=== PATIENT | male | born 1970 | race Caucasian/White ===

== ENCOUNTER 2019-02-03 04:45 | Emergency (ER) | payer OTHER, SELFPAY ==
--- NOTE | 2019-02-03 04:50 | ED_ITS ---
HPI - Abdominal Pain General Chief Complaint: Abdominal Pain Stated Complaint: bad stomach cramps Time Seen by Provider: 02/03/19 04:50 Source: patient Mode of arrival: ambulatory Limitations: no limitations History of Present Illness HPI narrative: Patient is a 48-year-old male here for evaluation of abdominal pain. Patient states that it started a couple hours prior to arrival here in the emergency department. Is having nausea but no vomiting. Has had multiple bowel movements with they were not diarrhea or constipation. No urinary symptoms. No prior abdominal surgeries. Patient states he had similar symptoms several years ago and he came to the emergency department. He states that he was given some sort of medication and then the symptoms resolved. Has not had anything since then. Related Data Previous Rx's Medication Instructions Recorded omeprazole magnesium [Prilosec OTC] 20 mg PO QDAY #30 07/05/16 ondansetron [Zofran ODT] 4 mg SUBLINGUAL Q4HP PRN #15 odt 07/05/16 sucralfate [Carafate] 5 ml PO QID PRN #420 ml 02/03/19 Allergies Allergy/AdvReac Type Severity Reaction Status Date / Time Penicillins [PENICILLINS] Allergy Mild HIVES Verified 02/03/19 05:00 Review of Systems Constitutional Denies fever(s) Cardiovascular Denies chest pain and Denies dyspnea Respiratory Denies dyspnea Gastrointestinal Gastrointestinal: Reports abdominal pain, Denies change in stool character, Reports nausea and Denies vomiting Genitourinary Denies dysuria Musculoskeletal Denies myalgias and Denies arthralgias Integumentary/Breasts Denies rash Allergic/Immunologic Denies urticaria [facility] Medical History Patient denies medical problems (Acute) Social History Smoking Status: Never smoker Social History Smoking Status: Never smoker Exam Initial Vital Signs Initial Vital Signs: Vital Signs Temperature 99.0 F 02/03/19 04:54 Pulse Rate 80 02/03/19 04:54 Respiratory Rate 16 02/03/19 04:54 Blood Pressure 183/119 H 02/03/19 04:54 Pulse Oximetry 99 02/03/19 04:54 Const General: cooperative, well developed, well groomed and No acute distress Orientation: alert and awake [facility] Head: normal to inspection and normocephalic Teeth and gingiva: caries and poor dentition Resp Effort & Inspection: normal respiratory effort Cardio Rate: regular rate GI Inspection: non-distended Palpation: soft, No firm and tender (Generalized tenderness without rebound or guarding) Skin Lesions: no lesions Rashes: no rashes Neuro General: alert and awake Cognition: normal cognition Speech: speech normal Psych Appearance: grossly normal and well kempt Course Orders Ordered: ED Orders 02/03/19 04:59 Complete Blood Count AUTO DIFF Stat Comprehensive Metabolic Panel Stat Lipase Stat Discontinued Medications Al Hydrox/Mg Hydrox/Simethicone 20 ml/ Lidocaine HCl 15 ml 0 ml PO NOW ONE Stop: 02/03/19 04:56 Last Admin: 02/03/19 05:01 Dose: 35 ml Pantoprazole Sodium (Protonix) 40 mg IV NOW ONE Stop: 02/03/19 04:56 Last Admin: 02/03/19 05:01 Dose: 40 mg Vital Signs - 8 hr 02/03/19 04:54 02/03/19 05:00 02/03/19 05:30 Temperature 99.0 F Pulse Rate 80 79 68 Respiratory Rate 16 16 16 Blood Pressure 183/119 H Blood Pressure [Left Arm] 180/111 H 162/108 H Pulse Oximetry 99 97 98 MDM - Abdominal Pain Lab Data Attestation: I reviewed the patient's lab results. Result diagrams: 02/03/19 04:59 02/03/19 04:59 Lab Results 02/03/19 02/03/19 Range/Units 04:59 04:59 WBC 9.1 (4.5-11.0) X10^3/uL RBC 5.13 (4.5-5.9) X10^6/uL Hgb 16.2 (13.5-17.5) g/dL Hct 46.5 (41-53) % MCV 90.8 (80-100) fL MCH 31.7 (26-34) PG MCHC 34.9 (30-36) % RDW 12.7 (11.6-14.8) % Plt Count 195 (150-400) X10^3/uL Neut % (Auto) 54.7 (50-75) % Lymph % (Auto) 34.3 (25-40) % Miller % (Auto) 9.2 (3-14) % Eos % (Auto) 1.1 L (2-4) % Baso % (Auto) 0.7 (0-2) % Neut # (Auto) 5000 (2155-0611) /uL Lymph # (Auto) 3100 (8786-8362) /uL Miller # (Auto) 800 (0-900) /uL Eos # (Auto) 100 (0-450) /uL Baso # (Auto) 100 (0-100) /uL Sodium 140 (137-145) mmol/L Potassium 4.0 (3.4-5.1) mmol/L Chloride 105 (98-107) mmol/L Carbon Dioxide 23 (22-32) mmol/L BUN 10 (9-20) mg/dL Creatinine 0.80 (0.66-1.25) mg/dL Estimated GFR > 60.0 (>60) mL/min BUN/Creatinine Ratio 12.5 (6-22) Glucose 104 H (70-100) mg/dL Calcium 9.8 (8.4-10.2) mg/dL Total Bilirubin 1.2 (0.2-1.3) mg/dL AST 49 (17-59) IU/L ALT 80 H (21-72) IU/L Alkaline Phosphatase 82 (38-126) U/L Total Protein 8.5 H (6.3-8.2) g/dL Albumin 5.0 (3.5-5.0) g/dL Globulin 3.5 (1.7-4.1) g/dL Albumin/Globulin Ratio 1.4 (1.0-2.8) Lipase 49 (23-300) U/L [facility] Narrative Medical decision making narrative: Patient reports some improvement of his symptoms after the GI cocktail on the Protonix. He has a relatively benign abdominal exam. Lipase and LFTs not concerning for pancreatitis or gallbladder disease. Will hold on CT scan for now given his physical exam. Will start on a course of Carafate. Patient was instructed that if his symptoms worsen that he needs to return to the emergency department for evaluation. Patient expressed understanding and agreement with plan. Discharge Plan Departure Patient Disposition: Home Clinical Impression: Abdominal pain Qualifiers: Abdominal location: epigastric Qualified Code(s): R10.13 - Epigastric pain Instructions: DI for Abdominal Pain-Adult Activity Restrictions/Additional Instructions: I do recommend that you start taking the Carafate as directed. Contact your primary care doctor for a follow-up. Return to the emergency department for any new or worsening symptoms Prescriptions: New sucralfate [Carafate] 100 mg/mL suspension 5 ml PO QID PRN (Reason: abdominal pain) Qty: 420 RF: 0 No Action ondansetron [Zofran ODT] 4 MG tablet,disintegrating 4 mg Sublingual Q4HP PRNQty: 15 RF: 0 omeprazole magnesium [Prilosec OTC] 20 MG tablet,delayed release (DR/EC) 20 mg PO QDAY Qty: 30 RF: 0 Referrals: Antoine Alvarez MD [Primary Care Provider] -
[2019-02-03 04:54] VITALS: BP 183/119; PULSE 80; RESP 16; TEMP 37.2; O2SAT 99; BMI 32.5
[2019-02-03 05:00] VITALS: BP 180/111; PULSE 79; RESP 16; O2SAT 97
[2019-02-03] MEDS: PANTOPRAZOLE 40 MG VIAL IV (05:01)
[2019-02-03] MEDS: MAG HYDROX/ALUMINUM/SIMETH SUS 20 ML, LIDOCAINE VISCOUS 2% 15 ML PO (05:01)
[2019-02-03 05:12] LABS: Add Manual Diff / Slide Review NO; Basophils Absolute Auto 100 /uL (0-100); Basophils Percent Auto 0.7 % (0-2); Eosinophils Absolute Auto 100 /uL (0-450); Eosinophils Percent Auto 1.1 % (2-4); Hematocrit 46.5 % (41-53); Hemoglobin 16.2 g/dL (13.5-17.5); Lymphocytes Absolute Auto 3100 /uL (1100-4500); Lymphocytes Percent Auto 34.3 % (25-40); Mean Corpuscular HGB Conc 34.9 % (30-36); Mean Corpuscular Hemoglobin 31.7 PG (26-34); Mean Corpuscular Volume 90.8 fL (80-100); Monocytes Absolute Auto 800 /uL (0-900); Monocytes Percent Auto 9.2 % (3-14); Neutrophils Absolute Auto 5000 /uL (1500-7000); Neutrophils Percent Auto 54.7 % (50-75); Platelet Count 195 X10^3/uL (150-400); Red Blood Cell Count 5.13 X10^6/uL (4.5-5.9); Red Cell Distribution Width 12.7 % (11.6-14.8); White Blood Cell Count 9.1 X10^3/uL (4.5-11.0)
[2019-02-03 05:19] LABS: Alanine Aminotransferase 80 IU/L (21-72); Albumin Globulin Ratio 1.4 (1.0-2.8); Alkaline Phosphatase 82 U/L (38-126); Aspartate Aminotransferase 49 IU/L (17-59); BUN Creatinine Ratio 12.5 (6-22); Bilirubin Total 1.2 mg/dL (0.2-1.3); Blood Urea Nitrogen 10 mg/dL (9-20); Calcium 9.8 mg/dL (8.4-10.2); Carbon Dioxide 23 mmol/L (22-32); Chloride 105 mmol/L (98-107); Estimated Glomerular Filt Rate > 60.0 mL/min (>60); Globulin 3.5 g/dL (1.7-4.1); Glucose 104 mg/dL (70-100); HEMOLYSIS 19 (0-50); Lipase 49 U/L (23-300); Sodium 140 mmol/L (137-145); Total Protein 8.5 g/dL (6.3-8.2)
[2019-02-03 05:30] VITALS: BP 162/108; PULSE 68; RESP 16; O2SAT 98
[2019-02-03 06:01] VITALS: BP 162/108; PULSE 70; RESP 16; TEMP 37; O2SAT 97
== END 2019-02-03 06:02 | disposition home or self-care (01) ==
PROVIDERS: Emergency Provider Emergency Medicine; Family Provider Family Medicine; PCP Family Medicine
DX: R10.13 Epigastric pain (principal)
CPT/HCPCS: 36591; 80053; 83690; 85025; 96374; 99282; 99284; C9113

== ENCOUNTER 2019-02-10 08:23 | Emergency (ER) | payer OTHER, SELFPAY ==
[2019-02-10 08:36] VITALS: BP 189/115; PULSE 108; RESP 17; TEMP 37.9; O2SAT 96; BMI 32.5
--- NOTE | 2019-02-10 08:40 | ED_ITS ---
HPI - Dental/Oral General Chief complaint: Dental/Oral Stated complaint: FACIAL SWELLING Time Seen by Provider: 02/10/19 08:39 Source: patient Mode of arrival: ambulatory Limitations: no limitations History of Present Illness HPI Narrative: 48-year-old male. Poor dentition. Here for evaluation of a left-sided facial swelling. States it is started over the past 1-2 days. Has also had a headache. He is concerned about infection. He called his insurance this morning and found that he did not have dental insurance. He came to the emergency department because he thought that he needed antibiotics. Related Data Previous Rx's Medication Instructions Recorded omeprazole magnesium [Prilosec OTC] 20 mg PO QDAY #30 07/05/16 ondansetron [Zofran ODT] 4 mg SUBLINGUAL Q4HP PRN #15 odt 07/05/16 sucralfate [Carafate] 5 ml PO QID PRN #420 ml 02/03/19 clindamycin HCl 300 mg PO Q6H 7 Days #28 cap 02/10/19 Allergies Allergy/AdvReac Type Severity Reaction Status Date / Time Penicillins [PENICILLINS] Allergy Mild HIVES Verified 02/10/19 08:37 Review of Systems Constitutional Denies fever(s) and Reports headache(s) ENT Ears, Nose, Mouth, and Throat: Reports headache(s) Comments: Left-sided facial swelling with pain in his left upper dental region Respiratory Denies cough Integumentary/Breasts Denies rash Neurologic Denies behavioral changes and Reports headache(s) Psychiatric Denies behavioral changes Hematologic/Lymphatic Denies easy bleeding and Denies easy bruising [facility] Medical History Patient denies medical problems (Acute) Social History Smoking Status: Never smoker Social History Smoking Status: Never smoker Exam Initial Vital Signs Initial Vital Signs: Vital Signs Temperature 100.2 F H 02/10/19 08:36 Pulse Rate 108 H 02/10/19 08:36 Respiratory Rate 17 02/10/19 08:36 Blood Pressure 189/115 H 02/10/19 08:36 Pulse Oximetry 96 02/10/19 08:36 Const General: well developed, well groomed and No acute distress Orientation: alert, awake and oriented x3 HENMT Head: normal to inspection Ears: TM's normal bilaterally Nose: external nose normal Face and sinus: no erythema and other (Swelling left side of face) Mouth: oral mucosae normal Teeth and gingiva: poor dentition and other (Well identified abscess left upper maxilla) Throat: posterior oropharynx normal Eyes General: appearance normal, both eyes and all related structures Resp Effort & Inspection: normal respiratory effort Cardio Rate: tachycardic Skin Lesions: lesions noted Rashes: rash noted Neuro General: alert and awake Cognition: normal cognition Extrem General: normal to inspection and capillary refill normal Psych Appearance: grossly normal and well kempt Procedures Abscess I/D Site: oral Side (if applicable): left Local Anesthetic: lidocaine 1% and bupivacaine 0.5% Amount of anesthesia used (mL): 4 Technique: incised with #11 blade Irrigation: No Packing used?: none Course Vital Signs - 8 hr 02/10/19 08:36 02/10/19 08:59 Temperature 100.2 F H Pulse Rate 108 H 98 H Respiratory Rate 17 16 Blood Pressure 189/115 H Blood Pressure [Left Arm] 174/114 H Pulse Oximetry 96 96 MDM - Dental/Oral MDM Narrative Medical decision making narrative: No respiratory distress. Patient is a well identified left upper maxilla dental abscess. This was incised here in the ER with return of purulent material. Patient was hypertensive and tachycardic. No signs of airway issues. He does have very poor dentition. Will send home with prescription for antibiotics. He was instructed that he should follow up with a dentist. He was given options for low-cost dentist here in the area. He was given return precautions. He expressed understanding and agreement plan. Discharge Plan Departure Patient Disposition: Home Clinical Impression: Dental abscess Instructions: Tooth Abscess Activity Restrictions/Additional Instructions: Start taking the antibiotics as directed. You do need to follow up with a dental provider. The [facility] dental here in the area is a good option. You could also contact the [facility]. Return to the emergency department for any new or worsening symptoms. Take Tylenol and/or ibuprofen for any discomfort. Prescriptions: New clindamycin HCl 300 mg capsule 300 mg PO Q6H 7 Days Qty: 28 RF: 0 No Action ondansetron [Zofran ODT] 4 MG tablet,disintegrating 4 mg Sublingual Q4HP PRNQty: 15 RF: 0 omeprazole magnesium [Prilosec OTC] 20 MG tablet,delayed release (DR/EC) 20 mg PO QDAY Qty: 30 RF: 0 sucralfate [Carafate] 100 mg/mL suspension 5 ml PO QID PRN (Reason: abdominal pain) Qty: 420 RF: 0 Referrals: Antoine Alvarez MD [Primary Care Provider] -
--- NOTE | 2019-02-10 08:41 | PC.NURSE ---
Significant swelling noted to left upper jaw and face. Dental Abscess present. Provider at bedside numbed his mouth performed Incision and drainage. patient tolerated well. Small amount of puss drained and suctioned from patients mouth.
[2019-02-10 08:59] VITALS: BP 174/114; PULSE 98; RESP 16; O2SAT 96
== END 2019-02-10 09:13 | disposition home or self-care (01) ==
PROVIDERS: Emergency Provider Emergency Medicine; Family Provider Family Medicine; PCP Family Medicine
DX: K04.7 Periapical abscess without sinus (principal)
CPT/HCPCS: 40800; 99282; 99283

== ENCOUNTER 2019-06-18 11:03 | Observation (INO) | payer OTHER, SELFPAY ==
[2019-06-18 11:19] VITALS: BP 127/88; PULSE 76; RESP 18; TEMP 36.8; O2SAT 97; BMI 33.2
[2019-06-18 12:00] VITALS: BP 121/89; PULSE 80; RESP 14; O2SAT 97
[2019-06-18] MEDS: PANTOPRAZOLE 40 MG VIAL IV (12:01)
[2019-06-18] MEDS: SODIUM CHLORIDE 0.9% 1,000 ML 500 ML IV (12:01)
[2019-06-18] MEDS: ONDANSETRON 4 MG/2 ML INJ IV (12:02)
[2019-06-18] MEDS: MORPHINE 4 MG/ML INJ IV ×2 (12:02→14:00)
[2019-06-18 12:04] LABS: Add Manual Diff / Slide Review NO; Basophils Absolute Auto 100 /uL (0-100); Basophils Percent Auto 0.6 % (0-2); Eosinophils Absolute Auto 300 /uL (0-450); Hematocrit 46.1 % (41-53); Hemoglobin 15.9 g/dL (13.5-17.5); Lymphocytes Absolute Auto 2000 /uL (1100-4500); Mean Corpuscular HGB Conc 34.4 % (30-36); Mean Corpuscular Hemoglobin 31.5 PG (26-34); Mean Corpuscular Volume 91.7 fL (80-100); Monocytes Absolute Auto 1100 /uL (0-900); Monocytes Percent Auto 9.8 % (3-14); Neutrophils Absolute Auto 7700 /uL (1500-7000); Neutrophils Percent Auto 68.6 % (50-75); Platelet Count 163 X10^3/uL (150-400); Red Blood Cell Count 5.03 X10^6/uL (4.5-5.9); White Blood Cell Count 11.2 X10^3/uL (4.5-11.0)
[2019-06-18 12:13] LABS: Alanine Aminotransferase 94 IU/L (21-72); Albumin Globulin Ratio 1.6 (1.0-2.8); Alkaline Phosphatase 74 U/L (38-126); Aspartate Aminotransferase 61 IU/L (17-59); BUN Creatinine Ratio 21.3 (6-22); Bilirubin Total 1.5 mg/dL (0.2-1.3); Blood Urea Nitrogen 17 mg/dL (9-20); Calcium 9.7 mg/dL (8.4-10.2); Carbon Dioxide 20 mmol/L (22-32); Chloride 107 mmol/L (98-107); Estimated Glomerular Filt Rate > 60.0 mL/min (>60); Globulin 3.2 g/dL (1.7-4.1); Glucose 138 mg/dL (70-100); HEMOLYSIS < 15 (0-50); Lipase 72 U/L (23-300); Potassium 4.4 mmol/L (3.4-5.1); Sodium 140 mmol/L (137-145); Total Protein 8.2 g/dL (6.3-8.2)
--- NOTE | 2019-06-18 12:26 | DI.CT.S_ITS ---
PROCEDURE: CT ABDOMEN PELVIS W CON INDICATIONS: diffused upper abdomen pain with GI bleed TECHNIQUE: After the administration of intravenous contrast, 5 mm thick sections acquired from the diaphragm to the symphysis. 5 mm coronal and sagittal reformats were acquired. For radiation dose reduction, the following was used: automated exposure control, adjustment of mA and/or kV according to patient size. COMPARISON: [facility], , ABDOMEN COMPLETE, 10/19/2015, 11:52. FINDINGS: Image quality: Excellent. ABDOMEN: Lung bases: Partially visualized 5 mm left lower lobe nodule is present. Solid organs: Liver is enlarged with steatosis. Gallbladder distended and unremarkable. Biliary system is non dilated. Pancreas enhances normally. Spleen is normal in size and enhancement. No adrenal nodules. Kidneys demonstrate normal size and enhancement, without hydronephrosis. Peritoneum and bowel: Bowel loops demonstrate mild fluid-filled prominence of both small and large bowel.. No free fluid or air. Nodes and vessels: No retroperitoneal or mesenteric adenopathy by size criteria. Aorta and inferior vena cava are normal in size. Miscellaneous: No ventral hernias. PELVIS: Genitourinary: Bladder wall thickness is normal. Miscellaneous: No inguinal hernias or adenopathy. Bones: No suspicious bony lesions. No vertebral body compression fractures. IMPRESSION: 1. Mildly prominent fluid-filled loops of bowel as above suggestive of ileus. 2. No areas of active contrast extravasation denoting site of active hemorrhage. 3. Nonspecific incompletely visualized left lower lobe nodule. No priors are available for comparison. Recommend interval followup as below. Fleischner Society criteria for SOLID lung nodule followup. Nodule size (mm)Low-risk patientHigh-risk patient<6 (single or multiple)No routine followup.Optional CT at 12 months. 6-8 (single or multiple)CT at 6-12 months, then optional CT at 18-24 mo.CT at 6-12 [address], then CT at 18-24 months. >8 (single)CT, PET-CT, or biopsy at 3 months. Same as for low-risk pts. >8 (multiple)CT at 3-6 months, then optional CT at 18-24 mo.CT at 3-6 months, then CT at 18-24 months. Recommendations do not apply to lung cancer screening, patients with immunosuppression, or patients with known primary cancer. Dictated by: Delphine Patel M.D. on 06/18/2019 at 13:31 Approved by: Delphine Patel M.D. on 06/18/2019 at 13:34
--- NOTE | 2019-06-18 12:50 | ED_ITS ---
HPI - Abdominal Pain <MALATHI AcuñaP - Last Filed: 06/18/19 22:36> General Chief Complaint: Abdominal Pain Stated Complaint: Severe stomach pain/ blood in stool Time Seen by Provider: 06/18/19 11:25 Source: patient Mode of arrival: Ambulatory Limitations: no limitations History of Present Illness HPI narrative: This is a 48-year-old male, nonsmoker, who presents to ED with mid generalized abdominal cramping pain with diarrhea x6 with dark red blood. Patient denies fever, nausea or vomiting, exposure to illness/who has similar symptoms, eating bad foods, or recent international travel. Patient reports several episodes of chills. Patient reports he has had stomach issues for last several months. He had colonoscope be done in this year with normal findings. He was once evaluate aided in ED in January in 2018 and was discharged to home with Carafate. Patient had taken 1 dose of Carafate this morning but pain was not relieved. Related Data Home Medications Medication Instructions Recorded Confirmed lisinopril 20 mg PO DAILY 06/18/19 06/18/19 Previous Rx's Medication Instructions Recorded vancomycin 125 mg PO QID #32 cap 06/20/19 Allergies Allergy/AdvReac Type Severity Reaction Status Date / Time Penicillins [PENICILLINS] Allergy Mild HIVES Verified 06/18/19 11:19 Review of Systems <MANDO Acuña - Last Filed: 06/18/19 22:36> Review of Systems Narrative: General: Reports chills. Denies fever, fatigue, malaise, sweats. HEENT: Denies sinus pain, ear pain, sore throat, difficulty swallowing, dizziness. Respiratory: Denies dyspnea, cough, wheezing, hemoptysis, sputum. Cardiovascular: Denies chest pain, palpitations, orthopnea, edema. Gastrointestinal: See HPI : Denies dysuria, frequency, incontinence, hematuria, urinary retention. Musculoskeletal: Denies weakness, joint pain or bony pain. Skin: Denies rash, skin lesions, or other. Neurologic: Reports mild lightheadedness. Denies weakness, headache, numbness, change in speech, confusion, seizures, incoordination. Psychiatric: No concerning psychosocial issues. 12-point review of systems is negative except for those stated above. Patient History <MANDO Acuña - Last Filed: 06/18/19 22:36> Medical History HTN (hypertension) (Acute) Patient denies medical problems (Acute) Surgical History History of neck surgery (Acute) Social History household members: family Smoking Status: Former smoker alcohol intake: never alcohol intake frequency: 0-2 drinks per day Substance Use Type: does not use Exam <MALATHI AcuñaP - Last Filed: 06/18/19 22:36> Narrative Exam Narrative: GEN: Alert, oriented x 3, well appearing and nourished, and in no acute distress. Head: Normal cephalic, atraumatic. No scalp or temporal tenderness, palpable mass or rash. EYES: Pupils are equal, round, and reactive to light and accommodation. Extraocular muscles are intact bilaterally. There is no subconjunctival hemorrhage, exudate and sclera non-icteric. ENT: Bilateral auditory canals and tympanic membranes clear. Hearing grossly intact. Nose without bleeding, purulent discharge or deviation. Facial sinuses nontender to palpate. Mucous membrane moist, no mucosal lesion. Throat without erythema, tonsillar hypertrophy or exudate. Uvula in midline, airway patent. Neck: Trachea in midline. No JVD, non-tender without lymphadenopathy. No masses or thyroid megaly. Supple, non-tender and no meningeal signs. CARDIAC: Normal regular rate and rhythm without murmurs, gallops, or rubs. No chest wall tenderness. No peripheral edema, cyanosis or pallor. Capillary refill is less than 2 seconds. RESPIRATORY: Lungs are clear to auscultate bilaterally. No cough, wheezes, rales, or rhonchi. No stridor, respiratory distress, increase work of breathing, or accessary muscle used. ABD: Mild discomfort in bilateral upper abdomen and left lower quadrant with palpation. Abdomen soft, and mildly distended. No guarding or rebound tenderness to palpate. Bowel sounds are normal in all 4 quadrants. There is no palpable masses or organomegaly. EXT: Full painless ROM of all extremities with no loss of sensation, strength, effusion or edema. SKIN: Warm, dry, normal color for patient. No erythema, lesions or rash over visible areas. BACK: Nontender without deformity or crepitance. No flank tenderness. NEUROLOGICAL: Alert and oriented to place, time and person. Sensation and motor function intact bilaterally. No facial droops, dysphasia. PSYCHIATRIC: Good judgement and reason, without hallucinations, abnormal affect or abnormal behaviors during the examination. Initial Vital Signs Initial Vital Signs: Vital Signs Temperature 98.2 F 06/18/19 11:19 Pulse Rate 76 06/18/19 11:19 Respiratory Rate 18 06/18/19 11:19 Blood Pressure 127/88 06/18/19 11:19 Pulse Oximetry 97 06/18/19 11:19 <Yeison Weston DO - Last Filed: 06/21/19 18:20> Initial Vital Signs Initial Vital Signs: Vital Signs Temperature 98.2 F 06/18/19 11:19 Pulse Rate 76 06/18/19 11:19 Respiratory Rate 18 06/18/19 11:19 Blood Pressure 127/88 06/18/19 11:19 Pulse Oximetry 97 06/18/19 11:19 Course <MANDO Acuña - Last Filed: 06/18/19 22:36> Course Decision to Admit Date: 06/18/19 Decision to Admit time: 14:10 Orders Ordered: Discontinued Medications Bisacodyl (Dulcolax) 5 mg PO NOW ONE Stop: 06/18/19 17:22 Last Admin: 06/18/19 18:03 Dose: 5 mg Documented by: RICK Fentanyl (Sublimaze) 100 mcg IV NOW ONE Stop: 06/19/19 20:14 Last Admin: 06/19/19 19:56 Dose: 100 mcg Documented by: ERMELINDA Sodium Chloride (Normal Saline 0.9%) 1,000 mls @ 500 mls/hr IV BOLUS ONE Stop: 06/18/19 13:38 Last Infusion: 06/18/19 14:00 Dose: 0 mls/hr Documented by: Admin: 06/18/19 12:01 Dose: 500 mls/hr Documented by: YODIT Sodium Chloride (Normal Saline 0.9%) 1,000 mls @ 200 mls/hr IV CONT IDA Last Admin: 06/19/19 15:02 Dose: 200 mls/hr Documented by: Infusion: 06/19/19 14:24 Dose: 200 mls/hr Documented by: Admin: 06/19/19 09:24 Dose: 200 mls/hr Documented by: Infusion: 06/19/19 09:24 Dose: 200 mls/hr Documented by: Admin: 06/19/19 04:47 Dose: 200 mls/hr Documented by: Infusion: 06/19/19 04:47 Dose: 200 mls/hr Documented by: Infusion: 06/18/19 23:34 Dose: 200 mls/hr Documented by: Infusion: 06/18/19 18:35 Dose: 0 mls/hr Documented by: Admin: 06/18/19 18:03 Dose: 200 mls/hr Documented by: RICK Dextrose/Sodium Chloride (Dextrose 5%-0.45% Ns) 1,000 mls @ 100 mls/hr IV CONT IDA Last Infusion: 06/18/19 23:25 Dose: 0 mls/hr Documented by: Admin: 06/18/19 18:24 Dose: 100 mls/hr Documented by: RICK Lisinopril (Zestril) 20 mg PO DAILY [facility] Last Admin: 06/20/19 08:22 Dose: 20 mg Documented by: EDUARDO Midazolam HCl (Versed) 4 mg IV NOW ONE Stop: 06/19/19 20:16 Last Admin: 06/19/19 19:56 Dose: 4 mg Documented by: ERMELINDA Morphine Sulfate (Morphine) 4 mg IV NOW ONE Stop: 06/18/19 11:57 Last Admin: 06/18/19 12:02 Dose: 4 mg Documented by: YODIT Morphine Sulfate (Morphine) 4 mg IV NOW ONE Stop: 06/18/19 13:53 Last Admin: 06/18/19 14:00 Dose: 4 mg Documented by: YODIT Morphine Sulfate (Morphine) 2 mg IV Q4HR PRN PRN Reason: Pain, Moderate (4-6) Ondansetron HCl (Zofran) 4 mg IV NOW ONE Stop: 06/18/19 11:57 Last Admin: 06/18/19 12:02 Dose: 4 mg Documented by: YODIT Ondansetron HCl (Zofran) 4 mg IV Q8HR PRN PRN Reason: Nausea And Vomiting Pantoprazole Sodium (Protonix) 40 mg IV NOW ONE Stop: 06/18/19 11:40 Last Admin: 06/18/19 12:01 Dose: 40 mg Documented by: YODIT Pantoprazole Sodium (Protonix) 80 mg IV NOW ONE Stop: 06/18/19 18:57 Last Admin: 06/18/19 19:13 Dose: 80 mg Documented by: RICK Pantoprazole Sodium (Protonix) 40 mg IV BID [facility] Last Admin: 06/19/19 09:18 Dose: 40 mg Documented by: ERLINDA Polyethylene Glycol/Electrolytes (Golytely Solution) 4,000 ml PO NOW ONE Stop: 06/18/19 17:22 Last Admin: 06/18/19 19:12 Dose: 4,000 ml Documented by: RICK Sodium Chloride (Normal Saline 0.9% Flush) 10 ml IV PRN PRN PRN Reason: Flush Sodium Chloride (Normal Saline 0.9% Flush) 10 ml IV BID [facility] Last Admin: 06/20/19 08:23 Dose: 10 ml Documented by: EDUARDO Vancomycin HCl (Vancomycin) 125 mg PO QID [facility] Last Admin: 06/20/19 12:17 Dose: 125 mg Documented by: Admin: 06/20/19 08:23 Dose: 125 mg Documented by: Admin: 06/19/19 21:12 Dose: 125 mg Documented by: Admin: 06/19/19 18:26 Dose: 125 mg Documented by: Admin: 06/19/19 13:36 Dose: 125 mg Documented by: Admin: 06/19/19 09:18 Dose: 125 mg Documented by: Admin: 06/19/19 00:48 Dose: 125 mg Documented by: LOC Reevaluation(s) Reevaluation #1: increasing abd pain, Morphine 4mg IV Time: 12:00 Reevaluation #2: pain improved, plan of CT of abdomen Time: 12:40 Reevaluation #3: recurring abd pain, repeat morphine 4mg IV, Guaiac + Time: 13:55 Consultations Consultation #1: Dr. Marquis at surgical service Time: 14:10 Consultation #2: Dr. Lyon[facility] Time: 14:15 Vital Signs Vital signs: Vital Signs - 8 hr 06/18/19 15:00 Pulse Rate 71 Respiratory Rate 14 Blood Pressure [Left Arm] 131/80 <Yeison Weston, - Last Filed: 06/21/19 18:20> Orders Ordered: Discontinued Medications Bisacodyl (Dulcolax) 5 mg PO NOW ONE Stop: 06/18/19 17:22 Last Admin: 06/18/19 18:03 Dose: 5 mg Documented by: RICK Fentanyl (Sublimaze) 100 mcg IV NOW ONE Stop: 06/19/19 20:14 Last Admin: 06/19/19 19:56 Dose: 100 mcg Documented by: ERMELINDA Sodium Chloride (Normal Saline 0.9%) 1,000 mls @ 500 mls/hr IV BOLUS ONE Stop: 06/18/19 13:38 Last Infusion: 06/18/19 14:00 Dose: 0 mls/hr Documented by: Admin: 06/18/19 12:01 Dose: 500 mls/hr Documented by: YODIT Sodium Chloride (Normal Saline 0.9%) 1,000 mls @ 200 mls/hr IV CONT IDA Last Admin: 06/19/19 15:02 Dose: 200 mls/hr Documented by: Infusion: 06/19/19 14:24 Dose: 200 mls/hr Documented by: Admin: 06/19/19 09:24 Dose: 200 mls/hr Documented by: Infusion: 06/19/19 09:24 Dose: 200 mls/hr Documented by: [email or web address] Admin: 06/19/19 04:47 Dose: 200 mls/hr Documented by: Infusion: 06/19/19 04:47 Dose: 200 mls/hr Documented by: Infusion: 06/18/19 23:34 Dose: 200 mls/hr Documented by: Infusion: 06/18/19 18:35 Dose: 0 mls/hr Documented by: Admin: 06/18/19 18:03 Dose: 200 mls/hr Documented by: RICK Dextrose/Sodium Chloride (Dextrose 5%-0.45% Ns) 1,000 mls @ 100 mls/hr IV CONT IDA Last Infusion: 06/18/19 23:25 Dose: 0 mls/hr Documented by: Admin: 06/18/19 18:24 Dose: 100 mls/hr Documented by: RICK Lisinopril (Zestril) 20 mg PO DAILY [facility] Last Admin: 06/20/19 08:22 Dose: 20 mg Documented by: EDUARDO Midazolam HCl (Versed) 4 mg IV NOW ONE Stop: 06/19/19 20:16 Last Admin: 06/19/19 19:56 Dose: 4 mg Documented by: ERMELINDA Morphine Sulfate (Morphine) 4 mg IV NOW ONE Stop: 06/18/19 11:57 Last Admin: 06/18/19 12:02 Dose: 4 mg Documented by: YODIT Morphine Sulfate (Morphine) 4 mg IV NOW ONE Stop: 06/18/19 13:53 Last Admin: 06/18/19 14:00 Dose: 4 mg Documented by: YODIT Morphine Sulfate (Morphine) 2 mg IV Q4HR PRN PRN Reason: Pain, Moderate (4-6) Ondansetron HCl (Zofran) 4 mg IV NOW ONE Stop: 06/18/19 11:57 Last Admin: 06/18/19 12:02 Dose: 4 mg Documented by: YODIT Ondansetron HCl (Zofran) 4 mg IV Q8HR PRN PRN Reason: Nausea And Vomiting Pantoprazole Sodium (Protonix) 40 mg IV NOW ONE Stop: 06/18/19 11:40 Last Admin: 06/18/19 12:01 Dose: 40 mg Documented by: YODIT Pantoprazole Sodium (Protonix) 80 mg IV NOW ONE Stop: 06/18/19 18:57 Last Admin: 06/18/19 19:13 Dose: 80 mg Documented by: RICK Pantoprazole Sodium (Protonix) 40 mg IV BID [facility] Last Admin: 06/19/19 09:18 Dose: 40 mg Documented by: UECarmen Polyethylene Glycol/Electrolytes (Golytely Solution) 4,000 ml PO NOW ONE Stop: 06/18/19 17:22 Last Admin: 06/18/19 19:12 Dose: 4,000 ml Documented by: RICK Sodium Chloride (Normal Saline 0.9% Flush) 10 ml IV PRN PRN PRN Reason: Flush Sodium Chloride (Normal Saline 0.9% Flush) 10 ml IV BID [facility] Last Admin: 06/20/19 08:23 Dose: 10 ml Documented by: EDUARDO Vancomycin HCl (Vancomycin) 125 mg PO QID [facility] Last Admin: 06/20/19 12:17 Dose: 125 mg Documented by: Admin: 06/20/19 08:23 Dose: 125 mg Documented by: Admin: 06/19/19 21:12 Dose: 125 mg Documented by: Admin: 06/19/19 18:26 Dose: 125 mg Documented by: Admin: 06/19/19 13:36 Dose: 125 mg Documented by: UECarmen Admin: 06/19/19 09:18 Dose: 125 mg Documented by: UECarmen Admin: 06/19/19 00:48 Dose: 125 mg Documented by: LOC Vital Signs Vital signs: Vital Signs - 8 hr 06/18/19 15:00 Pulse Rate 71 Respiratory Rate 14 Blood Pressure [Left Arm] 131/80 MDM - Abdominal Pain <MANDO Acuña - Last Filed: 06/18/19 22:36> Differential Diagnosis Differential diagnosis: Likely abdominal pain, diverticulitis, gastroenteritis, pancreatitis, small bowel obstruction and other (gallstones) Medical Records Attestation: I reviewed the patient's medical records. Lab Data Attestation: I reviewed the patient's lab results. Result diagrams: 06/20/19 06:50 06/20/19 06:50 Labs: Lab Results 06/18/19 06/18/19 06/18/19 Range/Units 11:53 11:53 11:53 WBC 11.2 H (4.5-11.0) X10^3/uL RBC 5.03 (4.5-5.9) X10^6/uL Hgb 15.9 (13.5-17.5) g/dL Hct 46.1 (41-53) % MCV 91.7 (80-100) fL MCH 31.5 (26-34) PG MCHC 34.4 (30-36) % RDW 13.0 (11.6-14.8) % Plt Count 163 (150-400) X10^3/uL Neut % (Auto) 68.6 (50-75) % Lymph % (Auto) 18.0 L (25-40) % Dyer % (Auto) 9.8 (3-14) % Eos % (Auto) 3.0 (2-4) % Baso % (Auto) 0.6 (0-2) % Neut # (Auto) 7700 H (3293-7591) /uL Lymph # (Auto) 2000 (3905-1771) /uL Dyer # (Auto) 1100 H (0-900) /uL Eos # (Auto) 300 (0-450) /uL Baso # (Auto) 100 (0-100) /uL Sodium 140 (137-145) mmol/L Potassium 4.4 (3.4-5.1) mmol/L Chloride 107 (98-107) mmol/L Carbon Dioxide 20 L (22-32) mmol/L BUN 17 (9-20) mg/dL Creatinine 0.80 (0.66-1.25) mg/dL Estimated GFR > 60.0 (>60) mL/min BUN/Creatinine Ratio 21.3 (6-22) Glucose 138 H (70-100) mg/dL Calcium 9.7 (8.4-10.2) mg/dL Total Bilirubin 1.5 H (0.2-1.3) mg/dL AST 61 H (17-59) IU/L ALT 94 H (21-72) IU/L Alkaline Phosphatase 74 (38-126) U/L Total Protein 8.2 (6.3-8.2) g/dL Albumin 5.0 (3.5-5.0) g/dL Globulin 3.2 (1.7-4.1) g/dL Albumin/Globulin Ratio 1.6 (1.0-2.8) Lipase 72 (23-300) U/L Blood Type O Positive Antibody Screen Negative Point of care testing: Urine Dip Bedside Urine Glucose Negative Bedside Urine Bilirubin - Negative Bedside Urine Ketone - Negative Urine Specific [place] 1.010 Bedside Urine Occult Blood - Negative Bedside Urine pH 5.0 Bedside Urine Protein +/- 15 Bedside Urine Urobilinogen +/- 1mg Bedside Urine Nitrite - Negative Bedside Urine Leukocytes - Negative Esterase Imaging Data CT scan - abdomen: Radiologist's impression: [address] [address] [address] Scan Report Signed Patient: Marbin Echeverria LMR#: [id number] : 1970Acct:[id number] Age/Sex: 48 / MDate of Service: 06/18/19 Loc: ED Accession Number: [id number] Procedure: CT abdomen pelvis w con Ordering Provider: To Lees PROCEDURE: CT ABDOMEN PELVIS W CON INDICATIONS: diffused upper abdomen pain with GI bleed TECHNIQUE: After the administration of intravenous contrast, 5 mm thick sections acquired from the diaphragm to the symphysis. 5 mm coronal and sagittal reformats were acquired. For radiation dose reduction, the following was used: automated exposure control, adjustment of mA and/or kV according to patient size. COMPARISON: [facility], , ABDOMEN COMPLETE, 10/19/2015, 11:52. FINDINGS: Image quality: Excellent. ABDOMEN: Lung bases: Partially visualized 5 mm left lower lobe nodule is present. Solid organs: Liver is enlarged with steatosis. Gallbladder distended and unremarkable. Biliary system is non dilated. Pancreas enhances normally. Spleen is normal in size and enhancement. No adrenal nodules. Kidneys demonstrate normal size and enhancement, without hydronephrosis. Peritoneum and bowel: Bowel loops demonstrate mild fluid-filled prominence of both small and large bowel.. No free fluid or air. Nodes and vessels: No retroperitoneal or mesenteric adenopathy by size criteria. Aorta and inferior vena cava are normal in size. Miscellaneous: No ventral hernias. PELVIS: Genitourinary: Bladder wall thickness is normal. Miscellaneous: No inguinal hernias or adenopathy. Bones: No suspicious bony lesions. No vertebral body compression fractures. IMPRESSION: 1. Mildly prominent fluid-filled loops of bowel as above suggestive of ileus. 2. No areas of active contrast extravasation denoting site of active hemorrhage. 3. Nonspecific incompletely visualized left lower lobe nodule. No priors are miranda ilable for comparison. Recommend interval followup as below. Fleischner Society criteria for SOLID lung nodule followup. Nodule size (mm)Low-risk patientHigh-risk patient<6 (single or multiple)No routine followup.Optional CT at 12 months. 6-8 (single or multiple)CT at 6-12 months, then optional CT at 18-24 mo.CT at 6-12 months, then CT at 18-24 months. >8 (single)CT, PET-CT, or biopsy at 3 months. Same as for low-risk pts. >8 (multiple)CT at 3-6 months, then optional CT at 18-24 mo.CT at 3-6 months, then CT at 18-24 months. Recommendations do not apply to lung cancer screening, patients with immunosuppression, or patients with known primary cancer. Dictated by: Delphine Patel M.D. on 06/18/2019 at 13:31 Approved by: Delphine Patel M.D. on 06/18/2019 at 13:34 [facility] Narrative Medical decision making narrative: This is 48-year-old male who presents to ED with mid abdominal pain and left lower quadrant cramping pain with 6 episodes of bloody diarrhea which started this morning. Patient does not have fever, nausea or vomiting or exposure to illness, bad food or international travel. Patient reports some chills, lightheadedness. Patient states had colonoscopy done this September or October with normal findings. Patient does not have history of previous abdominal surgeries medication use but has been dealing with some abdominal pain issues in the past. H&H is stable with very mildly elevated leukocytosis. Patient had mildly elevated AST and ALT with total bilirubin. Lipase was normal. Type and screen was obtained. Patient has history of non fatty liver. CT of abdomen pelvis was obtained and showed mildly prominent fluid-filled loops of large and small bowels as suggestive of ileus but no areas of active contrast extravasation denoting side of active hemorrhage. Guaiac test was positive. Patient did not have any loose or diarrhea stools while in ED to obtain stool samples. Incidental finding of nonspecific incompletely visualized left lower lobe nodule. Patient was medicated with 1 L of normal saline and 2 doses of morphine 4 mg IV for pain management with prophylactic Zofran 4 mg. Patient's vital signs has been stable. Patient remained in and p.o. Patient's case was discussed with Dr. Marquez and he is planning to conduct exploratory colonoscopy tomorrow. Dr. Lyon was consulted and he kindly accepted the patient's care for GI bleed. <Yeison Weston, DO - Last Filed: 06/21/19 18:20> Lab Data Labs: Lab Results 06/18/19 06/18/19 06/18/19 Range/Units 11:53 11:53 11:53 WBC 11.2 H (4.5-11.0) X10^3/uL RBC 5.03 (4.5-5.9) X10^6/uL Hgb 15.9 (13.5-17.5) g/dL Hct 46.1 (41-53) % MCV 91.7 (80-100) fL MCH 31.5 (26-34) PG MCHC 34.4 (30-36) % RDW 13.0 (11.6-14.8) % Plt Count 163 (150-400) X10^3/uL Neut % (Auto) 68.6 (50-75) % Lymph % (Auto) 18.0 L (25-40) % Dyer % (Auto) 9.8 (3-14) % Eos % (Auto) 3.0 (2-4) % Baso % (Auto) 0.6 (0-2) % Neut # (Auto) 7700 H (0079-3337) /uL Lymph # (Auto) 2000 (0165-7751) /uL Dyer # (Auto) 1100 H (0-900) /uL Eos # (Auto) 300 (0-450) /uL Baso # (Auto) 100 (0-100) /uL Sodium 140 (137-145) mmol/L Potassium 4.4 (3.4-5.1) mmol/L Chloride 107 (98-107) mmol/L Carbon Dioxide 20 L (22-32) mmol/L BUN 17 (9-20) mg/dL Creatinine 0.80 (0.66-1.25) mg/dL Estimated GFR > 60.0 (>60) mL/min BUN/Creatinine Ratio 21.3 (6-22) Glucose 138 H (70-100) mg/dL Calcium 9.7 (8.4-10.2) mg/dL Total Bilirubin 1.5 H (0.2-1.3) mg/dL AST 61 H (17-59) IU/L ALT 94 H (21-72) IU/L Alkaline Phosphatase 74 (38-126) U/L Total Protein 8.2 (6.3-8.2) g/dL Albumin 5.0 (3.5-5.0) g/dL Globulin 3.2 (1.7-4.1) g/dL Albumin/Globulin Ratio 1.6 (1.0-2.8) Lipase 72 (23-300) U/L Blood Type O Positive Antibody Screen Negative Point of care testing: Urine Dip Bedside Urine Glucose Negative Bedside Urine Bilirubin - Negative Bedside Urine Ketone - Negative Urine Specific [place] 1.010 Bedside Urine Occult Blood - Negative Bedside Urine pH 5.0 Bedside Urine Protein +/- 15 Bedside Urine Urobilinogen +/- 1mg Bedside Urine Nitrite - Negative Bedside Urine Leukocytes - Negative Esterase Discharge Plan Departure Patient Disposition: Admitted As Inpatient Clinical Impression: Ileus GI bleed Qualifiers: GI bleed type/associated pathology: unspecified gastrointestinal hemorrhage type Qualified Code(s): K92.2 - Gastrointestinal hemorrhage, unspecified Abdominal pain Qualifiers: Abdominal location: unspecified location Qualified Code(s): R10.9 - Unspecified abdominal pain Discharge Date/Time: 06/18/19 16:57 Instructions: Vancomycin, DI for Clostridium difficile Infection Referrals: Antoine Alvarez MD [Primary Care Provider] - 1 Week Admit Date/Time: 06/18/19 15:20 Admit Provider: Sumeet Lyon
[2019-06-18 13:00] VITALS: BP 150/67; PULSE 78; RESP 18; O2SAT 98
[2019-06-18 15:00] VITALS: BP 131/80; PULSE 71; RESP 14
[2019-06-18 16:17] VITALS: BP 128/84; PULSE 81; RESP 18; TEMP 36.9; O2SAT 97
[2019-06-18 16:32] VITALS: BMI 33.2
[2019-06-18] MEDS: BISACODYL 5 MG TABLET PO (18:03)
[2019-06-18] MEDS: SODIUM CHLORIDE 0.9% 1,000 ML 200 ML IV (18:03)
--- NOTE | 2019-06-18 18:04 | P.HP_ITS ---
History of Present Illness History of Present Illness Date Patient Seen: 06/18/19 Time Patient Seen: 18:05 Chief complaint: Severe stomach pain/ blood in stool started today Narrative: Mr. Echeverria is 48-year-old male with past medical history of hypertension who presented with 1 day of crampy type epigastric and diffuse abdominal pain that started this morning with associated bloody diarrhea. A few months ago he presented with similar crampy epigastric pain and was given Carafate and discharged home. He was feeling well until this morning when the pain and diarrhea started. The pain is moderate to severe in intensity, located in the epigastric region but he also states he has a more generalized abdominal pain as well that feels like cramping. It does not radiate, he did not attempt to take anything at home. He has associated nausea but no vomiting or hematemesis. He denies recent fevers, chills, chest pain, dyspnea on exertion, diaphoresis, lower extremity swelling, rashes. He reports that a prior colonoscopy that was unremarkable. He does not have any family history of colon cancer that he is aware. In the ED, the patient's vital signs were unremarkable, hemoglobin was 15.9 without any other abnormalities, BUN was 17, and creatinine was normal. He has mild AST and ALT elevations and a mildly elevated bilirubin at 1.5. He had a CT of his abdomen and pelvis which showed fluid-filled loops of bowel including large and small intestine consistent with possible ileus. Patient History Medical History (Updated 06/18/19 @ 18:18 by Sumeet Lyon DO) HTN (hypertension) (Acute) Patient denies medical problems (Acute) Surgical History (Updated 06/18/19 @ 18:19 by Sumeet Lyon DO) History of neck surgery (Acute) Family & Social History Social History: household members family Prior Living Arrangements House Safety & Behavioral: Feels Safe in Current Yes Environment Been Physically Hurt or No Threatened By a Person Suicidal Ideation Description None Suicide Plan Description No Plan Tobacco & Substance use: Smoking Status Former smoker alcohol intake never alcohol intake frequency 0-2 drinks per day Substance Use Type does not use Meds Home Medications and Allergies Home Medications Medication Instructions Recorded Confirmed Type sucralfate [Carafate] 5 ml PO QID PRN #420 ml 02/03/19 06/18/19 Rx lisinopril 20 mg PO DAILY 06/18/19 06/18/19 History Allergies Allergy/AdvReac Type Severity Reaction Status Date / Time Penicillins [PENICILLINS] Allergy Mild HIVES Verified 06/18/19 11:19 Review of Systems Review of Systems Narrative: All other systems reviewed with the patient and are negative unless otherwise stated. Exam Vital Signs (past 8 hours): - 06/18/19 11:19 06/18/19 12:00 06/18/19 13:00 Temperature 98.2 F Pulse Rate 76 80 78 Respiratory Rate 18 14 18 Blood Pressure 127/88 Blood Pressure [Left Arm] 121/89 150/67 H Pulse Oximetry 97 97 98 06/18/19 15:00 06/18/19 16:17 Temperature 98.5 F Pulse Rate 71 81 Respiratory Rate 14 18 Blood Pressure 128/84 Blood Pressure [Left Arm] 131/80 Pulse Oximetry 97 Oxygen Delivery Method Room Air Narrative Exam Narrative: GENERAL APPEARANCE: Well developed, well nourished, in no acute distress. SKIN: Inspection of the skin reveals no rashes, ulcerations or petechiae. HEENT: The sclerae were anicteric and conjunctivae were pink and moist. Extraocular movements were intact and pupils were equal, round with normal accommodation. External inspection of the ears and nose showed no scars, lesions, or masses. Lips, teeth, and gums showed normal mucosa. The oral mucosa, hard and soft palate, tongue and posterior pharynx were unremarkable. NECK: Supple and symmetric. There was no thyroid enlargement, and no tenderness, or masses were felt. CHEST: Normal AP diameter and normal contour without any kyphoscoliosis. LUNGS: Auscultation of the lungs revealed no wheezes, rhonchi, or rales. CARDIOVASCULAR: There was a regular rate and rhythm without any murmurs, ga llops, rubs. Peripheral pulses were 2+ and symmetric. ABDOMEN: Soft but mildly distended with minimal diffuse tenderness, more prominent in epigastrium and bilateral lower quadrants. MUSCULOSKELETAL: There was no tenderness or effusions noted. Muscle strength and tone were normal. EXTREMITIES: No cyanosis, clubbing or edema. NEUROLOGIC: Alert and oriented x 3. Normal affect. Strength is +5/5 in the Upper Extremities and Lower Extremities Bilaterally. Sensation to touch was normal. Objective Labs Result Diagrams: 06/18/19 11:53 06/18/19 11:53 Labs: Laboratory Results - last 24 hr 06/18/19 06/18/19 06/18/19 11:53 11:53 11:53 WBC 11.2 H RBC 5.03 Hgb 15.9 Hct 46.1 MCV 91.7 MCH 31.5 MCHC 34.4 RDW 13.0 Plt Count 163 Neut % (Auto) 68.6 Lymph % (Auto) 18.0 L [place] % (Auto) 9.8 Eos % (Auto) 3.0 Baso % (Auto) 0.6 Neut # (Auto) 7700 H Lymph # (Auto) 2000 [place] # (Auto) 1100 H Eos # (Auto) 300 Baso # (Auto) 100 Sodium 140 Potassium 4.4 Chloride 107 Carbon Dioxide 20 L BUN 17 Creatinine 0.80 Estimated GFR > 60.0 BUN/Creatinine Ratio 21.3 Glucose 138 H Calcium 9.7 Total Bilirubin 1.5 H AST 61 H ALT 94 H Alkaline Phosphatase 74 Total Protein 8.2 Albumin 5.0 Globulin 3.2 Albumin/Globulin Ratio 1.6 Lipase 72 Blood Type O Positive Antibody Screen Negative Assessment & Plan Assessment & Plan narrative: Mr. Echeverria is 48-year-old male with past medical history of hypertension who presented with 1 day of crampy type epigastric and diffuse abdominal pain that started this morning with associated bloody diarrhea. His CT scan showed an ileus and he was admitted to Medicine, per the emergency room surgery plans for a lower endoscopy tomorrow. 1. GI bleed, acute, present on admission -likely lower based on CT findings suggesting an ileus. There does not appear to be any bowel wall thickening on the CT scan. -do not suspect upper bleed at this time given presentation of acute bloody diarrhea. - NPO/ IVF - Bowel prep ordered by Dr. Marquez - Endoscopy tomorrow - repeat CBC tonight and tomorrow AM - telemetry - maintain active type and screen. 2. Hypertension - -will hold patient's lisinopril at this time given GI bleeding. 3. Elevated LFTs- likely secondary to MACIAS per chart review. Patient does not report significant alcoholic intake. - will continue to trend LFTs while inpatient Code: Full Dispo: Admit as inpatient as his stay is expected exceed 2 midnights. Quality VTE Deep Vein Thrombosis/Pulmonary Embolism Present on Admission: No
[2019-06-18] MEDS: DEXTROSE 5%-0.45% NS 1,000 ML 100 ML IV (18:24)
[2019-06-18] MEDS: PEG3350/SOD SULF,BICARB,CL/KCL 4,000 ML SOLUTION 4000 ML PO (19:12)
[2019-06-18] MEDS: PANTOPRAZOLE 40 MG VIAL 80 MG IV (19:13)
[2019-06-18 19:50] VITALS: BP 119/84; PULSE 77; RESP 18; TEMP 36.3; O2SAT 94
[2019-06-18 20:16] LABS: Add Manual Diff / Slide Review NO; Basophils Absolute Auto 0 /uL (0-100); Basophils Percent Auto 0.3 % (0-2); Eosinophils Absolute Auto 300 /uL (0-450); Eosinophils Percent Auto 3.4 % (2-4); Hematocrit 42.7 % (41-53); Hemoglobin 14.9 g/dL (13.5-17.5); Lymphocytes Absolute Auto 2000 /uL (1100-4500); Lymphocytes Percent Auto 25.9 % (25-40); Mean Corpuscular HGB Conc 34.8 % (30-36); Mean Corpuscular Hemoglobin 31.9 PG (26-34); Mean Corpuscular Volume 91.5 fL (80-100); Monocytes Absolute Auto 700 /uL (0-900); Monocytes Percent Auto 8.8 % (3-14); Neutrophils Absolute Auto 4800 /uL (1500-7000); Neutrophils Percent Auto 61.6 % (50-75); Platelet Count 134 X10^3/uL (150-400); Red Blood Cell Count 4.67 X10^6/uL (4.5-5.9); White Blood Cell Count 7.7 X10^3/uL (4.5-11.0)
[2019-06-18 22:12] LABS: Campylobacter Not Detected (Not Detect)
[2019-06-18 22:13] LABS: Enteroaggregative E.coli Not Detected (Not Detect); Enteropathogenic E.coli Not Detected (Not Detect); Enterotoxigenic E.coli It/st Not Detected (Not Detect); Plesiomonsa shigelloides Not Detected (Not Detect); Salmonella Not Detected (Not Detect); Shiga-like toxin-prod E.coli Not Detected (Not Detect); Vibrio Not Detected (Not Detect); Vibrio cholerae Not Detected (Not Detect); Yersinia enterocolitica Not Detected (Not Detect)
[2019-06-18 22:14] LABS: Adenovirus F 40/41 Not Detected (Not Detect); Astrovirus Not Detected (Not Detect); Cryptosporidium Not Detected (Not Detect); Cyclospora cayetanensis Not Detected (Not Detect); Entamoeba histolytica Not Detected (Not Detect); Giardia lamblia Not Detected (Not Detect); Norovirus GI/GII Not Detected (Not Detect); Rotavirus A Not Detected (Not Detect); Sapovirus Not Detected (Not Detect); Shigella/Enteroinvasive E.coli Not Detected (Not Detect)
[2019-06-18 22:22] LABS: Clostridium difficile toxin AB Detected (Not Detect)
[2019-06-18 23:55] LABS: Alanine Aminotransferase 83 IU/L (21-72); Albumin 4.3 g/dL (3.5-5.0); Albumin Globulin Ratio 1.4 (1.0-2.8); Alkaline Phosphatase 65 U/L (38-126); Aspartate Aminotransferase 49 IU/L (17-59); BUN Creatinine Ratio 15.6 (6-22); Blood Urea Nitrogen 14 mg/dL (9-20); Calcium 8.8 mg/dL (8.4-10.2); Carbon Dioxide 22 mmol/L (22-32); Chloride 107 mmol/L (98-107); Estimated Glomerular Filt Rate > 60.0 mL/min (>60); Glucose 93 mg/dL (70-100); HEMOLYSIS < 15 (0-50); Magnesium 1.7 mg/dL (1.6-2.3); Potassium 3.7 mmol/L (3.4-5.1); Sodium 139 mmol/L (137-145); Total Protein 7.3 g/dL (6.3-8.2)
[2019-06-19] VITALS (11 sets, daily range): BP systolic 102–148; BP diastolic 69–97; PULSE 66–86; RESP 14–19; TEMP 36.1–37; O2SAT 93–97
[2019-06-19] MEDS: VANCOMYCIN 125 MG CAPSULE PO ×5 (00:48→21:12)
--- NOTE | 2019-06-19 01:07 | PC.NURSE ---
Patient is alert and oriented. Breath sounds CTA with RA sat of 96%. HRR with telemetry reading of SR. Denies nausea. BT hyperactive and having liquid brown stools; c-diff + so started on po Vancomycin and placed in enteric isolation. No blood noted in stools this shift. Abdomen is tender throughout and states pain is 3/10 and feels like a stomach ache but is tolerable and declines pain med. Denies dysuria, frequency or urgency; reminded to use urinal for adequate output. Able to turn self in bed and is up to bathroom independently. Agreeable to having SCD's put on although at shift change had refused as was up to bathroom frequently. Has taken only about 1/2 Go-Lytely prep so reminded to continue to drink as bowel needs to be clear for procedure in a.m.; verbalizes understanding but states is trying. Fall risk score is moderate.
[2019-06-19] MEDS: SODIUM CHLORIDE 0.9% 1,000 ML 200 ML IV ×3 (04:47→15:02)
[2019-06-19 06:27] LABS: Add Manual Diff / Slide Review NO; Basophils Absolute Auto 0 /uL (0-100); Basophils Percent Auto 0.3 % (0-2); Eosinophils Absolute Auto 400 /uL (0-450); Eosinophils Percent Auto 6.4 % (2-4); Hemoglobin 14.5 g/dL (13.5-17.5); Lymphocytes Absolute Auto 2300 /uL (1100-4500); Lymphocytes Percent Auto 39.2 % (25-40); Mean Corpuscular HGB Conc 34.7 % (30-36); Mean Corpuscular Hemoglobin 31.8 PG (26-34); Mean Corpuscular Volume 91.6 fL (80-100); Monocytes Absolute Auto 600 /uL (0-900); Monocytes Percent Auto 10.4 % (3-14); Neutrophils Absolute Auto 2600 /uL (1500-7000); Neutrophils Percent Auto 43.7 % (50-75); Platelet Count 131 X10^3/uL (150-400); Red Blood Cell Count 4.58 X10^6/uL (4.5-5.9); Red Cell Distribution Width 13.1 % (11.6-14.8)
[2019-06-19 06:29] LABS: PTT Partial Thromboplastin Tim 33 SECONDS (26.4-36.2)
[2019-06-19 06:30] LABS: Alanine Aminotransferase 83 IU/L (21-72); Albumin 4.2 g/dL (3.5-5.0); Albumin Globulin Ratio 1.5 (1.0-2.8); Alkaline Phosphatase 67 U/L (38-126); Aspartate Aminotransferase 46 IU/L (17-59); Bilirubin Total 2.3 mg/dL (0.2-1.3); Bilirubin Unconjugated 2.2 mg/dL (0.0-1.1); Globulin 2.8 g/dL (1.7-4.1); HEMOLYSIS < 15 (0-50)
[2019-06-19 06:32] LABS: BUN Creatinine Ratio 16.7 (6-22); Blood Urea Nitrogen 15 mg/dL (9-20); Calcium 8.5 mg/dL (8.4-10.2); Carbon Dioxide 21 mmol/L (22-32); Chloride 108 mmol/L (98-107); Estimated Glomerular Filt Rate > 60.0 mL/min (>60); Glucose 95 mg/dL (70-100); HEMOLYSIS < 15 (0-50); Magnesium 1.6 mg/dL (1.6-2.3); Potassium 3.8 mmol/L (3.4-5.1); Sodium 140 mmol/L (137-145)
[2019-06-19] MEDS: PANTOPRAZOLE 40 MG VIAL IV (09:18)
--- NOTE | 2019-06-19 16:16 | CM.DANOTE ---
DCP assessment: EMR reviewed: Patient is a 48 yr old male admitted to [facility] for POSS GI bleed. PCP is . CM met with patient at bedside and explained CM role. Patient was alert and oriented at time of visit and is I with all ADL's at base line. Patient lives at home with his 69 year old mother who he cares for. Patients sister Adriana (DPOA) shares in the caregiving responsibilities. Patients sister will also be patients ride home when D/C. Insurance: [address]: self pay. Plan: D/C home with family once medically stable. No DC planning needs identified at this time. CM will monitor patient for any D/C needs. Meg Randall RN. Discharge Planning/Care Management CM Discharge Assessment Start: 06/19/19 16:10 Freq: Status: Active Protocol: Document 06/19/19 16:10 HS (Rec: 06/19/19 16:12 HS [id number]) Discharge Planning Assessment Assigned [employer] Meg Randall RN DPOA/Assigned Designee Name Adriana Riggins (sister) Contact Information [phone] Advance Directives? No History Provided By Patient Has Patient been admitted in last 30 No days? Prior Living Arrangements House Household Members family Type of transporation used prior to Drives own vehicle admit Independent with ADL's Yes Is patient alert and oriented? 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 # of [employer] Review Status In Process Next Review Type Continued Stay Review
--- NOTE | 2019-06-19 18:36 | PM.CN ---
History of Present Illness Consult details Date Patient Seen: 06/19/19 Time Patient Seen: 18:49 Chief complaint: Severe stomach pain/ blood in stool started today Narrative: This is a 48-year-old male who presents to the hospital 24 hours ago with abdominal pain and bloody diarrhea. His symptoms have been present for approximately 12 hours prior to presentation. The patient reports history of peptic ulcer disease for which he is on Carafate but on further investigation he has never actually had an upper endoscopy. And he is not on NSAIDs he he drinks a minimal amount of alcohol and does not smoke. Today the patient tested positive for Clostridium difficile and has begun treatment with oral vancomycin. On admission white blood cell count 6, CT abdomen pelvis demonstrates mildly dilated loops of bowel no evidence of obstruction no evidence of megacolon. Since admission hct has remained stable and has not require transfusion. [facility] Medical History HTN (hypertension) (Acute) Patient denies medical problems (Acute) Surgical History History of neck surgery (Acute) Social History household members: family Smoking Status: Former smoker alcohol intake: never Meds Home Medications and Allergies Home Medications Medication Instructions Recorded Confirmed Type sucralfate [Carafate] 5 ml PO QID PRN #420 ml 02/03/19 06/18/19 Rx lisinopril 20 mg PO DAILY 06/18/19 06/18/19 History Allergies Allergy/AdvReac Type Severity Reaction Status Date / Time Penicillins [PENICILLINS] Allergy Mild HIVES Verified 06/18/19 11:19 Review of Systems Review of Systems Narrative: A complete review of systems is negative except as noted in the HPI Exam Vital Signs (past 8 hours): - 06/19/19 11:00 06/19/19 15:52 Temperature 98.1 F 97.8 F Pulse Rate 75 75 Respiratory Rate 14 18 Blood Pressure 148/91 H 125/79 Pulse Oximetry 96 97 Oxygen Delivery Method Room Air Oxygen Flow Rate 0 Narrative Exam Narrative: General-no acute distress, well nourished HEENT-moist mucous membranes, no scleral icterus Neck-supple, no lymphadenopathy Chest- non labored respirations, clear to auscultation bilaterally Cardiac-regular rate no peripheral edema Abdomen-soft, nontender, non distended Extremities-warm, well perfused Neurological-alert and oriented, no focal deficits Objective Labs Result Diagrams: 06/19/19 05:57 06/19/19 05:57 Labs: Laboratory Results - last 24 hr 06/18/19 06/18/19 06/18/19 20:10 20:40 23:33 WBC 7.7 RBC 4.67 Hgb 14.9 Hct 42.7 MCV 91.5 MCH 31.9 MCHC 34.8 RDW 13.0 Plt Count 134 L Neut % (Auto) 61.6 Lymph % (Auto) 25.9 [place] % (Auto) 8.8 Eos % (Auto) 3.4 Baso % (Auto) 0.3 Neut # (Auto) 4800 Lymph # (Auto) 2000 [place] # (Auto) 700 Eos # (Auto) 300 Baso # (Auto) 0 PT INR APTT Sodium 139 Potassium 3.7 Chloride 107 Carbon Dioxide 22 BUN 14 Creatinine 0.90 Estimated GFR > 60.0 BUN/Creatinine Ratio 15.6 Glucose 93 Calcium 8.8 Magnesium 1.7 Total Bilirubin 2.0 H Conjugated Bilirubin Unconjugated Bilirubin AST 49 ALT 83 H Alkaline Phosphatase 65 Total Protein 7.3 Albumin 4.3 Globulin 3.0 Albumin/Globulin Ratio 1.4 Stl C. cayetanensis PCR Not detected Stool Rotavirus (PCR) Not detected Stool Adenovirus (PCR) Not detected Stool Astrovirus (PCR) Not detected Stool Cryptosporidium PCR Not detected Stl E.coli Shiga Tox PCR Not detected St Sh/Enteroin Ecoli PCR Not detected Stool E coli O157 PCR Not Reportable Stl Enterotoxigenic E PCR Not detected Stool EPEC (PCR) Not detected Stl E. histolytica PCR Not detected Stool Giardia Lamblia PCR Not detected Stool Sapovirus (PCR) Not detected Stl P. shigelloides PCR Not detected St Y.enterocolitica PCR Not detected Stool Vibrio (PCR) Not detected Stl Vibrio cholerae PCR Not detected Stl Enteroaggr Ecoli PCR Not detected Stl Norovirus GI/GII PCR Not detected Campylobacter (PCR) Not detected C. difficile Tox (PCR) Detected H Salmonella (PCR) Not detected 06/19/19 06/19/19 06/19/19 05:57 05:57 05:57 WBC 6.0 RBC 4.58 Hgb 14.5 Hct 42.0 MCV 91.6 MCH 31.8 MCHC 34.7 RDW 13.1 Plt Count 131 L Neut % (Auto) 43.7 L Lymph % (Auto) 39.2 [place] % (Auto) 10.4 Eos % (Auto) 6.4 H Baso % (Auto) 0.3 Neut # (Auto) 2600 Lymph # (Auto) 2300 [place] # (Auto) 600 Eos # (Auto) 400 Baso # (Auto) 0 PT 12.0 INR 1.0 APTT 33 Sodium 140 Potassium 3.8 Chloride 108 H Carbon Dioxide 21 L BUN 15 Creatinine 0.90 Estimated GFR > 60.0 BUN/Creatinine Ratio 16.7 Glucose 95 Calcium 8.5 Magnesium 1.6 Total Bilirubin Conjugated Bilirubin Unconjugated Bilirubin AST ALT Alkaline Phosphatase Total Protein Albumin Globulin Albumin/Globulin Ratio Stl C. cayetanensis PCR Stool Rotavirus (PCR) Stool Adenovirus (PCR) Stool Astrovirus (PCR) Stool Cryptosporidium PCR Stl E.coli Shiga Tox PCR St Sh/Enteroin Ecoli PCR Stool E coli O157 PCR Stl Enterotoxigenic E PCR Stool EPEC (PCR) Stl E. histolytica PCR Stool Giardia Lamblia PCR Stool Sapovirus (PCR) Stl P. shigelloides PCR St Y.enterocolitica PCR Stool Vibrio (PCR) Stl Vibrio cholerae PCR Stl Enteroaggr Ecoli PCR Stl Norovirus GI/GII PCR Campylobacter (PCR) C. difficile Tox (PCR) Salmonella (PCR) 06/19/19 05:57 WBC RBC Hgb Hct MCV MCH MCHC RDW Plt Count Neut % (Auto) Lymph % (Auto) [place] % (Auto) Eos % (Auto) Baso % (Auto) Neut # (Auto) Lymph # (Auto) [place] # (Auto) Eos # (Auto) Baso # (Auto) PT INR APTT Sodium Potassium Chloride Carbon Dioxide BUN Creatinine Estimated GFR BUN/Creatinine Ratio Glucose Calcium Magnesium Total Bilirubin 2.3 H Conjugated Bilirubin 0.0 Unconjugated Bilirubin 2.2 H AST 46 ALT 83 H Alkaline Phosphatase 67 Total Protein 7.0 Albumin 4.2 Globulin 2.8 Albumin/Globulin Ratio 1.5 Stl C. cayetanensis PCR Stool Rotavirus (PCR) Stool Adenovirus (PCR) Stool Astrovirus (PCR) Stool Cryptosporidium PCR Stl E.coli Shiga Tox PCR St Sh/Enteroin Ecoli PCR Stool E coli O157 PCR Stl Enterotoxigenic E PCR Stool EPEC (PCR) Stl E. histolytica PCR Stool Giardia Lamblia PCR Stool Sapovirus (PCR) Stl P. shigelloides PCR St Y.enterocolitica PCR Stool Vibrio (PCR) Stl Vibrio cholerae PCR Stl Enteroaggr Ecoli PCR Stl Norovirus GI/GII PCR Campylobacter (PCR) C. difficile Tox (PCR) Salmonella (PCR) Assessment & Plan Assessment and plan (1) GI bleed: Qualifiers: GI bleed type/associated pathology: unspecified gastrointestinal hemorrhage type Qualified Code(s): K92.2 - Gastrointestinal hemorrhage, unspecified Current visit: Yes Status: Acute Assessment & Plan narrative: This is a 41-year-old male hemodynamically stable who was admitted to the hospital with a GI bleed. He has been having bloody diarrhea for the past 24 hours Hct 42 not requiring transfusion has a history of peptic ulcer disease. I suspect the bloody diarrhea is secondary to C Diff which he has tested positive for. However we can proceed with an EGD to evaluate for possible upper source of bleed. We discussed the risk of esophagoduodenoscopy which include bleeding, perforation, missed diagnosis need for further procedure. I would not recomend colonoscopy at this time as there is increased risk of perforation with active colitis. His questions have been answered and he is in agreement with this plan.
--- NOTE | 2019-06-19 19:48 | PC.NURSE ---
Pt leaving the unit to go to get c-scope.
[2019-06-19] MEDS: MIDAZOLAM 5 MG/5 ML VIAL 4 MG IV (19:56)
[2019-06-19] MEDS: fentaNYL 250 MCG/5 ML INJ 100 MCG IV (19:56)
--- NOTE | 2019-06-19 20:03 | PM.OP.ENDO ---
Operative Date/Time/Diagnoses Date of procedure: 06/19/19 Time of procedure: 20:03 Pre-op diagnosis: GI bleed Post-op diagnosis: same Procedure & Clinicians Study performed: Esophagoduodenoscopy Same procedure as scheduled: Yes Indications: This is 48-year-old male who was admitted to the hospital with a GI bleed bloody diarrhea and a questionable history of peptic ulcer disease. Surgeon: Odin Marquez Procedure Notes SCOAP/Timeout: Before Procedure in detail: Patient placed in left lateral decubitus position. Time out was performed. Procedural sedation was administered with Versed and Fentanyl. A bite block was placed. the scope was inserted into the mouth and advanced through the esophagus and into the stomach. The pylorus was intubated and the duodenum was normal. The scope was retroflexed within the stomach and there was no hiatal hernia. No ulcers, or gastritis. The scope was withdrawn into the esophagus the Z line was seen at 35 cm from the incisions. There was no arango's esophagitis or masses or strictures. Stomach was desufflated and scope removed. Patient tolerated procedure well. Sedation minutes: 5 Complications: none Impression: Normal esophagoduodenoscopy Post-procedure Recommendations: Stop medication(s) (Carafate) Disposition: Acute Care
--- NOTE | 2019-06-19 20:22 | SUR.OPER ---
Patient monitored in Endoscopy room after procedure due to report of colon C-difficele. Remained easily arousable with VSS. (see printed VS)
--- NOTE | 2019-06-19 20:33 | SUR.OPER ---
Patient awake, conversant with stable vital signs. Ready to transfer back to acute care.
--- NOTE | 2019-06-19 20:54 | P.PN_ITS ---
Subjective Subjective Date Patient Seen: 06/19/19 Time Patient Seen: 09:15 Interval history: Mr. Echeverria is 48-year-old male with past medical history of hypertension who presented with 1 day of crampy type epigastric and diffuse abdominal pain. Stool studies came back positive for C difficile colitis. He was started on oral vancomycin. He still has a small amount of diarrhea today that is partially bloody. He did not end up undergoing a colonoscopy given C di ff and risk of perforation however he will undergo an upper endoscopy given his history receiving Carafate a few months ago. This is planned for this evening. Exam Vital Signs (past 8 hours): - 06/19/19 15:52 Temperature 97.8 F Pulse Rate 75 Respiratory Rate 18 Blood Pressure 125/79 Pulse Oximetry 97 Oxygen Delivery Method Room Air Oxygen Flow Rate 0 Narrative Exam Narrative: GENERAL APPEARANCE: Well developed, well nourished, in no acute distress. SKIN: Inspection of the skin reveals no rashes, ulcerations or petechiae. HEENT: The sclerae were anicteric and conjunctivae were pink and moist. Extraocu lar movements were intact and pupils were equal, round with normal accommodation. External inspection of the ears and nose showed no scars, lesions, or masses. Lips, teeth, and gums showed normal mucosa. The oral mucosa, hard and soft palate, tongue and posterior pharynx were unremarkable. NECK: Supple and symmetric. There was no thyroid enlargement, and no tenderness, or masses were felt. CHEST: Normal AP diameter and normal contour without any kyphoscoliosis. LUNGS: Auscultation of the lungs revealed no wheezes, rhonchi, or rales. CARDIOVASCULAR: There was a regular rate and rhythm without any murmurs, gallops, rubs. Peripheral pulses were 2+ and symmetric. ABDOMEN: Soft but mildly distended with minimal diffuse tenderness, more prominent in epigastrium and bilateral lower quadrants. MUSCULOSKELETAL: There was no tenderness or effusions noted. Muscle strength and tone were normal. EXTREMITIES: No cyanosis, clubbing or edema. NEUROLOGIC: Alert and oriented x 3. Normal affect. Strength is +5/5 in the Upper Extremities and Lower Extremities Bilaterally. Sensation to touch was normal. Objective Labs Result Diagrams: 06/19/19 05:57 06/19/19 05:57 Labs: Laboratory Results - last 24 hr 06/18/19 06/18/19 06/19/19 20:40 23:33 05:57 WBC 6.0 RBC 4.58 Hgb 14.5 Hct 42.0 MCV 91.6 MCH 31.8 MCHC 34.7 RDW 13.1 Plt Count 131 L Neut % (Auto) 43.7 L Lymph % (Auto) 39.2 [place] % (Auto) 10.4 Eos % (Auto) 6.4 H Baso % (Auto) 0.3 Neut # (Auto) 2600 Lymph # (Auto) 2300 [place] # (Auto) 600 Eos # (Auto) 400 Baso # (Auto) 0 PT INR APTT Sodium 139 Potassium 3.7 Chloride 107 Carbon Dioxide 22 BUN 14 Creatinine 0.90 Estimated GFR > 60.0 BUN/Creatinine Ratio 15.6 Glucose 93 Calcium 8.8 Magnesium 1.7 Total Bilirubin 2.0 H Conjugated Bilirubin Unconjugated Bilirubin AST 49 ALT 83 H Alkaline Phosphatase 65 Total Protein 7.3 Albumin 4.3 Globulin 3.0 Albumin/Globulin Ratio 1.4 Stl C. cayetanensis PCR Not detected Stool Rotavirus (PCR) Not detected Stool Adenovirus (PCR) Not detected Stool Astrovirus (PCR) Not detected Stool Cryptosporidium PCR Not detected Stl E.coli Shiga Tox PCR Not detected St Sh/Enteroin Ecoli PCR Not detected Stool E coli O157 PCR Not Reportable Stl Enterotoxigenic E PCR Not detected Stool EPEC (PCR) Not detected Stl E. histolytica PCR Not detected Stool Giardia Lamblia PCR Not detected Stool Sapovirus (PCR) Not detected Stl P. shigelloides PCR Not detected St Y.enterocolitica PCR Not detected Stool Vibrio (PCR) Not detected Stl Vibrio cholerae PCR Not detected Stl Enteroaggr Ecoli PCR Not detected Stl Norovirus GI/GII PCR Not detected Campylobacter (PCR) Not detected C. difficile Tox (PCR) Detected H Salmonella (PCR) Not detected 06/19/19 06/19/19 06/19/19 05:57 05:57 05:57 WBC RBC Hgb Hct MCV MCH MCHC RDW Plt Count Neut % (Auto) Lymph % (Auto) [place] % (Auto) Eos % (Auto) Baso % (Auto) Neut # (Auto) Lymph # (Auto) [place] # (Auto) Eos # (Auto) Baso # (Auto) PT 12.0 INR 1.0 APTT 33 Sodium 140 Potassium 3.8 Chloride 108 H Carbon Dioxide 21 L BUN 15 Creatinine 0.90 Estimated GFR > 60.0 BUN/Creatinine Ratio 16.7 Glucose 95 Calcium 8.5 Magnesium 1.6 Total Bilirubin 2.3 H Conjugated Bilirubin 0.0 Unconjugated Bilirubin 2.2 H AST 46 ALT 83 H Alkaline Phosphatase 67 Total Protein 7.0 Albumin 4.2 Globulin 2.8 Albumin/Globulin Ratio 1.5 Stl C. cayetanensis PCR Stool Rotavirus (PCR) Stool Adenovirus (PCR) Stool Astrovirus (PCR) Stool Cryptosporidium PCR Stl E.coli Shiga Tox PCR St Sh/Enteroin Ecoli PCR Stool E coli O157 PCR Stl Enterotoxigenic E PCR Stool EPEC (PCR) Stl E. histolytica PCR Stool Giardia Lamblia PCR Stool Sapovirus (PCR) Stl P. shigelloides PCR St Y.enterocolitica PCR Stool Vibrio (PCR) Stl Vibrio cholerae PCR Stl Enteroaggr Ecoli PCR Stl Norovirus GI/GII PCR Campylobacter (PCR) C. difficile Tox (PCR) Salmonella (PCR) Assessment & Plan Assessment & Plan narrative: Mr. Echeverria is 48-year-old male with past medical history of hypertension who presented with 1 day of crampy type epigastric and diffuse abdominal pain that started this morning with associated bloody diarrhea. His CT scan showed an ileus and he was admitted to Medicine, per the emergency room surgery plans for a lower endoscopy tomorrow. 1. GI bleed, acute, present on admission -likely lower based on CT findings suggesting an ileus and C. diff infection as above. There does not appear to be any bowel wall thickening on the CT scan. Could be upper given history but unlikely. Will have upper endoscopy today with Dr. Marquez. - NPO/ IVF - Diet per Dr. Marquez after endoscopy - follow up endoscopy results - maintain active type and screen. - see C.diff colitis below 2. C. difficile colitis, acute, present on admission - continue PO vancomycin 125mg QID 3. Hypertension - -will hold patient's lisinopril at this time given GI bleeding. 4. Elevated LFTs- likely secondary to MACIAS per chart review. Patient does not report significant alcoholic intake. - will continue to trend LFTs while inpatient Code: Full DVT: SCDs Quality VTE Deep Vein Thrombosis/Pulmonary Embolism Present on Admission: No
--- NOTE | 2019-06-20 00:54 | PC.NURSE ---
Patient is alert and oriented. Breath sounds CTA with RA sat of 93%. HRR. Denies nausea. Abdomen non tender tonight but still mildly distended and patient states doesn't feel right although denies pain. Denies dysuria, frequency or urgency. Reports no loose stools recently. Independent with mobility. Agreeable to having SCD's put on for the night. Fall risk score is moderate. Remains on contact isolation for c-diff.
[2019-06-20 06:00] VITALS: BP 135/89; PULSE 77; RESP 18; TEMP 36.6; O2SAT 95
[2019-06-20 07:05] LABS: Add Manual Diff / Slide Review NO; Basophils Absolute Auto 0 /uL (0-100); Basophils Percent Auto 0.3 % (0-2); Blood Urea Nitrogen 12 mg/dL (9-20); Calcium 8.5 mg/dL (8.4-10.2); Carbon Dioxide 23 mmol/L (22-32); Chloride 108 mmol/L (98-107); Eosinophils Absolute Auto 500 /uL (0-450); Eosinophils Percent Auto 7.6 % (2-4); Estimated Glomerular Filt Rate > 60.0 mL/min (>60); Glucose 83 mg/dL (70-100); HEMOLYSIS 15 (0-50); Hematocrit 39.8 % (41-53); Hemoglobin 14.1 g/dL (13.5-17.5); Lymphocytes Absolute Auto 2000 /uL (1100-4500); Lymphocytes Percent Auto 31.9 % (25-40); Magnesium 1.8 mg/dL (1.6-2.3); Mean Corpuscular HGB Conc 35.4 % (30-36); Mean Corpuscular Hemoglobin 32.4 PG (26-34); Mean Corpuscular Volume 91.6 fL (80-100); Monocytes Absolute Auto 600 /uL (0-900); Monocytes Percent Auto 10.2 % (3-14); Neutrophils Absolute Auto 3100 /uL (1500-7000); Platelet Count 117 X10^3/uL (150-400); Potassium 3.6 mmol/L (3.4-5.1); Red Blood Cell Count 4.35 X10^6/uL (4.5-5.9); Red Cell Distribution Width 12.6 % (11.6-14.8); Sodium 139 mmol/L (137-145); White Blood Cell Count 6.1 X10^3/uL (4.5-11.0)
--- NOTE | 2019-06-20 07:26 | DI.RAD.S_ITS ---
PROCEDURE: XR KUB INDICATIONS: ileus resolved? TECHNIQUE: One view of the abdomen acquired. COMPARISON: [facility], CT, CT ABDOMEN PELVIS W CON, 06/18/2019, 12:50. FINDINGS: Surgical changes and devices: None. Bowel: No air-filled distended small bowel loops are evident demonstrating air-fluid levels. Air and stool are seen throughout the colon. No definite pneumoperitoneum is appreciated. Soft tissues: No suspicious abdominal calcifications. Visualized solid organ contours appear normal in size. Bones: No suspicious bony lesions. Degenerative changes of the lumbosacral spine and pelvic joints are not well characterized. IMPRESSION: No bowel obstruction. Dictated by: Dar Del Rosario M.D. on 06/20/2019 at 8:25 Approved by: Dar Del Rosario M.D. on 06/20/2019 at 8:26
[2019-06-20 08:10] VITALS: BP 139/96; PULSE 80; RESP 17; TEMP 36.4; O2SAT 96
[2019-06-20 08:22] VITALS: BP 139/96
[2019-06-20] MEDS: LISINOPRIL 20 MG TABLET PO (08:22)
[2019-06-20] MEDS: VANCOMYCIN 125 MG CAPSULE PO ×2 (08:23→12:17)
[2019-06-20] MEDS: SODIUM CHLORIDE 0.9% FLUSH 10 ML IV (08:23)
[2019-06-20 08:30] VITALS: O2SAT 95
--- NOTE | 2019-06-20 10:28 | P.DS_ITS ---
History of Present Illness History of Present Illness Date Patient Seen: 06/18/19 Chief complaint: Severe stomach pain/ blood in stool started today Narrative: Written by Anna Marie GILMORE: Mr. Echeverria is 48-year-old male with past medical history of hypertension who pre sented with 1 day of crampy type epigastric and diffuse abdominal pain that started this morning with associated bloody diarrhea. A few months ago he presented with similar crampy epigastric pain and was given Carafate and discharged home. He was feeling well until this morning when the pain and d iarrhea started. The pain is moderate to severe in intensity, located in the epigastric region but he also states he has a more generalized abdominal pain as well that feels like cramping. It does not radiate, he did not attempt to take anything at home. He has associated nausea but no vomiting or hematemesis. He denies recent fevers, chills, chest pain, dyspnea on exertion, diaphoresis, lower extremity swelling, rashes. He reports that a prior colonoscopy that was unremarkable. He does not have any family history of colon cancer that he is aware. In the ED, the patient's vital signs were unremarkable, hemoglobin was 15.9 without any other abnormalities, BUN was 17, and creatinine was normal. He has mild AST and ALT elevations and a mildly elevated bilirubin at 1.5. He had a CT of his abdomen and pelvis which showed fluid-filled loops of bowel including large and small intestine consistent with possible ileus. Discharge Providers Provider Date of admission: 06/18/19 15:20 Discharge Date: 06/20/19 Primary care physician: Antoine Alvarez MD Discharge provider: Sheela Burk DO Summary Hospital Course Discharge Diagnosis: 1. Acute GI bleed, secondary to C. difficile colitis, present on admission. Resolved. 2. Acute C. difficile colitis, present on admission. Active. 3. Hypertension, chronic, present on admission. Stable. 4. Elevated LFTs, present on admission. Stable. Hospital Course: Marbin Echeverria is a 48-year-old male with past medical history significant for hypertension who presented with 1 day of crampy type epigastric and diffuse abdominal with associated bloody diarrhea. 1. Acute GI bleed, secondary to C. difficile colitis, present on admission. Resolved. -Secondary to c. difficile infection. -Patient presented with diffuse abdominal pain and bloody diarrhea. Patient with recent history of dyspepsia. -CT demonstrated mildly prominent fluid-filled loops of bowel suggestive of ileus. There does not appear to be any bowel wall thickening on the CT scan. -General surgery, Dr. Marquez, was consulted who performed EGD which unremarkable. Continue heart healthy diet and stop Carafate and PPI. See C. diff treatment below. 2. Acute C. difficile colitis, present on admission. Resolving. -Continued vancomycin 125 mg PO 4 times daily x 10 days. 3. Hypertension, chronic, present on admission. Stable. -Held home lisinopril initially due to GI bleed and restarted at time of discharge. 4. Elevated LFTs, present on admission. Stable. -LFTS mildly elevated and stable. -Likely secondary to MACIAS per chart review. Patient does not report significant alcoholic intake. -Continue to trend LFTs periodically. Exam Vital Signs (past 8 hours): - 06/20/19 06:00 06/20/19 08:10 06/20/19 08:22 Temperature 98 F 97.6 F Pulse Rate 77 80 Respiratory Rate 18 17 Blood Pressure 135/89 139/96 H 139/96 H Pulse Oximetry 95 96 06/20/19 08:30 Temperature Pulse Rate Respiratory Rate Blood Pressure Pulse Oximetry 95 Oxygen Delivery Method Room Air Oxygen Flow Rate 0 Narrative Exam Narrative: General: Middle aged gentleman in no acute distress, well-developed, well- nourished, appropriately interactive. HEENT: Normocephalic, atraumatic. External ears without defect. Pupils equal, round, and reactive to light. Anicteric sclerae, moist conjunctivae, and no lid lag. Poor dentition. Neck: Supple with full range of motion. No lymphadenopathy or thyromegaly. Cardiovascular: Regular rate and rhythm without murmurs, rubs, or gallops appreciated Pulmonary: Clear to auscultation bilaterally without crackles, wheezes, or rhonchi. Normal respiratory effort with no use of accessory muscles. Abdomen: Soft, bowel sounds present, nontender, nondistended. No hepatosplenomegaly or masses appreciated. Extremities: No clubbing, cyanosis, or edema. Skin: Normal temperature, turgor, and texture; no rash, ulcers, or subcutaneous nodules appreciated. Neurological: Cranial nerves grossly intact. Psychiatric: Mildly anxious mood and normal affect. Alert and oriented to person, place, and time. Objective Labs Result Diagrams: 06/20/19 06:50 06/20/19 06:50 Labs: Laboratory Results - last 24 hr 06/20/19 06/20/19 06:50 06:50 WBC 6.1 RBC 4.35 L Hgb 14.1 Hct 39.8 L MCV 91.6 MCH 32.4 MCHC 35.4 RDW 12.6 Plt Count 117 L Neut % (Auto) 50.0 Lymph % (Auto) 31.9 [place] % (Auto) 10.2 Eos % (Auto) 7.6 H Baso % (Auto) 0.3 Neut # (Auto) 3100 Lymph # (Auto) 2000 [place] # (Auto) 600 Eos # (Auto) 500 H Baso # (Auto) 0 Sodium 139 Potassium 3.6 Chloride 108 H Carbon Dioxide 23 BUN 12 Creatinine 0.80 Estimated GFR > 60.0 BUN/Creatinine Ratio 15.0 Glucose 83 Calcium 8.5 Magnesium 1.8 Discharge Plan Discharge Plan Patient Disposition: Home Discharge comment: Your being discharged home. You have been prescribed vancomycin 125 mg 4 times daily for 9 additional days to treat C difficile colitis. Please follow-up with your primary care physician, Dr. Gabriel, in the next 1 week regarding your hospitalization. Discharge Med Rec/Prescriptions Prescriptions: New vancomycin 125 mg Capsule 125 mg PO QID Qty: 32 RF: 0 Continued lisinopril 20 mg Tablet 20 mg PO DAILY RF: 0 Discontinued sucralfate [Carafate] 100 mg/mL suspension 5 ml PO QID PRN (Reason: abdominal pain) Qty: 420 RF: 0 Follow up/Referrals: Antoine Alvarez MD [Primary Care Provider] - 1 Week Provider Discharge Instructions Diet: Diet as Tolerated Activity: Activity as tolerated Visit Report/Discharge Packet Instructions: Vancomycin, DI for Clostridium difficile Infection Discharge Data Primary Care Provider: Antoine Alvarez Attending Provider: Sumeet Lyon Admit Date/Time: 06/18/19 15:20 Discharges patient from system. Discharge Date/Time: 06/20/19 14:30 Quality VTE Deep Vein Thrombosis/Pulmonary Embolism Present on Admission: No
--- NOTE | 2019-06-20 13:53 | PC.NURSE ---
Pt dressed and ready for discharge home with his sister. IV has been removed. Went over d/c instructions with Pt-discussed d/c meds, time of last dose, reviewed stroke education, encouraged fluid intake to prevent dehydration, discussed diet and possibly adding yogurt or a probiotic, and discussed infection control at home. Pt denies further questions and was taken out via w/c by [facility] with all belongings and sister for transport home.
== END 2019-06-20 14:30 | disposition home or self-care (01) ==
LOC: ED 15:19 → AC 06-19 07:11
PROVIDERS: Nurse Practitioner Gerontology; Surgery; Admitting Provider Internal Medicine; Emergency Provider Nurse Practitioner Family; Family Provider Family Medicine; PCP Family Medicine; Visit Provider Internal Medicine
PROC: 0DJ08ZZ Inspection of Upper Intestinal Tract, Via Natural or Artificial Opening Endoscopic (ICD-10-PCS; CPT 43235; principal; 2019-06-19 19:00)
DX: K92.2 Gastrointestinal hemorrhage, unspecified (principal); A04.72 Enterocolitis due to Clostridium difficile, not specified as recurrent; R10.84 Generalized abdominal pain; K92.1 Melena; I10 Essential (primary) hypertension
CPT/HCPCS: 43235; 36415; 74018; 74177; 80048; 80053; 80076; 81003; 83690; 83735; 85025; 85610; 85730; 86850; 86900; 86901; 87507; 96361; 96374; 96375; 96376; 99219; 99283; 99285; G0378; C9113; J2250; J2270; J2405; J3010; Q9967

== ENCOUNTER 2020-06-08 12:15 | Outpatient (RCR) | payer OTHER, SELFPAY ==
--- NOTE | 2020-04-20 15:38 | PT.OIE ---
Current Diagnoses Impingement syndrome of right shoulder (04/20/20) Past Medical History (Last Reviewed 06/19/19 @ 18:48 by Odin Marquez MD) HTN (hypertension) (Acute) Patient denies medical problems (Acute) Past Surgical History (Last Reviewed 06/19/19 @ 18:48 by Odin Marquez MD) History of neck surgery (Acute) Visit Care Team Role Provider Type Antoine Alvarez MD Family Provider Non-Staff Primary Care Provider Specialty: Medical Address: [address] [place] [address], [place], [address] Email: Antoine Mora DO Attending Provider Non-Staff Referring Provider Specialty: Orthopedics Address: [facility], [place], [address] Email: Physical Therapy Initial Evaluation PT-OP-A Visit Information Start: 04/19/20 15:40 Freq: Status: Active Protocol: Document 04/20/20 13:00 MB (Rec: 04/20/20 13:03 MB [id number]) Out-Patient Physical Therapy Visit Information Visit Information Visit Type Initial Evaluation Visit Note Moseley Visit Start Time 13:00 Visit Stop Time 13:40 Total Visit Minutes 40 Visit Number 1 Evaluation Information Evaluation Date 04/20/20 PT-OP-B Current Condition Start: 04/19/20 15:40 Freq: Status: Active Protocol: Document 04/20/20 13:00 MB (Rec: 04/20/20 13:20 MB [id number]) Current Condition History of Current Condition Onset Date January 2020 Current Complaints Right upper shoulder pain up to 7/10 History of Current Condition Pt reports no injury but a progressive onset of insidious right shoulder pain. He has a history of similar complaints on the left shoulder 5 years ago, had PT but then was found to have cervical disc issue and pt underwent cervical surgery, fusion from the anterior side. Pt reports numbness and pain that travels down to dorsal right 4th and 5th fingers. He had this distribution when he had left arm symptoms. Pt is right handed. Pt presents with left elbow greater than right elbow redness and he denies injury. 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 He has to help her roll in the bed. She had a stroke and lost most of the use of her left side. The pain is worse after changing his mom. PMH: high blood pressure, left shoulder pain and arm paresthesias and cervical fusion Pt states that ROM exercises for shoulder were helpful last PT course but made him sore. Pt denies neck pain. He sleeps on an off during the day. Prior Treatments and Tests PT for left shoulder, he cannot recall if he had PT after cervical surgery Treatment Goals Patient/Caregiver Goals To decrease right shoulder pain PT-OP-C Subjective Start: 04/19/20 15:40 Freq: Status: Active Protocol: Document 04/20/20 13:00 MB (Rec: 04/20/20 13:20 MB [id number]) OP-PT Subjective Patient Comments Patient Comments See history of current condition Patient Questionnaires Quick Dash- Upper Extremity Quick Dash UE Score 35 Quick Dash UE Impairment 40 to 59% Impaired (Score 40- 59) PT-OP-J Posture/Palpation/Skin Start: 04/19/20 15:40 Freq: Status: Active Protocol: Document 04/20/20 13:00 MB (Rec: 04/20/20 13:56 MB [id number]) Posture Evaluation Comments Posture Comments Standing: forward head, decreased cervical lordosis, Dowager's hump, right shoulder lower than the left with more protracted and elevated right scapula (pt is right handed), increased lumbar lordosis, right iliac crest higher than the left, pt does have overall postural changes PT-OP-K Range of Motion Start: 04/19/20 15:40 Freq: Status: Active Protocol: Document 04/20/20 13:00 MB (Rec: 04/20/20 13:56 MB [id number]) Cervical Spine Range of Motion Cervical Spine Active Testing Position Standing Flexion 36 Extension 20 Rotation Left 28 Rotation Right 38 Lateral Flexion Left 11 Lateral Flexion Right 11 Shoulder Goniometric Range of Motion Shoulder Left Shoulder ROM WFL No Testing Position Standing Flexion 160 Abduction 90 Right Shoulder ROM WFL No Testing Position Standing Flexion 180 Abduction 90 Shoulder ROM Limitations Comments Pt reports tightness that he rates as 5/10 pain with right shoulder AROM and MMT and he self-limits all ROM and MMT PT-OP-M Strength Start: 04/19/20 15:40 Freq: Status: Active Protocol: Document 04/20/20 13:00 MB (Rec: 04/20/20 14:03 MB [id number]) Shoulder Strength Shoulder Manual Muscle Testing Left External Rotation 5 Normal Internal Rotation 5 Normal Comments Deferred flexion and abduction d/t fear of pain Right External Rotation 5 Normal Internal Rotation 5 Normal Comments Deferred flexion and abduction d/t fear of pain Elbow/Forearm Strength Elbow and Forearm Manual Muscle Testing Left Flexion (C6) 5 Normal Extension (C7) 5 Normal Pronation 4 Good Supination 4 Good Right Flexion (C6) 4 Good Extension (C7) 4 Good Pronation 4 Good Supination 3+ Fair+ Comments Pt with guarding behavior Wrist Strength Wrist Manual Muscle Testing Left Flexion (C7) 5 Normal Extension (C6) 5 Normal Right Flexion (C7) 3+ Fair+ Extension (C6) 3+ Fair+ Hand Cad Design Engineer/Pinch Strength Hand Strength Left Comments Arm 90 deg flexion with elbow straight: 46 lb, 42 lb, 40 lb Right Comments Arm at 90 deg flexion with elbow straight: 48 lb, 50 lb, 40 lb PT-OP-Q Treatments Start: 04/19/20 15:40 Freq: Status: Active Protocol: Document 04/20/20 13:00 MB (Rec: 04/20/20 13:53 MB [id number]) Therapeutic Exercises Standing Exercises Use of racquet ball, thoracic mobility, cervical ROM Side bilateral Comments Ed pt in all these to help with muscle tension and pt performs Self-Care/Home Management Treatment Education Caregiver Education Use of ice, proper sleeping position with cervical support , resting arm on pillow in sitting PT-OP-T Assessment and Plan Start: 04/19/20 15:40 Freq: Status: Active Protocol: Document 04/20/20 13:00 MB (Rec: 04/20/20 13:06 MB [id number]) Physical Therapy Assessment Rehab Potential Rehabilitation Potential Good Evaluation Complexity Number of Personal Factors/Comorbidities 1-2 Number of Body Systems Impaired 1-2 Clinical Presentation at Evaluation Stable Impairments Impairments Activity Tolerance,Functional Activities,Pain,Posture,ROM, Soft Tissue Mobility,Strength Goals 5 Jail Goal (LTG) Pt will present with improved AROM cervical spine to at least 30 deg extension, 40 deg flexion, 40 deg B rotation and 15 deg SB to improve functional range with driving by 06/20/2020. LTG Duration 8 weeks 4 Carton Gluing Machine Operator Goal (LTG) Pt will present with B shoulder flexion and abduction MMT to at least 4/5 to improve functional UE use by 06/20/2020. LTG Duration 8 weeks 3 Carton Gluing Machine Operator Goal (LTG) Pt will present with improved B shoulder abduction AROM to at least 110 deg B to improve functional use of arms over head by 06/20/2020. LTG Duration 8 weeks 2 Carton Gluing Machine Operator Goal (LTG) Pt will perform progressive HEP with I to improve flexibility, range of motion, strength and pain by 2019. LTG Duration 8 weeks 1 Carton Gluing Machine Operator Goal (LTG) Pt will present with an improved QuickDASH score to reflect no more than 15% impairment by 06/20/2020. LTG Duration 8 weeks Assessment Summary Assessment Pt is a 49 y/o male presenting with deconditioning, increased body mass, postural changes and history of left shoulder pain and cervical fusion. He had insidious onset of right shoulder pain without known injury that he reports is like his old left shoulder pain. He also reports similar C8 paresthesias that he had when he had left arm problems. Pt presents with guarding behavior and self- limits range and MMT d/t fear of pain and reports of tightness. His left shoulder flexion is less than the right and he has B equal decreased shoulder abduction. He presents with UE weakness. 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 He has most symptoms after assisting her with rolling and changing adult diapers. Pt's posture, cervical history, job requirements are barriers to PT. PT does feel that most of his symptoms are originating from his neck given insidious onset that is similar to symptoms in left arm in the past as well as similar limitations in left arm now. Physical Therapy Plan Frequency and Duration Frequency of Treatment 2x/Week Duration of Treatment 8 weeks Plan of Care Start Date 04/20/20 Plan of Care End Date 06/21/20 Therapeutic Interventions Therapeutic Interventions Home Exercise Program,Manual Therapy,Neuromuscular Re- education,Patient/Caregiver Education,Self-Care/Home Management,Soft Tissue Mobilization,Taping, Therapeutic Activities, Vestibular Rehabilitation Modalities Cold Pack/Ice Massage,Electric Stimulation,Hot Packs, Ultrasound Next Visit Focus/Plan Next Note Type Treatment Note Next Visit Plan ROM exercises
--- NOTE | 2020-04-20 15:38 | PT.OPPOC ---
Physical, Occupational & Speech Therapy At [facility] Current Diagnoses Impingement syndrome of right shoulder (04/20/20) Visit Care Team Role Provider Type Antoien Alvarez MD Family Provider Non-Staff Primary Care Provider Specialty: Medical Address: [address] [place] [address], [place], [address] Email: Antoine Mora DO Attending Provider Non-Staff Referring Provider Specialty: Orthopedics Address: [address] [place] [address], [id number] Email: Plan Of Care PT-OP-T Assessment and Plan Start: 04/19/20 15:40 Freq: Status: Active Protocol: Document 04/20/20 13:00 MB (Rec: 04/20/20 13:06 MB [id number]) Physical Therapy Assessment Rehab Potential Rehabilitation Potential Good Evaluation Complexity Number of Personal Factors/Comorbidities 1-2 Number of Body Systems Impaired 1-2 Clinical Presentation at Evaluation Stable Impairments Impairments Activity Tolerance,Functional Activities,Pain,Posture,ROM, Soft Tissue Mobility,Strength Goals 5 Shelter Goal (LTG) Pt will present with improved AROM cervical spine to at least 30 deg extension, 40 deg flexion, 40 deg B rotation and 15 deg SB to improve functional range with driving by 06/20/2020. LTG Duration 8 weeks 4 Shelter Goal (LTG) Pt will present with B shoulder flexion and abduction MMT to at least 4/5 to improve functional UE use by 06/20/2020. LTG Duration 8 weeks 3 Cleaner Assistant Goal (LTG) Pt will present with improved B shoulder abduction AROM to at least 110 deg B to improve functional use of arms over head by 06/20/2020. LTG Duration 8 weeks 2 Cleaner Assistant Goal (LTG) Pt will perform progressive HEP with I to improve flexibility, range of motion, strength and pain by 2019. LTG Duration 8 weeks 1 Cleaner Assistant Goal (LTG) Pt will present with an improved QuickDASH score to reflect no more than 15% impairment by 06/20/2020. LTG Duration 8 weeks Assessment Summary Assessment Pt is a 49 y/o male presenting with deconditioning, increased body mass, postural changes and history of left shoulder pain and cervical fusion. He had insidious onset of right shoulder pain without known injury that he reports is like his old left shoulder pain. He also reports similar C8 paresthesias that he had when he had left arm problems. Pt presents with guarding behavior and self- limits range and MMT d/t fear of pain and reports of tightness. His left shoulder flexion is less than the right and he has B equal decreased shoulder abduction. He presents with UE weakness. 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 He has most symptoms after assisting her with rolling and changing adult diapers. Pt's posture, cervical history, job requirements are barriers to PT. PT does feel that most of his symptoms are originating from his neck given insidious onset that is similar to symptoms in left arm in the past as well as similar limitations in left arm now. Physical Therapy Plan Frequency and Duration Frequency of Treatment 2x/Week Duration of Treatment 8 weeks Plan of Care Start Date 04/20/20 Plan of Care End Date 06/21/20 Therapeutic Interventions Therapeutic Interventions Home Exercise Program,Manual Therapy,Neuromuscular Re- education,Patient/Caregiver Education,Self-Care/Home Management,Soft Tissue Mobilization,Taping, Therapeutic Activities, Vestibular Rehabilitation Modalities Cold Pack/Ice Massage,Electric Stimulation,Hot Packs, Ultrasound Next Visit Focus/Plan Next Note Type Treatment Note Next Visit Plan ROM exercises Plan of Care Dates Plan of Care Start Date 04/20/20 Plan of Care End Date 06/21/20 Electronically Signed by: Edith Cam PT 04/20/20 [id number] Please Sign and Return: I have reviewed this Plan of Care and certify that the skilled therapy services above are required to meet the patient?s needs. Physician Signature Date Printed Name and Credentials Clinical Instructor Signature Printed Name and Credentials
--- NOTE | 2020-04-27 09:00 | PT.OTN ---
Current Diagnoses Impingement syndrome of right shoulder (04/27/20) Physical Therapy Treatment Note PT-OP-A Visit Information Start: 04/19/20 15:40 Freq: Status: Active Protocol: Document 04/27/20 08:17 MB (Rec: 04/27/20 08:36 MB [id number]) Out-Patient Physical Therapy Visit Information Visit Information Visit Type Treatment Note Visit Note Moseley Visit Start Time 08:17 Visit Stop Time 09:00 Total Visit Minutes 43 Visit Number 2 PT-OP-B Current Condition Start: 04/19/20 15:40 Freq: Status: Active Protocol: Document 04/20/20 13:00 MB (Rec: 04/20/20 13:20 MB [id number]) Current Condition History of Current Condition Onset Date January 2020 Current Complaints Right upper shoulder pain up to 7/10 History of Current Condition Pt reports no injury but a progressive onset of insidious right shoulder pain. He has a history of similar complaints on the left shoulder 5 years ago, had PT but then was found to have cervical disc issue and pt underwent cervical surgery, fusion from the anterior side. Pt reports numbness and pain that travels down to dorsal right 4th and 5th fingers. He had this distribution when he had left arm symptoms. Pt is right handed. Pt presents with left elbow greater than right elbow redness and he denies injury. 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 He has to help her roll in the bed. She had a stroke and lost most of the use of her left side. The pain is worse after changing his mom. PMH: high blood pressure, left shoulder pain and arm paresthesias and cervical fusion Pt states that ROM exercises for shoulder were helpful last PT course but made him sore. Pt denies neck pain. He sleeps on an off during the day. Prior Treatments and Tests PT for left shoulder, he cannot recall if he had PT after cervical surgery Treatment Goals Patient/Caregiver Goals To decrease right shoulder pain PT-OP-C Subjective Start: 04/19/20 15:40 Freq: Status: Active Protocol: Document 04/27/20 08:17 MB (Rec: 04/27/20 08:36 MB [id number]) OP-PT Subjective Patient Comments Patient Comments Pt states that the racquet ball is helping with the pressure and symptoms down his right arm. He reports decreased frequency of numbness. He has not tried sleeping with the towel roll in his pillow case. PT-OP-J Posture/Palpation/Skin Start: 04/19/20 15:40 Freq: Status: Active Protocol: Document 04/20/20 13:00 MB (Rec: 04/20/20 13:56 MB [id number]) Posture Evaluation Comments Posture Comments Standing: forward head, decreased cervical lordosis, Dowager's hump, right shoulder lower than the left with more protracted and elevated right scapula (pt is right handed), increased lumbar lordosis, right iliac crest higher than the left, pt does have overall postural changes PT-OP-K Range of Motion Start: 04/19/20 15:40 Freq: Status: Active Protocol: Document 04/20/20 13:00 MB (Rec: 04/20/20 13:56 MB [id number]) Cervical Spine Range of Motion Cervical Spine Active Testing Position Standing Flexion 36 Extension 20 Rotation Left 28 Rotation Right 38 Lateral Flexion Left 11 Lateral Flexion Right 11 Shoulder Goniometric Range of Motion Shoulder Left Shoulder ROM WFL No Testing Position Standing Flexion 160 Abduction 90 Right Shoulder ROM WFL No Testing Position Standing Flexion 180 Abduction 90 Shoulder ROM Limitations Comments Pt reports tightness that he rates as 5/10 pain with right shoulder AROM and MMT and he self-limits all ROM and MMT PT-OP-M Strength Start: 04/19/20 15:40 Freq: Status: Active Protocol: Document 04/20/20 13:00 MB (Rec: 04/20/20 14:03 MB [id number]) Shoulder Strength Shoulder Manual Muscle Testing Left External Rotation 5 Normal Internal Rotation 5 Normal Comments Deferred flexion and abduction d/t fear of pain Right External Rotation 5 Normal Internal Rotation 5 Normal Comments Deferred flexion and abduction d/t fear of pain Elbow/Forearm Strength Elbow and Forearm Manual Muscle Testing Left Flexion (C6) 5 Normal Extension (C7) 5 Normal Pronation 4 Good Supination 4 Good Right Flexion (C6) 4 Good Extension (C7) 4 Good Pronation 4 Good Supination 3+ Fair+ Comments Pt with guarding behavior Wrist Strength Wrist Manual Muscle Testing Left Flexion (C7) 5 Normal Extension (C6) 5 Normal Right Flexion (C7) 3+ Fair+ Extension (C6) 3+ Fair+ Hand Moccasin Sewer/Pinch Strength Hand Strength Left Comments Arm 90 deg flexion with elbow straight: 46 lb, 42 lb, 40 lb Right Comments Arm at 90 deg flexion with elbow straight: 48 lb, 50 lb, 40 lb PT-OP-Q Treatments Start: 04/19/20 15:40 Freq: Status: Active Protocol: Document 04/27/20 08:17 MB (Rec: 04/27/20 08:36 MB [id number]) Therapeutic Exercises Sitting Exercises Upper traps MWM Side bilateral Comments Ball at upper traps trigger point and pt performing active cervical rotatio Standing Exercises Pect stretch doorway with scapular retraction Comments Scapular retraction when moving arms down Infraspinatus MWM Comments Use of racquet ball at trigger point and active ER/IR shoulder Use of racquet ball, thoracic mobility, cervical ROM Comments Right side, re-ed today Manual Therapy Treatment Other Other Manual Treatments Prone thoracic PA mobs grade III-IV and scapular mobs PT-OP-T Assessment and Plan Start: 04/19/20 15:40 Freq: Status: Active Protocol: Document 04/27/20 08:17 MB (Rec: 04/27/20 08:36 MB [id number]) Physical Therapy Assessment Rehab Potential Rehabilitation Potential Good Evaluation Complexity Number of Personal Factors/Comorbidities 1-2 Number of Body Systems Impaired 1-2 Clinical Presentation at Evaluation Stable Impairments Impairments Activity Tolerance,Functional Activities,Pain,Posture,ROM, Soft Tissue Mobility,Strength Goals 5 Assisted Goal (LTG) Pt will present with improved AROM cervical spine to at least 30 deg extension, 40 deg flexion, 40 deg B rotation and 15 deg SB to improve functional range with driving by 06/20/2020. LTG Duration 8 weeks 4 Assisted Goal (LTG) Pt will present with B shoulder flexion and abduction MMT to at least 4/5 to improve functional UE use by 06/20/2020. LTG Duration 8 weeks 3 Assisted Goal (LTG) Pt will present with improved B shoulder abduction AROM to at least 110 deg B to improve functional use of arms over head by 06/20/2020. LTG Duration 8 weeks 2 Rigging Slinger Goal (LTG) Pt will perform progressive HEP with I to improve flexibility, range of motion, strength and pain by 2019. LTG Duration 8 weeks 1 Rigging Slinger Goal (LTG) Pt will present with an improved QuickDASH score to reflect no more than 15% impairment by 06/20/2020. LTG Duration 8 weeks Assessment Summary Assessment Progressed MWM with use of racquet ball today as well as pect stretch. Start hands low for biceps stretch and ed pt not to perform to pain--he has some right shoulder discomfort with the pect stretch. Manual work to improve thoracic mobility. Pt is feeling better with treatment and HEP exercises. Physical Therapy Plan Frequency and Duration Frequency of Treatment 2x/Week Duration of Treatment 8 weeks Plan of Care Start Date 04/20/20 Plan of Care End Date 06/21/20 Therapeutic Interventions Therapeutic Interventions Home Exercise Program,Manual Therapy,Neuromuscular Re- education,Patient/Caregiver Education,Self-Care/Home Management,Soft Tissue Mobilization,Taping, Therapeutic Activities, Vestibular Rehabilitation Modalities Cold Pack/Ice Massage,Electric Stimulation,Hot Packs, Ultrasound Next Visit Focus/Plan Next Note Type Treatment Note Next Visit Plan Progress flexibility and strengthening exercises. Consider body mechanics training to improve better mechanics with assisting mom in bed and with transfers.
--- NOTE | 2020-04-29 11:23 | PT.OTN ---
Current Diagnoses Impingement syndrome of right shoulder (04/29/20) Physical Therapy Treatment Note PT-OP-A Visit Information Start: 04/19/20 15:40 Freq: Status: Active Protocol: Document 04/29/20 08:18 MB (Rec: 04/29/20 09:03 MB [id number]) Out-Patient Physical Therapy Visit Information Visit Information Visit Type Treatment Note Visit Note Moseley Visit Start Time 08:18 Visit Stop Time 09:00 Total Visit Minutes 43 Visit Number 3 PT-OP-B Current Condition Start: 04/19/20 15:40 Freq: Status: Active Protocol: Document 04/20/20 13:00 MB (Rec: 04/20/20 13:20 MB [id number]) Current Condition History of Current Condition Onset Date January 2020 Current Complaints Right upper shoulder pain up to 7/10 History of Current Condition Pt reports no injury but a progressive onset of insidious right shoulder pain. He has a history of similar complaints on the left shoulder 5 years ago, had PT but then was found to have cervical disc issue and pt underwent cervical surgery, fusion from the anterior side. Pt reports numbness and pain that travels down to dorsal right 4th and 5th fingers. He had this distribution when he had left arm symptoms. Pt is right handed. Pt presents with left elbow greater than right elbow redness and he denies injury. 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 He has to help her roll in the bed. She had a stroke and lost most of the use of her left side. The pain is worse after changing his mom. PMH: high blood pressure, left shoulder pain and arm paresthesias and cervical fusion Pt states that ROM exercises for shoulder were helpful last PT course but made him sore. Pt denies neck pain. He sleeps on an off during the day. Prior Treatments and Tests PT for left shoulder, he cannot recall if he had PT after cervical surgery Treatment Goals Patient/Caregiver Goals To decrease right shoulder pain PT-OP-C Subjective Start: 04/19/20 15:40 Freq: Status: Active Protocol: Document 04/29/20 08:18 MB (Rec: 04/29/20 09:03 MB [id number]) OP-PT Subjective Patient Comments Patient Comments It was awake, meaning right anterior shoulder discomfort after last treatment. He thinks is might have been the pect stretch and PT ed pt to stop. He did feel better overall after an hour. He is ready for body mechanics training today. PT-OP-J Posture/Palpation/Skin Start: 04/19/20 15:40 Freq: Status: Active Protocol: Document 04/20/20 13:00 MB (Rec: 04/20/20 13:56 MB [id number]) Posture Evaluation Comments Posture Comments Standing: forward head, decreased cervical lordosis, Dowager's hump, right shoulder lower than the left with more protracted and elevated right scapula (pt is right handed), increased lumbar lordosis, right iliac crest higher than the left, pt does have overall postural changes PT-OP-K Range of Motion Start: 04/19/20 15:40 Freq: Status: Active Protocol: Document 04/20/20 13:00 MB (Rec: 04/20/20 13:56 MB [id number]) Cervical Spine Range of Motion Cervical Spine Active Testing Position Standing Flexion 36 Extension 20 Rotation Left 28 Rotation Right 38 Lateral Flexion Left 11 Lateral Flexion Right 11 Shoulder Goniometric Range of Motion Shoulder Left Shoulder ROM WFL No Testing Position Standing Flexion 160 Abduction 90 Right Shoulder ROM WFL No Testing Position Standing Flexion 180 Abduction 90 Shoulder ROM Limitations Comments Pt reports tightness that he rates as 5/10 pain with right shoulder AROM and MMT and he self-limits all ROM and MMT PT-OP-M Strength Start: 04/19/20 15:40 Freq: Status: Active Protocol: Document 04/20/20 13:00 MB (Rec: 04/20/20 14:03 MB [id number]) Shoulder Strength Shoulder Manual Muscle Testing Left External Rotation 5 Normal Internal Rotation 5 Normal Comments Deferred flexion and abduction d/t fear of pain Right External Rotation 5 Normal Internal Rotation 5 Normal Comments Deferred flexion and abduction d/t fear of pain Elbow/Forearm Strength Elbow and Forearm Manual Muscle Testing Left Flexion (C6) 5 Normal Extension (C7) 5 Normal Pronation 4 Good Supination 4 Good Right Flexion (C6) 4 Good Extension (C7) 4 Good Pronation 4 Good Supination 3+ Fair+ Comments Pt with guarding behavior Wrist Strength Wrist Manual Muscle Testing Left Flexion (C7) 5 Normal Extension (C6) 5 Normal Right Flexion (C7) 3+ Fair+ Extension (C6) 3+ Fair+ Hand Steep Tender/Pinch Strength Hand Strength Left Comments Arm 90 deg flexion with elbow straight: 46 lb, 42 lb, 40 lb Right Comments Arm at 90 deg flexion with elbow straight: 48 lb, 50 lb, 40 lb PT-OP-Q Treatments Start: 04/19/20 15:40 Freq: Status: Active Protocol: Document 04/29/20 08:18 MB (Rec: 04/29/20 11:22 MB [id number]) Self-Care/Home Management Treatment Activities Self-Care/Home Management Activities Pt takes care of mother who has right hemiplegia and reports most pain with assisting her with donning and doffing clothing in the bed as well as washing her. Ed, demo and practice in the following: proper body height in setting of low bed, moving bed away from the wall to allow access to both sides of bed, proper ergonomics for using pad to move mother to the side, for rolling, for donning briefs, for bathing, for rolling, for moving from supine to sit and for transfer to and from wheel chair. Pt practices all and makes video on phone PT-OP-T Assessment and Plan Start: 04/19/20 15:40 Freq: Status: Active Protocol: Document 04/29/20 08:18 MB (Rec: 04/29/20 09:03 MB [id number]) Physical Therapy Assessment Rehab Potential Rehabilitation Potential Good Evaluation Complexity Number of Personal Factors/Comorbidities 1-2 Number of Body Systems Impaired 1-2 Clinical Presentation at Evaluation Stable Impairments Impairments Activity Tolerance,Functional Activities,Pain,Posture,ROM, Soft Tissue Mobility,Strength Goals 5 Medical Insurance Collector Goal (LTG) Pt will present with improved AROM cervical spine to at least 30 deg extension, 40 deg flexion, 40 deg B rotation and 15 deg SB to improve functional range with driving by 06/20/2020. LTG Duration 8 weeks 4 Medical Insurance Collector Goal (LTG) Pt will present with B shoulder flexion and abduction MMT to at least 4/5 to improve functional UE use by 06/20/2020. LTG Duration 8 weeks 3 [facility]ci Goal (LTG) Pt will present with improved B shoulder abduction AROM to at least 110 deg B to improve functional use of arms over head by 06/20/2020. LTG Duration 8 weeks 2 [facility]ci Goal (LTG) Pt will perform progressive HEP with I to improve flexibility, range of motion, strength and pain by 2019. LTG Duration 8 weeks 1 Medical Insurance Collector Goal (LTG) Pt will present with an improved QuickDASH score to reflect no more than 15% impairment by 06/20/2020. LTG Duration 8 weeks Assessment Summary Assessment Ergonomic and body mechanics training today to help pt safely assist his mother at home. May need ongoing training. Recommended he request a HHPT consult for caregiver education at home. Physical Therapy Plan Frequency and Duration Frequency of Treatment 2x/Week Duration of Treatment 8 weeks Plan of Care Start Date 04/20/20 Plan of Care End Date 06/21/20 Therapeutic Interventions Therapeutic Interventions Home Exercise Program,Manual Therapy,Neuromuscular Re- education,Patient/Caregiver Education,Self-Care/Home Management,Soft Tissue Mobilization,Taping, Therapeutic Activities, Vestibular Rehabilitation Modalities Cold Pack/Ice Massage,Electric Stimulation,Hot Packs, Ultrasound Next Visit Focus/Plan Next Note Type Treatment Note Next Visit Plan Progress flexibility and strengthening exercises. Consider futher body mechanics training to improve better mechanics with assisting mom in bed and with transfers.
--- NOTE | 2020-05-04 09:44 | PT.OTN ---
Current Diagnoses Impingement syndrome of right shoulder (05/04/20) Physical Therapy Treatment Note PT-OP-A Visit Information Start: 04/19/20 15:40 Freq: Status: Active Protocol: Document 05/04/20 09:00 MB (Rec: 05/04/20 09:44 MB [id number]) Out-Patient Physical Therapy Visit Information Visit Information Visit Type Treatment Note Visit Note Moseley Visit Start Time 09:00 Visit Stop Time 09:44 Total Visit Minutes 44 Visit Number 4 PT-OP-B Current Condition Start: 04/19/20 15:40 Freq: Status: Active Protocol: Document 04/20/20 13:00 MB (Rec: 04/20/20 13:20 MB [id number]) Current Condition History of Current Condition Onset Date January 2020 Current Complaints Right upper shoulder pain up to 7/10 History of Current Condition Pt reports no injury but a progressive onset of insidious right shoulder pain. He has a history of similar complaints on the left shoulder 5 years ago, had PT but then was found to have cervical disc issue and pt underwent cervical surgery, fusion from the anterior side. Pt reports numbness and pain that travels down to dorsal right 4th and 5th fingers. He had this distribution when he had left arm symptoms. Pt is right handed. Pt presents with left elbow greater than right elbow redness and he denies injury. 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 He has to help her roll in the bed. She had a stroke and lost most of the use of her left side. The pain is worse after changing his mom. PMH: high blood pressure, left shoulder pain and arm paresthesias and cervical fusion Pt states that ROM exercises for shoulder were helpful last PT course but made him sore. Pt denies neck pain. He sleeps on an off during the day. Prior Treatments and Tests PT for left shoulder, he cannot recall if he had PT after cervical surgery Treatment Goals Patient/Caregiver Goals To decrease right shoulder pain PT-OP-C Subjective Start: 04/19/20 15:40 Freq: Status: Active Protocol: Document 05/04/20 09:00 MB (Rec: 05/04/20 09:44 MB [id number]) OP-PT Subjective Patient Comments Patient Comments Pt states that body mechanics with caring for his mom is going okay. He had some pain in his right hand that started when he was playing video games last night. PT-OP-J Posture/Palpation/Skin Start: 04/19/20 15:40 Freq: Status: Active Protocol: Document 04/20/20 13:00 MB (Rec: 04/20/20 13:56 MB [id number]) Posture Evaluation Comments Posture Comments Standing: forward head, decreased cervical lordosis, Dowager's hump, right shoulder lower than the left with more protracted and elevated right scapula (pt is right handed), increased lumbar lordosis, right iliac crest higher than the left, pt does have overall postural changes PT-OP-K Range of Motion Start: 04/19/20 15:40 Freq: Status: Active Protocol: Document 04/20/20 13:00 MB (Rec: 04/20/20 13:56 MB [id number]) Cervical Spine Range of Motion Cervical Spine Active Testing Position Standing Flexion 36 Extension 20 Rotation Left 28 Rotation Right 38 Lateral Flexion Left 11 Lateral Flexion Right 11 Shoulder Goniometric Range of Motion Shoulder Left Shoulder ROM WFL No Testing Position Standing Flexion 160 Abduction 90 Right Shoulder ROM WFL No Testing Position Standing Flexion 180 Abduction 90 Shoulder ROM Limitations Comments Pt reports tightness that he rates as 5/10 pain with right shoulder AROM and MMT and he self-limits all ROM and MMT PT-OP-M Strength Start: 04/19/20 15:40 Freq: Status: Active Protocol: Document 04/20/20 13:00 MB (Rec: 04/20/20 14:03 MB [id number]) Shoulder Strength Shoulder Manual Muscle Testing Left External Rotation 5 Normal Internal Rotation 5 Normal Comments Deferred flexion and abduction d/t fear of pain Right External Rotation 5 Normal Internal Rotation 5 Normal Comments Deferred flexion and abduction d/t fear of pain Elbow/Forearm Strength Elbow and Forearm Manual Muscle Testing Left Flexion (C6) 5 Normal Extension (C7) 5 Normal Pronation 4 Good Supination 4 Good Right Flexion (C6) 4 Good Extension (C7) 4 Good Pronation 4 Good Supination 3+ Fair+ Comments Pt with guarding behavior Wrist Strength Wrist Manual Muscle Testing Left Flexion (C7) 5 Normal Extension (C6) 5 Normal Right Flexion (C7) 3+ Fair+ Extension (C6) 3+ Fair+ Hand Clinic Office Coordinator/Pinch Strength Hand Strength Left Comments Arm 90 deg flexion with elbow straight: 46 lb, 42 lb, 40 lb Right Comments Arm at 90 deg flexion with elbow straight: 48 lb, 50 lb, 40 lb PT-OP-Q Treatments Start: 04/19/20 15:40 Freq: Status: Active Protocol: Document 05/04/20 09:00 MB (Rec: 05/04/20 09:44 MB [id number]) Therapeutic Exercises Supine Exercises Posterior capsule stretch Side bilateral Reps/Minutes 1 rep each Comments Hold 20 reps Pect stretch Side bilateral Reps/Minutes 2 reps Comments Core engaged, 20 sec hold, neck and head support Shoulder flexion with cane Reps/Minutes 10 reps Comments Core engaged, neck and head support Abdominal drawing in Reps/Minutes 5 reps Comments Cues for flattening spine against mat Sitting Exercises Upper traps MWM Side right Comments Ball at upper traps and pt performs active cervical rotation Standing Exercises Scapular retraction Comments Start standing against wall with chin tuck Pect stretch doorway with scapular retraction Comments D/cd Infraspinatus MWM Comments Use of racquet ball at trigger point and active ER/IR shoulder Use of racquet ball, thoracic mobility, cervical ROM Comments Right side, re-ed today Manual Therapy Treatment Other Other Manual Treatments Pt supine and PT palpates many muscles--lats, pect major and minor, scalenes, MWM and STM PT-OP-T Assessment and Plan Start: 04/19/20 15:40 Freq: Status: Active Protocol: Document 05/04/20 09:00 MB (Rec: 05/04/20 09:44 MB [id number]) Physical Therapy Assessment Rehab Potential Rehabilitation Potential Good Evaluation Complexity Number of Personal Factors/Comorbidities 1-2 Number of Body Systems Impaired 1-2 Clinical Presentation at Evaluation Stable Impairments Impairments Activity Tolerance,Functional Activities,Pain,Posture,ROM, Soft Tissue Mobility,Strength Goals 5 Penitentiary Goal (LTG) Pt will present with improved AROM cervical spine to at least 30 deg extension, 40 deg flexion, 40 deg B rotation and 15 deg SB to improve functional range with driving by 06/20/2020. LTG Duration 8 weeks 4 Penitentiary Goal (LTG) Pt will present with B shoulder flexion and abduction MMT to at least 4/5 to improve functional UE use by 06/20/2020. LTG Duration 8 weeks 3 Penitentiary Goal (LTG) Pt will present with improved B shoulder abduction AROM to at least 110 deg B to improve functional use of arms over head by 06/20/2020. LTG Duration 8 weeks 2 Casino Enforcement Agent Goal (LTG) Pt will perform progressive HEP with I to improve flexibility, range of motion, strength and pain by 2019. LTG Duration 8 weeks 1 Casino Enforcement Agent Goal (LTG) Pt will present with an improved QuickDASH score to reflect no more than 15% impairment by 06/20/2020. LTG Duration 8 weeks Assessment Summary Assessment Progressed postural and core exercises today, con't progression. Physical Therapy Plan Frequency and Duration Frequency of Treatment 2x/Week Duration of Treatment 8 weeks Plan of Care Start Date 04/20/20 Plan of Care End Date 06/21/20 Therapeutic Interventions Therapeutic Interventions Home Exercise Program,Manual Therapy,Neuromuscular Re- education,Patient/Caregiver Education,Self-Care/Home Management,Soft Tissue Mobilization,Taping, Therapeutic Activities, Vestibular Rehabilitation Modalities Cold Pack/Ice Massage,Electric Stimulation,Hot Packs, Ultrasound Next Visit Focus/Plan Next Note Type Treatment Note Next Visit Plan Progress flexibility and strengthening exercises. Consider futher body mechanics training to improve better mechanics with assisting mom in bed and with transfers.
--- NOTE | 2020-05-06 08:59 | PT.OTN ---
Current Diagnoses Impingement syndrome of right shoulder (05/06/20) Physical Therapy Treatment Note PT-OP-A Visit Information Start: 04/19/20 15:40 Freq: Status: Active Protocol: Document 05/06/20 08:16 MB (Rec: 05/06/20 08:59 MB [id number]) Out-Patient Physical Therapy Visit Information Visit Information Visit Type Treatment Note Visit Note Moseley Visit Start Time 08:16 Visit Stop Time 08:55 Total Visit Minutes 39 Visit Number 5 PT-OP-B Current Condition Start: 04/19/20 15:40 Freq: Status: Active Protocol: Document 04/20/20 13:00 MB (Rec: 04/20/20 13:20 MB [id number]) Current Condition History of Current Condition Onset Date January 2020 Current Complaints Right upper shoulder pain up to 03/05 History of Current Condition Pt reports no injury but a progressive onset of insidious right shoulder pain. He has a history of similar complaints on the left shoulder 5 years ago, had PT but then was found to have cervical disc issue and pt underwent cervical surgery, fusion from the anterior side. Pt reports numbness and pain that travels down to dorsal right 4th and 5th fingers. He had this distribution when he had left arm symptoms. Pt is right handed. Pt presents with left elbow greater than right elbow redness and he denies injury. 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 He has to help her roll in the bed. She had a stroke and lost most of the use of her left side. The pain is worse after changing his mom. PMH: high blood pressure, left shoulder pain and arm paresthesias and cervical fusion Pt states that ROM exercises for shoulder were helpful last PT course but made him sore. Pt denies neck pain. He sleeps on an off during the day. Prior Treatments and Tests PT for left shoulder, he cannot recall if he had PT after cervical surgery Treatment Goals Patient/Caregiver Goals To decrease right shoulder pain PT-OP-C Subjective Start: 04/19/20 15:40 Freq: Status: Active Protocol: Document 05/06/20 08:16 MB (Rec: 05/06/20 08:59 MB [id number]) OP-PT Subjective Patient Comments Patient Comments My right shoulder is still painful but the exercises are helpful. PT-OP-J Posture/Palpation/Skin Start: 04/19/20 15:40 Freq: Status: Active Protocol: Document 04/20/20 13:00 MB (Rec: 04/20/20 13:56 MB [id number]) Posture Evaluation Comments Posture Comments Standing: forward head, decreased cervical lordosis, Dowager's hump, right shoulder lower than the left with more protracted and elevated right scapula (pt is right handed), increased lumbar lordosis, right iliac crest higher than the left, pt does have overall postural changes PT-OP-K Range of Motion Start: 04/19/20 15:40 Freq: Status: Active Protocol: Document 04/20/20 13:00 MB (Rec: 04/20/20 13:56 MB [id number]) Cervical Spine Range of Motion Cervical Spine Active Testing Position Standing Flexion 36 Extension 20 Rotation Left 28 Rotation Right 38 Lateral Flexion Left 11 Lateral Flexion Right 11 Shoulder Goniometric Range of Motion Shoulder Left Shoulder ROM WFL No Testing Position Standing Flexion 160 Abduction 90 Right Shoulder ROM WFL No Testing Position Standing Flexion 180 Abduction 90 Shoulder ROM Limitations Comments Pt reports tightness that he rates as 5/10 pain with right shoulder AROM and MMT and he self-limits all ROM and MMT PT-OP-M Strength Start: 04/19/20 15:40 Freq: Status: Active Protocol: Document 04/20/20 13:00 MB (Rec: 04/20/20 14:03 MB [id number]) Shoulder Strength Shoulder Manual Muscle Testing Left External Rotation 5 Normal Internal Rotation 5 Normal Comments Deferred flexion and abduction d/t fear of pain Right External Rotation 5 Normal Internal Rotation 5 Normal Comments Deferred flexion and abduction d/t fear of pain Elbow/Forearm Strength Elbow and Forearm Manual Muscle Testing Left Flexion (C6) 5 Normal Extension (C7) 5 Normal Pronation 4 Good Supination 4 Good Right Flexion (C6) 4 Good Extension (C7) 4 Good Pronation 4 Good Supination 3+ Fair+ Comments Pt with guarding behavior Wrist Strength Wrist Manual Muscle Testing Left Flexion (C7) 5 Normal Extension (C6) 5 Normal Right Flexion (C7) 3+ Fair+ Extension (C6) 3+ Fair+ Hand Principal Programmer/Pinch Strength Hand Strength Left Comments Arm 90 deg flexion with elbow straight: 46 lb, 42 lb, 40 lb Right Comments Arm at 90 deg flexion with elbow straight: 48 lb, 50 lb, 40 lb PT-OP-Q Treatments Start: 04/19/20 15:40 Freq: Status: Active Protocol: Document 05/06/20 08:16 MB (Rec: 05/06/20 08:59 MB [id number]) Therapeutic Exercises Supine Exercises Shoulder abduction with cane, right Side right Equipment Used Cane and pool noodle Reps/Minutes 5 reps x3 Comments Core engaged, slowly Posterior capsule stretch Side bilateral Equipment Used Small pool noodle Reps/Minutes 3 rep each Comments Hold 20 sec Pect stretch Side bilateral Equipment Used Small pool noodle Reps/Minutes 2 reps Comments Core engaged, 20 sec hold Shoulder flexion with cane Equipment Used Cane, pool noodle Reps/Minutes 5 reps x3 Comments Core engaged, slowly Standing Exercises Racquet ball lats STM Equipment Used Racquet ball Reps/Minutes 2' Comments 90 deg from wall Infraspinatus MWM Equipment Used Racquet ball Comments Reviewed again today PT-OP-T Assessment and Plan Start: 04/19/20 15:40 Freq: Status: Active Protocol: Document 05/06/20 08:16 MB (Rec: 05/06/20 08:59 MB [id number]) Physical Therapy Assessment Rehab Potential Rehabilitation Potential Good Evaluation Complexity Number of Personal Factors/Comorbidities 1-2 Number of Body Systems Impaired 1-2 Clinical Presentation at Evaluation Stable Impairments Impairments Activity Tolerance,Functional Activities,Pain,Posture,ROM, Soft Tissue Mobility,Strength Goals 5 Residential Goal (LTG) Pt will present with improved AROM cervical spine to at least 30 deg extension, 40 deg flexion, 40 deg B rotation and 15 deg SB to improve functional range with driving by 06/20/2020. LTG Duration 8 weeks 4 Ferryboat Operator Goal (LTG) Pt will present with B shoulder flexion and abduction MMT to at least 4/5 to improve functional UE use by 06/20/2020. LTG Duration 8 weeks 3 Residential Goal (LTG) Pt will present with improved B shoulder abduction AROM to at least 110 deg B to improve functional use of arms over head by 06/20/2020. LTG Duration 8 weeks 2 Ferryboat Operator Goal (LTG) Pt will perform progressive HEP with I to improve flexibility, range of motion, strength and pain by 2019. LTG Duration 8 weeks 1 Residential Goal (LTG) Pt will present with an improved QuickDASH score to reflect no more than 15% impairment by 06/20/2020. LTG Duration 8 weeks Assessment Summary Assessment Progressed ROM right shoulder over pool noodle today. Pt has pain worse with AAROM abduction than with flexion with pain up to 6/10. PT asks front office to obtain MRI from Dr. Mora's office. PT also encourages pt to consider bringing in if available. Physical Therapy Plan Frequency and Duration Frequency of Treatment 2x/Week Duration of Treatment 8 weeks Plan of Care Start Date 04/20/20 Plan of Care End Date 06/21/20 Therapeutic Interventions Therapeutic Interventions Home Exercise Program,Manual Therapy,Neuromuscular Re- education,Patient/Caregiver Education,Self-Care/Home Management,Soft Tissue Mobilization,Taping, Therapeutic Activities, Vestibular Rehabilitation Modalities Cold Pack/Ice Massage,Electric Stimulation,Hot Packs, Ultrasound Next Visit Focus/Plan Next Note Type Treatment Note Next Visit Plan Progress range right shoulder, thoracic flexibility and strengthening exercises. Consider futher body mechanics training to improve better mechanics with assisting mom in bed and with transfers.
--- NOTE | 2020-05-11 09:42 | PT.OTN ---
Current Diagnoses Impingement syndrome of right shoulder (05/11/20) Physical Therapy Treatment Note PT-OP-A Visit Information Start: 04/19/20 15:40 Freq: Status: Active Protocol: Document 05/11/20 09:03 MB (Rec: 05/11/20 09:42 MB [id number]) Out-Patient Physical Therapy Visit Information Visit Information Visit Type Treatment Note Visit Note Moseley Visit Start Time 09:03 Visit Stop Time 09:41 Total Visit Minutes 38 Visit Number 6 PT-OP-B Current Condition Start: 04/19/20 15:40 Freq: Status: Active Protocol: Document 04/20/20 13:00 MB (Rec: 04/20/20 13:20 MB [id number]) Current Condition History of Current Condition Onset Date January 2020 Current Complaints Right upper shoulder pain up to 710 History of Current Condition Pt reports no injury but a progressive onset of insidious right shoulder pain. He has a history of similar complaints on the left shoulder 5 years ago, had PT but then was found to have cervical disc issue and pt underwent cervical surgery, fusion from the anterior side. Pt reports numbness and pain that travels down to dorsal right 4th and 5th fingers. He had this distribution when he had left arm symptoms. Pt is right handed. Pt presents with left elbow greater than right elbow redness and he denies injury. 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 He has to help her roll in the bed. She had a stroke and lost most of the use of her left side. The pain is worse after changing his mom. PMH: high blood pressure, left shoulder pain and arm paresthesias and cervical fusion Pt states that ROM exercises for shoulder were helpful last PT course but made him sore. Pt denies neck pain. He sleeps on an off during the day. Prior Treatments and Tests PT for left shoulder, he cannot recall if he had PT after cervical surgery Treatment Goals Patient/Caregiver Goals To decrease right shoulder pain PT-OP-C Subjective Start: 04/19/20 15:40 Freq: Status: Active Protocol: Document 05/11/20 09:03 MB (Rec: 05/11/20 09:42 MB [id number]) OP-PT Subjective Patient Comments Patient Comments A little bit. When PT asks pt if his shoulder is doing better. His right hand is about the same. It was bothering him the other night. PT-OP-J Posture/Palpation/Skin Start: 04/19/20 15:40 Freq: Status: Active Protocol: Document 04/20/20 13:00 MB (Rec: 04/20/20 13:56 MB [id number]) Posture Evaluation Comments Posture Comments Standing: forward head, decreased cervical lordosis, Dowager's hump, right shoulder lower than the left with more protracted and elevated right scapula (pt is right handed), increased lumbar lordosis, right iliac crest higher than the left, pt does have overall postural changes PT-OP-K Range of Motion Start: 04/19/20 15:40 Freq: Status: Active Protocol: Document 04/20/20 13:00 MB (Rec: 04/20/20 13:56 MB [id number]) Cervical Spine Range of Motion Cervical Spine Active Testing Position Standing Flexion 36 Extension 20 Rotation Left 28 Rotation Right 38 Lateral Flexion Left 11 Lateral Flexion Right 11 Shoulder Goniometric Range of Motion Shoulder Left Shoulder ROM WFL No Testing Position Standing Flexion 160 Abduction 90 Right Shoulder ROM WFL No Testing Position Standing Flexion 180 Abduction 90 Shoulder ROM Limitations Comments Pt reports tightness that he rates as 5/10 pain with right shoulder AROM and MMT and he self-limits all ROM and MMT PT-OP-M Strength Start: 04/19/20 15:40 Freq: Status: Active Protocol: Document 04/20/20 13:00 MB (Rec: 04/20/20 14:03 MB [id number]) Shoulder Strength Shoulder Manual Muscle Testing Left External Rotation 5 Normal Internal Rotation 5 Normal Comments Deferred flexion and abduction d/t fear of pain Right External Rotation 5 Normal Internal Rotation 5 Normal Comments Deferred flexion and abduction d/t fear of pain Elbow/Forearm Strength Elbow and Forearm Manual Muscle Testing Left Flexion (C6) 5 Normal Extension (C7) 5 Normal Pronation 4 Good Supination 4 Good Right Flexion (C6) 4 Good Extension (C7) 4 Good Pronation 4 Good Supination 3+ Fair+ Comments Pt with guarding behavior Wrist Strength Wrist Manual Muscle Testing Left Flexion (C7) 5 Normal Extension (C6) 5 Normal Right Flexion (C7) 3+ Fair+ Extension (C6) 3+ Fair+ Hand Steamer Operator/Pinch Strength Hand Strength Left Comments Arm 90 deg flexion with elbow straight: 46 lb, 42 lb, 40 lb Right Comments Arm at 90 deg flexion with elbow straight: 48 lb, 50 lb, 40 lb PT-OP-Q Treatments Start: 04/19/20 15:40 Freq: Status: Active Protocol: Document 05/11/20 09:03 MB (Rec: 05/11/20 09:42 MB [id number]) Therapeutic Exercises Supine Exercises Chicken stretch over pool noodle Equipment Used Pool noodle Reps/Minutes 1 Comments Hold 45 sec Shoulder abduction with cane, right Side right Equipment Used Cane and pool noodle Reps/Minutes 5 reps x3 Comments Core engaged, slowly Posterior capsule stretch Side bilateral Equipment Used Small pool noodle Reps/Minutes 1 rep each Comments Hold 45 sec Pect stretch Side bilateral Equipment Used Small pool noodle Reps/Minutes 2 reps Comments Core engaged, 20 sec hold Shoulder flexion with cane Equipment Used Cane, pool noodle Reps/Minutes 10 reps Comments Core engaged, slowly Standing Exercises 1 Side right Equipment Used Towel Reps/Minutes 5 reps of isometric Comments IR with towel behind back, resisted isometric Manual Therapy Treatment Other Other Manual Treatments PROM right shoulder with pt head and neck supported: 10 reps shoulder flexion and abduction, posterior capsule stretch. Passive ER is normal and so not performed PT-OP-T Assessment and Plan Start: 04/19/20 15:40 Freq: Status: Active Protocol: Document 05/11/20 09:03 MB (Rec: 05/11/20 09:42 MB [id number]) Physical Therapy Assessment Rehab Potential Rehabilitation Potential Good Evaluation Complexity Number of Personal Factors/Comorbidities 1-2 Number of Body Systems Impaired 1-2 Clinical Presentation at Evaluation Stable Impairments Impairments Activity Tolerance,Functional Activities,Pain,Posture,ROM, Soft Tissue Mobility,Strength Goals 5 Miller Head Wet Process Goal (LTG) Pt will present with improved AROM cervical spine to at least 30 deg extension, 40 deg flexion, 40 deg B rotation and 15 deg SB to improve functional range with driving by 06/20/2020. LTG Duration 8 weeks 4 Miller Head Wet Process Goal (LTG) Pt will present with B shoulder flexion and abduction MMT to at least 4/5 to improve functional UE use by 06/20/2020. LTG Duration 8 weeks 3 Snf Goal (LTG) Pt will present with improved B shoulder abduction AROM to at least 110 deg B to improve functional use of arms over head by 06/20/2020. LTG Duration 8 weeks 2 Snf Goal (LTG) Pt will perform progressive HEP with I to improve flexibility, range of motion, strength and pain by 2019. LTG Duration 8 weeks 1 Snf Goal (LTG) Pt will present with an improved QuickDASH score to reflect no more than 15% impairment by 06/20/2020. LTG Duration 8 weeks Assessment Summary Assessment PT reviews MRI right shoulder: infraspinatus tendionpathy with partial-thickness tear, supraspinatus tendinopathy with low-grade articular and bursal surface fraying, mild subacromial-subdeltoid bursitis, chronic posterior labral tear, chronic sprain inferior GH ligament. Physical Therapy Plan Frequency and Duration Frequency of Treatment 2x/Week Duration of Treatment 8 weeks Plan of Care Start Date 04/20/20 Plan of Care End Date 06/21/20 Therapeutic Interventions Therapeutic Interventions Home Exercise Program,Manual Therapy,Neuromuscular Re- education,Patient/Caregiver Education,Self-Care/Home Management,Soft Tissue Mobilization,Taping, Therapeutic Activities, Vestibular Rehabilitation Modalities Cold Pack/Ice Massage,Electric Stimulation,Hot Packs, Ultrasound Next Visit Focus/Plan Next Note Type Treatment Note Next Visit Plan Progress thoracic flexibility and strengthening exercises.
--- NOTE | 2020-05-13 09:01 | PT.OTN ---
Current Diagnoses Impingement syndrome of right shoulder (05/13/20) Physical Therapy Treatment Note PT-OP-A Visit Information Start: 04/19/20 15:40 Freq: Status: Active Protocol: Document 05/13/20 08:22 MB (Rec: 05/13/20 09:01 MB [id number]) Out-Patient Physical Therapy Visit Information Visit Information Visit Type Treatment Note Visit Note Moseley Pt arrives late to appointment Visit Start Time 08:22 Visit Stop Time 09:00 Total Visit Minutes 38 Visit Number 7 PT-OP-B Current Condition Start: 04/19/20 15:40 Freq: Status: Active Protocol: Document 04/20/20 13:00 MB (Rec: 04/20/20 13:20 MB [id number]) Current Condition History of Current Condition Onset Date January 2020 Current Complaints Right upper shoulder pain up to 7/10 History of Current Condition Pt reports no injury but a progressive onset of insidious right shoulder pain. He has a history of similar complaints on the left shoulder 5 years ago, had PT but then was found to have cervical disc issue and pt underwent cervical surgery, fusion from the anterior side. Pt reports numbness and pain that travels down to dorsal right 4th and 5th fingers. He had this distribution when he had left arm symptoms. Pt is right handed. Pt presents with left elbow greater than right elbow redness and he denies injury. 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 He has to help her roll in the bed. She had a stroke and lost most of the use of her left side. The pain is worse after changing his mom. PMH: high blood pressure, left shoulder pain and arm paresthesias and cervical fusion Pt states that ROM exercises for shoulder were helpful last PT course but made him sore. Pt denies neck pain. He sleeps on an off during the day. Prior Treatments and Tests PT for left shoulder, he cannot recall if he had PT after cervical surgery Treatment Goals Patient/Caregiver Goals To decrease right shoulder pain PT-OP-C Subjective Start: 04/19/20 15:40 Freq: Status: Active Protocol: Document 05/13/20 08:22 MB (Rec: 05/13/20 09:01 MB [id number]) OP-PT Subjective Patient Comments Patient Comments Good. When PT asks pt how he is doing. He did some of his stretches yesterday. He is thinking about getting a cane for shoulder exercises, pool noodle and asking brother to help him raise his mother's bed. PT-OP-J Posture/Palpation/Skin Start: 04/19/20 15:40 Freq: Status: Active Protocol: Document 04/20/20 13:00 MB (Rec: 04/20/20 13:56 MB [id number]) Posture Evaluation Comments Posture Comments Standing: forward head, decreased cervical lordosis, Dowager's hump, right shoulder lower than the left with more protracted and elevated right scapula (pt is right handed), increased lumbar lordosis, right iliac crest higher than the left, pt does have overall postural changes PT-OP-K Range of Motion Start: 04/19/20 15:40 Freq: Status: Active Protocol: Document 04/20/20 13:00 MB (Rec: 04/20/20 13:56 MB [id number]) Cervical Spine Range of Motion Cervical Spine Active Testing Position Standing Flexion 36 Extension 20 Rotation Left 28 Rotation Right 38 Lateral Flexion Left 11 Lateral Flexion Right 11 Shoulder Goniometric Range of Motion Shoulder Left Shoulder ROM WFL No Testing Position Standing Flexion 160 Abduction 90 Right Shoulder ROM WFL No Testing Position Standing Flexion 180 Abduction 90 Shoulder ROM Limitations Comments Pt reports tightness that he rates as 5/10 pain with right shoulder AROM and MMT and he self-limits all ROM and MMT PT-OP-M Strength Start: 04/19/20 15:40 Freq: Status: Active Protocol: Document 04/20/20 13:00 MB (Rec: 04/20/20 14:03 MB [id number]) Shoulder Strength Shoulder Manual Muscle Testing Left External Rotation 5 Normal Internal Rotation 5 Normal Comments Deferred flexion and abduction d/t fear of pain Right External Rotation 5 Normal Internal Rotation 5 Normal Comments Deferred flexion and abduction d/t fear of pain Elbow/Forearm Strength Elbow and Forearm Manual Muscle Testing Left Flexion (C6) 5 Normal Extension (C7) 5 Normal Pronation 4 Good Supination 4 Good Right Flexion (C6) 4 Good Extension (C7) 4 Good Pronation 4 Good Supination 3+ Fair+ Comments Pt with guarding behavior Wrist Strength Wrist Manual Muscle Testing Left Flexion (C7) 5 Normal Extension (C6) 5 Normal Right Flexion (C7) 3+ Fair+ Extension (C6) 3+ Fair+ Hand Toll Gate Tender/Pinch Strength Hand Strength Left Comments Arm 90 deg flexion with elbow straight: 46 lb, 42 lb, 40 lb Right Comments Arm at 90 deg flexion with elbow straight: 48 lb, 50 lb, 40 lb PT-OP-Q Treatments Start: 04/19/20 15:40 Freq: Status: Active Protocol: Document 05/13/20 08:22 MB (Rec: 05/13/20 09:01 MB [id number]) Cardio Equipment Upper Body Ergometer (UBE) Duration (Minutes) 10 Other 5' forward and 5' backwards Manual Therapy Treatment Other Other Manual Treatments Pt prone: thoracic PA mobs grade III-IV and scapular mobs B, right posterior capsule mobs grade II, rib recoil lateral right rib with pt performing assisted breathing PT-OP-T Assessment and Plan Start: 04/19/20 15:40 Freq: Status: Active Protocol: Document 05/13/20 08:22 MB (Rec: 05/13/20 09:01 MB [id number]) Physical Therapy Assessment Rehab Potential Rehabilitation Potential Good Evaluation Complexity Number of Personal Factors/Comorbidities 1-2 Number of Body Systems Impaired 1-2 Clinical Presentation at Evaluation Stable Impairments Impairments Activity Tolerance,Functional Activities,Pain,Posture,ROM, Soft Tissue Mobility,Strength Goals 5 Alf Goal (LTG) Pt will present with improved AROM cervical spine to at least 30 deg extension, 40 deg flexion, 40 deg B rotation and 15 deg SB to improve functional range with driving by 06/20/2020. LTG Duration 8 weeks 4 Automatic Riveting Machine Operator Goal (LTG) Pt will present with B shoulder flexion and abduction MMT to at least 4/5 to improve functional UE use by 06/20/2020. LTG Duration 8 weeks 3 Alf Goal (LTG) Pt will present with improved B shoulder abduction AROM to at least 110 deg B to improve functional use of arms over head by 06/20/2020. LTG Duration 8 weeks 2 Automatic Riveting Machine Operator Goal (LTG) Pt will perform progressive HEP with I to improve flexibility, range of motion, strength and pain by 2019. LTG Duration 8 weeks 1 Automatic Riveting Machine Operator Goal (LTG) Pt will present with an improved QuickDASH score to reflect no more than 15% impairment by 06/20/2020. LTG Duration 8 weeks Assessment Summary Assessment Progressed strengthening using UBE today. Reassessed scapular and thoracic mobility with pt in prone and treated again today. Progress further strengthening as pt tolerates. Physical Therapy Plan Frequency and Duration Frequency of Treatment 2x/Week Duration of Treatment 8 weeks Plan of Care Start Date 04/20/20 Plan of Care End Date 06/21/20 Therapeutic Interventions Therapeutic Interventions Home Exercise Program,Manual Therapy,Neuromuscular Re- education,Patient/Caregiver Education,Self-Care/Home Management,Soft Tissue Mobilization,Taping, Therapeutic Activities, Vestibular Rehabilitation Modalities Cold Pack/Ice Massage,Electric Stimulation,Hot Packs, Ultrasound Next Visit Focus/Plan Next Note Type Treatment Note Next Visit Plan Progress thoracic flexibility and strengthening exercises.
--- NOTE | 2020-05-18 09:43 | PT.OTN ---
Current Diagnoses Impingement syndrome of right shoulder (05/18/20) Physical Therapy Treatment Note PT-OP-A Visit Information Start: 04/19/20 15:40 Freq: Status: Active Protocol: Document 05/18/20 09:04 MB (Rec: 05/18/20 09:37 MB [id number]) Out-Patient Physical Therapy Visit Information Visit Information Visit Type Treatment Note Visit Note Moseley Visit Start Time 09:04 Visit Stop Time 09:42 Total Visit Minutes 38 Visit Number 8 PT-OP-B Current Condition Start: 04/19/20 15:40 Freq: Status: Active Protocol: Document 04/20/20 13:00 MB (Rec: 04/20/20 13:20 MB [id number]) Current Condition History of Current Condition Onset Date January 2020 Current Complaints Right upper shoulder pain up to 7/10 History of Current Condition Pt reports no injury but a progressive onset of insidious right shoulder pain. He has a history of similar complaints on the left shoulder 5 years ago, had PT but then was found to have cervical disc issue and pt underwent cervical surgery, fusion from the anterior side. Pt reports numbness and pain that travels down to dorsal right 4th and 5th fingers. He had this distribution when he had left arm symptoms. Pt is right handed. Pt presents with left elbow greater than right elbow redness and he denies injury. 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 He has to help her roll in the bed. She had a stroke and lost most of the use of her left side. The pain is worse after changing his mom. PMH: high blood pressure, left shoulder pain and arm paresthesias and cervical fusion Pt states that ROM exercises for shoulder were helpful last PT course but made him sore. Pt denies neck pain. He sleeps on an off during the day. Prior Treatments and Tests PT for left shoulder, he cannot recall if he had PT after cervical surgery Treatment Goals Patient/Caregiver Goals To decrease right shoulder pain PT-OP-C Subjective Start: 04/19/20 15:40 Freq: Status: Active Protocol: Document 05/18/20 09:04 MB (Rec: 05/18/20 09:37 MB [id number]) OP-PT Subjective Patient Comments Patient Comments I had some trouble with it day night. Pt describes sitting up in bed and have to reach to the left to turn off light with his right hand and he experience pain down both hands. Left hand pain went away with ibuprofen and right hand pain lasted almost all night. PT-OP-J Posture/Palpation/Skin Start: 04/19/20 15:40 Freq: Status: Active Protocol: Document 04/20/20 13:00 MB (Rec: 04/20/20 13:56 MB [id number]) Posture Evaluation Comments Posture Comments Standing: forward head, decreased cervical lordosis, Dowager's hump, right shoulder lower than the left with more protracted and elevated right scapula (pt is right handed), increased lumbar lordosis, right iliac crest higher than the left, pt does have overall postural changes PT-OP-K Range of Motion Start: 04/19/20 15:40 Freq: Status: Active Protocol: Document 04/20/20 13:00 MB (Rec: 04/20/20 13:56 MB [id number]) Cervical Spine Range of Motion Cervical Spine Active Testing Position Standing Flexion 36 Extension 20 Rotation Left 28 Rotation Right 38 Lateral Flexion Left 11 Lateral Flexion Right 11 Shoulder Goniometric Range of Motion Shoulder Left Shoulder ROM WFL No Testing Position Standing Flexion 160 Abduction 90 Right Shoulder ROM WFL No Testing Position Standing Flexion 180 Abduction 90 Shoulder ROM Limitations Comments Pt reports tightness that he rates as 5/10 pain with right shoulder AROM and MMT and he self-limits all ROM and MMT PT-OP-M Strength Start: 04/19/20 15:40 Freq: Status: Active Protocol: Document 04/20/20 13:00 MB (Rec: 04/20/20 14:03 MB [id number]) Shoulder Strength Shoulder Manual Muscle Testing Left External Rotation 5 Normal Internal Rotation 5 Normal Comments Deferred flexion and abduction d/t fear of pain Right External Rotation 5 Normal Internal Rotation 5 Normal Comments Deferred flexion and abduction d/t fear of pain Elbow/Forearm Strength Elbow and Forearm Manual Muscle Testing Left Flexion (C6) 5 Normal Extension (C7) 5 Normal Pronation 4 Good Supination 4 Good Right Flexion (C6) 4 Good Extension (C7) 4 Good Pronation 4 Good Supination 3+ Fair+ Comments Pt with guarding behavior Wrist Strength Wrist Manual Muscle Testing Left Flexion (C7) 5 Normal Extension (C6) 5 Normal Right Flexion (C7) 3+ Fair+ Extension (C6) 3+ Fair+ Hand Pattern Attendant/Pinch Strength Hand Strength Left Comments Arm 90 deg flexion with elbow straight: 46 lb, 42 lb, 40 lb Right Comments Arm at 90 deg flexion with elbow straight: 48 lb, 50 lb, 40 lb PT-OP-Q Treatments Start: 04/19/20 15:40 Freq: Status: Active Protocol: Document 05/18/20 09:04 MB (Rec: 05/18/20 09:37 MB [id number]) Cardio Equipment Upper Body Ergometer (UBE) Duration (Minutes) 10 Other 5' forward and 5' backwards Therapeutic Exercises Supine Exercises Core progression Side bilateral Reps/Minutes 5 Comments Set abd drawing in, knees side to side, fall out, HS, mini march Sidelying Exercises Open book Side bilateral Reps/Minutes 5 slowly Self-Care/Home Management Treatment Education Other Education Sitting position in the car, follow-up with getting pool noodle and changing height of mother's bed, engaging core. PT assesses car positioning. PT-OP-T Assessment and Plan Start: 04/19/20 15:40 Freq: Status: Active Protocol: Document 05/18/20 09:04 MB (Rec: 05/18/20 09:37 MB [id number]) Physical Therapy Assessment Rehab Potential Rehabilitation Potential Good Evaluation Complexity Number of Personal Factors/Comorbidities 1-2 Number of Body Systems Impaired 1-2 Clinical Presentation at Evaluation Stable Impairments Impairments Activity Tolerance,Functional Activities,Pain,Posture,ROM, Soft Tissue Mobility,Strength Goals 5 [employer] Manager Goal (LTG) Pt will present with improved AROM cervical spine to at least 30 deg extension, 40 deg flexion, 40 deg B rotation and 15 deg SB to improve functional range with driving by 06/20/2020. LTG Duration 8 weeks 4 [employer] Manager Goal (LTG) Pt will present with B shoulder flexion and abduction MMT to at least 4/5 to improve functional UE use by 06/20/2020. LTG Duration 8 weeks 3 Jail Goal (LTG) Pt will present with improved B shoulder abduction AROM to at least 110 deg B to improve functional use of arms over head by 06/20/2020. LTG Duration 8 weeks 2 Jail Goal (LTG) Pt will perform progressive HEP with I to improve flexibility, range of motion, strength and pain by 2019. LTG Duration 8 weeks 1 [employer] Manager Goal (LTG) Pt will present with an improved QuickDASH score to reflect no more than 15% impairment by 06/20/2020. LTG Duration 8 weeks Assessment Summary Assessment PT con't to feel that pt has cervical components to symptoms given provocation and symptoms and symptoms down both arms in setting of previous cervical problems and surgery. Con't to ed pt in body mechanics. Progress further strengthening as pt tolerates. Physical Therapy Plan Frequency and Duration Frequency of Treatment 2x/Week Duration of Treatment 8 weeks Plan of Care Start Date 04/20/20 Plan of Care End Date 06/21/20 Therapeutic Interventions Therapeutic Interventions Home Exercise Program,Manual Therapy,Neuromuscular Re- education,Patient/Caregiver Education,Self-Care/Home Management,Soft Tissue Mobilization,Taping, Therapeutic Activities, Vestibular Rehabilitation Modalities Cold Pack/Ice Massage,Electric Stimulation,Hot Packs, Ultrasound Other Referrals/Consults Referrals/Consults Recommended Speak with doctor about cervical symptoms at follow-up Next Visit Focus/Plan Next Note Type Treatment Note Next Visit Plan Progress strengthening exercises.
--- NOTE | 2020-05-20 08:55 | PT.OTN ---
Current Diagnoses Impingement syndrome of right shoulder (05/20/20) Physical Therapy Treatment Note PT-OP-A Visit Information Start: 04/19/20 15:40 Freq: Status: Active Protocol: Document 05/20/20 08:15 MB (Rec: 05/20/20 08:50 MB [id number]) Out-Patient Physical Therapy Visit Information Visit Information Visit Type Treatment Note Visit Note Moseley Visit Start Time 08:15 Visit Stop Time 08:53 Total Visit Minutes 38 Visit Number 9 PT-OP-B Current Condition Start: 04/19/20 15:40 Freq: Status: Active Protocol: Document 04/20/20 13:00 MB (Rec: 04/20/20 13:20 MB [id number]) Current Condition History of Current Condition Onset Date January 2020 Current Complaints Right upper shoulder pain up to 710 History of Current Condition Pt reports no injury but a progressive onset of insidious right shoulder pain. He has a history of similar complaints on the left shoulder 5 years ago, had PT but then was found to have cervical disc issue and pt underwent cervical surgery, fusion from the anterior side. Pt reports numbness and pain that travels down to dorsal right 4th and 5th fingers. He had this distribution when he had left arm symptoms. Pt is right handed. Pt presents with left elbow greater than right elbow redness and he denies injury. 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 He has to help her roll in the bed. She had a stroke and lost most of the use of her left side. The pain is worse after changing his mom. PMH: high blood pressure, left shoulder pain and arm paresthesias and cervical fusion Pt states that ROM exercises for shoulder were helpful last PT course but made him sore. Pt denies neck pain. He sleeps on an off during the day. Prior Treatments and Tests PT for left shoulder, he cannot recall if he had PT after cervical surgery Treatment Goals Patient/Caregiver Goals To decrease right shoulder pain PT-OP-C Subjective Start: 04/19/20 15:40 Freq: Status: Active Protocol: Document 05/20/20 08:15 MB (Rec: 05/20/20 08:50 MB [id number]) OP-PT Subjective Patient Comments Patient Comments I'm just tired this morning. PT-OP-J Posture/Palpation/Skin Start: 04/19/20 15:40 Freq: Status: Active Protocol: Document 04/20/20 13:00 MB (Rec: 04/20/20 13:56 MB [id number]) Posture Evaluation Comments Posture Comments Standing: forward head, decreased cervical lordosis, Dowager's hump, right shoulder lower than the left with more protracted and elevated right scapula (pt is right handed), increased lumbar lordosis, right iliac crest higher than the left, pt does have overall postural changes PT-OP-K Range of Motion Start: 04/19/20 15:40 Freq: Status: Active Protocol: Document 04/20/20 13:00 MB (Rec: 04/20/20 13:56 MB [id number]) Cervical Spine Range of Motion Cervical Spine Active Testing Position Standing Flexion 36 Extension 20 Rotation Left 28 Rotation Right 38 Lateral Flexion Left 11 Lateral Flexion Right 11 Shoulder Goniometric Range of Motion Shoulder Left Shoulder ROM WFL No Testing Position Standing Flexion 160 Abduction 90 Right Shoulder ROM WFL No Testing Position Standing Flexion 180 Abduction 90 Shoulder ROM Limitations Comments Pt reports tightness that he rates as 5/10 pain with right shoulder AROM and MMT and he self-limits all ROM and MMT PT-OP-M Strength Start: 04/19/20 15:40 Freq: Status: Active Protocol: Document 04/20/20 13:00 MB (Rec: 04/20/20 14:03 MB [id number]) Shoulder Strength Shoulder Manual Muscle Testing Left External Rotation 5 Normal Internal Rotation 5 Normal Comments Deferred flexion and abduction d/t fear of pain Right External Rotation 5 Normal Internal Rotation 5 Normal Comments Deferred flexion and abduction d/t fear of pain Elbow/Forearm Strength Elbow and Forearm Manual Muscle Testing Left Flexion (C6) 5 Normal Extension (C7) 5 Normal Pronation 4 Good Supination 4 Good Right Flexion (C6) 4 Good Extension (C7) 4 Good Pronation 4 Good Supination 3+ Fair+ Comments Pt with guarding behavior Wrist Strength Wrist Manual Muscle Testing Left Flexion (C7) 5 Normal Extension (C6) 5 Normal Right Flexion (C7) 3+ Fair+ Extension (C6) 3+ Fair+ Hand Magnetic Tester/Pinch Strength Hand Strength Left Comments Arm 90 deg flexion with elbow straight: 46 lb, 42 lb, 40 lb Right Comments Arm at 90 deg flexion with elbow straight: 48 lb, 50 lb, 40 lb PT-OP-Q Treatments Start: 04/19/20 15:40 Freq: Status: Active Protocol: Document 05/20/20 08:15 MB (Rec: 05/20/20 08:50 MB [id number]) Cardio Equipment Upper Body Ergometer (UBE) Duration (Minutes) 10 Other 5' forward and 5' backwards Neuro Re-Education Treatment Movement Re-Education Movement Re-education Activities Pt B side lying and pelvic and scapulohumeral PNF with manual assist to assist with range and strengthening. Pt is much weaker on the right shoulder with all movements-- elevation, depression and scapular retraction and protraction Self-Care/Home Management Treatment Education Other Education Re-ed pt to consider HHPT consult for mother for caregiver training for pt to do less manual work and mother to do more self-care, ed on benefits of icing, ongoing PNF , ongoing discussion about HHPT, need for pool noodle, towel roll under ischial tuberosities in car. Pt icing during PT education PT-OP-T Assessment and Plan Start: 04/19/20 15:40 Freq: Status: Active Protocol: Document 05/20/20 08:15 MB (Rec: 05/20/20 08:50 MB [id number]) Physical Therapy Assessment Rehab Potential Rehabilitation Potential Good Evaluation Complexity Number of Personal Factors/Comorbidities 1-2 Number of Body Systems Impaired 1-2 Clinical Presentation at Evaluation Stable Impairments Impairments Activity Tolerance,Functional Activities,Pain,Posture,ROM, Soft Tissue Mobility,Strength Goals 5 Care Home Goal (LTG) Pt will present with improved AROM cervical spine to at least 30 deg extension, 40 deg flexion, 40 deg B rotation and 15 deg SB to improve functional range with driving by 06/20/2020. LTG Duration 8 weeks 4 [employer] Goal (LTG) Pt will present with B shoulder flexion and abduction MMT to at least 4/5 to improve functional UE use by 06/20/2020. LTG Duration 8 weeks 3 [employer] Goal (LTG) Pt will present with improved B shoulder abduction AROM to at least 110 deg B to improve functional use of arms over head by 06/20/2020. LTG Duration 8 weeks 2 Care Home Goal (LTG) Pt will perform progressive HEP with I to improve flexibility, range of motion, strength and pain by 2019. LTG Duration 8 weeks 1 [employer] Goal (LTG) Pt will present with an improved QuickDASH score to reflect no more than 15% impairment by 06/20/2020. LTG Duration 8 weeks Assessment Summary Assessment Manual assist PNF today for strengthening. Pt with very weak right shoulder and scapular area. Ongoing recommendation to pt to get pool noodle and have mother's bed adjusted higher to help with his body mechanics when assisting her with turning and dressing. Physical Therapy Plan Frequency and Duration Frequency of Treatment 2x/Week Duration of Treatment 8 weeks Plan of Care Start Date 04/20/20 Plan of Care End Date 06/21/20 Therapeutic Interventions Therapeutic Interventions Home Exercise Program,Manual Therapy,Neuromuscular Re- education,Patient/Caregiver Education,Self-Care/Home Management,Soft Tissue Mobilization,Taping, Therapeutic Activities, Vestibular Rehabilitation Modalities Cold Pack/Ice Massage,Electric Stimulation,Hot Packs, Ultrasound Other Referrals/Consults Referrals/Consults Recommended Speak with doctor about cervical symptoms at follow-up Next Visit Focus/Plan Next Note Type Treatment Note Next Visit Plan Ongoing manual PNF for strengthening and neurmuscular facilitation. Progress strengthening exercises as pt tolerates.
--- NOTE | 2020-05-25 07:30 | PT-OP ANOTE ---
Pt cancelled early same day, unable to attend due to grandfather's passing just notified.
--- NOTE | 2020-06-01 12:55 | PT.OTN ---
Current Diagnoses Impingement syndrome of right shoulder (06/01/20) Physical Therapy Treatment Note PT-OP-A Visit Information Start: 04/19/20 15:40 Freq: Status: Active Protocol: Document 06/01/20 12:17 MB (Rec: 06/01/20 12:54 MB [id number]) Out-Patient Physical Therapy Visit Information Visit Information Visit Type Progress Note Visit Note Moseley Visit Start Time 12:17 Visit Stop Time 12:55 Total Visit Minutes 38 Visit Number 10 PT-OP-B Current Condition Start: 04/19/20 15:40 Freq: Status: Active Protocol: Document 04/20/20 13:00 MB (Rec: 04/20/20 13:20 MB [id number]) Current Condition History of Current Condition Onset Date January 2020 Current Complaints Right upper shoulder pain up to 03/05 History of Current Condition Pt reports no injury but a progressive onset of insidious right shoulder pain. He has a history of similar complaints on the left shoulder 5 years ago, had PT but then was found to have cervical disc issue and pt underwent cervical surgery, fusion from the anterior side. Pt reports numbness and pain that travels down to dorsal right 4th and 5th fingers. He had this distribution when he had left arm symptoms. Pt is right handed. Pt presents with left elbow greater than right elbow redness and he denies injury. 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 He has to help her roll in the bed. She had a stroke and lost most of the use of her left side. The pain is worse after changing his mom. PMH: high blood pressure, left shoulder pain and arm paresthesias and cervical fusion Pt states that ROM exercises for shoulder were helpful last PT course but made him sore. Pt denies neck pain. He sleeps on an off during the day. Prior Treatments and Tests PT for left shoulder, he cannot recall if he had PT after cervical surgery Treatment Goals Patient/Caregiver Goals To decrease right shoulder pain PT-OP-C Subjective Start: 04/19/20 15:40 Freq: Status: Active Protocol: Document 06/01/20 12:17 MB (Rec: 06/01/20 12:54 MB [id number]) OP-PT Subjective Patient Comments Patient Comments I'm doing okay. Pt states that his grandfather last week. He also fell down the steps when his right leg gave way. He scraped his right arm and his shoulders and neck felt stiff. He was cleared by doctor to con't PT. He was told that he might have some nerve issues in his legs. He will have neurology appointment. Pt thinks that PT is going good. The stretching and racquet ball are going well. They got his mom's bed raised as much as possible. He wishes it were higher. He got a pool noodle. PT-OP-J Posture/Palpation/Skin Start: 04/19/20 15:40 Freq: Status: Active Protocol: Document 04/20/20 13:00 MB (Rec: 04/20/20 13:56 MB [id number]) Posture Evaluation Comments Posture Comments Standing: forward head, decreased cervical lordosis, Dowager's hump, right shoulder lower than the left with more protracted and elevated right scapula (pt is right handed), increased lumbar lordosis, right iliac crest higher than the left, pt does have overall postural changes PT-OP-K Range of Motion Start: 04/19/20 15:40 Freq: Status: Active Protocol: Document 04/20/20 13:00 MB (Rec: 04/20/20 13:56 MB [id number]) Cervical Spine Range of Motion Cervical Spine Active Testing Position Standing Flexion 36 Extension 20 Rotation Left 28 Rotation Right 38 Lateral Flexion Left 11 Lateral Flexion Right 11 Shoulder Goniometric Range of Motion Shoulder Left Shoulder ROM WFL No Testing Position Standing Flexion 160 Abduction 90 Right Shoulder ROM WFL No Testing Position Standing Flexion 180 Abduction 90 Shoulder ROM Limitations Comments Pt reports tightness that he rates as 5/10 pain with right shoulder AROM and MMT and he self-limits all ROM and MMT PT-OP-M Strength Start: 04/19/20 15:40 Freq: Status: Active Protocol: Document 04/20/20 13:00 MB (Rec: 04/20/20 14:03 MB [id number]) Shoulder Strength Shoulder Manual Muscle Testing Left External Rotation 5 Normal Internal Rotation 5 Normal Comments Deferred flexion and abduction d/t fear of pain Right External Rotation 5 Normal Internal Rotation 5 Normal Comments Deferred flexion and abduction d/t fear of pain Elbow/Forearm Strength Elbow and Forearm Manual Muscle Testing Left Flexion (C6) 5 Normal Extension (C7) 5 Normal Pronation 4 Good Supination 4 Good Right Flexion (C6) 4 Good Extension (C7) 4 Good Pronation 4 Good Supination 3+ Fair+ Comments Pt with guarding behavior Wrist Strength Wrist Manual Muscle Testing Left Flexion (C7) 5 Normal Extension (C6) 5 Normal Right Flexion (C7) 3+ Fair+ Extension (C6) 3+ Fair+ Hand Mold Mechanic/Pinch Strength Hand Strength Left Comments Arm 90 deg flexion with elbow straight: 46 lb, 42 lb, 40 lb Right Comments Arm at 90 deg flexion with elbow straight: 48 lb, 50 lb, 40 lb PT-OP-Q Treatments Start: 04/19/20 15:40 Freq: Status: Active Protocol: Document 06/01/20 12:17 MB (Rec: 06/01/20 12:54 MB [id number]) Cardio Equipment Upper Body Ergometer (UBE) Duration (Minutes) 10 Other 5' forward and 5' backwards Therapeutic Exercises Supine Exercises Chicken stretch over pool noodle Side bilateral Comments 5 Posterior capsule stretch Side bilateral Equipment Used Pool noodle Reps/Minutes 3 reps, 20 sec hold Pect stretch Side bilateral Equipment Used Pool noodle Reps/Minutes 5 reps, 20 sec hold Shoulder flexion with cane Side bilateral Equipment Used No cane today, active over pool noodle Reps/Minutes 10 reps Abdominal drawing in Equipment Used Pool noodle Comments Performed during UE work today PT-OP-T Assessment and Plan Start: 04/19/20 15:40 Freq: Status: Active Protocol: Document 06/01/20 12:17 MB (Rec: 06/01/20 12:54 MB [id number]) Physical Therapy Assessment Rehab Potential Rehabilitation Potential Good Evaluation Complexity Number of Personal Factors/Comorbidities 1-2 Number of Body Systems Impaired 1-2 Clinical Presentation at Evaluation Stable Impairments Impairments Activity Tolerance,Functional Activities,Pain,Posture,ROM, Soft Tissue Mobility,Strength Goals 5 Assisted Goal (LTG) Pt will present with improved AROM cervical spine to at least 30 deg extension, 40 deg flexion, 40 deg B rotation and 15 deg SB to improve functional range with driving by 06/20/2020. 06/01/2020: No improvements with flexion and extension today (15 deg extension and 16 deg flexion), SB 11 deg to the right and 15 deg to the left, rotation right 42 deg and rotation left 48 deg. LTG Duration 4 weeks 4 Communications Manager Goal (LTG) Pt will present with B shoulder flexion and abduction MMT to at least 4/5 to improve functional UE use by 06/20/2020. 06/01/2020: B shoulder flexion and abduction 5/5 in available range LTG Duration Goal met 3 Assisted Goal (LTG) Pt will present with improved B shoulder abduction AROM to at least 110 deg B to improve functional use of arms over head by 06/20/2020. 06/01/2020: R 128 deg and left 135 deg, goal met LTG Duration Goal met 2 Communications Manager Goal (LTG) Pt will perform progressive HEP with I to improve flexibility, range of motion, strength and pain by 07/02/2020 . 06/01/2020: Pt is performing exercises at work LTG Duration 4 weeks 1 Communications Manager Goal (LTG) Pt will present with an improved QuickDASH score to reflect no more than 25% impairment by 07/02/2020. 06/01/2020: QuickDASH score reflects 40.90% impairment, a 13% improvement since evaluation LTG Duration 4 weeks Assessment Summary Assessment Pt has progressed towards all PT goals since starting PT. These include QuickDASH score, cervical and shoulder ROM and shoulder strength. He is performing his exercises, got a pool noodle and has had his mom's bed adjusted and she is assisting with turning and self-care. He had a fall last week d/t right leg giving way and has history of right arm paresthesias and weakness in setting of old cervical issues and surgery. PT is concerned about a spinal central contribution to these and he is awaiting neurology consult. He will benefit from ongoing PT to improve posture, flexibility and strength. Physical Therapy Plan Frequency and Duration Frequency of Treatment 2x/Week Duration of Treatment 4 weeks Plan of Care Start Date 06/01/20 Plan of Care End Date 07/02/20 Therapeutic Interventions Therapeutic Interventions Home Exercise Program,Manual Therapy,Neuromuscular Re- education,Patient/Caregiver Education,Self-Care/Home Management,Soft Tissue Mobilization,Taping, Therapeutic Activities, Vestibular Rehabilitation Modalities Cold Pack/Ice Massage,Electric Stimulation,Hot Packs, Ultrasound Other Referrals/Consults Referrals/Consults Recommended Speak with doctor about cervical symptoms at follow-up Next Visit Focus/Plan Next Note Type Treatment Note Next Visit Plan Progress strengthening for shoulders, intrascapular area over pool noodle. Ongoing manual PNF for strengthening and neurmuscular facilitation.
--- NOTE | 2020-06-01 12:56 | PT.OPPOC ---
Physical, Occupational & Speech Therapy At [facility] Current Diagnoses Impingement syndrome of right shoulder (06/01/20) Visit Care Team Role Provider Type Antoine Alvarez MD Family Provider Non-Staff Primary Care Provider Specialty: Medical Address: [address] [place] [address], [place], [address] Email: Antoine Mora DO Attending Provider Non-Staff Referring Provider Specialty: Orthopedics Address: [address] [place] [address], [id number] Email: Plan Of Care PT-OP-T Assessment and Plan Start: 04/19/20 15:40 Freq: Status: Active Protocol: Document 06/01/20 12:17 MB (Rec: 06/01/20 12:54 MB [id number]) Physical Therapy Assessment Rehab Potential Rehabilitation Potential Good Evaluation Complexity Number of Personal Factors/Comorbidities 1-2 Number of Body Systems Impaired 1-2 Clinical Presentation at Evaluation Stable Impairments Impairments Activity Tolerance,Functional Activities,Pain,Posture,ROM, Soft Tissue Mobility,Strength Goals 5 Intermediate Goal (LTG) Pt will present with improved AROM cervical spine to at least 30 deg extension, 40 deg flexion, 40 deg B rotation and 15 deg SB to improve functional range with driving by 06/20/2020. 06/01/2020: No improvements with flexion and extension today (15 deg extension and 16 deg flexion), SB 11 deg to the right and 15 deg to the left, rotation right 42 deg and rotation left 48 deg. LTG Duration 4 weeks 4 Intermediate Goal (LTG) Pt will present with B shoulder flexion and abduction MMT to at least 4/5 to improve functional UE use by 06/20/2020. 06/01/2020: B shoulder flexion and abduction 5/5 in available range LTG Duration Goal met 3 Intermediate Goal (LTG) Pt will present with improved B shoulder abduction AROM to at least 110 deg B to improve functional use of arms over head by 06/20/2020. 06/01/2020: R 128 deg and left 135 deg, goal met LTG Duration Goal met 2 Intermediate Goal (LTG) Pt will perform progressive HEP with I to improve flexibility, range of motion, strength and pain by 07/02/2020 . 06/01/2020: Pt is performing exercises at work LTG Duration 4 weeks 1 Intermediate Goal (LTG) Pt will present with an improved QuickDASH score to reflect no more than 25% impairment by 07/02/2020. 06/01/2020: QuickDASH score reflects 40.90% impairment, a 13% improvement since evaluation LTG Duration 4 weeks Assessment Summary Assessment Pt has progressed towards all PT goals since starting PT. These include QuickDASH score, cervical and shoulder ROM and shoulder strength. He is performing his exercises, got a pool noodle and has had his mom's bed adjusted and she is assisting with turning and self-care. He had a fall last week d/t right leg giving way and has history of right arm paresthesias and weakness in setting of old cervical issues and surgery. PT is concerned about a spinal central contribution to these and he is awaiting neurology consult. He will benefit from ongoing PT to improve posture, flexibility and strength. Physical Therapy Plan Frequency and Duration Frequency of Treatment 2x/Week Duration of Treatment 4 weeks Plan of Care Start Date 06/01/20 Plan of Care End Date 07/02/20 Therapeutic Interventions Therapeutic Interventions Home Exercise Program,Manual Therapy,Neuromuscular Re- education,Patient/Caregiver Education,Self-Care/Home Management,Soft Tissue Mobilization,Taping, Therapeutic Activities, Vestibular Rehabilitation Modalities Cold Pack/Ice Massage,Electric Stimulation,Hot Packs, Ultrasound Other Referrals/Consults Referrals/Consults Recommended Speak with doctor about cervical symptoms at follow-up Next Visit Focus/Plan Next Note Type Treatment Note Next Visit Plan Progress strengthening for shoulders, intrascapular area over pool noodle. Ongoing manual PNF for strengthening and neurmuscular facilitation. Plan of Care Dates Plan of Care Start Date 06/01/20 Plan of Care End Date 07/02/20 Electronically Signed by: Edith Cam, PT 06/01/20 7930 Please Sign and Return: I have reviewed this Plan of Care and certify that the skilled therapy services above are required to meet the patient?s needs. Physician Signature Date Printed Name and Credentials Clinical Instructor Signature Printed Name and Credentials
--- NOTE | 2020-06-08 12:25 | PT-OP ANOTE ---
PT calls pt's PCP office, Dr. Antoine Gabriel re: pt's ataxic gait, use of cane, right foot drop and weakness entire right leg, right hand with passive line mover and flexion pattern with gait and paresthesias in both legs. Pt speaks with Alissa and will fax this note over. PT is concerned about progressive acute central pathology and recommends work-up as soon as possible. His mobility presentation is markedly different than last week. Will fax this note over to PCP per Alissa's request. Thank you, Edith Cam, PT, DPT
--- NOTE | 2020-06-08 12:44 | PT.OPDS ---
Current Diagnoses Impingement syndrome of right shoulder (06/08/20) Visit Care Team Role Provider Type Antoine Alvarez MD Family Provider Non-Staff Primary Care Provider Specialty: Medical Address: [address] [place] [address], [place], [address] Email: Antoine Mora DO Attending Provider Non-Staff Referring Provider Specialty: Orthopedics Address: [address] [facility], [place], [address] Email: Visit Number Visit Number 10 Discharge Summary PT-OP-B Current Condition Start: 04/19/20 15:40 Freq: Status: Active Protocol: Document 04/20/20 13:00 MB (Rec: 04/20/20 13:20 MB [id number]) Current Condition History of Current Condition Onset Date January 2020 Current Complaints Right upper shoulder pain up to 7/10 History of Current Condition Pt reports no injury but a progressive onset of insidious right shoulder pain. He has a history of similar complaints on the left shoulder 5 years ago, had PT but then was found to have cervical disc issue and pt underwent cervical surgery, fusion from the anterior side. Pt reports numbness and pain that travels down to dorsal right 4th and 5th fingers. He had this distribution when he had left arm symptoms. Pt is right handed. Pt presents with left elbow greater than right elbow redness and he denies injury. 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 He has to help her roll in the bed. She had a stroke and lost most of the use of her left side. The pain is worse after changing his mom. PMH: high blood pressure, left shoulder pain and arm paresthesias and cervical fusion Pt states that ROM exercises for shoulder were helpful last PT course but made him sore. Pt denies neck pain. He sleeps on an off during the day. Prior Treatments and Tests PT for left shoulder, he cannot recall if he had PT after cervical surgery Treatment Goals Patient/Caregiver Goals To decrease right shoulder pain PT-OP-C Subjective Start: 04/19/20 15:40 Freq: Status: Active Protocol: Document 06/01/20 12:17 MB (Rec: 06/01/20 12:54 MB [id number]) OP-PT Subjective Patient Comments Patient Comments I'm doing okay. Pt states that his grandfather last week. He also fell down the steps when his right leg gave way. He scraped his right arm and his shoulders and neck felt stiff. He was cleared by doctor to con't PT. He was told that he might have some nerve issues in his legs. He will have neurology appointment. Pt thinks that PT is going good. The stretching and racquet ball are going well. They got his mom's bed raised as much as possible. He wishes it were higher. He got a pool noodle. PT-OP-J Posture/Palpation/Skin Start: 04/19/20 15:40 Freq: Status: Active Protocol: Document 04/20/20 13:00 MB (Rec: 04/20/20 13:56 MB [id number]) Posture Evaluation Comments Posture Comments Standing: forward head, decreased cervical lordosis, Dowager's hump, right shoulder lower than the left with more protracted and elevated right scapula (pt is right handed), increased lumbar lordosis, right iliac crest higher than the left, pt does have overall postural changes PT-OP-K Range of Motion Start: 04/19/20 15:40 Freq: Status: Active Protocol: Document 04/20/20 13:00 MB (Rec: 04/20/20 13:56 MB [id number]) Cervical Spine Range of Motion Cervical Spine Active Testing Position Standing Flexion 36 Extension 20 Rotation Left 28 Rotation Right 38 Lateral Flexion Left 11 Lateral Flexion Right 11 Shoulder Goniometric Range of Motion Shoulder Left Shoulder ROM WFL No Testing Position Standing Flexion 160 Abduction 90 Right Shoulder ROM WFL No Testing Position Standing Flexion 180 Abduction 90 Shoulder ROM Limitations Comments Pt reports tightness that he rates as 5/10 pain with right shoulder AROM and MMT and he self-limits all ROM and MMT PT-OP-M Strength Start: 04/19/20 15:40 Freq: Status: Active Protocol: Document 04/20/20 13:00 MB (Rec: 04/20/20 14:03 MB [id number]) Shoulder Strength Shoulder Manual Muscle Testing Left External Rotation 5 Normal Internal Rotation 5 Normal Comments Deferred flexion and abduction d/t fear of pain Right External Rotation 5 Normal Internal Rotation 5 Normal Comments Deferred flexion and abduction d/t fear of pain Elbow/Forearm Strength Elbow and Forearm Manual Muscle Testing Left Flexion (C6) 5 Normal Extension (C7) 5 Normal Pronation 4 Good Supination 4 Good Right Flexion (C6) 4 Good Extension (C7) 4 Good Pronation 4 Good Supination 3+ Fair+ Comments Pt with guarding behavior Wrist Strength Wrist Manual Muscle Testing Left Flexion (C7) 5 Normal Extension (C6) 5 Normal Right Flexion (C7) 3+ Fair+ Extension (C6) 3+ Fair+ Hand Insulation Supervisor/Pinch Strength Hand Strength Left Comments Arm 90 deg flexion with elbow straight: 46 lb, 42 lb, 40 lb Right Comments Arm at 90 deg flexion with elbow straight: 48 lb, 50 lb, 40 lb PT-OP-T Assessment and Plan Start: 04/19/20 15:40 Freq: Status: Active Protocol: Document 06/08/20 12:44 MB (Rec: 06/08/20 12:44 MB [id number]) Physical Therapy Plan Discharge Physical Therapy Discharge Reasons Change in Medical Status Discharge Comments PT calls pt's PCP office, Dr. Antoine Gabriel re: pt's ataxic gait, use of cane, right foot drop and weakness entire right leg, right hand with passive commercial lines account assistant and flexion pattern with gait and paresthesias in both legs. Pt speaks with Alissa and will fax this note over. PT is concerned about progressive acute central pathology and recommends work-up as soon as possible. His mobility presentation is markedly different than last week. Will fax this note over to PCP per Alissa's request. Thank you, Edith Cam, PT, DPT
== END 2020-06-14 08:43 ==
LOC: PHYS 12:15
PROVIDERS: Family Provider Family Medicine; PCP Family Medicine; Referring Provider Orthopaedic Surgery; Visit Provider Orthopaedic Surgery
DX: M75.41 Impingement syndrome of right shoulder (principal)
CPT/HCPCS: 97110; 97112; 97140; 97161; 97535

== ENCOUNTER 2020-06-08 15:15 | Emergency (ER) | payer OTHER, SELFPAY ==
[2020-06-08 16:06] VITALS: BP 168/114; PULSE 86; RESP 16; TEMP 36.8; O2SAT 97; BMI 32.5
--- NOTE | 2020-06-08 18:33 | ED_ITS ---
HPI - General Adult General Chief complaint: Weakness Stated complaint: leg pain and weakness left more than right Time Seen by Provider: 06/08/20 18:00 Source: patient Mode of arrival: Ambulatory Limitations: no limitations History of Present Illness HPI narrative: Patient is a 49-year-old male here for evaluation of pain and weakness to his left leg and weakness to his right leg. States that this has been going on for several months. He has talked to his primary doctor. He states that there is a referral for him to see Neurology but he has yet to schedule this appointment. He came in to physical therapy today for issues related to his right shoulder and was told by the physical therapist that they were not going to treat him anymore until he got his lower extremity situation worked out. He contacted his primary doctor who told him to come to the emergency department. Related Data Home Medications Medication Instructions Recorded Confirmed lisinopril 20 mg PO DAILY 06/18/19 06/18/19 Previous Rx's Medication Instructions Recorded vancomycin 125 mg PO QID #32 cap 06/20/19 tramadol [Ultram] 50 mg PO Q6H PRN #7 tab 06/08/20 Allergies Allergy/AdvReac Type Severity Reaction Status Date / Time Penicillins [PENICILLINS] Allergy Mild HIVES Verified 06/18/19 11:19 Review of Systems Constitutional Constitutional: Denies fever(s) and Denies headache(s) ENT Ears, Nose, Mouth, and Throat: Denies headache(s) and Denies neck pain Cardiovascular Cardiovascular: Denies chest pain and Denies dyspnea Respiratory Respiratory: Denies dyspnea Gastrointestinal Gastrointestinal: Denies abdominal pain Musculoskeletal Musculoskeletal: Denies arthralgias, Denies back pain, Reports muscle weakness, Denies myalgias, Denies neck pain and Reports radiating pain into limb Integumentary/Breasts Skin/Breast: Denies lesions and Denies rash Neurologic Neurologic: Denies behavioral changes and Denies headache(s) Psychiatric Psychiatric: Denies behavioral changes Hematologic/Lymphatic Hematologic/Lymphatic: Denies easy bleeding and Denies easy bruising Allergic/Immunologic Allergic/Immunologic: Denies urticaria Patient History Medical History HTN (hypertension) (Acute) Patient denies medical problems (Acute) Surgical History History of neck surgery (Acute) Social History household members: family Smoking Status: Former smoker alcohol intake: never Smoking Status: Former smoker alcohol intake frequency: 0-2 drinks per day Substance Use Type: does not use Exam Initial Vital Signs Initial Vital Signs: Vital Signs Temperature 98.2 F 06/08/20 16:06 Pulse Rate 86 06/08/20 16:06 Respiratory Rate 16 06/08/20 16:06 Blood Pressure 168/114 H 06/08/20 16:06 Pulse Oximetry 97 06/08/20 16:06 Const General: cooperative and comfortable Limitations: mental status not altered HENMT Head: normal to inspection and normocephalic Resp Effort & Inspection: normal respiratory effort Cardio Rate: regular rate Back/Spine/Pelvis Thoracic/Lumbar Spine: No paraspinal tenderness and No lumbar spinal tenderness Skin Lesions: no lesions Rashes: no rashes Neuro General: patient alert and patient awake Cognition: normal cognition Speech: speech normal Other: Patient has 4/5 strength bilateral lower extremities in the hamstrings, quads, anterior lower leg and also calf muscle. It is equal bilateral. He is able to raise both legs off the bed and seems to be equal strength with this. Patient reports decreased sensation to light touch in all areas of his left lower extremity compared to his right lower extremity. Extrem General: capillary refill normal and No edema Psych Appearance: grossly normal and well kempt Course Vital Signs Vital signs: Vital Signs - 8 hr 06/08/20 16:06 06/08/20 19:10 Temperature 98.2 F Pulse Rate 86 77 Respiratory Rate 16 16 Blood Pressure 168/114 H 121/98 H Pulse Oximetry 97 98 Medical Decision Making MDM Narrative Medical decision making narrative: Patient's symptoms today are not new. They have been going on for several weeks if not months. He does report potentially worsening of the symptoms over the past week. No fevers. He has no bowel or bladder symptoms. He has no back pain. His strength is 4/5 however does seem to be equal bilaterally. I do not appreciate a difference between the left and the right. His patella tendon reflexes 2+ and equal bilateral. Achilles tendon reflexes 2+ and equal bilateral. There is no clonus. Patient reports a decrease in sensation in all nerve distribution areas on the left compared to the right to light touch. I have low suspicion for fracture. I do feel that he most likely needs an MRI however this does not need to happen out of the emergency department given how long his symptoms have been going on. I have low suspicion for any acute surgical issue. The fact that he has decreased sensation in all nerve distribution areas in the left lower extremity compared to the right is somewhat abnormal index we have less suspicion about a acute nerve compression in his lower back. He is on anti-inflammatories and gabapentin. Informed him that he needed talk with his primary doctor about whe ther not he should obtain an MRI and also was encouraged to continue to follow- up with his appointment to see Neurology. I feel we can hold on further workup for now. He was given return precautions. He expressed understanding and agreement. Discharge Plan Departure Patient Disposition: Home Clinical Impression: Distal paresthesia, Weakness Discharge Date/Time: 06/08/20 20:00 Instructions: DI for Muscle Weakness Activity Restrictions/Additional Instructions: Unfortunately further workup is needed from either your primary provider or from Neurology. Recommend that you contact ED your insurance company or the neurology office to make your appointment with them. Continue all of your medications as directed. Any advanced imaging such as an MRI would need to be ordered by your primary provider as well. Return to the emergency department for any new symptoms Prescriptions: New tramadol [Ultram] 50 mg tablet 50 mg PO Q6H PRN (Reason: pain) Qty: 7 RF: 0 No Action lisinopril 20 mg Tablet 20 mg PO DAILY RF: 0 vancomycin 125 mg Capsule 125 mg PO QID Qty: 32 RF: 0 Referrals: Antoine Alvarez MD [Primary Care Provider] -
[2020-06-08 19:10] VITALS: BP 121/98; PULSE 77; RESP 16; O2SAT 98
== END 2020-06-08 20:00 | disposition home or self-care (01) ==
PROVIDERS: Emergency Provider Emergency Medicine; Family Provider Family Medicine; PCP Family Medicine
DX: R20.2 Paresthesia of skin (principal); R53.1 Weakness; M79.604 Pain in right leg
CPT/HCPCS: 99281

== ENCOUNTER → 2020-11-02 12:29 | Outpatient (CLI) | payer OTHER, SELFPAY ==
--- NOTE | 2020-11-02 | DI.RAD.S_ITS ---
PROCEDURE: XR CERVICAL SPINE 1V INDICATIONS: Spinal stenosis, cervical region TECHNIQUE: Single lateral view of the cervical spine acquired. COMPARISON: [facility], CR, XR CERVICAL SPINE W FL EX 7VW, 01/27/2016, 14:09. [facility], MR, MR CERVICAL SPINE WITH/WITHOUT CONTRAST, 08/18/2020, 12:30. FINDINGS: Bones: There is normal alignment. Previous discectomy and anterior fusion at C3-C6. There is a disc prosthesis at C6-C7 with anterior fusion. No suspicious bony lesions, new since10/2019. Soft tissues: No prevertebral soft tissue swelling. IMPRESSION: Extensive postsurgical changes in cervical spine. Dictated by: Paresh Morgan M.D. on 11/02/2020 at 16:06 Approved by: Paresh Morgan M.D. on 11/02/2020 at 16:09
== END ==
PROVIDERS: Family Provider Family Medicine; PCP Family Medicine; Referring Provider Physician Assistant Medical; Visit Provider Physician Assistant Medical
DX: M48.02 Spinal stenosis, cervical region (principal); M50.023 Cervical disc disorder at C6-C7 level with myelopathy; Z98.1 Arthrodesis status
CPT/HCPCS: 72020

== ENCOUNTER 2021-01-20 12:15 | Outpatient (RCR) | payer OTHER, SELFPAY, MEDICAID ==
--- NOTE | 2020-11-04 14:12 | PT.OIE ---
Current Diagnoses Spinal stenosis, cervical region (11/04/20) Cervicalgia (11/04/20) Ataxia, unspecified (11/04/20) Past Medical History (Last Reviewed 06/08/20 @ 23:13 by Antoine Streeter DO) HTN (hypertension) Patient denies medical problems Past Surgical History (Last Reviewed 06/19/19 @ 18:48 by Odin Marquez MD) History of neck surgery Visit Care Team Role Provider Type Antoine Alvarez MD Family Provider Non-Staff Primary Care Provider Specialty: Medical Address: [address] [place] [address], [id number] Email: Michael Prasad MD Attending Provider Non-Staff Referring Provider Specialty: Neurology Address: [address] [place] [address], [phone] Email: Physical Therapy Initial Evaluation PT-OP-A Visit Information Start: 11/03/20 15:51 Freq: Status: Active Protocol: Document 11/04/20 10:31 MB (Rec: 11/04/20 10:46 MB [id number]) Out-Patient Physical Therapy Visit Information Visit Information Visit Type Initial Evaluation Visit Note [facility], $30 copay Visit Start Time 10:31 Visit Stop Time 11:10 Total Visit Minutes 39 Visit Number 1 Evaluation Information Evaluation Date 11/04/20 PT-OP-B Current Condition Start: 11/03/20 15:51 Freq: Status: Active Protocol: Document 11/04/20 10:31 MB (Rec: 11/04/20 10:46 MB [id number]) Current Condition History of Current Condition Onset Date End 2019 Current Complaints Minor neck pain and balance issue, balance is biggest problem History of Current Condition Pt received PT for right shoulder pain at the end 2019. During PT course, pt reported that he nearly fell down the stairs and his gait became increasingly worse. He presented to PT with ataxia and PT referred pt back to his doctor. He had lumbar, cervical, and brain MRIs and his cervical MRI revealed changes such that he underwent C5-C7 anterior cervical fusion on 08/30/20. Pt reports right neck and upper right shoulder pain up to 12/04. His pain is reducing. Pt gait trains with a RW and feels like he is still walking drunk. 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 His sister comes in twice a day to help with his mom. Pt had a fall last date when stepping back on his left leg and it gave way. He had not had another fall since he got home from the surgery. Pt is having minor headaches. He denies dizziness and passing out. Prior Treatments and Tests MRIs, two cervical surgeries ( first one in 2014) Treatment Goals Patient/Caregiver Goals To improve balance and to get back to normal walking and life PT-OP-C Subjective Start: 11/03/20 15:51 Freq: Status: Active Protocol: Document 11/04/20 10:31 MB (Rec: 11/04/20 13:54 MB [id number]) OP-PT Subjective Patient Comments Patient Comments See history of current condition Patient Reported Progress Improving Patient Questionnaires Neck Disability Index NDI Score 28 Neck Disability Index Impairment 40 to 59% Impaired (Score 20- 29) PT-OP-D Balance Start: 11/03/20 15:51 Freq: Status: Active Protocol: Document 11/04/20 10:31 MB (Rec: 11/04/20 14:11 MB [id number]) OP-PT Balance Assessment Sitting Balance Static Sitting Balance Ability Good Dynamic Sitting Balance Ability Fair Sitting Balance Comments UE support for dynamic sitting and cues to place hands on thighs for MMT LEs in sitting Standing Balance Static Standing Balance Ability Fair Dynamic Standing Balance Ability Fair Standing Balance Comments See testing comments below Balance Tests Romberg Romberg 1' EO, 30 sec EC and imbalance to L Single Limb Standing Single Limb- Right Unable today Single Limb- Left Unable today Tandem Tandem Standing Unable today Other Other Balance Tests Performed Pt has decreased confidence with Romberg with EC in corner and opens his eyes d/t fear of falling Unable to perform tandem gait without reaching or holding onto wall, slow gait forward with eyes closed and step-to gait that is slow with retropulsion Marx Fall Scale Copyright Permission PT-OP-G Mobility & Gait Start: 11/03/20 15:51 Freq: Status: Active Protocol: Document 11/04/20 10:31 MB (Rec: 11/04/20 14:11 MB [id number]) OP Gait Assessment Gait Gait Assistance Required: Standby Assistance,Contact Guard Assist Distance (Feet) 75 Able to Maintain Weight Bearing Status Yes During Gait Assistive Devices Assistive Device None,Gait Belt,Front Wheeled Walker Orthotic/Prosthetic Devices or Brace: No Gait Deviations General Gait Pattern Ataxic,Decreased Stride Length ,Flexed Trunk,Wide Based Gait Factors Limiting Gait Function Factors Limiting Gait Function Decreased Sensation,Decreased Strength,Incoordination,Poor Balance Comments Gait Comments Gait with RW on the way in: better foot clearance, step- length and speed and superv to SBA. Gait training without AD with gait belt requires CGA and pt presents with ataxic gait pattern with wide ROBERT and functional foot drop right foot. He keeps his arms out to the side to help with balance . PT-OP-H Neuro Start: 11/03/20 15:51 Freq: Status: Active Protocol: Document 11/04/20 10:31 MB (Rec: 11/04/20 14:11 MB [id number]) Sensation Evaluation Comments Summary Comments Pt reports ongoing occ numbness in his right toes Coordination Evaluation Upper Extremity Tests Left Finger to Nose Test Normal Performance Pronation/Supination Test Normal Performance Right Finger to Nose Test Normal Performance Pronation/Supination Test Normal Performance Lower Extremity Tests Left Foot Tapping Test Minimal Impairment Right Foot Tapping Test Minimal Impairment Comments Coordination Comments Finger to nose testing was pt touching PT's finger and then his own nose. Foot tapping test was pt tapping toes of one foot on the floor crossing over the opposite foot. Both required increased effort and slower speed for pt Deep Tendon Reflex & Clonus Assessment Ankle Clonus Bilateral Clonus Assessment Absent PT-OP-K Range of Motion Start: 11/03/20 15:51 Freq: Status: Active Protocol: Document 11/04/20 10:31 MB (Rec: 11/04/20 14:11 MB [id number]) Shoulder Goniometric Range of Motion Shoulder Left Shoulder ROM WFL No Testing Position Sitting Flexion 160 Abduction 90 Right Shoulder ROM WFL No Testing Position Sitting Flexion 150 Abduction 90 PT-OP-M Strength Start: 11/03/20 15:51 Freq: Status: Active Protocol: Document 11/04/20 10:31 MB (Rec: 11/04/20 14:11 MB [id number]) Shoulder Strength Shoulder Manual Muscle Testing Left Flexion 5 Normal Abduction (C5) 5 Normal Comments Pt sitting Right Flexion 5 Normal Abduction (C5) 4 Good Comments Pt sitting Elbow/Forearm Strength Elbow and Forearm Manual Muscle Testing Left Flexion (C6) 5 Normal Extension (C7) 5 Normal Pronation 5 Normal Supination 5 Normal Comments Pt sitting Right Flexion (C6) 5 Normal Extension (C7) 5 Normal Pronation 5 Normal Supination 5 Normal Comments Pt sitting Hip Strength Hip Manual Muscle Testing Left Flexion (L2) 4 Good Abduction 4 Good Comments Pt sitting Right Flexion (L2) 3+ Fair+ Abduction 3+ Fair+ Comments Pt sitting Knee Strength Knee Manual Muscle Testing Left Flexion (S2) 5 Normal Extension (L3) 5 Normal Comments Pt sitting Right Flexion (S2) 4 Good Extension (L3) 4 Good Comments Pt sitting Ankle/Foot Strength Ankle and Foot Manual Muscle Testing Left Dorsiflexion (L4) 4 Good Right Dorsiflexion (L4) 4 Good Toe Strength Toe Manual Muscle Testing Left Great Toe Extension 4 Good Right Great Toe Extension 3+ Fair+ PT-OP-T Assessment and Plan Start: 11/03/20 15:51 Freq: Status: Active Protocol: Document 11/04/20 10:31 MB (Rec: 11/04/20 14:11 MB [id number]) Physical Therapy Assessment Rehab Potential Rehabilitation Potential Good Evaluation Complexity Number of Personal Factors/Comorbidities 1-2 Number of Body Systems Impaired 1-2 Clinical Presentation at Evaluation Stable Impairments Impairments Activity Tolerance,Balance, Coordination,Gait,Pain,Posture ,ROM,Sensation,Soft Tissue Mobility,Strength,Vestibular Other Concerns Fall Risk Yes Goals 5 Surgeon'S Assistant Goal (LTG) Pt will deny falls for 2 months to decrease injury risk by 01/04/21. LTG Duration 8 weeks 4 Care Home Goal (LTG) Pt will present with improved B hip flexion, abduction, knee flexion and extension and ankle DF strength to / to improve balance and gait by 07/17. LTG Duration 8 weeks 3 Care Home Goal (LTG) Pt will gait train at least 1300 feet in 6 minutes without AD to allow return to I community ambulation by . LTG Duration 8 weeks 2 Care Home Goal (LTG) Pt will perform WNLs on a standardized balance test to decrease fall risk by 01/04/21. LTG Duration 8 weeks 1 Surgeon'S Assistant Goal (LTG) Pt will perform progressive HEP with I including postural, flexibility, alignment, strengthening, balance and gait to improve balance, gait and strength by 01/04/21. LTG Duration 8 weeks Assessment Summary Assessment Pt is a 49 y/o male presenting with impaired gait, balance and strength after found to have cervical spine changes and undergoing cervical surgery in August 2020. Pt will benefit from PT for strength, balance, gait and flexibility exercises and manual intervention as needed. This PT was working with pt last year when his symptoms started and his coordination and functional strength are better post-op than they were when they first started. Pt does report a fall when stepping back onto his left leg yesterday when he did not have his walker and PT is concerned about his ongoing fall risk. Physical Therapy Plan Frequency and Duration Frequency of Treatment 2x/Week Duration of Treatment 8 weeks Plan of Care Start Date 11/04/20 Plan of Care End Date 01/04/21 Therapeutic Interventions Therapeutic Interventions Balance Training,Canalithic Repositioning,Coordination Training,Gait Training,Home Exercise Program,Joint Mobilizations,Manual Therapy, Neuromuscular Re-education, Patient/Caregiver Education, Self-Care/Home Management, Sensory Integration,Soft Tissue Mobilization,Taping, Therapeutic Activities, Therapeutic Exercises, Vestibular Rehabilitation Modalities Cold Pack/Ice Massage,Electric Stimulation,Hot Packs, Ultrasound Next Visit Focus/Plan Next Note Type Treatment Note Next Visit Plan Initiate gym equipment, balance exercise for home, strengthening
--- NOTE | 2020-11-04 14:12 | PT.OPPOC ---
Physical, Occupational & Speech Therapy [facility] Current Diagnoses Spinal stenosis, cervical region (11/04/20) Cervicalgia (11/04/20) Ataxia, unspecified (11/04/20) Visit Care Team Role Provider Type Antoine Alvarez MD Family Provider Non-Staff Primary Care Provider Specialty: Medical Address: [address] [place] [address], [phone] Email: Michael Prasad MD Attending Provider Non-Staff Referring Provider Specialty: Neurology Address: [address] [place] [address], [phone] Email: Plan Of Care PT-OP-T Assessment and Plan Start: 11/03/20 15:51 Freq: Status: Active Protocol: Document 11/04/20 10:31 MB (Rec: 11/04/20 14:11 MB [id number]) Physical Therapy Assessment Rehab Potential Rehabilitation Potential Good Evaluation Complexity Number of Personal Factors/Comorbidities 1-2 Number of Body Systems Impaired 1-2 Clinical Presentation at Evaluation Stable Impairments Impairments Activity Tolerance,Balance, Coordination,Gait,Pain,Posture ,ROM,Sensation,Soft Tissue Mobility,Strength,Vestibular Other Concerns Fall Risk Yes Goals 5 Fur Ironer Goal (LTG) Pt will deny falls for 2 months to decrease injury risk by 01/04/21. LTG Duration 8 weeks 4 Fur Ironer Goal (LTG) Pt will present with improved B hip flexion, abduction, knee flexion and extension and ankle DF strength to 12/29 to improve balance and gait by 07/17. LTG Duration 8 weeks 3 Fur Ironer Goal (LTG) Pt will gait train at least 1300 feet in 6 minutes without AD to allow return to I community ambulation by . LTG Duration 8 weeks 2 Fur Ironer Goal (LTG) Pt will perform WNLs on a standardized balance test to decrease fall risk by 01/04/21. LTG Duration 8 weeks 1 Fur Ironer Goal (LTG) Pt will perform progressive HEP with I including postural, flexibility, alignment, strengthening, balance and gait to improve balance, gait and strength by 01/04/21. LTG Duration 8 weeks Assessment Summary Assessment Pt is a 49 y/o male presenting with impaired gait, balance and strength after found to have cervical spine changes and undergoing cervical surgery in August 2020. Pt will benefit from PT for strength, balance, gait and flexibility exercises and manual intervention as needed. This PT was working with pt last year when his symptoms started and his coordination and functional strength are better post-op than they were when they first started. Pt does report a fall when stepping back onto his left leg yesterday when he did not have his walker and PT is concerned about his ongoing fall risk. Physical Therapy Plan Frequency and Duration Frequency of Treatment 2x/Week Duration of Treatment 8 weeks Plan of Care Start Date 11/04/20 Plan of Care End Date 01/04/21 Therapeutic Interventions Therapeutic Interventions Balance Training,Canalithic Repositioning,Coordination Training,Gait Training,Home Exercise Program,Joint Mobilizations,Manual Therapy, Neuromuscular Re-education, Patient/Caregiver Education, Self-Care/Home Management, Sensory Integration,Soft Tissue Mobilization,Taping, Therapeutic Activities, Therapeutic Exercises, Vestibular Rehabilitation Modalities Cold Pack/Ice Massage,Electric Stimulation,Hot Packs, Ultrasound Next Visit Focus/Plan Next Note Type Treatment Note Next Visit Plan Initiate gym equipment, balance exercise for home, strengthening Plan of Care Dates Plan of Care Start Date 11/04/20 Plan of Care End Date 01/04/21 Electronically Signed by: Edith Cam PT 11/04/20 2312 Please Sign and Return: I have reviewed this Plan of Care and certify that the skilled therapy services above are required to meet the patient?s needs. Physician Signature Date Printed Name and Credentials Clinical Instructor Signature Printed Name and Credentials
--- NOTE | 2020-11-09 14:33 | PT.OTN ---
Current Diagnoses Spinal stenosis, cervical region (11/09/20) Cervicalgia (11/09/20) Ataxia, unspecified (11/09/20) Physical Therapy Treatment Note PT-OP-A Visit Information Start: 11/03/20 15:51 Freq: Status: Active Protocol: Document 11/09/20 13:50 MB (Rec: 11/09/20 13:57 MB [id number]) Out-Patient Physical Therapy Visit Information Visit Information Visit Type Treatment Note Visit Note [facility] $30 copay Visit Start Time 13:50 Visit Stop Time 14:30 Total Visit Minutes 40 Visit Number 2 PT-OP-B Current Condition Start: 11/03/20 15:51 Freq: Status: Active Protocol: Document 11/04/20 10:31 MB (Rec: 11/04/20 10:46 MB [id number]) Current Condition History of Current Condition Onset Date End 2019 Current Complaints Minor neck pain and balance issue, balance is biggest problem History of Current Condition Pt received PT for right shoulder pain at the end 2019. During PT course, pt reported that he nearly fell down the stairs and his gait became increasingly worse. He presented to PT with ataxia and PT referred pt back to his doctor. He had lumbar, cervical, and brain MRIs and his cervical MRI revealed changes such that he underwent C5-C7 anterior cervical fusion on 08/30/20. Pt reports right neck and upper right shoulder pain up to 4/10. His pain is reducing. Pt gait trains with a RW and feels like he is still walking drunk. 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 His sister comes in twice a day to help with his mom. Pt had a fall last date when stepping back on his left leg and it gave way. He had not had another fall since he got home from the surgery. Pt is having minor headaches. He denies dizziness and passing out. Prior Treatments and Tests MRIs, two cervical surgeries ( first one in 2014) Treatment Goals Patient/Caregiver Goals To improve balance and to get back to normal walking and life PT-OP-C Subjective Start: 11/03/20 15:51 Freq: Status: Active Protocol: Document 11/09/20 13:50 MB (Rec: 11/09/20 13:57 MB [id number]) OP-PT Subjective Patient Comments Patient Comments Everything is about the same. Pt reports that he has a follow-up with the neurosurgeon in 2 months PT-OP-D Balance Start: 11/03/20 15:51 Freq: Status: Active Protocol: Document 11/04/20 10:31 MB (Rec: 11/04/20 14:11 MB [id number]) OP-PT Balance Assessment Sitting Balance Static Sitting Balance Ability Good Dynamic Sitting Balance Ability Fair Sitting Balance Comments UE support for dynamic sitting and cues to place hands on thighs for MMT LEs in sitting Standing Balance Static Standing Balance Ability Fair Dynamic Standing Balance Ability Fair Standing Balance Comments See testing comments below Balance Tests Romberg Romberg 1' EO, 30 sec EC and imbalance to L Single Limb Standing Single Limb- Right Unable today Single Limb- Left Unable today Tandem Tandem Standing Unable today Other Other Balance Tests Performed Pt has decreased confidence with Romberg with EC in corner and opens his eyes d/t fear of falling Unable to perform tandem gait without reaching or holding onto wall, slow gait forward with eyes closed and step-to gait that is slow with retropulsion Marx Fall Scale Copyright Permission PT-OP-G Mobility & Gait Start: 11/03/20 15:51 Freq: Status: Active Protocol: Document 11/04/20 10:31 MB (Rec: 11/04/20 14:11 MB [id number]) OP Gait Assessment Gait Gait Assistance Required: Standby Assistance,Contact Guard Assist Distance (Feet) 75 Able to Maintain Weight Bearing Status Yes During Gait Assistive Devices Assistive Device None,Gait Belt,Front Wheeled Walker Orthotic/Prosthetic Devices or Brace: No Gait Deviations General Gait Pattern Ataxic,Decreased Stride Length ,Flexed Trunk,Wide Based Gait Factors Limiting Gait Function Factors Limiting Gait Function Decreased Sensation,Decreased Strength,Incoordination,Poor Balance Comments Gait Comments Gait with RW on the way in: better foot clearance, step- length and speed and superv to SBA. Gait training without AD with gait belt requires CGA and pt presents with ataxic gait pattern with wide ROBERT and functional foot drop right foot. He keeps his arms out to the side to help with balance . PT-OP-H Neuro Start: 11/03/20 15:51 Freq: Status: Active Protocol: Document 11/04/20 10:31 MB (Rec: 11/04/20 14:11 MB [id number]) Sensation Evaluation Comments Summary Comments Pt reports ongoing occ numbness in his right toes Coordination Evaluation Upper Extremity Tests Left Finger to Nose Test Normal Performance Pronation/Supination Test Normal Performance Right Finger to Nose Test Normal Performance Pronation/Supination Test Normal Performance Lower Extremity Tests Left Foot Tapping Test Minimal Impairment Right Foot Tapping Test Minimal Impairment Comments Coordination Comments Finger to nose testing was pt touching PT's finger and then his own nose. Foot tapping test was pt tapping toes of one foot on the floor crossing over the opposite foot. Both required increased effort and slower speed for pt Deep Tendon Reflex & Clonus Assessment Ankle Clonus Bilateral Clonus Assessment Absent PT-OP-K Range of Motion Start: 11/03/20 15:51 Freq: Status: Active Protocol: Document 11/04/20 10:31 MB (Rec: 11/04/20 14:11 MB [id number]) Shoulder Goniometric Range of Motion Shoulder Left Shoulder ROM WFL No Testing Position Sitting Flexion 160 Abduction 90 Right Shoulder ROM WFL No Testing Position Sitting Flexion 150 Abduction 90 PT-OP-M Strength Start: 11/03/20 15:51 Freq: Status: Active Protocol: Document 11/04/20 10:31 MB (Rec: 11/04/20 14:11 MB [id number]) Shoulder Strength Shoulder Manual Muscle Testing Left Flexion 5 Normal Abduction (C5) 5 Normal Comments Pt sitting Right Flexion 5 Normal Abduction (C5) 4 Good Comments Pt sitting Elbow/Forearm Strength Elbow and Forearm Manual Muscle Testing Left Flexion (C6) 5 Normal Extension (C7) 5 Normal Pronation 5 Normal Supination 5 Normal Comments Pt sitting Right Flexion (C6) 5 Normal Extension (C7) 5 Normal Pronation 5 Normal Supination 5 Normal Comments Pt sitting Hip Strength Hip Manual Muscle Testing Left Flexion (L2) 4 Good Abduction 4 Good Comments Pt sitting Right Flexion (L2) 3+ Fair+ Abduction 3+ Fair+ Comments Pt sitting Knee Strength Knee Manual Muscle Testing Left Flexion (S2) 5 Normal Extension (L3) 5 Normal Comments Pt sitting Right Flexion (S2) 4 Good Extension (L3) 4 Good Comments Pt sitting Ankle/Foot Strength Ankle and Foot Manual Muscle Testing Left Dorsiflexion (L4) 4 Good Right Dorsiflexion (L4) 4 Good Toe Strength Toe Manual Muscle Testing Left Great Toe Extension 4 Good Right Great Toe Extension 3+ Fair+ PT-OP-Q Treatments Start: 11/03/20 15:51 Freq: Status: Active Protocol: Document 11/09/20 13:50 MB (Rec: 11/09/20 13:58 MB [id number]) Cardio Equipment Recumbent Stepper (Sci-Fit) Duration (Minutes) 10 Resistance 2 Other Hands and legs Therapeutic Exercises Sitting Exercises Ankle eversion and DF Side bilateral Reps/Minutes Level 2 band Comments Heels stay down, feet together , knees straight, 10 reps LAQ with ankle pump Side bilateral Equipment Used Level 1 band Comments Alternating, slowly, AP end- range, end with flexion, 10 reps Hip abduction with band/clams Side bilateral Equipment Used Level 2 band Comments Glute squeeze first and then slowly press out against band, feet today Neuro Re-Education Treatment Balance Activities Corner exercises Comments Romberg with shoes on, to try with shoes off at home. Progressive EC and pt can stand up to 20 sec before open eyes. PT-OP-T Assessment and Plan Start: 11/03/20 15:51 Freq: Status: Active Protocol: Document 11/09/20 13:50 MB (Rec: 11/09/20 13:57 MB [id number]) Physical Therapy Assessment Rehab Potential Rehabilitation Potential Good Evaluation Complexity Number of Personal Factors/Comorbidities 1-2 Number of Body Systems Impaired 1-2 Clinical Presentation at Evaluation Stable Impairments Impairments Activity Tolerance,Balance, Coordination,Gait,Pain,Posture ,ROM,Sensation,Soft Tissue Mobility,Strength,Vestibular Other Concerns Fall Risk Yes Goals 5 Shelter Goal (LTG) Pt will deny falls for 2 months to decrease injury risk by 01/04/21. LTG Duration 8 weeks 4 Super[employer] Wheel [employer] Goal (LTG) Pt will present with improved B hip flexion, abduction, knee flexion and extension and ankle DF strength to 12/29 to improve balance and gait by 07/17. LTG Duration 8 weeks 3 Shelter Goal (LTG) Pt will gait train at least 1300 feet in 6 minutes without AD to allow return to I community ambulation by . LTG Duration 8 weeks 2 [employer] Goal (LTG) Pt will perform WNLs on a standardized balance test to decrease fall risk by 01/04/21. LTG Duration 8 weeks 1 Shelter Goal (LTG) Pt will perform progressive HEP with I including postural, flexibility, alignment, strengthening, balance and gait to improve balance, gait and strength by 01/04/21. LTG Duration 8 weeks Assessment Summary Assessment Initiated cardio exercises today to assist with LE strengthening on Scifit, added leg strengthening exercises and balance exercises for home and will con't to progress. Physical Therapy Plan Frequency and Duration Frequency of Treatment 2x/Week Duration of Treatment 8 weeks Plan of Care Start Date 11/04/20 Plan of Care End Date 01/04/21 Therapeutic Interventions Therapeutic Interventions Balance Training,Canalithic Repositioning,Coordination Training,Gait Training,Home Exercise Program,Joint Mobilizations,Manual Therapy, Neuromuscular Re-education, Patient/Caregiver Education, Self-Care/Home Management, Sensory Integration,Soft Tissue Mobilization,Taping, Therapeutic Activities, Therapeutic Exercises, Vestibular Rehabilitation Modalities Cold Pack/Ice Massage,Electric Stimulation,Hot Packs, Ultrasound Next Visit Focus/Plan Next Note Type Treatment Note Next Visit Plan Gait training and exercises with different devices, // bars. Consider adding sit to stands for home. Progress strengthening and balance exercises.
--- NOTE | 2020-11-11 10:43 | PT.OTN ---
Current Diagnoses Spinal stenosis, cervical region (11/11/20) Cervicalgia (11/11/20) Ataxia, unspecified (11/11/20) Physical Therapy Treatment Note PT-OP-A Visit Information Start: 11/03/20 15:51 Freq: Status: Active Protocol: Document 11/11/20 09:51 MB (Rec: 11/11/20 10:42 MB [id number]) Out-Patient Physical Therapy Visit Information Visit Information Visit Type Treatment Note Visit Note [facility] $30 Visit Start Time 09:51 Visit Stop Time 10:30 Total Visit Minutes 39 Visit Number 3 PT-OP-B Current Condition Start: 11/03/20 15:51 Freq: Status: Active Protocol: Document 11/04/20 10:31 MB (Rec: 11/04/20 10:46 MB [id number]) Current Condition History of Current Condition Onset Date End 2019 Current Complaints Minor neck pain and balance issue, balance is biggest problem History of Current Condition Pt received PT for right shoulder pain at the end 2019. During PT course, pt reported that he nearly fell down the stairs and his gait became increasingly worse. He presented to PT with ataxia and PT referred pt back to his doctor. He had lumbar, cervical, and brain MRIs and his cervical MRI revealed changes such that he underwent C5-C7 anterior cervical fusion on 08/30/20. Pt reports right neck and upper right shoulder pain up to 4/10. His pain is reducing. Pt gait trains with a RW and feels like he is still walking drunk. 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 His sister comes in twice a day to help with his mom. Pt had a fall last date when stepping back on his left leg and it gave way. He had not had another fall since he got home from the surgery. Pt is having minor headaches. He denies dizziness and passing out. Prior Treatments and Tests MRIs, two cervical surgeries ( first one in 2014) Treatment Goals Patient/Caregiver Goals To improve balance and to get back to normal walking and life PT-OP-C Subjective Start: 11/03/20 15:51 Freq: Status: Active Protocol: Document 11/11/20 09:51 MB (Rec: 11/11/20 10:42 MB [id number]) OP-PT Subjective Patient Comments Patient Comments My ride was late. PT-OP-D Balance Start: 11/03/20 15:51 Freq: Status: Active Protocol: Document 11/04/20 10:31 MB (Rec: 11/04/20 14:11 MB [id number]) OP-PT Balance Assessment Sitting Balance Static Sitting Balance Ability Good Dynamic Sitting Balance Ability Fair Sitting Balance Comments UE support for dynamic sitting and cues to place hands on thighs for MMT LEs in sitting Standing Balance Static Standing Balance Ability Fair Dynamic Standing Balance Ability Fair Standing Balance Comments See testing comments below Balance Tests Romberg Romberg 1' EO, 30 sec EC and imbalance to L Single Limb Standing Single Limb- Right Unable today Single Limb- Left Unable today Tandem Tandem Standing Unable today Other Other Balance Tests Performed Pt has decreased confidence with Romberg with EC in corner and opens his eyes d/t fear of falling Unable to perform tandem gait without reaching or holding onto wall, slow gait forward with eyes closed and step-to gait that is slow with retropulsion Marx Fall Scale Copyright Permission PT-OP-G Mobility & Gait Start: 11/03/20 15:51 Freq: Status: Active Protocol: Document 11/04/20 10:31 MB (Rec: 11/04/20 14:11 MB [id number]) OP Gait Assessment Gait Gait Assistance Required: Standby Assistance,Contact Guard Assist Distance (Feet) 75 Able to Maintain Weight Bearing Status Yes During Gait Assistive Devices Assistive Device None,Gait Belt,Front Wheeled Walker Orthotic/Prosthetic Devices or Brace: No Gait Deviations General Gait Pattern Ataxic,Decreased Stride Length ,Flexed Trunk,Wide Based Gait Factors Limiting Gait Function Factors Limiting Gait Function Decreased Sensation,Decreased Strength,Incoordination,Poor Balance Comments Gait Comments Gait with RW on the way in: better foot clearance, step- length and speed and superv to SBA. Gait training without AD with gait belt requires CGA and pt presents with ataxic gait pattern with wide ROBERT and functional foot drop right foot. He keeps his arms out to the side to help with balance . PT-OP-H Neuro Start: 11/03/20 15:51 Freq: Status: Active Protocol: Document 11/04/20 10:31 MB (Rec: 11/04/20 14:11 MB [id number]) Sensation Evaluation Comments Summary Comments Pt reports ongoing occ numbness in his right toes Coordination Evaluation Upper Extremity Tests Left Finger to Nose Test Normal Performance Pronation/Supination Test Normal Performance Right Finger to Nose Test Normal Performance Pronation/Supination Test Normal Performance Lower Extremity Tests Left Foot Tapping Test Minimal Impairment Right Foot Tapping Test Minimal Impairment Comments Coordination Comments Finger to nose testing was pt touching PT's finger and then his own nose. Foot tapping test was pt tapping toes of one foot on the floor crossing over the opposite foot. Both required increased effort and slower speed for pt Deep Tendon Reflex & Clonus Assessment Ankle Clonus Bilateral Clonus Assessment Absent PT-OP-K Range of Motion Start: 11/03/20 15:51 Freq: Status: Active Protocol: Document 11/04/20 10:31 MB (Rec: 11/04/20 14:11 MB [id number]) Shoulder Goniometric Range of Motion Shoulder Left Shoulder ROM WFL No Testing Position Sitting Flexion 160 Abduction 90 Right Shoulder ROM WFL No Testing Position Sitting Flexion 150 Abduction 90 PT-OP-M Strength Start: 11/03/20 15:51 Freq: Status: Active Protocol: Document 11/04/20 10:31 MB (Rec: 11/04/20 14:11 MB [id number]) Shoulder Strength Shoulder Manual Muscle Testing Left Flexion 5 Normal Abduction (C5) 5 Normal Comments Pt sitting Right Flexion 5 Normal Abduction (C5) 4 Good Comments Pt sitting Elbow/Forearm Strength Elbow and Forearm Manual Muscle Testing Left Flexion (C6) 5 Normal Extension (C7) 5 Normal Pronation 5 Normal Supination 5 Normal Comments Pt sitting Right Flexion (C6) 5 Normal Extension (C7) 5 Normal Pronation 5 Normal Supination 5 Normal Comments Pt sitting Hip Strength Hip Manual Muscle Testing Left Flexion (L2) 4 Good Abduction 4 Good Comments Pt sitting Right Flexion (L2) 3+ Fair+ Abduction 3+ Fair+ Comments Pt sitting Knee Strength Knee Manual Muscle Testing Left Flexion (S2) 5 Normal Extension (L3) 5 Normal Comments Pt sitting Right Flexion (S2) 4 Good Extension (L3) 4 Good Comments Pt sitting Ankle/Foot Strength Ankle and Foot Manual Muscle Testing Left Dorsiflexion (L4) 4 Good Right Dorsiflexion (L4) 4 Good Toe Strength Toe Manual Muscle Testing Left Great Toe Extension 4 Good Right Great Toe Extension 3+ Fair+ PT-OP-Q Treatments Start: 11/03/20 15:51 Freq: Status: Active Protocol: Document 11/11/20 09:51 MB (Rec: 11/11/20 10:42 MB [id number]) Gait Training Gait Activity Stair training Comments Right rail ascend and left rail descend, 5 short steps and 3 steps deeper step. 9 minutes of exercise, progressed to superv, fatigued , similar gait patter to outside clinic steps as above Gait training without AD Comments See 6MWT goal for findings today and gait pattern comment Stairs inside outside of PT department: first set with rail on right ascend and on left descend and cues for reciprocal gait and CGA. Pt has ataxic pattern and performs well Neuro Re-Education Treatment Balance Activities FGA Comments FGA score 07/26 today and see goal comments for findings. FGA task course x3, walking around cones and over step and mini hurdles (2) and pt requires CGA, fatigues quickly and reached for wall x1 when approaching step. Cues to lift right foot over step and not swing around PT-OP-T Assessment and Plan Start: 11/03/20 15:51 Freq: Status: Active Protocol: Document 11/11/20 09:51 MB (Rec: 11/11/20 10:42 MB [id number]) Physical Therapy Assessment Rehab Potential Rehabilitation Potential Good Evaluation Complexity Number of Personal Factors/Comorbidities 1-2 Number of Body Systems Impaired 1-2 Clinical Presentation at Evaluation Stable Impairments Impairments Activity Tolerance,Balance, Coordination,Gait,Pain,Posture ,ROM,Sensation,Soft Tissue Mobility,Strength,Vestibular Other Concerns Fall Risk Yes Goals 5 Group Home Goal (LTG) Pt will deny falls for 2 months to decrease injury risk by 01/04/21. LTG Duration 8 weeks 4 Worship Leader Goal (LTG) Pt will present with improved B hip flexion, abduction, knee flexion and extension and ankle DF strength to 12/29 to improve balance and gait by 07/17. LTG Duration 8 weeks 3 Worship Leader Goal (LTG) Pt will gait train at least 1300 feet in 6 minutes without AD to allow return to I community ambulation by . 11/11/20: Pt gait trains 1134 feet in 6 minutes without AD and with CGA from PT today. No LOB. He does have weakness in legs and have wide ROBERT and slow kat. Mildly ataxic gait and arms out from body. LTG Duration 8 weeks 2 Worship Leader Goal (LTG) Pt will perform WNLs on a standardized balance test to decrease fall risk by 01/04/21. 11/11/20: FGA score is 11/30, indicating increased risk for falls. He has most trouble with changing gait speeds, pivoting around, weaving around cones and stepping over step. LTG Duration 8 weeks 1 Group Home Goal (LTG) Pt will perform progressive HEP with I including postural, flexibility, alignment, strengthening, balance and gait to improve balance, gait and strength by 01/04/21. LTG Duration 8 weeks Assessment Summary Assessment Pt makes great progress towards gait and balance today and was able to complete 6MWT and FGA with CGA assist. He reaches for wall twice with tandem gait and preparing to step over step. Con't gait training, consider sit to stands for home and try to reassess FGA and 6MWT every other treatment. Physical Therapy Plan Frequency and Duration Frequency of Treatment 2x/Week Duration of Treatment 8 weeks Plan of Care Start Date 11/04/20 Plan of Care End Date 01/04/21 Therapeutic Interventions Therapeutic Interventions Balance Training,Canalithic Repositioning,Coordination Training,Gait Training,Home Exercise Program,Joint Mobilizations,Manual Therapy, Neuromuscular Re-education, Patient/Caregiver Education, Self-Care/Home Management, Sensory Integration,Soft Tissue Mobilization,Taping, Therapeutic Activities, Therapeutic Exercises, Vestibular Rehabilitation Modalities Cold Pack/Ice Massage,Electric Stimulation,Hot Packs, Ultrasound Next Visit Focus/Plan Next Note Type Treatment Note Next Visit Plan Consider adding sit to stands for home. Re-test FGA and 6MWT frequently and record progress under goals. Progress gait, strengthening and balance exercises.
--- NOTE | 2020-11-16 09:51 | PT.OTN ---
Current Diagnoses Spinal stenosis, cervical region (11/16/20) Cervicalgia (11/16/20) Ataxia, unspecified (11/16/20) Physical Therapy Treatment Note PT-OP-A Visit Information Start: 11/03/20 15:51 Freq: Status: Active Protocol: Document 11/16/20 09:07 SP (Rec: 11/16/20 12:05 SP [id number]) Out-Patient Physical Therapy Visit Information Visit Information Visit Type Treatment Note Visit Note [facility] $30 Pt 7 min late for appt Visit Start Time 09:07 Visit Stop Time 09:51 Total Visit Minutes 44 Visit Number 4 Number of MINE SUPERINTENDENT Visits 1 PT-OP-B Current Condition Start: 11/03/20 15:51 Freq: Status: Active Protocol: Document 11/04/20 10:31 MB (Rec: 11/04/20 10:46 MB [id number]) Current Condition History of Current Condition Onset Date End 2019 Current Complaints Minor neck pain and balance issue, balance is biggest problem History of Current Condition Pt received PT for right shoulder pain at the end 2019. During PT course, pt reported that he nearly fell down the stairs and his gait became increasingly worse. He presented to PT with ataxia and PT referred pt back to his doctor. He had lumbar, cervical, and brain MRIs and his cervical MRI revealed changes such that he underwent C5-C7 anterior cervical fusion on 08/30/20. Pt reports right neck and upper right shoulder pain up to 4/10. His pain is reducing. Pt gait trains with a RW and feels like he is still walking drunk. 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 His sister comes in twice a day to help with his mom. Pt had a fall last date when stepping back on his left leg and it gave way. He had not had another fall since he got home from the surgery. Pt is having minor headaches. He denies dizziness and passing out. Prior Treatments and Tests MRIs, two cervical surgeries ( first one in 2014) Treatment Goals Patient/Caregiver Goals To improve balance and to get back to normal walking and life PT-OP-C Subjective Start: 11/03/20 15:51 Freq: Status: Active Protocol: Document 11/16/20 09:07 SP (Rec: 11/16/20 12:05 SP [id number]) OP-PT Subjective Patient Comments Patient Comments pt state was pretty sore after last tx but only lasted couple of hrs. PT-OP-D Balance Start: 11/03/20 15:51 Freq: Status: Active Protocol: Document 11/04/20 10:31 MB (Rec: 11/04/20 14:11 MB [id number]) OP-PT Balance Assessment Sitting Balance Static Sitting Balance Ability Good Dynamic Sitting Balance Ability Fair Sitting Balance Comments UE support for dynamic sitting and cues to place hands on thighs for MMT LEs in sitting Standing Balance Static Standing Balance Ability Fair Dynamic Standing Balance Ability Fair Standing Balance Comments See testing comments below Balance Tests Romberg Romberg 1' EO, 30 sec EC and imbalance to L Single Limb Standing Single Limb- Right Unable today Single Limb- Left Unable today Tandem Tandem Standing Unable today Other Other Balance Tests Performed Pt has decreased confidence with Romberg with EC in corner and opens his eyes d/t fear of falling Unable to perform tandem gait without reaching or holding onto wall, slow gait forward with eyes closed and step-to gait that is slow with retropulsion Marx Fall Scale Copyright Permission PT-OP-G Mobility & Gait Start: 11/03/20 15:51 Freq: Status: Active Protocol: Document 11/04/20 10:31 MB (Rec: 11/04/20 14:11 MB [id number]) OP Gait Assessment Gait Gait Assistance Required: Standby Assistance,Contact Guard Assist Distance (Feet) 75 Able to Maintain Weight Bearing Status Yes During Gait Assistive Devices Assistive Device None,Gait Belt,Front Wheeled Walker Orthotic/Prosthetic Devices or Brace: No Gait Deviations General Gait Pattern Ataxic,Decreased Stride Length ,Flexed Trunk,Wide Based Gait Factors Limiting Gait Function Factors Limiting Gait Function Decreased Sensation,Decreased Strength,Incoordination,Poor Balance Comments Gait Comments Gait with RW on the way in: better foot clearance, step- length and speed and superv to SBA. Gait training without AD with gait belt requires CGA and pt presents with ataxic gait pattern with wide ROBERT and functional foot drop right foot. He keeps his arms out to the side to help with balance . PT-OP-H Neuro Start: 11/03/20 15:51 Freq: Status: Active Protocol: Document 11/04/20 10:31 MB (Rec: 11/04/20 14:11 MB [id number]) Sensation Evaluation Comments Summary Comments Pt reports ongoing occ numbness in his right toes Coordination Evaluation Upper Extremity Tests Left Finger to Nose Test Normal Performance Pronation/Supination Test Normal Performance Right Finger to Nose Test Normal Performance Pronation/Supination Test Normal Performance Lower Extremity Tests Left Foot Tapping Test Minimal Impairment Right Foot Tapping Test Minimal Impairment Comments Coordination Comments Finger to nose testing was pt touching PT's finger and then his own nose. Foot tapping test was pt tapping toes of one foot on the floor crossing over the opposite foot. Both required increased effort and slower speed for pt Deep Tendon Reflex & Clonus Assessment Ankle Clonus Bilateral Clonus Assessment Absent PT-OP-K Range of Motion Start: 11/03/20 15:51 Freq: Status: Active Protocol: Document 11/04/20 10:31 MB (Rec: 11/04/20 14:11 MB [id number]) Shoulder Goniometric Range of Motion Shoulder Left Shoulder ROM WFL No Testing Position Sitting Flexion 160 Abduction 90 Right Shoulder ROM WFL No Testing Position Sitting Flexion 150 Abduction 90 PT-OP-M Strength Start: 11/03/20 15:51 Freq: Status: Active Protocol: Document 11/04/20 10:31 MB (Rec: 11/04/20 14:11 MB [id number]) Shoulder Strength Shoulder Manual Muscle Testing Left Flexion 5 Normal Abduction (C5) 5 Normal Comments Pt sitting Right Flexion 5 Normal Abduction (C5) 4 Good Comments Pt sitting Elbow/Forearm Strength Elbow and Forearm Manual Muscle Testing Left Flexion (C6) 5 Normal Extension (C7) 5 Normal Pronation 5 Normal Supination 5 Normal Comments Pt sitting Right Flexion (C6) 5 Normal Extension (C7) 5 Normal Pronation 5 Normal Supination 5 Normal Comments Pt sitting Hip Strength Hip Manual Muscle Testing Left Flexion (L2) 4 Good Abduction 4 Good Comments Pt sitting Right Flexion (L2) 3+ Fair+ Abduction 3+ Fair+ Comments Pt sitting Knee Strength Knee Manual Muscle Testing Left Flexion (S2) 5 Normal Extension (L3) 5 Normal Comments Pt sitting Right Flexion (S2) 4 Good Extension (L3) 4 Good Comments Pt sitting Ankle/Foot Strength Ankle and Foot Manual Muscle Testing Left Dorsiflexion (L4) 4 Good Right Dorsiflexion (L4) 4 Good Toe Strength Toe Manual Muscle Testing Left Great Toe Extension 4 Good Right Great Toe Extension 3+ Fair+ PT-OP-Q Treatments Start: 11/03/20 15:51 Freq: Status: Active Protocol: Document 11/16/20 09:07 SP (Rec: 11/16/20 12:05 SP [id number]) Therapeutic Exercises Standing Exercises sit <> stands Standing Exercise Name added to HEP, cued even wt distrbution, tends more over R hip Resistance AROM, arms across chest Equipment Used chair 18, FWW nearby in case need safety, mirror Reps/Minutes x8 quality mechanics, 10 reps in 30 Comments cued full tall stand with glut facilitation hip ext and knee ext awareness Gait Training Gait Activity Stair training Comments Right rail ascend and left rail descend then SPC use on L ascend/ wall if needed on R then SPC in R descending/ wall if needed on L to assimulate support of no rail strategies, multiple sets of 4 deep steps . 9 minutes of exercise CG> sBA fatigued due to fatigue and less stability using SPC step over step ascend/ step to down (step over step challenging Wb on RLE during LLE descend stabiltiy). Gait training without AD Comments focused on eccentric heel strike and L glut facilitation f/b walking Neuro Re-Education Treatment Balance Activities lindsey stepping Details PT only for balance, increase time SLS Reps/Duration 2 laps each step to gait Comments cued parallel toe/ heels, hip abd/quad facilitation wt over stance LE for increased stabiltiy during opposite LE swing through/ transition.- challenging but improved increase stance time- CGA- low Min A with GB. PT-OP-T Assessment and Plan Start: 11/03/20 15:51 Freq: Status: Active Protocol: Document 11/16/20 09:07 SP (Rec: 11/16/20 12:05 SP [id number]) Physical Therapy Assessment Goals 5 Drill Rig Operator Helper Goal (LTG) Pt will deny falls for 2 months to decrease injury risk by 01/04/21. LTG Duration 8 weeks 4 Fdc Goal (LTG) Pt will present with improved B hip flexion, abduction, knee flexion and extension and ankle DF strength to 12/29 to improve balance and gait by 07/17. LTG Duration 8 weeks 3 Fdc Goal (LTG) Pt will gait train at least 1300 feet in 6 minutes without AD to allow return to I community ambulation by . 11/11/20: Pt gait trains 1134 feet in 6 minutes without AD and with CGA from PT today. No LOB. He does have weakness in legs and have wide ROBERT and slow kat. Mildly ataxic gait and arms out from body. LTG Duration 8 weeks 2 Drill Rig Operator Helper Goal (LTG) Pt will perform WNLs on a standardized balance test to decrease fall risk by 01/04/21. 11/11/20: FGA score is 11/30, indicating increased risk for falls. He has most trouble with changing gait speeds, pivoting around, weaving around cones and stepping over step. LTG Duration 8 weeks 1 Drill Rig Operator Helper Goal (LTG) Pt will perform progressive HEP with I including postural, flexibility, alignment, strengthening, balance and gait to improve balance, gait and strength by 01/04/21. 11/16/20: HEP: sit > stands. LTG Duration 8 weeks Assessment Summary Assessment Pt was able to complete sit <> stands quality then 10 reps/ 30 sec , improve even wt over BLE, lindsey stepping CG- low min increase stance time but noted challenge work, good feedback results. Stair mgt R HR receiprocal gait, initiated SPC LUE ascending R UE descending for safety assist for no rail last 3 steps at home and wall press if needed and only has with safer step 2 with SPC, will continue to progress balance/funtional strengthening. Physical Therapy Plan Frequency and Duration Frequency of Treatment 2x/Week Duration of Treatment 8 weeks Plan of Care Start Date 11/04/20 Plan of Care End Date 01/04/21 Therapeutic Interventions Therapeutic Interventions Balance Training,Canalithic Repositioning,Coordination Training,Gait Training,Home Exercise Program,Joint Mobilizations,Manual Therapy, Neuromuscular Re-education, Patient/Caregiver Education, Self-Care/Home Management, Sensory Integration,Soft Tissue Mobilization,Taping, Therapeutic Activities, Therapeutic Exercises, Vestibular Rehabilitation Modalities Cold Pack/Ice Massage,Electric Stimulation,Hot Packs, Ultrasound Next Visit Focus/Plan Next Note Type Treatment Note Next Visit Plan Assess last tx: initiated sit to stands for HEP, balance, gait, stair mgt. Per PT POC: Re-test FGA and 6MWT frequently and record progress under goals. Progress gait, strengthening and balance exercises.
--- NOTE | 2020-11-18 10:32 | PT.OTN ---
Current Diagnoses Spinal stenosis, cervical region (11/18/20) Cervicalgia (11/18/20) Ataxia, unspecified (11/18/20) Physical Therapy Treatment Note PT-OP-A Visit Information Start: 11/03/20 15:51 Freq: Status: Active Protocol: Document 11/18/20 09:56 MB (Rec: 11/18/20 10:30 MB [id number]) Out-Patient Physical Therapy Visit Information Visit Information Visit Type Treatment Note Visit Note [facility], $30 Pt is 11 min late to appointment Visit Start Time 09:56 Visit Stop Time 10:30 Total Visit Minutes 34 Visit Number 5 Number of MACHINING AND ASSEMBLY SUPERVISOR Visits 0 PT-OP-B Current Condition Start: 11/03/20 15:51 Freq: Status: Active Protocol: Document 11/04/20 10:31 MB (Rec: 11/04/20 10:46 MB [id number]) Current Condition History of Current Condition Onset Date End 2019 Current Complaints Minor neck pain and balance issue, balance is biggest problem History of Current Condition Pt received PT for right shoulder pain at the end 2019. During PT course, pt reported that he nearly fell down the stairs and his gait became increasingly worse. He presented to PT with ataxia and PT referred pt back to his doctor. He had lumbar, cervical, and brain MRIs and his cervical MRI revealed changes such that he underwent C5-C7 anterior cervical fusion on 08/30/20. Pt reports right neck and upper right shoulder pain up to 4/10. His pain is reducing. Pt gait trains with a RW and feels like he is still walking drunk. 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 His sister comes in twice a day to help with his mom. Pt had a fall last date when stepping back on his left leg and it gave way. He had not had another fall since he got home from the surgery. Pt is having minor headaches. He denies dizziness and passing out. Prior Treatments and Tests MRIs, two cervical surgeries ( first one in 2014) Treatment Goals Patient/Caregiver Goals To improve balance and to get back to normal walking and life PT-OP-C Subjective Start: 11/03/20 15:51 Freq: Status: Active Protocol: Document 11/18/20 09:56 MB (Rec: 11/18/20 10:30 MB [id number]) OP-PT Subjective Patient Comments Patient Comments Pt states that his sister was late in picking him up. Last night was a rough night because his mom was having anxiety attacks. PT-OP-D Balance Start: 11/03/20 15:51 Freq: Status: Active Protocol: Document 11/04/20 10:31 MB (Rec: 11/04/20 14:11 MB [id number]) OP-PT Balance Assessment Sitting Balance Static Sitting Balance Ability Good Dynamic Sitting Balance Ability Fair Sitting Balance Comments UE support for dynamic sitting and cues to place hands on thighs for MMT LEs in sitting Standing Balance Static Standing Balance Ability Fair Dynamic Standing Balance Ability Fair Standing Balance Comments See testing comments below Balance Tests Romberg Romberg 1' EO, 30 sec EC and imbalance to L Single Limb Standing Single Limb- Right Unable today Single Limb- Left Unable today Tandem Tandem Standing Unable today Other Other Balance Tests Performed Pt has decreased confidence with Romberg with EC in corner and opens his eyes d/t fear of falling Unable to perform tandem gait without reaching or holding onto wall, slow gait forward with eyes closed and step-to gait that is slow with retropulsion Marx Fall Scale Copyright Permission PT-OP-G Mobility & Gait Start: 11/03/20 15:51 Freq: Status: Active Protocol: Document 11/04/20 10:31 MB (Rec: 11/04/20 14:11 MB [id number]) OP Gait Assessment Gait Gait Assistance Required: Standby Assistance,Contact Guard Assist Distance (Feet) 75 Able to Maintain Weight Bearing Status Yes During Gait Assistive Devices Assistive Device None,Gait Belt,Front Wheeled Walker Orthotic/Prosthetic Devices or Brace: No Gait Deviations General Gait Pattern Ataxic,Decreased Stride Length ,Flexed Trunk,Wide Based Gait Factors Limiting Gait Function Factors Limiting Gait Function Decreased Sensation,Decreased Strength,Incoordination,Poor Balance Comments Gait Comments Gait with RW on the way in: better foot clearance, step- length and speed and superv to SBA. Gait training without AD with gait belt requires CGA and pt presents with ataxic gait pattern with wide ROBERT and functional foot drop right foot. He keeps his arms out to the side to help with balance . PT-OP-H Neuro Start: 11/03/20 15:51 Freq: Status: Active Protocol: Document 11/04/20 10:31 MB (Rec: 11/04/20 14:11 MB [id number]) Sensation Evaluation Comments Summary Comments Pt reports ongoing occ numbness in his right toes Coordination Evaluation Upper Extremity Tests Left Finger to Nose Test Normal Performance Pronation/Supination Test Normal Performance Right Finger to Nose Test Normal Performance Pronation/Supination Test Normal Performance Lower Extremity Tests Left Foot Tapping Test Minimal Impairment Right Foot Tapping Test Minimal Impairment Comments Coordination Comments Finger to nose testing was pt touching PT's finger and then his own nose. Foot tapping test was pt tapping toes of one foot on the floor crossing over the opposite foot. Both required increased effort and slower speed for pt Deep Tendon Reflex & Clonus Assessment Ankle Clonus Bilateral Clonus Assessment Absent PT-OP-K Range of Motion Start: 11/03/20 15:51 Freq: Status: Active Protocol: Document 11/04/20 10:31 MB (Rec: 11/04/20 14:11 MB [id number]) Shoulder Goniometric Range of Motion Shoulder Left Shoulder ROM WFL No Testing Position Sitting Flexion 160 Abduction 90 Right Shoulder ROM WFL No Testing Position Sitting Flexion 150 Abduction 90 PT-OP-M Strength Start: 11/03/20 15:51 Freq: Status: Active Protocol: Document 11/04/20 10:31 MB (Rec: 11/04/20 14:11 MB [id number]) Shoulder Strength Shoulder Manual Muscle Testing Left Flexion 5 Normal Abduction (C5) 5 Normal Comments Pt sitting Right Flexion 5 Normal Abduction (C5) 4 Good Comments Pt sitting Elbow/Forearm Strength Elbow and Forearm Manual Muscle Testing Left Flexion (C6) 5 Normal Extension (C7) 5 Normal Pronation 5 Normal Supination 5 Normal Comments Pt sitting Right Flexion (C6) 5 Normal Extension (C7) 5 Normal Pronation 5 Normal Supination 5 Normal Comments Pt sitting Hip Strength Hip Manual Muscle Testing Left Flexion (L2) 4 Good Abduction 4 Good Comments Pt sitting Right Flexion (L2) 3+ Fair+ Abduction 3+ Fair+ Comments Pt sitting Knee Strength Knee Manual Muscle Testing Left Flexion (S2) 5 Normal Extension (L3) 5 Normal Comments Pt sitting Right Flexion (S2) 4 Good Extension (L3) 4 Good Comments Pt sitting Ankle/Foot Strength Ankle and Foot Manual Muscle Testing Left Dorsiflexion (L4) 4 Good Right Dorsiflexion (L4) 4 Good Toe Strength Toe Manual Muscle Testing Left Great Toe Extension 4 Good Right Great Toe Extension 3+ Fair+ PT-OP-Q Treatments Start: 11/03/20 15:51 Freq: Status: Active Protocol: Document 11/18/20 09:56 MB (Rec: 11/18/20 10:30 MB [id number]) Therapeutic Exercises Standing Exercises sit <> stands Comments 9 reps in 30 sec without UE support, right LE weakness Gait Training Gait Activity Gait training without AD Description Gait and stairs Comments See 6MWT for improvements today. Pt tends to walk a little toe in which is baseline for him Superv and cues to improve DF with stair training with rail on right for ascend and descend with both sides of steps (shorter and standard steps) x6 reps and pt with increased right LE ataxic movement (when weight goes through leg) at end of set, likely d/t fatigue Small lindsey stepping in hallway with superv--6 hurdles with 2-3 step lengths in between and pt performs better when cued to slow gait Large staircase outside gym: rail on the right, reciprocal gait, two sets and performs well PT-OP-T Assessment and Plan Start: 11/03/20 15:51 Freq: Status: Active Protocol: Document 11/18/20 09:56 MB (Rec: 11/18/20 10:30 MB [id number]) Physical Therapy Assessment Rehab Potential Rehabilitation Potential Good Evaluation Complexity Number of Personal Factors/Comorbidities 1-2 Number of Body Systems Impaired 1-2 Clinical Presentation at Evaluation Stable Impairments Impairments Activity Tolerance,Balance, Coordination,Gait,Pain,Posture ,ROM,Sensation,Soft Tissue Mobility,Strength,Vestibular Other Concerns Fall Risk Yes Goals 5 Penitentiary Goal (LTG) Pt will deny falls for 2 months to decrease injury risk by 01/04/21. LTG Duration 8 weeks 4 Transfer Table Operator Helper Goal (LTG) Pt will present with improved B hip flexion, abduction, knee flexion and extension and ankle DF strength to 12/29 to improve balance and gait by 07/17. LTG Duration 8 weeks 3 Penitentiary Goal (LTG) Pt will gait train at least 1300 feet in 6 minutes without AD to allow return to I community ambulation by . 11/18/20: Pt gait trains 1271 feet in 6 minutes with superv 11/11/20: Pt gait trains 1134 feet in 6 minutes without AD and with CGA from PT today. No LOB. He does have weakness in legs and have wide ROBERT and slow kat. Mildly ataxic gait and arms out from body. LTG Duration 8 weeks 2 Penitentiary Goal (LTG) Pt will perform WNLs on a standardized balance test to decrease fall risk by 01/04/21. 11/11/20: FGA score is 11/30, indicating increased risk for falls. He has most trouble with changing gait speeds, pivoting around, weaving around cones and stepping over step. LTG Duration 8 weeks 1 Transfer Table Operator Helper Goal (LTG) Pt will perform progressive HEP with I including postural, flexibility, alignment, strengthening, balance and gait to improve balance, gait and strength by 01/04/21. LTG Duration 8 weeks Assessment Summary Assessment Pt arrives late d/t ride and did tolerate gait training well today and progresses with 6MWT distance and stepping over hurdles. Physical Therapy Plan Frequency and Duration Frequency of Treatment 2x/Week Duration of Treatment 8 weeks Plan of Care Start Date 11/04/20 Plan of Care End Date 01/04/21 Therapeutic Interventions Therapeutic Interventions Balance Training,Canalithic Repositioning,Coordination Training,Gait Training,Home Exercise Program,Joint Mobilizations,Manual Therapy, Neuromuscular Re-education, Patient/Caregiver Education, Self-Care/Home Management, Sensory Integration,Soft Tissue Mobilization,Taping, Therapeutic Activities, Therapeutic Exercises, Vestibular Rehabilitation Modalities Cold Pack/Ice Massage,Electric Stimulation,Hot Packs, Ultrasound Next Visit Focus/Plan Next Note Type Treatment Note Next Visit Plan Re-test FGA and 6MWT frequently and record progress under goals. Progress gait, strengthening and balance exercises.
--- NOTE | 2020-11-22 13:05 | PT.OTN ---
Current Diagnoses Spinal stenosis, cervical region (11/22/20) Cervicalgia (11/22/20) Ataxia, unspecified (11/22/20) Physical Therapy Treatment Note PT-OP-A Visit Information Start: 11/03/20 15:51 Freq: Status: Active Protocol: Document 11/22/20 12:25 SP (Rec: 11/22/20 15:30 SP [id number]) Out-Patient Physical Therapy Visit Information Visit Information Visit Type Treatment Note Visit Note [facility], $30 Pt is 5 min late to appointment Visit Start Time 12:25 Visit Stop Time 13:05 Total Visit Minutes 40 Visit Number 6 Number of LEGAL CLERK Visits 1 PT-OP-B Current Condition Start: 11/03/20 15:51 Freq: Status: Active Protocol: Document 11/04/20 10:31 MB (Rec: 11/04/20 10:46 MB [id number]) Current Condition History of Current Condition Onset Date End 2019 Current Complaints Minor neck pain and balance issue, balance is biggest problem History of Current Condition Pt received PT for right shoulder pain at the end 2019. During PT course, pt reported that he nearly fell down the stairs and his gait became increasingly worse. He presented to PT with ataxia and PT referred pt back to his doctor. He had lumbar, cervical, and brain MRIs and his cervical MRI revealed changes such that he underwent C5-C7 anterior cervical fusion on 08/30/20. Pt reports right neck and upper right shoulder pain up to 4/10. His pain is reducing. Pt gait trains with a RW and feels like he is still walking drunk. 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 His sister comes in twice a day to help with his mom. Pt had a fall last date when stepping back on his left leg and it gave way. He had not had another fall since he got home from the surgery. Pt is having minor headaches. He denies dizziness and passing out. Prior Treatments and Tests MRIs, two cervical surgeries ( first one in 2014) Treatment Goals Patient/Caregiver Goals To improve balance and to get back to normal walking and life PT-OP-C Subjective Start: 11/03/20 15:51 Freq: Status: Active Protocol: Document 11/22/20 12:25 SP (Rec: 11/22/20 15:30 SP [id number]) OP-PT Subjective Patient Comments Patient Comments Pt stated had a good workout soreness after last tx. PT-OP-D Balance Start: 11/03/20 15:51 Freq: Status: Active Protocol: Document 11/04/20 10:31 MB (Rec: 11/04/20 14:11 MB [id number]) OP-PT Balance Assessment Sitting Balance Static Sitting Balance Ability Good Dynamic Sitting Balance Ability Fair Sitting Balance Comments UE support for dynamic sitting and cues to place hands on thighs for MMT LEs in sitting Standing Balance Static Standing Balance Ability Fair Dynamic Standing Balance Ability Fair Standing Balance Comments See testing comments below Balance Tests Romberg Romberg 1' EO, 30 sec EC and imbalance to L Single Limb Standing Single Limb- Right Unable today Single Limb- Left Unable today Tandem Tandem Standing Unable today Other Other Balance Tests Performed Pt has decreased confidence with Romberg with EC in corner and opens his eyes d/t fear of falling Unable to perform tandem gait without reaching or holding onto wall, slow gait forward with eyes closed and step-to gait that is slow with retropulsion Marx Fall Scale Copyright Permission PT-OP-G Mobility & Gait Start: 11/03/20 15:51 Freq: Status: Active Protocol: Document 11/04/20 10:31 MB (Rec: 11/04/20 14:11 MB [id number]) OP Gait Assessment Gait Gait Assistance Required: Standby Assistance,Contact Guard Assist Distance (Feet) 75 Able to Maintain Weight Bearing Status Yes During Gait Assistive Devices Assistive Device None,Gait Belt,Front Wheeled Walker Orthotic/Prosthetic Devices or Brace: No Gait Deviations General Gait Pattern Ataxic,Decreased Stride Length ,Flexed Trunk,Wide Based Gait Factors Limiting Gait Function Factors Limiting Gait Function Decreased Sensation,Decreased Strength,Incoordination,Poor Balance Comments Gait Comments Gait with RW on the way in: better foot clearance, step- length and speed and superv to SBA. Gait training without AD with gait belt requires CGA and pt presents with ataxic gait pattern with wide ROBERT and functional foot drop right foot. He keeps his arms out to the side to help with balance . PT-OP-H Neuro Start: 11/03/20 15:51 Freq: Status: Active Protocol: Document 11/04/20 10:31 MB (Rec: 11/04/20 14:11 MB [id number]) Sensation Evaluation Comments Summary Comments Pt reports ongoing occ numbness in his right toes Coordination Evaluation Upper Extremity Tests Left Finger to Nose Test Normal Performance Pronation/Supination Test Normal Performance Right Finger to Nose Test Normal Performance Pronation/Supination Test Normal Performance Lower Extremity Tests Left Foot Tapping Test Minimal Impairment Right Foot Tapping Test Minimal Impairment Comments Coordination Comments Finger to nose testing was pt touching PT's finger and then his own nose. Foot tapping test was pt tapping toes of one foot on the floor crossing over the opposite foot. Both required increased effort and slower speed for pt Deep Tendon Reflex & Clonus Assessment Ankle Clonus Bilateral Clonus Assessment Absent PT-OP-K Range of Motion Start: 11/03/20 15:51 Freq: Status: Active Protocol: Document 11/04/20 10:31 MB (Rec: 11/04/20 14:11 MB [id number]) Shoulder Goniometric Range of Motion Shoulder Left Shoulder ROM WFL No Testing Position Sitting Flexion 160 Abduction 90 Right Shoulder ROM WFL No Testing Position Sitting Flexion 150 Abduction 90 PT-OP-M Strength Start: 11/03/20 15:51 Freq: Status: Active Protocol: Document 11/04/20 10:31 MB (Rec: 11/04/20 14:11 MB [id number]) Shoulder Strength Shoulder Manual Muscle Testing Left Flexion 5 Normal Abduction (C5) 5 Normal Comments Pt sitting Right Flexion 5 Normal Abduction (C5) 4 Good Comments Pt sitting Elbow/Forearm Strength Elbow and Forearm Manual Muscle Testing Left Flexion (C6) 5 Normal Extension (C7) 5 Normal Pronation 5 Normal Supination 5 Normal Comments Pt sitting Right Flexion (C6) 5 Normal Extension (C7) 5 Normal Pronation 5 Normal Supination 5 Normal Comments Pt sitting Hip Strength Hip Manual Muscle Testing Left Flexion (L2) 4 Good Abduction 4 Good Comments Pt sitting Right Flexion (L2) 3+ Fair+ Abduction 3+ Fair+ Comments Pt sitting Knee Strength Knee Manual Muscle Testing Left Flexion (S2) 5 Normal Extension (L3) 5 Normal Comments Pt sitting Right Flexion (S2) 4 Good Extension (L3) 4 Good Comments Pt sitting Ankle/Foot Strength Ankle and Foot Manual Muscle Testing Left Dorsiflexion (L4) 4 Good Right Dorsiflexion (L4) 4 Good Toe Strength Toe Manual Muscle Testing Left Great Toe Extension 4 Good Right Great Toe Extension 3+ Fair+ PT-OP-Q Treatments Start: 11/03/20 15:51 Freq: Status: Active Protocol: Document 11/22/20 12:25 SP (Rec: 11/22/20 15:30 SP [id number]) Gym Equipment Shuttle Recovery Bilateral Squats Resistance 50>75 # Shuttle Recovery Platform Stable Reps/Time 2x10 Gait Training Gait Activity Gait training without AD Description gait Device Used 0 Level of Assistance SBA Surface level Distance/Duration vitals post: BP 149/105, HR 90 , 97% on RA- +SOB & feels safe Comments 6MWT 1163 ft no AD SBA, few over wt shift to R during corners but self recovery. Cued COG over BLE foot triangle. Neuro Re-Education Treatment Balance Activities uneven balance Surface green oval cushions Comments headturns, EO 20 sec- more challenging L foot forward- CG - 5% A lindsey stepping Details PT only for balance, increase time SLS Surface level Equipment 6 hurdles Reps/Duration 2 laps each step to gait Comments cued parallel toe/ heels, hip abd/quad facilitation wt over stance LE for increased stabiltiy during opposite LE swing through/ transition.- challenging but improved increase stance time- CGA with GB. Corner exercises Details tandem>stagger Surface level Comments reviewed home tandem vs stagger (EO), states at times does do EC. PT-OP-T Assessment and Plan Start: 11/03/20 15:51 Freq: Status: Active Protocol: Document 11/22/20 12:25 SP (Rec: 11/22/20 15:30 SP [id number]) Physical Therapy Assessment Goals 5 Public Administration Teacher Goal (LTG) Pt will deny falls for 2 months to decrease injury risk by 01/04/21. LTG Duration 8 weeks 4 Prison Goal (LTG) Pt will present with improved B hip flexion, abduction, knee flexion and extension and ankle DF strength to 12/29 to improve balance and gait by 07/17. LTG Duration 8 weeks 3 Public Administration Teacher Goal (LTG) Pt will gait train at least 1300 feet in 6 minutes without AD to allow return to I community ambulation by . 11/18/20: Pt gait trains 1271 feet in 6 minutes with superv 11/22/20: pt gait trains 1163 ft in 6 min w/ SBA, retro lean to R at times, contact wall helped self recovery. 11/11/20: Pt gait trains 1134 feet in 6 minutes without AD and with CGA from PT today. No LOB. He does have weakness in legs and have wide ROBERT and slow kat. Mildly ataxic gait and arms out from body. LTG Duration 8 weeks 2 Prison Goal (LTG) Pt will perform WNLs on a standardized balance test to decrease fall risk by 01/04/21. 11/11/20: FGA score is 11/30, indicating increased risk for falls. He has most trouble with changing gait speeds, pivoting around, weaving around cones and stepping over step. LTG Duration 8 weeks 1 Prison Goal (LTG) Pt will perform progressive HEP with I including postural, flexibility, alignment, strengthening, balance and gait to improve balance, gait and strength by 01/04/21. LTG Duration 8 weeks Assessment Summary Assessment Pt arrived late for appt, tolerated initiation of shuttle recovery then continued gait training, worked hard during 6MWT and continued lindsey stepping and initiated stationary stance on uneven surface w/ head turns. Reviewed HEP corner suggested stagger vs tandem due to unsteady for safety, LOB self recovery with retro wall contact and chair front support. Physical Therapy Plan Frequency and Duration Frequency of Treatment 2x/Week Duration of Treatment 8 weeks Plan of Care Start Date 11/04/20 Plan of Care End Date 01/04/21 Therapeutic Interventions Therapeutic Interventions Balance Training,Canalithic Repositioning,Coordination Training,Gait Training,Home Exercise Program,Joint Mobilizations,Manual Therapy, Neuromuscular Re-education, Patient/Caregiver Education, Self-Care/Home Management, Sensory Integration,Soft Tissue Mobilization,Taping, Therapeutic Activities, Therapeutic Exercises, Vestibular Rehabilitation Modalities Cold Pack/Ice Massage,Electric Stimulation,Hot Packs, Ultrasound Next Visit Focus/Plan Next Note Type Treatment Note Next Visit Plan Assess response to shuttle recovery pre gait/ balance. Continue per PT POC: Re-test FGA and 6MWT frequently and record progress under goals. Progress gait, strengthening and balance exercises.
--- NOTE | 2020-11-26 13:57 | PT.OTN ---
Current Diagnoses Spinal stenosis, cervical region (11/26/20) Cervicalgia (11/26/20) Ataxia, unspecified (11/26/20) Physical Therapy Treatment Note PT-OP-A Visit Information Start: 11/03/20 15:51 Freq: Status: Active Protocol: Document 11/26/20 13:09 MB (Rec: 11/26/20 13:46 MB [id number]) Out-Patient Physical Therapy Visit Information Visit Information Visit Type Treatment Note Visit Note [facility], $30 copay Visit Start Time 13:09 Visit Stop Time 13:45 Total Visit Minutes 36 Visit Number 7 PT-OP-B Current Condition Start: 11/03/20 15:51 Freq: Status: Active Protocol: Document 11/04/20 10:31 MB (Rec: 11/04/20 10:46 MB [id number]) Current Condition History of Current Condition Onset Date End 2019 Current Complaints Minor neck pain and balance issue, balance is biggest problem History of Current Condition Pt received PT for right shoulder pain at the end 2019. During PT course, pt reported that he nearly fell down the stairs and his gait became increasingly worse. He presented to PT with ataxia and PT referred pt back to his doctor. He had lumbar, cervical, and brain MRIs and his cervical MRI revealed changes such that he underwent C5-C7 anterior cervical fusion on 08/30/20. Pt reports right neck and upper right shoulder pain up to 4/10. His pain is reducing. Pt gait trains with a RW and feels like he is still walking drunk. 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 His sister comes in twice a day to help with his mom. Pt had a fall last date when stepping back on his left leg and it gave way. He had not had another fall since he got home from the surgery. Pt is having minor headaches. He denies dizziness and passing out. Prior Treatments and Tests MRIs, two cervical surgeries ( first one in 2014) Treatment Goals Patient/Caregiver Goals To improve balance and to get back to normal walking and life PT-OP-C Subjective Start: 11/03/20 15:51 Freq: Status: Active Protocol: Document 11/26/20 13:09 MB (Rec: 11/26/20 13:53 MB [id number]) OP-PT Subjective Patient Comments Patient Comments Pt states that yesterday, we was really tired. He reports drinking and eating well and not feeling light-headed. PT-OP-D Balance Start: 11/03/20 15:51 Freq: Status: Active Protocol: Document 11/04/20 10:31 MB (Rec: 11/04/20 14:11 MB [id number]) OP-PT Balance Assessment Sitting Balance Static Sitting Balance Ability Good Dynamic Sitting Balance Ability Fair Sitting Balance Comments UE support for dynamic sitting and cues to place hands on thighs for MMT LEs in sitting Standing Balance Static Standing Balance Ability Fair Dynamic Standing Balance Ability Fair Standing Balance Comments See testing comments below Balance Tests Romberg Romberg 1' EO, 30 sec EC and imbalance to L Single Limb Standing Single Limb- Right Unable today Single Limb- Left Unable today Tandem Tandem Standing Unable today Other Other Balance Tests Performed Pt has decreased confidence with Romberg with EC in corner and opens his eyes d/t fear of falling Unable to perform tandem gait without reaching or holding onto wall, slow gait forward with eyes closed and step-to gait that is slow with retropulsion Marx Fall Scale Copyright Permission PT-OP-G Mobility & Gait Start: 11/03/20 15:51 Freq: Status: Active Protocol: Document 11/04/20 10:31 MB (Rec: 11/04/20 14:11 MB [id number]) OP Gait Assessment Gait Gait Assistance Required: Standby Assistance,Contact Guard Assist Distance (Feet) 75 Able to Maintain Weight Bearing Status Yes During Gait Assistive Devices Assistive Device None,Gait Belt,Front Wheeled Walker Orthotic/Prosthetic Devices or Brace: No Gait Deviations General Gait Pattern Ataxic,Decreased Stride Length ,Flexed Trunk,Wide Based Gait Factors Limiting Gait Function Factors Limiting Gait Function Decreased Sensation,Decreased Strength,Incoordination,Poor Balance Comments Gait Comments Gait with RW on the way in: better foot clearance, step- length and speed and superv to SBA. Gait training without AD with gait belt requires CGA and pt presents with ataxic gait pattern with wide ROBERT and functional foot drop right foot. He keeps his arms out to the side to help with balance . PT-OP-H Neuro Start: 11/03/20 15:51 Freq: Status: Active Protocol: Document 11/04/20 10:31 MB (Rec: 11/04/20 14:11 MB [id number]) Sensation Evaluation Comments Summary Comments Pt reports ongoing occ numbness in his right toes Coordination Evaluation Upper Extremity Tests Left Finger to Nose Test Normal Performance Pronation/Supination Test Normal Performance Right Finger to Nose Test Normal Performance Pronation/Supination Test Normal Performance Lower Extremity Tests Left Foot Tapping Test Minimal Impairment Right Foot Tapping Test Minimal Impairment Comments Coordination Comments Finger to nose testing was pt touching PT's finger and then his own nose. Foot tapping test was pt tapping toes of one foot on the floor crossing over the opposite foot. Both required increased effort and slower speed for pt Deep Tendon Reflex & Clonus Assessment Ankle Clonus Bilateral Clonus Assessment Absent PT-OP-K Range of Motion Start: 11/03/20 15:51 Freq: Status: Active Protocol: Document 11/04/20 10:31 MB (Rec: 11/04/20 14:11 MB [id number]) Shoulder Goniometric Range of Motion Shoulder Left Shoulder ROM WFL No Testing Position Sitting Flexion 160 Abduction 90 Right Shoulder ROM WFL No Testing Position Sitting Flexion 150 Abduction 90 PT-OP-M Strength Start: 11/03/20 15:51 Freq: Status: Active Protocol: Document 11/04/20 10:31 MB (Rec: 11/04/20 14:11 MB [id number]) Shoulder Strength Shoulder Manual Muscle Testing Left Flexion 5 Normal Abduction (C5) 5 Normal Comments Pt sitting Right Flexion 5 Normal Abduction (C5) 4 Good Comments Pt sitting Elbow/Forearm Strength Elbow and Forearm Manual Muscle Testing Left Flexion (C6) 5 Normal Extension (C7) 5 Normal Pronation 5 Normal Supination 5 Normal Comments Pt sitting Right Flexion (C6) 5 Normal Extension (C7) 5 Normal Pronation 5 Normal Supination 5 Normal Comments Pt sitting Hip Strength Hip Manual Muscle Testing Left Flexion (L2) 4 Good Abduction 4 Good Comments Pt sitting Right Flexion (L2) 3+ Fair+ Abduction 3+ Fair+ Comments Pt sitting Knee Strength Knee Manual Muscle Testing Left Flexion (S2) 5 Normal Extension (L3) 5 Normal Comments Pt sitting Right Flexion (S2) 4 Good Extension (L3) 4 Good Comments Pt sitting Ankle/Foot Strength Ankle and Foot Manual Muscle Testing Left Dorsiflexion (L4) 4 Good Right Dorsiflexion (L4) 4 Good Toe Strength Toe Manual Muscle Testing Left Great Toe Extension 4 Good Right Great Toe Extension 3+ Fair+ PT-OP-Q Treatments Start: 11/03/20 15:51 Freq: Status: Active Protocol: Document 11/26/20 13:09 MB (Rec: 11/26/20 13:46 MB [id number]) Gym Equipment Shuttle Recovery Bilateral Squats Resistance 50>75 # Shuttle Recovery Platform Stable Reps/Time 2x10 Therapeutic Exercises Supine Exercises Jonathan stretch Side bilateral Comments 30 sec Standing Exercises Tramp standing Comments Wide ROBERT, shoes on, hands free EO and closed, 10 sec closed Gait Training Gait Activity 6MWT Comments 1232 feet in 6 minutes, slower gait and occ increased right hip and knee extension d/t pt states that hip needs to pop, no scuffing of feet today, superv assist Stair training Comments Superv, pt gait training on stairs with rail right ascend and left descend for 5', pt with fatigue, able to perform reciprocal gait slowly both heights of steps in gym Gait training without AD Comments Gym to outside, going through entrance and automatic doors and into parking lot: superv, slow gait, pt looks down for gait, no LOB, does have wide ROBERT and careful gait PT-OP-T Assessment and Plan Start: 11/03/20 15:51 Freq: Status: Active Protocol: Document 11/26/20 13:09 MB (Rec: 11/26/20 13:46 MB [id number]) Physical Therapy Assessment Rehab Potential Rehabilitation Potential Good Evaluation Complexity Number of Personal Factors/Comorbidities 1-2 Number of Body Systems Impaired 1-2 Clinical Presentation at Evaluation Stable Impairments Impairments Activity Tolerance,Balance, Coordination,Gait,Pain,Posture ,ROM,Sensation,Soft Tissue Mobility,Strength,Vestibular Other Concerns Fall Risk Yes Goals 5 Shelter Goal (LTG) Pt will deny falls for 2 months to decrease injury risk by 01/04/21. LTG Duration 8 weeks 4 Cosmetics Presser Goal (LTG) Pt will present with improved B hip flexion, abduction, knee flexion and extension and ankle DF strength to 12/29 to improve balance and gait by 07/17. LTG Duration 8 weeks 3 Cosmetics Presser Goal (LTG) Pt will gait train at least 1300 feet in 6 minutes without AD to allow return to I community ambulation by . 11/18/20: Pt gait trains 1271 feet in 6 minutes with superv 11/11/20: Pt gait trains 1134 feet in 6 minutes without AD and with CGA from PT today. No LOB. He does have weakness in legs and have wide ROBERT and slow kat. Mildly ataxic gait and arms out from body. LTG Duration 8 weeks 2 Cosmetics Presser Goal (LTG) Pt will perform WNLs on a standardized balance test to decrease fall risk by 01/04/21. 11/11/20: FGA score is 11/30, indicating increased risk for falls. He has most trouble with changing gait speeds, pivoting around, weaving around cones and stepping over step. LTG Duration 8 weeks 1 Shelter Goal (LTG) Pt will perform progressive HEP with I including postural, flexibility, alignment, strengthening, balance and gait to improve balance, gait and strength by 01/04/21. LTG Duration 8 weeks Assessment Summary Assessment Pt con't to be late to appointment d/t has to get a ride from his sister. He reports fatigue at home yesterday. He con't to work hard during PT with gait activities and he con't with weakness and imbalance but is improving in time gait training and performing stairs . Con't progression to maximize I. Physical Therapy Plan Frequency and Duration Frequency of Treatment 2x/Week Duration of Treatment 8 weeks Plan of Care Start Date 11/04/20 Plan of Care End Date 01/04/21 Therapeutic Interventions Therapeutic Interventions Balance Training,Canalithic Repositioning,Coordination Training,Gait Training,Home Exercise Program,Joint Mobilizations,Manual Therapy, Neuromuscular Re-education, Patient/Caregiver Education, Self-Care/Home Management, Sensory Integration,Soft Tissue Mobilization,Taping, Therapeutic Activities, Therapeutic Exercises, Vestibular Rehabilitation Modalities Cold Pack/Ice Massage,Electric Stimulation,Hot Packs, Ultrasound Next Visit Focus/Plan Next Note Type Treatment Note Next Visit Plan Consider gait outside many surfaces next treatment date. Re-test FGA and 6MWT frequently and record progress under goals. Progress gait, strengthening and balance exercises.
--- NOTE | 2020-12-03 13:03 | PT.OTN ---
Current Diagnoses Spinal stenosis, cervical region (12/03/20) Cervicalgia (12/03/20) Ataxia, unspecified (12/03/20) Physical Therapy Treatment Note PT-OP-A Visit Information Start: 11/03/20 15:51 Freq: Status: Active Protocol: Document 12/03/20 12:20 MB (Rec: 12/03/20 13:03 MB [id number]) Out-Patient Physical Therapy Visit Information Visit Information Visit Type Treatment Note Visit Note [facility], $30 copay Pt is 5' late to appointment Visit Start Time 12:20 Visit Stop Time 13:00 Total Visit Minutes 40 Visit Number 8 PT-OP-B Current Condition Start: 11/03/20 15:51 Freq: Status: Active Protocol: Document 11/04/20 10:31 MB (Rec: 11/04/20 10:46 MB [id number]) Current Condition History of Current Condition Onset Date End 2019 Current Complaints Minor neck pain and balance issue, balance is biggest problem History of Current Condition Pt received PT for right shoulder pain at the end 2019. During PT course, pt reported that he nearly fell down the stairs and his gait became increasingly worse. He presented to PT with ataxia and PT referred pt back to his doctor. He had lumbar, cervical, and brain MRIs and his cervical MRI revealed changes such that he underwent C5-C7 anterior cervical fusion on 08/30/20. Pt reports right neck and upper right shoulder pain up to 4/10. His pain is reducing. Pt gait trains with a RW and feels like he is still walking drunk. 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 His sister comes in twice a day to help with his mom. Pt had a fall last date when stepping back on his left leg and it gave way. He had not had another fall since he got home from the surgery. Pt is having minor headaches. He denies dizziness and passing out. Prior Treatments and Tests MRIs, two cervical surgeries ( first one in 2014) Treatment Goals Patient/Caregiver Goals To improve balance and to get back to normal walking and life PT-OP-C Subjective Start: 11/03/20 15:51 Freq: Status: Active Protocol: Document 12/03/20 12:20 MB (Rec: 12/03/20 13:03 MB [id number]) OP-PT Subjective Patient Comments Patient Comments Pt states that he felt poorly last PT treatment date and that is why he cancelled appointment. PT-OP-D Balance Start: 11/03/20 15:51 Freq: Status: Active Protocol: Document 11/04/20 10:31 MB (Rec: 11/04/20 14:11 MB [id number]) OP-PT Balance Assessment Sitting Balance Static Sitting Balance Ability Good Dynamic Sitting Balance Ability Fair Sitting Balance Comments UE support for dynamic sitting and cues to place hands on thighs for MMT LEs in sitting Standing Balance Static Standing Balance Ability Fair Dynamic Standing Balance Ability Fair Standing Balance Comments See testing comments below Balance Tests Romberg Romberg 1' EO, 30 sec EC and imbalance to L Single Limb Standing Single Limb- Right Unable today Single Limb- Left Unable today Tandem Tandem Standing Unable today Other Other Balance Tests Performed Pt has decreased confidence with Romberg with EC in corner and opens his eyes d/t fear of falling Unable to perform tandem gait without reaching or holding onto wall, slow gait forward with eyes closed and step-to gait that is slow with retropulsion Marx Fall Scale Copyright Permission PT-OP-G Mobility & Gait Start: 11/03/20 15:51 Freq: Status: Active Protocol: Document 11/04/20 10:31 MB (Rec: 11/04/20 14:11 MB [id number]) OP Gait Assessment Gait Gait Assistance Required: Standby Assistance,Contact Guard Assist Distance (Feet) 75 Able to Maintain Weight Bearing Status Yes During Gait Assistive Devices Assistive Device None,Gait Belt,Front Wheeled Walker Orthotic/Prosthetic Devices or Brace: No Gait Deviations General Gait Pattern Ataxic,Decreased Stride Length ,Flexed Trunk,Wide Based Gait Factors Limiting Gait Function Factors Limiting Gait Function Decreased Sensation,Decreased Strength,Incoordination,Poor Balance Comments Gait Comments Gait with RW on the way in: better foot clearance, step- length and speed and superv to SBA. Gait training without AD with gait belt requires CGA and pt presents with ataxic gait pattern with wide ROBERT and functional foot drop right foot. He keeps his arms out to the side to help with balance . PT-OP-H Neuro Start: 11/03/20 15:51 Freq: Status: Active Protocol: Document 11/04/20 10:31 MB (Rec: 11/04/20 14:11 MB [id number]) Sensation Evaluation Comments Summary Comments Pt reports ongoing occ numbness in his right toes Coordination Evaluation Upper Extremity Tests Left Finger to Nose Test Normal Performance Pronation/Supination Test Normal Performance Right Finger to Nose Test Normal Performance Pronation/Supination Test Normal Performance Lower Extremity Tests Left Foot Tapping Test Minimal Impairment Right Foot Tapping Test Minimal Impairment Comments Coordination Comments Finger to nose testing was pt touching PT's finger and then his own nose. Foot tapping test was pt tapping toes of one foot on the floor crossing over the opposite foot. Both required increased effort and slower speed for pt Deep Tendon Reflex & Clonus Assessment Ankle Clonus Bilateral Clonus Assessment Absent PT-OP-K Range of Motion Start: 11/03/20 15:51 Freq: Status: Active Protocol: Document 11/04/20 10:31 MB (Rec: 11/04/20 14:11 MB [id number]) Shoulder Goniometric Range of Motion Shoulder Left Shoulder ROM WFL No Testing Position Sitting Flexion 160 Abduction 90 Right Shoulder ROM WFL No Testing Position Sitting Flexion 150 Abduction 90 PT-OP-M Strength Start: 11/03/20 15:51 Freq: Status: Active Protocol: Document 11/04/20 10:31 MB (Rec: 11/04/20 14:11 MB [id number]) Shoulder Strength Shoulder Manual Muscle Testing Left Flexion 5 Normal Abduction (C5) 5 Normal Comments Pt sitting Right Flexion 5 Normal Abduction (C5) 4 Good Comments Pt sitting Elbow/Forearm Strength Elbow and Forearm Manual Muscle Testing Left Flexion (C6) 5 Normal Extension (C7) 5 Normal Pronation 5 Normal Supination 5 Normal Comments Pt sitting Right Flexion (C6) 5 Normal Extension (C7) 5 Normal Pronation 5 Normal Supination 5 Normal Comments Pt sitting Hip Strength Hip Manual Muscle Testing Left Flexion (L2) 4 Good Abduction 4 Good Comments Pt sitting Right Flexion (L2) 3+ Fair+ Abduction 3+ Fair+ Comments Pt sitting Knee Strength Knee Manual Muscle Testing Left Flexion (S2) 5 Normal Extension (L3) 5 Normal Comments Pt sitting Right Flexion (S2) 4 Good Extension (L3) 4 Good Comments Pt sitting Ankle/Foot Strength Ankle and Foot Manual Muscle Testing Left Dorsiflexion (L4) 4 Good Right Dorsiflexion (L4) 4 Good Toe Strength Toe Manual Muscle Testing Left Great Toe Extension 4 Good Right Great Toe Extension 3+ Fair+ PT-OP-Q Treatments Start: 11/03/20 15:51 Freq: Status: Active Protocol: Document 12/03/20 12:20 MB (Rec: 12/03/20 13:03 MB [id number]) Therapeutic Exercises Standing Exercises sit <> stands Comments No UE support, 5 reps in 30 sec Gait Training Gait Activity Balance Beam walking Comments Large beam and pt gait trains x6 with light AITCHBONE BREAKER to PT holding gait belt lightly to CGA Gait with head turns Comments In hallway x2 and then loop around gym and in hallway x2, right, left, up and down looking with mini head turns and pt reports mild discomfort and so rested with this complaint. Pt has LOB to the right into wall x1 with right looking 6MWT Comments 1160 feet in 6 minutes, consistent gait and no imbalance today. He does con't with wide ROBERT and decreased arm swing, close superv and gait belt donned Stair training Comments 4'12 stair training for balance, gait, strengthening and to increase confidence for pt to perform at home with rail on right ascend and on left descend. Pt performs with superv and no shaking in his legs today, improvement in time and response Gait training without AD Description Obstacle course Comments 3 mini hurdles, 4 cones and three more mini hurdles, pt gait trains with superv on this course stepping over hurdles and weaving around cones x8 times and he does not reach for wall. Practice to lift right hip and leg and not whip hip around. Practice to get to 2 steps between each lindsey and not a mini step to set. PT-OP-T Assessment and Plan Start: 11/03/20 15:51 Freq: Status: Active Protocol: Document 12/03/20 12:20 MB (Rec: 12/03/20 13:03 MB [id number]) Physical Therapy Assessment Rehab Potential Rehabilitation Potential Good Evaluation Complexity Number of Personal Factors/Comorbidities 1-2 Number of Body Systems Impaired 1-2 Clinical Presentation at Evaluation Stable Impairments Impairments Activity Tolerance,Balance, Coordination,Gait,Pain,Posture ,ROM,Sensation,Soft Tissue Mobility,Strength,Vestibular Other Concerns Fall Risk Yes Goals 5 Regional Guide Goal (LTG) Pt will deny falls for 2 months to decrease injury risk by 01/04/21. LTG Duration 8 weeks 4 Shelter Goal (LTG) Pt will present with improved B hip flexion, abduction, knee flexion and extension and ankle DF strength to 5/5 to improve balance and gait by 07/17. LTG Duration 8 weeks 3 Regional Guide Goal (LTG) Pt will gait train at least 1300 feet in 6 minutes without AD to allow return to I community ambulation by . 12/03/20: Pt gait trains 1160 feet in 6 minutes LTG Duration 8 weeks 2 Regional Guide Goal (LTG) Pt will perform WNLs on a standardized balance test to decrease fall risk by 01/04/21. 11/11/20: FGA score is 11/30, indicating increased risk for falls. He has most trouble with changing gait speeds, pivoting around, weaving around cones and stepping over step. LTG Duration 8 weeks 1 Regional Guide Goal (LTG) Pt will perform progressive HEP with I including postural, flexibility, alignment, strengthening, balance and gait to improve balance, gait and strength by 01/04/21. LTG Duration 8 weeks Assessment Summary Assessment Pt con't to be late to appointment d/t has to get a ride from his sister. Progressive gait with balance activities are challenging and pt is improving. Con't these. Physical Therapy Plan Frequency and Duration Frequency of Treatment 2x/Week Duration of Treatment 8 weeks Plan of Care Start Date 11/04/20 Plan of Care End Date 01/04/21 Therapeutic Interventions Therapeutic Interventions Balance Training,Canalithic Repositioning,Coordination Training,Gait Training,Home Exercise Program,Joint Mobilizations,Manual Therapy, Neuromuscular Re-education, Patient/Caregiver Education, Self-Care/Home Management, Sensory Integration,Soft Tissue Mobilization,Taping, Therapeutic Activities, Therapeutic Exercises, Vestibular Rehabilitation Modalities Cold Pack/Ice Massage,Electric Stimulation,Hot Packs, Ultrasound Next Visit Focus/Plan Next Note Type Treatment Note Next Visit Plan Consider gait outside many surfaces next treatment date. Re-test FGA and 6MWT frequently and record progress under goals. Progress gait, strengthening and balance exercises.
--- NOTE | 2020-12-07 13:05 | PT.OTN ---
Current Diagnoses Spinal stenosis, cervical region (12/07/20) Cervicalgia (12/07/20) Ataxia, unspecified (12/07/20) Physical Therapy Treatment Note PT-OP-A Visit Information Start: 11/03/20 15:51 Freq: Status: Active Protocol: Document 12/07/20 12:22 SP (Rec: 12/07/20 16:21 SP [id number]) Out-Patient Physical Therapy Visit Information Visit Information Visit Type Treatment Note Visit Note [facility], $30 copay Pt is 7' late to appointment Visit Start Time 12:22 Visit Stop Time 13:05 Total Visit Minutes 43 Visit Number 3 Number of SHELF STOCKER Visits 1 Evaluation Information Evaluation Date 11/04/20 PT-OP-B Current Condition Start: 11/03/20 15:51 Freq: Status: Active Protocol: Document 11/04/20 10:31 MB (Rec: 11/04/20 10:46 MB [id number]) Current Condition History of Current Condition Onset Date 2019 Current Complaints Minor neck pain and balance issue, balance is biggest problem History of Current Condition Pt received PT for right shoulder pain at the end 2019. During PT course, pt reported that he nearly fell down the stairs and his gait became increasingly worse. He presented to PT with ataxia and PT referred pt back to his doctor. He had lumbar, cervical, and brain MRIs and his cervical MRI revealed changes such that he underwent C5-C7 anterior cervical fusion on 08/30/20. Pt reports right neck and upper right shoulder pain up to 4/10. His pain is reducing. Pt gait trains with a RW and feels like he is still walking drunk. 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 His sister comes in twice a day to help with his mom. Pt had a fall last date when stepping back on his left leg and it gave way. He had not had another fall since he got home from the surgery. Pt is having minor headaches. He denies dizziness and passing out. Prior Treatments and Tests MRIs, two cervical surgeries ( first one in 2014) Treatment Goals Patient/Caregiver Goals To improve balance and to get back to normal walking and life PT-OP-C Subjective Start: 11/03/20 15:51 Freq: Status: Active Protocol: Document 12/07/20 12:22 SP (Rec: 12/07/20 16:21 SP [id number]) OP-PT Subjective Patient Comments Patient Comments Pt states that only uses walker outdoors due to uneven ground but would like to get to not having to use. Patient Reported Progress Improving PT-OP-D Balance Start: 11/03/20 15:51 Freq: Status: Active Protocol: Document 11/04/20 10:31 MB (Rec: 11/04/20 14:11 MB [id number]) OP-PT Balance Assessment Sitting Balance Static Sitting Balance Ability Good Dynamic Sitting Balance Ability Fair Sitting Balance Comments UE support for dynamic sitting and cues to place hands on thighs for MMT LEs in sitting Standing Balance Static Standing Balance Ability Fair Dynamic Standing Balance Ability Fair Standing Balance Comments See testing comments below Balance Tests Romberg Romberg 1' EO, 30 sec EC and imbalance to L Single Limb Standing Single Limb- Right Unable today Single Limb- Left Unable today Tandem Tandem Standing Unable today Other Other Balance Tests Performed Pt has decreased confidence with Romberg with EC in corner and opens his eyes d/t fear of falling Unable to perform tandem gait without reaching or holding onto wall, slow gait forward with eyes closed and step-to gait that is slow with retropulsion Marx Fall Scale Copyright Permission PT-OP-G Mobility & Gait Start: 11/03/20 15:51 Freq: Status: Active Protocol: Document 11/04/20 10:31 MB (Rec: 11/04/20 14:11 MB [id number]) OP Gait Assessment Gait Gait Assistance Required: Standby Assistance,Contact Guard Assist Distance (Feet) 75 Able to Maintain Weight Bearing Status Yes During Gait Assistive Devices Assistive Device None,Gait Belt,Front Wheeled Walker Orthotic/Prosthetic Devices or Brace: No Gait Deviations General Gait Pattern Ataxic,Decreased Stride Length ,Flexed Trunk,Wide Based Gait Factors Limiting Gait Function Factors Limiting Gait Function Decreased Sensation,Decreased Strength,Incoordination,Poor Balance Comments Gait Comments Gait with RW on the way in: better foot clearance, step- length and speed and superv to SBA. Gait training without AD with gait belt requires CGA and pt presents with ataxic gait pattern with wide ROBERT and functional foot drop right foot. He keeps his arms out to the side to help with balance . PT-OP-H Neuro Start: 11/03/20 15:51 Freq: Status: Active Protocol: Document 11/04/20 10:31 MB (Rec: 11/04/20 14:11 MB [id number]) Sensation Evaluation Comments Summary Comments Pt reports ongoing occ numbness in his right toes Coordination Evaluation Upper Extremity Tests Left Finger to Nose Test Normal Performance Pronation/Supination Test Normal Performance Right Finger to Nose Test Normal Performance Pronation/Supination Test Normal Performance Lower Extremity Tests Left Foot Tapping Test Minimal Impairment Right Foot Tapping Test Minimal Impairment Comments Coordination Comments Finger to nose testing was pt touching PT's finger and then his own nose. Foot tapping test was pt tapping toes of one foot on the floor crossing over the opposite foot. Both required increased effort and slower speed for pt Deep Tendon Reflex & Clonus Assessment Ankle Clonus Bilateral Clonus Assessment Absent PT-OP-K Range of Motion Start: 11/03/20 15:51 Freq: Status: Active Protocol: Document 11/04/20 10:31 MB (Rec: 11/04/20 14:11 MB [id number]) Shoulder Goniometric Range of Motion Shoulder Left Shoulder ROM WFL No Testing Position Sitting Flexion 160 Abduction 90 Right Shoulder ROM WFL No Testing Position Sitting Flexion 150 Abduction 90 PT-OP-M Strength Start: 11/03/20 15:51 Freq: Status: Active Protocol: Document 11/04/20 10:31 MB (Rec: 11/04/20 14:11 MB [id number]) Shoulder Strength Shoulder Manual Muscle Testing Left Flexion 5 Normal Abduction (C5) 5 Normal Comments Pt sitting Right Flexion 5 Normal Abduction (C5) 4 Good Comments Pt sitting Elbow/Forearm Strength Elbow and Forearm Manual Muscle Testing Left Flexion (C6) 5 Normal Extension (C7) 5 Normal Pronation 5 Normal Supination 5 Normal Comments Pt sitting Right Flexion (C6) 5 Normal Extension (C7) 5 Normal Pronation 5 Normal Supination 5 Normal Comments Pt sitting Hip Strength Hip Manual Muscle Testing Left Flexion (L2) 4 Good Abduction 4 Good Comments Pt sitting Right Flexion (L2) 3+ Fair+ Abduction 3+ Fair+ Comments Pt sitting Knee Strength Knee Manual Muscle Testing Left Flexion (S2) 5 Normal Extension (L3) 5 Normal Comments Pt sitting Right Flexion (S2) 4 Good Extension (L3) 4 Good Comments Pt sitting Ankle/Foot Strength Ankle and Foot Manual Muscle Testing Left Dorsiflexion (L4) 4 Good Right Dorsiflexion (L4) 4 Good Toe Strength Toe Manual Muscle Testing Left Great Toe Extension 4 Good Right Great Toe Extension 3+ Fair+ PT-OP-Q Treatments Start: 11/03/20 15:51 Freq: Status: Active Protocol: Document 12/07/20 12:22 SP (Rec: 12/07/20 16:21 SP [id number]) Gait Training Gait Activity Balance Beam walking Comments Large beam and pt gait trains x6 with light AUTO BODY SHOP MANAGER. to PT holding gait belt CGA- Min. 6MWT Comments 1182 feet in 6 minutes outdoor uneven pavement no AD SBA, consistent gait and few wt shift deviations due to uneven pavement didn't realize today. He does con't with wide ROBERT and decreased R arm swing cued for increased awareness, close superv and gait belt donned Stair training Comments MAP bldg stair training ( full 2 sets stairs RHR) for balance, gait, strengthening and to increase confidence for pt to perform at home with rail on right ascend and on left descend. Pt performs with superv and stable LEs improvement in time and response Neuro Re-Education Treatment Balance Activities SLS Equipment at rail- PRN Comments R 2, 5, 11 L 8'', 11 uneven balance Details balloon hitting Equipment blue foam cushions Reps/Duration 2' Comments stagger and almost tandem lindsey stepping Details PT only for balance, increase time SLS Surface level Equipment 6 hurdles Reps/Duration 2 laps each step to gait Comments cued parallel toe/ heels, wt over stance LE for increased stabiltiy. PT-OP-T Assessment and Plan Start: 11/03/20 15:51 Freq: Status: Active Protocol: Document 12/07/20 12:22 SP (Rec: 12/07/20 16:21 SP [id number]) Physical Therapy Assessment Goals 5 Plant Maintenance Technician Goal (LTG) Pt will deny falls for 2 months to decrease injury risk by 01/04/21. LTG Duration 8 weeks 4 Plant Maintenance Technician Goal (LTG) Pt will present with improved B hip flexion, abduction, knee flexion and extension and ankle DF strength to 12/29 to improve balance and gait by 07/17. LTG Duration 8 weeks 3 Assisted Goal (LTG) Pt will gait train at least 1300 feet in 6 minutes without AD to allow return to I community ambulation by . 12/03/20: Pt gait trains 1160 feet in 6 minutes 12/07/20: 1182 ft in 6 min outside uneven pavement, SBA no AD. LTG Duration 8 weeks 2 Plant Maintenance Technician Goal (LTG) Pt will perform WNLs on a standardized balance test to decrease fall risk by 01/04/21. 11/11/20: FGA score is 11/30, indicating increased risk for falls. He has most trouble with changing gait speeds, pivoting around, weaving around cones and stepping over step. LTG Duration 8 weeks Assessment Summary Assessment Pt con't to be late to appointment d/t has to get a ride from his sister. Continue progress gait with balance activities, was able to increase 6 MWT by 22 ft over uneven outdoor pavement. Better time stepping ascend/ descend MAP full 2 sets stairs . Next tx incorporate personal SPC up/down curb for home porch mgt and gait out on grass using SPC for confidence and LE strengthening, dynamic balance LRAD. Physical Therapy Plan Frequency and Duration Frequency of Treatment 2x/Week Duration of Treatment 8 weeks Plan of Care Start Date 11/04/20 Plan of Care End Date 01/04/21 Therapeutic Interventions Therapeutic Interventions Balance Training,Canalithic Repositioning,Coordination Training,Gait Training,Home Exercise Program,Joint Mobilizations,Manual Therapy, Neuromuscular Re-education, Patient/Caregiver Education, Self-Care/Home Management, Sensory Integration,Soft Tissue Mobilization,Taping, Therapeutic Activities, Therapeutic Exercises, Vestibular Rehabilitation Modalities Cold Pack/Ice Massage,Electric Stimulation,Hot Packs, Ultrasound Next Visit Focus/Plan Next Note Type Treatment Note Next Visit Plan Consider gait outside many surfaces using LRAD: curb, grass next treatment date. Re- test FGA and 6MWT frequently and record progress under goals. Progress gait, strengthening and balance exercises.
--- NOTE | 2020-12-10 13:11 | PT.OTN ---
Current Diagnoses Spinal stenosis, cervical region (12/10/20) Cervicalgia (12/10/20) Ataxia, unspecified (12/10/20) Physical Therapy Treatment Note PT-OP-A Visit Information Start: 11/03/20 15:51 Freq: Status: Active Protocol: Document 12/10/20 12:17 MB (Rec: 12/10/20 12:49 MB [id number]) Out-Patient Physical Therapy Visit Information Visit Information Visit Type Progress Note Visit Note [facility], $30 copay Visit Start Time 12:17 Visit Stop Time 13:00 Total Visit Minutes 43 Visit Number 10 PT-OP-B Current Condition Start: 11/03/20 15:51 Freq: Status: Active Protocol: Document 11/04/20 10:31 MB (Rec: 11/04/20 10:46 MB [id number]) Current Condition History of Current Condition Onset Date End 2019 Current Complaints Minor neck pain and balance issue, balance is biggest problem History of Current Condition Pt received PT for right shoulder pain at the end 2019. During PT course, pt reported that he nearly fell down the stairs and his gait became increasingly worse. He presented to PT with ataxia and PT referred pt back to his doctor. He had lumbar, cervical, and brain MRIs and his cervical MRI revealed changes such that he underwent C5-C7 anterior cervical fusion on 08/30/20. Pt reports right neck and upper right shoulder pain up to 4/10. His pain is reducing. Pt gait trains with a RW and feels like he is still walking drunk. 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 His sister comes in twice a day to help with his mom. Pt had a fall last date when stepping back on his left leg and it gave way. He had not had another fall since he got home from the surgery. Pt is having minor headaches. He denies dizziness and passing out. Prior Treatments and Tests MRIs, two cervical surgeries ( first one in 2014) Treatment Goals Patient/Caregiver Goals To improve balance and to get back to normal walking and life PT-OP-C Subjective Start: 11/03/20 15:51 Freq: Status: Active Protocol: Document 12/10/20 12:17 MB (Rec: 12/10/20 13:08 MB [id number]) OP-PT Subjective Patient Comments Patient Comments I have nothing new to report. Patient Reported Progress Improving PT-OP-D Balance Start: 11/03/20 15:51 Freq: Status: Active Protocol: Document 11/04/20 10:31 MB (Rec: 11/04/20 14:11 MB [id number]) OP-PT Balance Assessment Sitting Balance Static Sitting Balance Ability Good Dynamic Sitting Balance Ability Fair Sitting Balance Comments UE support for dynamic sitting and cues to place hands on thighs for MMT LEs in sitting Standing Balance Static Standing Balance Ability Fair Dynamic Standing Balance Ability Fair Standing Balance Comments See testing comments below Balance Tests Romberg Romberg 1' EO, 30 sec EC and imbalance to L Single Limb Standing Single Limb- Right Unable today Single Limb- Left Unable today Tandem Tandem Standing Unable today Other Other Balance Tests Performed Pt has decreased confidence with Romberg with EC in corner and opens his eyes d/t fear of falling Unable to perform tandem gait without reaching or holding onto wall, slow gait forward with eyes closed and step-to gait that is slow with retropulsion Marx Fall Scale Copyright Permission PT-OP-G Mobility & Gait Start: 11/03/20 15:51 Freq: Status: Active Protocol: Document 11/04/20 10:31 MB (Rec: 11/04/20 14:11 MB [id number]) OP Gait Assessment Gait Gait Assistance Required: Standby Assistance,Contact Guard Assist Distance (Feet) 75 Able to Maintain Weight Bearing Status Yes During Gait Assistive Devices Assistive Device None,Gait Belt,Front Wheeled Walker Orthotic/Prosthetic Devices or Brace: No Gait Deviations General Gait Pattern Ataxic,Decreased Stride Length ,Flexed Trunk,Wide Based Gait Factors Limiting Gait Function Factors Limiting Gait Function Decreased Sensation,Decreased Strength,Incoordination,Poor Balance Comments Gait Comments Gait with RW on the way in: better foot clearance, step- length and speed and superv to SBA. Gait training without AD with gait belt requires CGA and pt presents with ataxic gait pattern with wide ROBERT and functional foot drop right foot. He keeps his arms out to the side to help with balance . PT-OP-H Neuro Start: 11/03/20 15:51 Freq: Status: Active Protocol: Document 11/04/20 10:31 MB (Rec: 11/04/20 14:11 MB [id number]) Sensation Evaluation Comments Summary Comments Pt reports ongoing occ numbness in his right toes Coordination Evaluation Upper Extremity Tests Left Finger to Nose Test Normal Performance Pronation/Supination Test Normal Performance Right Finger to Nose Test Normal Performance Pronation/Supination Test Normal Performance Lower Extremity Tests Left Foot Tapping Test Minimal Impairment Right Foot Tapping Test Minimal Impairment Comments Coordination Comments Finger to nose testing was pt touching PT's finger and then his own nose. Foot tapping test was pt tapping toes of one foot on the floor crossing over the opposite foot. Both required increased effort and slower speed for pt Deep Tendon Reflex & Clonus Assessment Ankle Clonus Bilateral Clonus Assessment Absent PT-OP-K Range of Motion Start: 11/03/20 15:51 Freq: Status: Active Protocol: Document 11/04/20 10:31 MB (Rec: 11/04/20 14:11 MB [id number]) Shoulder Goniometric Range of Motion Shoulder Left Shoulder ROM WFL No Testing Position Sitting Flexion 160 Abduction 90 Right Shoulder ROM WFL No Testing Position Sitting Flexion 150 Abduction 90 PT-OP-M Strength Start: 11/03/20 15:51 Freq: Status: Active Protocol: Document 11/04/20 10:31 MB (Rec: 11/04/20 14:11 MB [id number]) Shoulder Strength Shoulder Manual Muscle Testing Left Flexion 5 Normal Abduction (C5) 5 Normal Comments Pt sitting Right Flexion 5 Normal Abduction (C5) 4 Good Comments Pt sitting Elbow/Forearm Strength Elbow and Forearm Manual Muscle Testing Left Flexion (C6) 5 Normal Extension (C7) 5 Normal Pronation 5 Normal Supination 5 Normal Comments Pt sitting Right Flexion (C6) 5 Normal Extension (C7) 5 Normal Pronation 5 Normal Supination 5 Normal Comments Pt sitting Hip Strength Hip Manual Muscle Testing Left Flexion (L2) 4 Good Abduction 4 Good Comments Pt sitting Right Flexion (L2) 3+ Fair+ Abduction 3+ Fair+ Comments Pt sitting Knee Strength Knee Manual Muscle Testing Left Flexion (S2) 5 Normal Extension (L3) 5 Normal Comments Pt sitting Right Flexion (S2) 4 Good Extension (L3) 4 Good Comments Pt sitting Ankle/Foot Strength Ankle and Foot Manual Muscle Testing Left Dorsiflexion (L4) 4 Good Right Dorsiflexion (L4) 4 Good Toe Strength Toe Manual Muscle Testing Left Great Toe Extension 4 Good Right Great Toe Extension 3+ Fair+ PT-OP-Q Treatments Start: 11/03/20 15:51 Freq: Status: Active Protocol: Document 12/10/20 12:17 MB (Rec: 04/16/21 13:11 MB [id number]) Therapeutic Exercises Sitting Exercises 1 Sitting Exercise Name Sit to stands without UE support Comments 8 reps in 30 sec today Gait Training Gait Activity Gait outside without AD Comments Pt stepping off sidewalk onto grass and then on and off of grass over curb to pavement while walking forward ( stepping off to the side while continuing forward propulsion ): 8 reps x4 sets and superv assist. PT becomes cardiovascularly fatigue with repetition. Up and down two concrete steps and then four concrete steps without rail outside with superv assist. 6MWT Comments 1320 feet in 6 minutes today and pt occ appears to have some hyperextension of his R knee and decreased ankle control, no scuffing of feet and no LOB, improved distance today PT-OP-T Assessment and Plan Start: 11/03/20 15:51 Freq: Status: Active Protocol: Document 12/10/20 12:17 MB (Rec: 12/10/20 12:49 MB [id number]) Physical Therapy Assessment Rehab Potential Rehabilitation Potential Good Evaluation Complexity Number of Personal Factors/Comorbidities 1-2 Number of Body Systems Impaired 1-2 Clinical Presentation at Evaluation Stable Impairments Impairments Activity Tolerance,Balance, Coordination,Gait,Pain,Posture ,ROM,Sensation,Soft Tissue Mobility,Strength,Vestibular Other Concerns Fall Risk Yes Goals 6 Fdc Goal (LTG) Pt will perform 12 reps sit to swimming pool attendant 30 sec to improve functional strength and balance by 02/09/21. 12/10/20: Pt performs 8 reps in 30 sec LTG Duration 8 weeks 5 Fdc Goal (LTG) Pt will deny falls for 2 months to decrease injury risk by 02/09/21. 12/10/20: Pt denies falls since starting PT. LTG Duration 8 weeks 4 Police And Fire Dispatcher Goal (LTG) Pt will present with improved B hip flexion, abduction, knee flexion and extension and ankle DF strength to 5/5 to improve balance and gait by . 12/10/20: LE strength: right hip flexion 4/5, B hip abduction and adduction 4/5, right great toe extension 3+/5 , left great toe extension 4/5 . Left hip flexion 5/5, B knee flexion and extension 5/5, B ankle DF 5/5. LTG Duration 8 weeks 3 [employer] And Fire Dispatcher Goal (LTG) Pt will gait train at least 1500 feet in 6 minutes without AD to allow return to I community ambulation by . 12/10/20: Pt gait trains 1320 feet in 6 minutes with no scuffing of feet, I, no AD, advanced gait distance today LTG Duration 8 weeks 2 Fdc Goal (LTG) Pt will perform WNLs on FGA balance test to decrease fall risk by 02/09/21. 12/10/20: FGA score is 16/30 and pt has most trouble with changing gait speed, tandem walking, walking with eyes closed and steps without rail. He has no LOB with FGA today 12/10/20 11/11/20: FGA score is 11/30, indicating increased risk for falls. He has most trouble with changing gait speeds, pivoting around, weaving around cones and stepping over step. LTG Duration 8 weeks 1 Fdc Goal (LTG) Pt will perform progressive HEP with I including postural, flexibility, alignment, strengthening, balance and gait to improve balance, gait and strength by 02/09/21: 12/10/20: Pt is performing standing balance exercises in the corner: Romberg EO, sit to stands, stair gait LTG Duration 8 weeks Assessment Summary Assessment Pt has progressed towards all PT goals since starting therapy. These include balance , gait, functional strengthening, MMT and HEP goals. Advanced goals today. Pt will benefit from ongoing PT to improve I gait distance inside and outdoors, balance and strength. Pt has not been confident about gait training without AD and he has been doing well with gait and balance exercises without AD in PT and PT encourages him to start coming to PT without AD . He is hesistantly agreeable. Curb and grass gait today without AD and no LOB. Con't PT per plan below. Physical Therapy Plan Frequency and Duration Frequency of Treatment 2x/Week Duration of Treatment 8 weeks Plan of Care Start Date 12/10/20 Plan of Care End Date 02/09/21 Therapeutic Interventions Therapeutic Interventions Balance Training,Canalithic Repositioning,Coordination Training,Gait Training,Home Exercise Program,Joint Mobilizations,Manual Therapy, Neuromuscular Re-education, Patient/Caregiver Education, Self-Care/Home Management, Sensory Integration,Soft Tissue Mobilization,Taping, Therapeutic Activities, Therapeutic Exercises, Vestibular Rehabilitation Modalities Cold Pack/Ice Massage,Electric Stimulation,Hot Packs, Ultrasound Next Visit Focus/Plan Next Note Type Treatment Note Next Visit Plan Progress gait outside without AD. FGA exercises and re- testing. Sitting LAQ and ankle eversion and DF with band resistance. Crab walking and backward walking with band. Scapular retraction, shoulder ER with band in standing, progress corner balance exercises
--- NOTE | 2020-12-10 13:14 | PT.OTN ---
Current Diagnoses Spinal stenosis, cervical region (12/10/20) Cervicalgia (12/10/20) Ataxia, unspecified (12/10/20) Physical Therapy Treatment Note PT-OP-A Visit Information Start: 11/03/20 15:51 Freq: Status: Active Protocol: Document 12/10/20 12:17 MB (Rec: 12/10/20 12:49 MB [id number]) Out-Patient Physical Therapy Visit Information Visit Information Visit Type Progress Note Visit Note [facility], $30 copay Visit Start Time 12:17 Visit Stop Time 13:00 Total Visit Minutes 43 Visit Number 10 PT-OP-B Current Condition Start: 11/03/20 15:51 Freq: Status: Active Protocol: Document 11/04/20 10:31 MB (Rec: 11/04/20 10:46 MB [id number]) Current Condition History of Current Condition Onset Date End 2019 Current Complaints Minor neck pain and balance issue, balance is biggest problem History of Current Condition Pt received PT for right shoulder pain at the end 2019. During PT course, pt reported that he nearly fell down the stairs and his gait became increasingly worse. He presented to PT with ataxia and PT referred pt back to his doctor. He had lumbar, cervical, and brain MRIs and his cervical MRI revealed changes such that he underwent C5-C7 anterior cervical fusion on 08/30/20. Pt reports right neck and upper right shoulder pain up to 4/10. His pain is reducing. Pt gait trains with a RW and feels like he is still walking drunk. 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 His sister comes in twice a day to help with his mom. Pt had a fall last date when stepping back on his left leg and it gave way. He had not had another fall since he got home from the surgery. Pt is having minor headaches. He denies dizziness and passing out. Prior Treatments and Tests MRIs, two cervical surgeries ( first one in 2014) Treatment Goals Patient/Caregiver Goals To improve balance and to get back to normal walking and life PT-OP-C Subjective Start: 11/03/20 15:51 Freq: Status: Active Protocol: Document 12/10/20 12:17 MB (Rec: 12/10/20 13:08 MB [id number]) OP-PT Subjective Patient Comments Patient Comments I have nothing new to report. Patient Reported Progress Improving PT-OP-D Balance Start: 11/03/20 15:51 Freq: Status: Active Protocol: Document 11/04/20 10:31 MB (Rec: 11/04/20 14:11 MB [id number]) OP-PT Balance Assessment Sitting Balance Static Sitting Balance Ability Good Dynamic Sitting Balance Ability Fair Sitting Balance Comments UE support for dynamic sitting and cues to place hands on thighs for MMT LEs in sitting Standing Balance Static Standing Balance Ability Fair Dynamic Standing Balance Ability Fair Standing Balance Comments See testing comments below Balance Tests Romberg Romberg 1' EO, 30 sec EC and imbalance to L Single Limb Standing Single Limb- Right Unable today Single Limb- Left Unable today Tandem Tandem Standing Unable today Other Other Balance Tests Performed Pt has decreased confidence with Romberg with EC in corner and opens his eyes d/t fear of falling Unable to perform tandem gait without reaching or holding onto wall, slow gait forward with eyes closed and step-to gait that is slow with retropulsion Marx Fall Scale Copyright Permission PT-OP-G Mobility & Gait Start: 11/03/20 15:51 Freq: Status: Active Protocol: Document 11/04/20 10:31 MB (Rec: 11/04/20 14:11 MB [id number]) OP Gait Assessment Gait Gait Assistance Required: Standby Assistance,Contact Guard Assist Distance (Feet) 75 Able to Maintain Weight Bearing Status Yes During Gait Assistive Devices Assistive Device None,Gait Belt,Front Wheeled Walker Orthotic/Prosthetic Devices or Brace: No Gait Deviations General Gait Pattern Ataxic,Decreased Stride Length ,Flexed Trunk,Wide Based Gait Factors Limiting Gait Function Factors Limiting Gait Function Decreased Sensation,Decreased Strength,Incoordination,Poor Balance Comments Gait Comments Gait with RW on the way in: better foot clearance, step- length and speed and superv to SBA. Gait training without AD with gait belt requires CGA and pt presents with ataxic gait pattern with wide ROBERT and functional foot drop right foot. He keeps his arms out to the side to help with balance . PT-OP-H Neuro Start: 11/03/20 15:51 Freq: Status: Active Protocol: Document 11/04/20 10:31 MB (Rec: 11/04/20 14:11 MB [id number]) Sensation Evaluation Comments Summary Comments Pt reports ongoing occ numbness in his right toes Coordination Evaluation Upper Extremity Tests Left Finger to Nose Test Normal Performance Pronation/Supination Test Normal Performance Right Finger to Nose Test Normal Performance Pronation/Supination Test Normal Performance Lower Extremity Tests Left Foot Tapping Test Minimal Impairment Right Foot Tapping Test Minimal Impairment Comments Coordination Comments Finger to nose testing was pt touching PT's finger and then his own nose. Foot tapping test was pt tapping toes of one foot on the floor crossing over the opposite foot. Both required increased effort and slower speed for pt Deep Tendon Reflex & Clonus Assessment Ankle Clonus Bilateral Clonus Assessment Absent PT-OP-K Range of Motion Start: 11/03/20 15:51 Freq: Status: Active Protocol: Document 11/04/20 10:31 MB (Rec: 11/04/20 14:11 MB [id number]) Shoulder Goniometric Range of Motion Shoulder Left Shoulder ROM WFL No Testing Position Sitting Flexion 160 Abduction 90 Right Shoulder ROM WFL No Testing Position Sitting Flexion 150 Abduction 90 PT-OP-M Strength Start: 11/03/20 15:51 Freq: Status: Active Protocol: Document 11/04/20 10:31 MB (Rec: 11/04/20 14:11 MB [id number]) Shoulder Strength Shoulder Manual Muscle Testing Left Flexion 5 Normal Abduction (C5) 5 Normal Comments Pt sitting Right Flexion 5 Normal Abduction (C5) 4 Good Comments Pt sitting Elbow/Forearm Strength Elbow and Forearm Manual Muscle Testing Left Flexion (C6) 5 Normal Extension (C7) 5 Normal Pronation 5 Normal Supination 5 Normal Comments Pt sitting Right Flexion (C6) 5 Normal Extension (C7) 5 Normal Pronation 5 Normal Supination 5 Normal Comments Pt sitting Hip Strength Hip Manual Muscle Testing Left Flexion (L2) 4 Good Abduction 4 Good Comments Pt sitting Right Flexion (L2) 3+ Fair+ Abduction 3+ Fair+ Comments Pt sitting Knee Strength Knee Manual Muscle Testing Left Flexion (S2) 5 Normal Extension (L3) 5 Normal Comments Pt sitting Right Flexion (S2) 4 Good Extension (L3) 4 Good Comments Pt sitting Ankle/Foot Strength Ankle and Foot Manual Muscle Testing Left Dorsiflexion (L4) 4 Good Right Dorsiflexion (L4) 4 Good Toe Strength Toe Manual Muscle Testing Left Great Toe Extension 4 Good Right Great Toe Extension 3+ Fair+ PT-OP-Q Treatments Start: 11/03/20 15:51 Freq: Status: Active Protocol: Document 12/10/20 12:17 MB (Rec: 04/16/21 13:11 MB [id number]) Therapeutic Exercises Sitting Exercises 1 Sitting Exercise Name Sit to stands without UE support Comments 8 reps in 30 sec today Gait Training Gait Activity Gait outside without AD Comments Pt stepping off sidewalk onto grass and then on and off of grass over curb to pavement while walking forward ( stepping off to the side while continuing forward propulsion ): 8 reps x4 sets and superv assist. PT becomes cardiovascularly fatigue with repetition. Up and down two concrete steps and then four concrete steps without rail outside with superv assist. Pt does tend to slow down gait to prepare for stepping on and off curb. 6MWT Comments 1320 feet in 6 minutes today and pt occ appears to have some hyperextension of his R knee and decreased ankle control, no scuffing of feet and no LOB, improved distance today Neuro Re-Education Treatment Balance Activities FGA Comments See score and comments today under goal. Pt does tend to slow down to prepare stepping over step with gait. He has progressed with balance and still has deficits. PT-OP-T Assessment and Plan Start: 11/03/20 15:51 Freq: Status: Active Protocol: Document 12/10/20 12:17 MB (Rec: 12/10/20 12:49 MB [id number]) Physical Therapy Assessment Rehab Potential Rehabilitation Potential Good Evaluation Complexity Number of Personal Factors/Comorbidities 1-2 Number of Body Systems Impaired 1-2 Clinical Presentation at Evaluation Stable Impairments Impairments Activity Tolerance,Balance, Coordination,Gait,Pain,Posture ,ROM,Sensation,Soft Tissue Mobility,Strength,Vestibular Other Concerns Fall Risk Yes Goals 6 Assisted Goal (LTG) Pt will perform 12 reps sit to continuous pickling line pickler helper 30 sec to improve functional strength and balance by 02/09/21. 12/10/20: Pt performs 8 reps in 30 sec LTG Duration 8 weeks 5 Assisted Goal (LTG) Pt will deny falls for 2 months to decrease injury risk by 02/09/21. 12/10/20: Pt denies falls since starting PT. LTG Duration 8 weeks 4 Lockmaker Goal (LTG) Pt will present with improved B hip flexion, abduction, knee flexion and extension and ankle DF strength to 5/5 to improve balance and gait by . 12/10/20: LE strength: right hip flexion 4/5, B hip abduction and adduction 4/5, right great toe extension 3+/5 , left great toe extension 4/5 . Left hip flexion 5/5, B knee flexion and extension 5/5, B ankle DF 5/5. LTG Duration 8 weeks 3 Lockmaker Goal (LTG) Pt will gait train at least 1500 feet in 6 minutes without AD to allow return to I community ambulation by . 12/10/20: Pt gait trains 1320 feet in 6 minutes with no scuffing of feet, I, no AD, advanced gait distance today LTG Duration 8 weeks 2 Assisted Goal (LTG) Pt will perform WNLs on FGA balance test to decrease fall risk by 02/09/21. 12/10/20: FGA score is 16/30 and pt has most trouble with changing gait speed, tandem walking, walking with eyes closed and steps without rail. He has no LOB with FGA today 12/10/20 11/11/20: FGA score is 11/30, indicating increased risk for falls. He has most trouble with changing gait speeds, pivoting around, weaving around cones and stepping over step. LTG Duration 8 weeks 1 Assisted Goal (LTG) Pt will perform progressive HEP with I including postural, flexibility, alignment, strengthening, balance and gait to improve balance, gait and strength by 02/09/21: 12/10/20: Pt is performing standing balance exercises in the corner: Romberg EO, sit to stands, stair gait LTG Duration 8 weeks Assessment Summary Assessment Pt has progressed towards all PT goals since starting therapy. These include balance , gait, functional strengthening, MMT and HEP goals. Advanced goals today. Pt will benefit from ongoing PT to improve I gait distance inside and outdoors, balance and strength. Pt has not been confident about gait training without AD and he has been doing well with gait and balance exercises without AD in PT and PT encourages him to start coming to PT without AD . He is hesistantly agreeable. Curb and grass gait today without AD and no LOB. Con't PT per plan below. Physical Therapy Plan Frequency and Duration Frequency of Treatment 2x/Week Duration of Treatment 8 weeks Plan of Care Start Date 12/10/20 Plan of Care End Date 02/09/21 Therapeutic Interventions Therapeutic Interventions Balance Training,Canalithic Repositioning,Coordination Training,Gait Training,Home Exercise Program,Joint Mobilizations,Manual Therapy, Neuromuscular Re-education, Patient/Caregiver Education, Self-Care/Home Management, Sensory Integration,Soft Tissue Mobilization,Taping, Therapeutic Activities, Therapeutic Exercises, Vestibular Rehabilitation Modalities Cold Pack/Ice Massage,Electric Stimulation,Hot Packs, Ultrasound Next Visit Focus/Plan Next Note Type Treatment Note Next Visit Plan Progress gait outside without AD. FGA exercises and re- testing. Sitting LAQ and ankle eversion and DF with band resistance. Crab walking and backward walking with band. Scapular retraction, shoulder ER with band in standing, progress corner balance exercises
--- NOTE | 2020-12-10 13:15 | PT.OPPOC ---
Physical, Occupational & Speech Therapy At [facility] Current Diagnoses Spinal stenosis, cervical region (12/10/20) Cervicalgia (12/10/20) Ataxia, unspecified (12/10/20) Visit Care Team Role Provider Type Antoine Alvarez MD Family Provider Non-Staff Primary Care Provider Specialty: Medical Address: [address] [place] [address], [id number] Email: Michael Prasad MD Attending Provider Non-Staff Referring Provider Specialty: Neurology Address: [address] [place] [address], [phone] Email: Plan Of Care PT-OP-T Assessment and Plan Start: 11/03/20 15:51 Freq: Status: Active Protocol: Document 12/10/20 12:17 MB (Rec: 12/10/20 12:49 MB [id number]) Physical Therapy Assessment Rehab Potential Rehabilitation Potential Good Evaluation Complexity Number of Personal Factors/Comorbidities 1-2 Number of Body Systems Impaired 1-2 Clinical Presentation at Evaluation Stable Impairments Impairments Activity Tolerance,Balance, Coordination,Gait,Pain,Posture ,ROM,Sensation,Soft Tissue Mobility,Strength,Vestibular Other Concerns Fall Risk Yes Goals 6 Alf Goal (LTG) Pt will perform 12 reps sit to 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 12/10/20: Pt performs 8 reps in 30 sec LTG Duration 8 weeks 5 Fire Department Marine Engineer Goal (LTG) Pt will deny falls for 2 months to decrease injury risk by 02/09/21. 12/10/20: Pt denies falls since starting PT. LTG Duration 8 weeks 4 [employer] Marine Engineer Goal (LTG) Pt will present with improved B hip flexion, abduction, knee flexion and extension and ankle DF strength to 5/5 to improve balance and gait by . 12/10/20: LE strength: right hip flexion 4/5, B hip abduction and adduction 4/5, right great toe extension 3+/5 , left great toe extension 4/5 . Left hip flexion 5/5, B knee flexion and extension 5/5, B ankle DF 5/5. LTG Duration 8 weeks 3 [employer] Marine Engineer Goal (LTG) Pt will gait train at least 1500 feet in 6 minutes without AD to allow return to I community ambulation by . 12/10/20: Pt gait trains 1320 feet in 6 minutes with no scuffing of feet, I, no AD, advanced gait distance today LTG Duration 8 weeks 2 Alf Goal (LTG) Pt will perform WNLs on FGA balance test to decrease fall risk by 02/09/21. 12/10/20: FGA score is 16/30 and pt has most trouble with changing gait speed, tandem walking, walking with eyes closed and steps without rail. He has no LOB with FGA today 12/10/20 11/11/20: FGA score is 11/30, indicating increased risk for falls. He has most trouble with changing gait speeds, pivoting around, weaving around cones and stepping over step. LTG Duration 8 weeks 1 [employer] Marine Engineer Goal (LTG) Pt will perform progressive HEP with I including postural, flexibility, alignment, strengthening, balance and gait to improve balance, gait and strength by 02/09/21: 12/10/20: Pt is performing standing balance exercises in the corner: Romberg EO, sit to stands, stair gait LTG Duration 8 weeks Assessment Summary Assessment Pt has progressed towards all PT goals since starting therapy. These include balance , gait, functional strengthening, MMT and HEP goals. Advanced goals today. Pt will benefit from ongoing PT to improve I gait distance inside and outdoors, balance and strength. Pt has not been confident about gait training without AD and he has been doing well with gait and balance exercises without AD in PT and PT encourages him to start coming to PT without AD . He is hesistantly agreeable. Curb and grass gait today without AD and no LOB. Con't PT per plan below. Physical Therapy Plan Frequency and Duration Frequency of Treatment 2x/Week Duration of Treatment 8 weeks Plan of Care Start Date 12/10/20 Plan of Care End Date 02/09/21 Therapeutic Interventions Therapeutic Interventions Balance Training,Canalithic Repositioning,Coordination Training,Gait Training,Home Exercise Program,Joint Mobilizations,Manual Therapy, Neuromuscular Re-education, Patient/Caregiver Education, Self-Care/Home Management, Sensory Integration,Soft Tissue Mobilization,Taping, Therapeutic Activities, Therapeutic Exercises, Vestibular Rehabilitation Modalities Cold Pack/Ice Massage,Electric Stimulation,Hot Packs, Ultrasound Next Visit Focus/Plan Next Note Type Treatment Note Next Visit Plan Progress gait outside without AD. FGA exercises and re- testing. Sitting LAQ and ankle eversion and DF with band resistance. Crab walking and backward walking with band. Scapular retraction, shoulder ER with band in standing, progress corner balance exercises Plan of Care Dates Plan of Care Start Date 12/10/20 Plan of Care End Date 02/09/21 Electronically Signed by: Edith Cam, PT 12/10/20 1537 Please Sign and Return: I have reviewed this Plan of Care and certify that the skilled therapy services above are required to meet the patient?s needs. Physician Signature Date Printed Name and Credentials Clinical Instructor Signature Printed Name and Credentials
--- NOTE | 2020-12-17 14:27 | PT.OTN ---
Current Diagnoses Spinal stenosis, cervical region (12/17/20) Cervicalgia (12/17/20) Ataxia, unspecified (12/17/20) Physical Therapy Treatment Note PT-OP-A Visit Information Start: 11/03/20 15:51 Freq: Status: Active Protocol: Document 12/17/20 12:29 MB (Rec: 12/17/20 12:44 MB [id number]) Out-Patient Physical Therapy Visit Information Visit Information Visit Type Treatment Note Visit Note Pt states that he is changing to [employer] Visit Start Time 12:29 Visit Stop Time 13:00 Total Visit Minutes 31 Visit Number 11 PT-OP-B Current Condition Start: 11/03/20 15:51 Freq: Status: Active Protocol: Document 11/04/20 10:31 MB (Rec: 11/04/20 10:46 MB [id number]) Current Condition History of Current Condition Onset Date End 2019 Current Complaints Minor neck pain and balance issue, balance is biggest problem History of Current Condition Pt received PT for right shoulder pain at the end 2019. During PT course, pt reported that he nearly fell down the stairs and his gait became increasingly worse. He presented to PT with ataxia and PT referred pt back to his doctor. He had lumbar, cervical, and brain MRIs and his cervical MRI revealed changes such that he underwent C5-C7 anterior cervical fusion on 08/30/20. Pt reports right neck and upper right shoulder pain up to 4/10. His pain is reducing. Pt gait trains with a RW and feels like he is still walking drunk. 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 His sister comes in twice a day to help with his mom. Pt had a fall last date when stepping back on his left leg and it gave way. He had not had another fall since he got home from the surgery. Pt is having minor headaches. He denies dizziness and passing out. Prior Treatments and Tests MRIs, two cervical surgeries ( first one in 2014) Treatment Goals Patient/Caregiver Goals To improve balance and to get back to normal walking and life PT-OP-C Subjective Start: 11/03/20 15:51 Freq: Status: Active Protocol: Document 12/17/20 12:29 MB (Rec: 12/17/20 12:44 MB [id number]) OP-PT Subjective Patient Comments Patient Comments Pt states that he got set up for [employer] He talked with front office about this. He con't to have trouble with his sister picking him up on time . He is following up with doctor January 04. PT-OP-D Balance Start: 11/03/20 15:51 Freq: Status: Active Protocol: Document 11/04/20 10:31 MB (Rec: 11/04/20 14:11 MB [id number]) OP-PT Balance Assessment Sitting Balance Static Sitting Balance Ability Good Dynamic Sitting Balance Ability Fair Sitting Balance Comments UE support for dynamic sitting and cues to place hands on thighs for MMT LEs in sitting Standing Balance Static Standing Balance Ability Fair Dynamic Standing Balance Ability Fair Standing Balance Comments See testing comments below Balance Tests Romberg Romberg 1' EO, 30 sec EC and imbalance to L Single Limb Standing Single Limb- Right Unable today Single Limb- Left Unable today Tandem Tandem Standing Unable today Other Other Balance Tests Performed Pt has decreased confidence with Romberg with EC in corner and opens his eyes d/t fear of falling Unable to perform tandem gait without reaching or holding onto wall, slow gait forward with eyes closed and step-to gait that is slow with retropulsion Marx Fall Scale Copyright Permission PT-OP-G Mobility & Gait Start: 11/03/20 15:51 Freq: Status: Active Protocol: Document 11/04/20 10:31 MB (Rec: 11/04/20 14:11 MB [id number]) OP Gait Assessment Gait Gait Assistance Required: Standby Assistance,Contact Guard Assist Distance (Feet) 75 Able to Maintain Weight Bearing Status Yes During Gait Assistive Devices Assistive Device None,Gait Belt,Front Wheeled Walker Orthotic/Prosthetic Devices or Brace: No Gait Deviations General Gait Pattern Ataxic,Decreased Stride Length ,Flexed Trunk,Wide Based Gait Factors Limiting Gait Function Factors Limiting Gait Function Decreased Sensation,Decreased Strength,Incoordination,Poor Balance Comments Gait Comments Gait with RW on the way in: better foot clearance, step- length and speed and superv to SBA. Gait training without AD with gait belt requires CGA and pt presents with ataxic gait pattern with wide ROBERT and functional foot drop right foot. He keeps his arms out to the side to help with balance . PT-OP-H Neuro Start: 11/03/20 15:51 Freq: Status: Active Protocol: Document 11/04/20 10:31 MB (Rec: 11/04/20 14:11 MB [id number]) Sensation Evaluation Comments Summary Comments Pt reports ongoing occ numbness in his right toes Coordination Evaluation Upper Extremity Tests Left Finger to Nose Test Normal Performance Pronation/Supination Test Normal Performance Right Finger to Nose Test Normal Performance Pronation/Supination Test Normal Performance Lower Extremity Tests Left Foot Tapping Test Minimal Impairment Right Foot Tapping Test Minimal Impairment Comments Coordination Comments Finger to nose testing was pt touching PT's finger and then his own nose. Foot tapping test was pt tapping toes of one foot on the floor crossing over the opposite foot. Both required increased effort and slower speed for pt Deep Tendon Reflex & Clonus Assessment Ankle Clonus Bilateral Clonus Assessment Absent PT-OP-K Range of Motion Start: 11/03/20 15:51 Freq: Status: Active Protocol: Document 11/04/20 10:31 MB (Rec: 11/04/20 14:11 MB [id number]) Shoulder Goniometric Range of Motion Shoulder Left Shoulder ROM WFL No Testing Position Sitting Flexion 160 Abduction 90 Right Shoulder ROM WFL No Testing Position Sitting Flexion 150 Abduction 90 PT-OP-M Strength Start: 11/03/20 15:51 Freq: Status: Active Protocol: Document 11/04/20 10:31 MB (Rec: 11/04/20 14:11 MB [id number]) Shoulder Strength Shoulder Manual Muscle Testing Left Flexion 5 Normal Abduction (C5) 5 Normal Comments Pt sitting Right Flexion 5 Normal Abduction (C5) 4 Good Comments Pt sitting Elbow/Forearm Strength Elbow and Forearm Manual Muscle Testing Left Flexion (C6) 5 Normal Extension (C7) 5 Normal Pronation 5 Normal Supination 5 Normal Comments Pt sitting Right Flexion (C6) 5 Normal Extension (C7) 5 Normal Pronation 5 Normal Supination 5 Normal Comments Pt sitting Hip Strength Hip Manual Muscle Testing Left Flexion (L2) 4 Good Abduction 4 Good Comments Pt sitting Right Flexion (L2) 3+ Fair+ Abduction 3+ Fair+ Comments Pt sitting Knee Strength Knee Manual Muscle Testing Left Flexion (S2) 5 Normal Extension (L3) 5 Normal Comments Pt sitting Right Flexion (S2) 4 Good Extension (L3) 4 Good Comments Pt sitting Ankle/Foot Strength Ankle and Foot Manual Muscle Testing Left Dorsiflexion (L4) 4 Good Right Dorsiflexion (L4) 4 Good Toe Strength Toe Manual Muscle Testing Left Great Toe Extension 4 Good Right Great Toe Extension 3+ Fair+ PT-OP-Q Treatments Start: 11/03/20 15:51 Freq: Status: Active Protocol: Document 12/17/20 12:29 MB (Rec: 12/17/20 12:44 MB [id number]) Gait Training Gait Activity Gait outside without AD Comments Pt stepping off sidewalk onto grass and then on and off of grass over curb to pavement while walking forward ( stepping off to the side while continuing forward propulsion ): 8 reps and superv assist and cues. Up and down curb forward and backward with cues for alternating feet 5 reps x3 with superv. Backwards and forwards walking on side walk with cues to swing arms and car pick up driver speed with forward gait, working on transition between forward and backwards. Side stepping right and then left with wide ROBERT and switching direction when cued (this is difficult for pt), ascend and descend 2 flights of steps outside clinic with right rail ascend and left rail descend x3 and superv PT-OP-T Assessment and Plan Start: 11/03/20 15:51 Freq: Status: Active Protocol: Document 12/17/20 12:29 MB (Rec: 12/17/20 12:44 MB [id number]) Physical Therapy Assessment Rehab Potential Rehabilitation Potential Good Evaluation Complexity Number of Personal Factors/Comorbidities 1-2 Number of Body Systems Impaired 1-2 Clinical Presentation at Evaluation Stable Impairments Impairments Activity Tolerance,Balance, Coordination,Gait,Pain,Posture ,ROM,Sensation,Soft Tissue Mobility,Strength,Vestibular Other Concerns Fall Risk Yes Goals 6 Mcc Goal (LTG) Pt will perform 12 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 12/10/20: Pt performs 8 reps in 30 sec LTG Duration 8 weeks 5 Mcc Goal (LTG) Pt will deny falls for 2 months to decrease injury risk by 02/09/21. 12/10/20: Pt denies falls since starting PT. LTG Duration 8 weeks 4 Mcc Goal (LTG) Pt will present with improved B hip flexion, abduction, knee flexion and extension and ankle DF strength to 5/5 to improve balance and gait by . 12/10/20: LE strength: right hip flexion 4/5, B hip abduction and adduction 4/5, right great toe extension 3+/5 , left great toe extension 4/5 . Left hip flexion 5/5, B knee flexion and extension 5/5, B ankle DF 5/5. LTG Duration 8 weeks 3 Middle School Tutor Goal (LTG) Pt will gait train at least 1500 feet in 6 minutes without AD to allow return to I community ambulation by . 12/10/20: Pt gait trains 1320 feet in 6 minutes with no scuffing of feet, I, no AD, advanced gait distance today LTG Duration 8 weeks 2 Middle School Tutor Goal (LTG) Pt will perform WNLs on FGA balance test to decrease fall risk by 02/09/21. 12/10/20: FGA score is 16/30 and pt has most trouble with changing gait speed, tandem walking, walking with eyes closed and steps without rail. He has no LOB with FGA today 12/10/20 11/11/20: FGA score is 11/30, indicating increased risk for falls. He has most trouble with changing gait speeds, pivoting around, weaving around cones and stepping over step. LTG Duration 8 weeks 1 Mcc Goal (LTG) Pt will perform progressive HEP with I including postural, flexibility, alignment, strengthening, balance and gait to improve balance, gait and strength by 02/09/21: 12/10/20: Pt is performing standing balance exercises in the corner: Romberg EO, sit to stands, stair gait LTG Duration 8 weeks Assessment Summary Assessment Increased gait time and distance with increased time today with balance challenges outside. He requires superv and cues for speed and swinging his arms. Pt is changing to [facility] next month (December) and he will only have 8 visits per year per front office. He would like to keep scheduled appointments and will not schedule into January d/t insurance issues. Physical Therapy Plan Frequency and Duration Frequency of Treatment 2x/Week Duration of Treatment 8 weeks Plan of Care Start Date 12/10/20 Plan of Care End Date 02/09/21 Therapeutic Interventions Therapeutic Interventions Balance Training,Canalithic Repositioning,Coordination Training,Gait Training,Home Exercise Program,Joint Mobilizations,Manual Therapy, Neuromuscular Re-education, Patient/Caregiver Education, Self-Care/Home Management, Sensory Integration,Soft Tissue Mobilization,Taping, Therapeutic Activities, Therapeutic Exercises, Vestibular Rehabilitation Modalities Cold Pack/Ice Massage,Electric Stimulation,Hot Packs, Ultrasound Next Visit Focus/Plan Next Note Type Treatment Note Next Visit Plan Ongoing gait activities with functional tasks. Sitting LAQ and ankle eversion and DF with band resistance. Crab walking and backward walking with band. Scapular retraction, shoulder ER with band in standing, progress corner balance exercises
--- NOTE | 2020-12-21 13:01 | PT.OTN ---
Current Diagnoses Spinal stenosis, cervical region (12/21/20) Cervicalgia (12/21/20) Ataxia, unspecified (12/21/20) Physical Therapy Treatment Note PT-OP-A Visit Information Start: 11/03/20 15:51 Freq: Status: Active Protocol: Document 12/21/20 12:17 MB (Rec: 12/21/20 13:01 MB [id number]) Out-Patient Physical Therapy Visit Information Visit Information Visit Type Treatment Note Visit Note Per front office, [employer] started this month and awaiting billing to assess this situation for patient Visit Start Time 12:17 Visit Stop Time 13:00 Total Visit Minutes 43 Visit Number 12 PT-OP-B Current Condition Start: 11/03/20 15:51 Freq: Status: Active Protocol: Document 11/04/20 10:31 MB (Rec: 11/04/20 10:46 MB [id number]) Current Condition History of Current Condition Onset Date End 2019 Current Complaints Minor neck pain and balance issue, balance is biggest problem History of Current Condition Pt received PT for right shoulder pain at the end 2019. During PT course, pt reported that he nearly fell down the stairs and his gait became increasingly worse. He presented to PT with ataxia and PT referred pt back to his doctor. He had lumbar, cervical, and brain MRIs and his cervical MRI revealed changes such that he underwent C5-C7 anterior cervical fusion on 08/30/20. Pt reports right neck and upper right shoulder pain up to 4/10. His pain is reducing. Pt gait trains with a RW and feels like he is still walking drunk. 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 His sister comes in twice a day to help with his mom. Pt had a fall last date when stepping back on his left leg and it gave way. He had not had another fall since he got home from the surgery. Pt is having minor headaches. He denies dizziness and passing out. Prior Treatments and Tests MRIs, two cervical surgeries ( first one in 2014) Treatment Goals Patient/Caregiver Goals To improve balance and to get back to normal walking and life PT-OP-C Subjective Start: 11/03/20 15:51 Freq: Status: Active Protocol: Document 12/21/20 12:17 MB (Rec: 12/21/20 13:01 MB [id number]) OP-PT Subjective Patient Comments Patient Comments Good. when PT asks pt how he is doing. Pt states that he went for a little walk by himself without AD yesterday and that went well. He is doing the stairs at home, sit to stands and corner exercises . PT-OP-D Balance Start: 11/03/20 15:51 Freq: Status: Active Protocol: Document 11/04/20 10:31 MB (Rec: 11/04/20 14:11 MB [id number]) OP-PT Balance Assessment Sitting Balance Static Sitting Balance Ability Good Dynamic Sitting Balance Ability Fair Sitting Balance Comments UE support for dynamic sitting and cues to place hands on thighs for MMT LEs in sitting Standing Balance Static Standing Balance Ability Fair Dynamic Standing Balance Ability Fair Standing Balance Comments See testing comments below Balance Tests Romberg Romberg 1' EO, 30 sec EC and imbalance to L Single Limb Standing Single Limb- Right Unable today Single Limb- Left Unable today Tandem Tandem Standing Unable today Other Other Balance Tests Performed Pt has decreased confidence with Romberg with EC in corner and opens his eyes d/t fear of falling Unable to perform tandem gait without reaching or holding onto wall, slow gait forward with eyes closed and step-to gait that is slow with retropulsion Marx Fall Scale Copyright Permission PT-OP-G Mobility & Gait Start: 11/03/20 15:51 Freq: Status: Active Protocol: Document 11/04/20 10:31 MB (Rec: 11/04/20 14:11 MB [id number]) OP Gait Assessment Gait Gait Assistance Required: Standby Assistance,Contact Guard Assist Distance (Feet) 75 Able to Maintain Weight Bearing Status Yes During Gait Assistive Devices Assistive Device None,Gait Belt,Front Wheeled Walker Orthotic/Prosthetic Devices or Brace: No Gait Deviations General Gait Pattern Ataxic,Decreased Stride Length ,Flexed Trunk,Wide Based Gait Factors Limiting Gait Function Factors Limiting Gait Function Decreased Sensation,Decreased Strength,Incoordination,Poor Balance Comments Gait Comments Gait with RW on the way in: better foot clearance, step- length and speed and superv to SBA. Gait training without AD with gait belt requires CGA and pt presents with ataxic gait pattern with wide ROBERT and functional foot drop right foot. He keeps his arms out to the side to help with balance . PT-OP-H Neuro Start: 11/03/20 15:51 Freq: Status: Active Protocol: Document 11/04/20 10:31 MB (Rec: 11/04/20 14:11 MB [id number]) Sensation Evaluation Comments Summary Comments Pt reports ongoing occ numbness in his right toes Coordination Evaluation Upper Extremity Tests Left Finger to Nose Test Normal Performance Pronation/Supination Test Normal Performance Right Finger to Nose Test Normal Performance Pronation/Supination Test Normal Performance Lower Extremity Tests Left Foot Tapping Test Minimal Impairment Right Foot Tapping Test Minimal Impairment Comments Coordination Comments Finger to nose testing was pt touching PT's finger and then his own nose. Foot tapping test was pt tapping toes of one foot on the floor crossing over the opposite foot. Both required increased effort and slower speed for pt Deep Tendon Reflex & Clonus Assessment Ankle Clonus Bilateral Clonus Assessment Absent PT-OP-K Range of Motion Start: 11/03/20 15:51 Freq: Status: Active Protocol: Document 11/04/20 10:31 MB (Rec: 11/04/20 14:11 MB [id number]) Shoulder Goniometric Range of Motion Shoulder Left Shoulder ROM WFL No Testing Position Sitting Flexion 160 Abduction 90 Right Shoulder ROM WFL No Testing Position Sitting Flexion 150 Abduction 90 PT-OP-M Strength Start: 11/03/20 15:51 Freq: Status: Active Protocol: Document 11/04/20 10:31 MB (Rec: 11/04/20 14:11 MB [id number]) Shoulder Strength Shoulder Manual Muscle Testing Left Flexion 5 Normal Abduction (C5) 5 Normal Comments Pt sitting Right Flexion 5 Normal Abduction (C5) 4 Good Comments Pt sitting Elbow/Forearm Strength Elbow and Forearm Manual Muscle Testing Left Flexion (C6) 5 Normal Extension (C7) 5 Normal Pronation 5 Normal Supination 5 Normal Comments Pt sitting Right Flexion (C6) 5 Normal Extension (C7) 5 Normal Pronation 5 Normal Supination 5 Normal Comments Pt sitting Hip Strength Hip Manual Muscle Testing Left Flexion (L2) 4 Good Abduction 4 Good Comments Pt sitting Right Flexion (L2) 3+ Fair+ Abduction 3+ Fair+ Comments Pt sitting Knee Strength Knee Manual Muscle Testing Left Flexion (S2) 5 Normal Extension (L3) 5 Normal Comments Pt sitting Right Flexion (S2) 4 Good Extension (L3) 4 Good Comments Pt sitting Ankle/Foot Strength Ankle and Foot Manual Muscle Testing Left Dorsiflexion (L4) 4 Good Right Dorsiflexion (L4) 4 Good Toe Strength Toe Manual Muscle Testing Left Great Toe Extension 4 Good Right Great Toe Extension 3+ Fair+ PT-OP-Q Treatments Start: 11/03/20 15:51 Freq: Status: Active Protocol: Document 12/21/20 12:17 MB (Rec: 12/21/20 13:01 MB [id number]) Cardio Equipment Bicycle (Upright) Duration (Minutes) 12 Resistance 8 Seat Position 7 Therapeutic Exercises Sitting Exercises Ankle eversion and DF Side bilateral Equipment Used Level 1 band Comments Cues for heels down and not to move knees, out and up together, 10 reps LAQ with ankle pump Side bilateral Equipment Used Level 1 band Comments Cues for form, slow, alternating, AP x5 reps, 3 each leg Hip abduction with band/clams Side bilateral Reps/Minutes Level 1 band Comments Feet together, cues to squeeze glutes, 10 reps Standing Exercises Cervical rotations standing Side bilateral Comments 10 with cues for weight shift Scapular retraction, shoulder ER Side bilateral Equipment Used Level 1 band Comments 10 reps elbows bent and straight row, ER Crab walking and backward walking Side bilateral Equipment Used Level 1 band Comments 10 reps side stepping x3 right and left, backwards x5 Gait Training Gait Activity Gait training without AD Comments 5' gait with superv with PT encouraging him to increase kat today PT-OP-T Assessment and Plan Start: 11/03/20 15:51 Freq: Status: Active Protocol: Document 12/21/20 12:17 MB (Rec: 12/21/20 13:01 MB [id number]) Physical Therapy Assessment Rehab Potential Rehabilitation Potential Good Evaluation Complexity Number of Personal Factors/Comorbidities 1-2 Number of Body Systems Impaired 1-2 Clinical Presentation at Evaluation Stable Impairments Impairments Activity Tolerance,Balance, Coordination,Gait,Pain,Posture ,ROM,Sensation,Soft Tissue Mobility,Strength,Vestibular Other Concerns Fall Risk Yes Goals 6 Disposal Plant Operator Goal (LTG) Pt will perform 12 reps sit to kelly machine operator 30 sec to improve functional strength and balance by 02/09/21. 12/10/20: Pt performs 8 reps in 30 sec LTG Duration 8 weeks 5 Alf Goal (LTG) Pt will deny falls for 2 months to decrease injury risk by 02/09/21. 12/10/20: Pt denies falls since starting PT. LTG Duration 8 weeks 4 Alf Goal (LTG) Pt will present with improved B hip flexion, abduction, knee flexion and extension and ankle DF strength to 5/5 to improve balance and gait by . 12/10/20: LE strength: right hip flexion 4/5, B hip abduction and adduction 4/5, right great toe extension 3+/5 , left great toe extension 4/5 . Left hip flexion 5/5, B knee flexion and extension 5/5, B ankle DF 5/5. LTG Duration 8 weeks 3 Alf Goal (LTG) Pt will gait train at least 1500 feet in 6 minutes without AD to allow return to I community ambulation by . 12/10/20: Pt gait trains 1320 feet in 6 minutes with no scuffing of feet, I, no AD, advanced gait distance today LTG Duration 8 weeks 2 Alf Goal (LTG) Pt will perform WNLs on FGA balance test to decrease fall risk by 02/09/21. 12/10/20: FGA score is 16/30 and pt has most trouble with changing gait speed, tandem walking, walking with eyes closed and steps without rail. He has no LOB with FGA today 12/10/20 11/11/20: FGA score is 11/30, indicating increased risk for falls. He has most trouble with changing gait speeds, pivoting around, weaving around cones and stepping over step. LTG Duration 8 weeks 1 Disposal Plant Operator Goal (LTG) Pt will perform progressive HEP with I including postural, flexibility, alignment, strengthening, balance and gait to improve balance, gait and strength by 02/09/21: 12/10/20: Pt is performing standing balance exercises in the corner: Romberg EO, sit to stands, stair gait LTG Duration 8 weeks Assessment Summary Assessment Progressed strengthening exercises today. Unsure what is going to happen with visits allowed and so will progress balance and gait exercises in future treatments. Physical Therapy Plan Frequency and Duration Frequency of Treatment 2x/Week Duration of Treatment 8 weeks Plan of Care Start Date 12/10/20 Plan of Care End Date 02/09/21 Therapeutic Interventions Therapeutic Interventions Balance Training,Canalithic Repositioning,Coordination Training,Gait Training,Home Exercise Program,Joint Mobilizations,Manual Therapy, Neuromuscular Re-education, Patient/Caregiver Education, Self-Care/Home Management, Sensory Integration,Soft Tissue Mobilization,Taping, Therapeutic Activities, Therapeutic Exercises, Vestibular Rehabilitation Modalities Cold Pack/Ice Massage,Electric Stimulation,Hot Packs, Ultrasound Next Visit Focus/Plan Next Note Type Treatment Note Next Visit Plan Ongoing balance and gait challenges with everyday tasks 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
--- NOTE | 2020-12-24 13:01 | PT.OTN ---
Current Diagnoses Spinal stenosis, cervical region (12/24/20) Cervicalgia (12/24/20) Ataxia, unspecified (12/24/20) Physical Therapy Treatment Note PT-OP-A Visit Information Start: 11/03/20 15:51 Freq: Status: Active Protocol: Document 12/24/20 12:20 MB (Rec: 12/24/20 12:58 MB [id number]) Out-Patient Physical Therapy Visit Information Visit Information Visit Type Treatment Note Visit Start Time 12:20 Visit Stop Time 13:00 Total Visit Minutes 40 Visit Number 13 PT-OP-B Current Condition Start: 11/03/20 15:51 Freq: Status: Active Protocol: Document 11/04/20 10:31 MB (Rec: 11/04/20 10:46 MB [id number]) Current Condition History of Current Condition Onset Date End 2019 Current Complaints Minor neck pain and balance issue, balance is biggest problem History of Current Condition Pt received PT for right shoulder pain at the end 2019. During PT course, pt reported that he nearly fell down the stairs and his gait became increasingly worse. He presented to PT with ataxia and PT referred pt back to his doctor. He had lumbar, cervical, and brain MRIs and his cervical MRI revealed changes such that he underwent C5-C7 anterior cervical fusion on 08/30/20. Pt reports right neck and upper right shoulder pain up to 4/10. His pain is reducing. Pt gait trains with a RW and feels like he is still walking drunk. 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 His sister comes in twice a day to help with his mom. Pt had a fall last date when stepping back on his left leg and it gave way. He had not had another fall since he got home from the surgery. Pt is having minor headaches. He denies dizziness and passing out. Prior Treatments and Tests MRIs, two cervical surgeries ( first one in 2014) Treatment Goals Patient/Caregiver Goals To improve balance and to get back to normal walking and life PT-OP-C Subjective Start: 11/03/20 15:51 Freq: Status: Active Protocol: Document 12/24/20 12:20 MB (Rec: 12/24/20 12:58 MB [id number]) OP-PT Subjective Patient Comments Patient Comments Pt states that he is doing okay and the PT exercises are helpful. PT-OP-D Balance Start: 11/03/20 15:51 Freq: Status: Active Protocol: Document 11/04/20 10:31 MB (Rec: 11/04/20 14:11 MB [id number]) OP-PT Balance Assessment Sitting Balance Static Sitting Balance Ability Good Dynamic Sitting Balance Ability Fair Sitting Balance Comments UE support for dynamic sitting and cues to place hands on thighs for MMT LEs in sitting Standing Balance Static Standing Balance Ability Fair Dynamic Standing Balance Ability Fair Standing Balance Comments See testing comments below Balance Tests Romberg Romberg 1' EO, 30 sec EC and imbalance to L Single Limb Standing Single Limb- Right Unable today Single Limb- Left Unable today Tandem Tandem Standing Unable today Other Other Balance Tests Performed Pt has decreased confidence with Romberg with EC in corner and opens his eyes d/t fear of falling Unable to perform tandem gait without reaching or holding onto wall, slow gait forward with eyes closed and step-to gait that is slow with retropulsion Marx Fall Scale Copyright Permission PT-OP-G Mobility & Gait Start: 11/03/20 15:51 Freq: Status: Active Protocol: Document 11/04/20 10:31 MB (Rec: 11/04/20 14:11 MB [id number]) OP Gait Assessment Gait Gait Assistance Required: Standby Assistance,Contact Guard Assist Distance (Feet) 75 Able to Maintain Weight Bearing Status Yes During Gait Assistive Devices Assistive Device None,Gait Belt,Front Wheeled Walker Orthotic/Prosthetic Devices or Brace: No Gait Deviations General Gait Pattern Ataxic,Decreased Stride Length ,Flexed Trunk,Wide Based Gait Factors Limiting Gait Function Factors Limiting Gait Function Decreased Sensation,Decreased Strength,Incoordination,Poor Balance Comments Gait Comments Gait with RW on the way in: better foot clearance, step- length and speed and superv to SBA. Gait training without AD with gait belt requires CGA and pt presents with ataxic gait pattern with wide ROBERT and functional foot drop right foot. He keeps his arms out to the side to help with balance . PT-OP-H Neuro Start: 11/03/20 15:51 Freq: Status: Active Protocol: Document 11/04/20 10:31 MB (Rec: 11/04/20 14:11 MB [id number]) Sensation Evaluation Comments Summary Comments Pt reports ongoing occ numbness in his right toes Coordination Evaluation Upper Extremity Tests Left Finger to Nose Test Normal Performance Pronation/Supination Test Normal Performance Right Finger to Nose Test Normal Performance Pronation/Supination Test Normal Performance Lower Extremity Tests Left Foot Tapping Test Minimal Impairment Right Foot Tapping Test Minimal Impairment Comments Coordination Comments Finger to nose testing was pt touching PT's finger and then his own nose. Foot tapping test was pt tapping toes of one foot on the floor crossing over the opposite foot. Both required increased effort and slower speed for pt Deep Tendon Reflex & Clonus Assessment Ankle Clonus Bilateral Clonus Assessment Absent PT-OP-K Range of Motion Start: 11/03/20 15:51 Freq: Status: Active Protocol: Document 11/04/20 10:31 MB (Rec: 11/04/20 14:11 MB [id number]) Shoulder Goniometric Range of Motion Shoulder Left Shoulder ROM WFL No Testing Position Sitting Flexion 160 Abduction 90 Right Shoulder ROM WFL No Testing Position Sitting Flexion 150 Abduction 90 PT-OP-M Strength Start: 11/03/20 15:51 Freq: Status: Active Protocol: Document 11/04/20 10:31 MB (Rec: 11/04/20 14:11 MB [id number]) Shoulder Strength Shoulder Manual Muscle Testing Left Flexion 5 Normal Abduction (C5) 5 Normal Comments Pt sitting Right Flexion 5 Normal Abduction (C5) 4 Good Comments Pt sitting Elbow/Forearm Strength Elbow and Forearm Manual Muscle Testing Left Flexion (C6) 5 Normal Extension (C7) 5 Normal Pronation 5 Normal Supination 5 Normal Comments Pt sitting Right Flexion (C6) 5 Normal Extension (C7) 5 Normal Pronation 5 Normal Supination 5 Normal Comments Pt sitting Hip Strength Hip Manual Muscle Testing Left Flexion (L2) 4 Good Abduction 4 Good Comments Pt sitting Right Flexion (L2) 3+ Fair+ Abduction 3+ Fair+ Comments Pt sitting Knee Strength Knee Manual Muscle Testing Left Flexion (S2) 5 Normal Extension (L3) 5 Normal Comments Pt sitting Right Flexion (S2) 4 Good Extension (L3) 4 Good Comments Pt sitting Ankle/Foot Strength Ankle and Foot Manual Muscle Testing Left Dorsiflexion (L4) 4 Good Right Dorsiflexion (L4) 4 Good Toe Strength Toe Manual Muscle Testing Left Great Toe Extension 4 Good Right Great Toe Extension 3+ Fair+ PT-OP-Q Treatments Start: 11/03/20 15:51 Freq: Status: Active Protocol: Document 12/24/20 12:20 MB (Rec: 12/24/20 12:58 MB [id number]) Gait Training Gait Activity Gait outside without AD Comments Several gait trials today to water fountain and between other more structured gait tasks, I gait today 6MWT Comments 1177 feet in 6 minutes, clockwise direction today 1390 feet in 6 minutes, counterclockwise direction holding cup of water 3/4 full in right hand 3' clockwise and 3' counterclockwise making right, left, up and down head movements when cued. Occ imbalance but no LOB and pt is able to con't forward gait, 1360 feet in 6 min For 5': forward, backward and right and left side step gait training with cues for quick change of direction. This is challenging for pt and he is able to do it with close superv and no LOB, cues for no rail to ascend 4 steps and slide left hand on rail on left for descend 4 standard steps x6 during transitions of forward, backwards and side stepping PT-OP-T Assessment and Plan Start: 11/03/20 15:51 Freq: Status: Active Protocol: Document 12/24/20 12:20 MB (Rec: 12/24/20 12:58 MB [id number]) Physical Therapy Assessment Rehab Potential Rehabilitation Potential Good Evaluation Complexity Number of Personal Factors/Comorbidities 1-2 Number of Body Systems Impaired 1-2 Clinical Presentation at Evaluation Stable Impairments Impairments Activity Tolerance,Balance, Coordination,Gait,Pain,Posture ,ROM,Sensation,Soft Tissue Mobility,Strength,Vestibular Other Concerns Fall Risk Yes Goals 6 Jail Goal (LTG) Pt will perform 12 reps sit to director experimental medicine 30 sec to improve functional strength and balance by 02/09/21. 12/10/20: Pt performs 8 reps in 30 sec LTG Duration 8 weeks 5 Jail Goal (LTG) Pt will deny falls for 2 months to decrease injury risk by 02/09/21. 12/10/20: Pt denies falls since starting PT. LTG Duration 8 weeks 4 Design Engineer Goal (LTG) Pt will present with improved B hip flexion, abduction, knee flexion and extension and ankle DF strength to 5/5 to improve balance and gait by . 12/10/20: LE strength: right hip flexion 4/5, B hip abduction and adduction 4/5, right great toe extension 3+/5 , left great toe extension 4/5 . Left hip flexion 5/5, B knee flexion and extension 5/5, B ankle DF 5/5. LTG Duration 8 weeks 3 Design Engineer Goal (LTG) Pt will gait train at least 1500 feet in 6 minutes without AD to allow return to I community ambulation by . 12/10/20: Pt gait trains 1320 feet in 6 minutes with no scuffing of feet, I, no AD, advanced gait distance today LTG Duration 8 weeks 2 Design Engineer Goal (LTG) Pt will perform WNLs on FGA balance test to decrease fall risk by 02/09/21. 12/10/20: FGA score is 16/30 and pt has most trouble with changing gait speed, tandem walking, walking with eyes closed and steps without rail. He has no LOB with FGA today 12/10/20 11/11/20: FGA score is 11/30, indicating increased risk for falls. He has most trouble with changing gait speeds, pivoting around, weaving around cones and stepping over step. LTG Duration 8 weeks 1 Jail Goal (LTG) Pt will perform progressive HEP with I including postural, flexibility, alignment, strengthening, balance and gait to improve balance, gait and strength by 02/09/21: 12/10/20: Pt is performing standing balance exercises in the corner: Romberg EO, sit to stands, stair gait LTG Duration 8 weeks Assessment Summary Assessment Gait training without much down time for PT today and pt does well and his kat increases with increased time walking and is challenged with head turns and stair training and changing direction with gait. Con't sit to stand and gait progressions. Physical Therapy Plan Frequency and Duration Frequency of Treatment 2x/Week Duration of Treatment 8 weeks Plan of Care Start Date 12/10/20 Plan of Care End Date 02/09/21 Therapeutic Interventions Therapeutic Interventions Balance Training,Canalithic Repositioning,Coordination Training,Gait Training,Home Exercise Program,Joint Mobilizations,Manual Therapy, Neuromuscular Re-education, Patient/Caregiver Education, Self-Care/Home Management, Sensory Integration,Soft Tissue Mobilization,Taping, Therapeutic Activities, Therapeutic Exercises, Vestibular Rehabilitation Modalities Cold Pack/Ice Massage,Electric Stimulation,Hot Packs, Ultrasound Next Visit Focus/Plan Next Note Type Treatment Note Next Visit Plan Sit to stands with cervical rotation right and left alternating to help with scan and neck rotation, progress indoor and outdoor walking
--- NOTE | 2020-12-28 14:32 | PT.OTN ---
Current Diagnoses Spinal stenosis, cervical region (12/28/20) Cervicalgia (12/28/20) Ataxia, unspecified (12/28/20) Physical Therapy Treatment Note PT-OP-A Visit Information Start: 11/03/20 15:51 Freq: Status: Active Protocol: Document 12/28/20 13:51 SP (Rec: 12/28/20 15:04 SP [id number]) Out-Patient Physical Therapy Visit Information Visit Information Visit Type Treatment Note Visit Note pt 5 min late for appt. Visit Start Time 13:51 Visit Stop Time 14:32 Total Visit Minutes 41 Visit Number 14 Number of PHARMACEUTICAL OFFICER Visits 1 Evaluation Information Evaluation Date 11/04/20 PT-OP-B Current Condition Start: 11/03/20 15:51 Freq: Status: Active Protocol: Document 11/04/20 10:31 MB (Rec: 11/04/20 10:46 MB [id number]) Current Condition History of Current Condition Onset Date 2019 Current Complaints Minor neck pain and balance issue, balance is biggest problem History of Current Condition Pt received PT for right shoulder pain at the end 2019. During PT course, pt reported that he nearly fell down the stairs and his gait became increasingly worse. He presented to PT with ataxia and PT referred pt back to his doctor. He had lumbar, cervical, and brain MRIs and his cervical MRI revealed changes such that he underwent C5-C7 anterior cervical fusion on 08/30/20. Pt reports right neck and upper right shoulder pain up to 4/10. His pain is reducing. Pt gait trains with a RW and feels like he is still walking drunk. 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 His sister comes in twice a day to help with his mom. Pt had a fall last date when stepping back on his left leg and it gave way. He had not had another fall since he got home from the surgery. Pt is having minor headaches. He denies dizziness and passing out. Prior Treatments and Tests MRIs, two cervical surgeries ( first one in 2014) Treatment Goals Patient/Caregiver Goals To improve balance and to get back to normal walking and life PT-OP-C Subjective Start: 11/03/20 15:51 Freq: Status: Active Protocol: Document 12/28/20 13:51 SP (Rec: 12/28/20 15:04 SP [id number]) OP-PT Subjective Patient Comments Patient Comments Pt stated he is doing ok, always a good soreness after tx. Pt stated still finds balance a challenge. PHARMACEUTICAL OFFICER discussed to think of specific instances at home challenged to work on in therapy. Patient Reported Progress Improving PT-OP-D Balance Start: 11/03/20 15:51 Freq: Status: Active Protocol: Document 11/04/20 10:31 MB (Rec: 11/04/20 14:11 MB [id number]) OP-PT Balance Assessment Sitting Balance Static Sitting Balance Ability Good Dynamic Sitting Balance Ability Fair Sitting Balance Comments UE support for dynamic sitting and cues to place hands on thighs for MMT LEs in sitting Standing Balance Static Standing Balance Ability Fair Dynamic Standing Balance Ability Fair Standing Balance Comments See testing comments below Balance Tests Romberg Romberg 1' EO, 30 sec EC and imbalance to L Single Limb Standing Single Limb- Right Unable today Single Limb- Left Unable today Tandem Tandem Standing Unable today Other Other Balance Tests Performed Pt has decreased confidence with Romberg with EC in corner and opens his eyes d/t fear of falling Unable to perform tandem gait without reaching or holding onto wall, slow gait forward with eyes closed and step-to gait that is slow with retropulsion Marx Fall Scale Copyright Permission PT-OP-G Mobility & Gait Start: 11/03/20 15:51 Freq: Status: Active Protocol: Document 11/04/20 10:31 MB (Rec: 11/04/20 14:11 MB [id number]) OP Gait Assessment Gait Gait Assistance Required: Standby Assistance,Contact Guard Assist Distance (Feet) 75 Able to Maintain Weight Bearing Status Yes During Gait Assistive Devices Assistive Device None,Gait Belt,Front Wheeled Walker Orthotic/Prosthetic Devices or Brace: No Gait Deviations General Gait Pattern Ataxic,Decreased Stride Length ,Flexed Trunk,Wide Based Gait Factors Limiting Gait Function Factors Limiting Gait Function Decreased Sensation,Decreased Strength,Incoordination,Poor Balance Comments Gait Comments Gait with RW on the way in: better foot clearance, step- length and speed and superv to SBA. Gait training without AD with gait belt requires CGA and pt presents with ataxic gait pattern with wide ROBERT and functional foot drop right foot. He keeps his arms out to the side to help with balance . PT-OP-H Neuro Start: 11/03/20 15:51 Freq: Status: Active Protocol: Document 11/04/20 10:31 MB (Rec: 11/04/20 14:11 MB [id number]) Sensation Evaluation Comments Summary Comments Pt reports ongoing occ numbness in his right toes Coordination Evaluation Upper Extremity Tests Left Finger to Nose Test Normal Performance Pronation/Supination Test Normal Performance Right Finger to Nose Test Normal Performance Pronation/Supination Test Normal Performance Lower Extremity Tests Left Foot Tapping Test Minimal Impairment Right Foot Tapping Test Minimal Impairment Comments Coordination Comments Finger to nose testing was pt touching PT's finger and then his own nose. Foot tapping test was pt tapping toes of one foot on the floor crossing over the opposite foot. Both required increased effort and slower speed for pt Deep Tendon Reflex & Clonus Assessment Ankle Clonus Bilateral Clonus Assessment Absent PT-OP-K Range of Motion Start: 11/03/20 15:51 Freq: Status: Active Protocol: Document 11/04/20 10:31 MB (Rec: 11/04/20 14:11 MB [id number]) Shoulder Goniometric Range of Motion Shoulder Left Shoulder ROM WFL No Testing Position Sitting Flexion 160 Abduction 90 Right Shoulder ROM WFL No Testing Position Sitting Flexion 150 Abduction 90 PT-OP-M Strength Start: 11/03/20 15:51 Freq: Status: Active Protocol: Document 11/04/20 10:31 MB (Rec: 11/04/20 14:11 MB [id number]) Shoulder Strength Shoulder Manual Muscle Testing Left Flexion 5 Normal Abduction (C5) 5 Normal Comments Pt sitting Right Flexion 5 Normal Abduction (C5) 4 Good Comments Pt sitting Elbow/Forearm Strength Elbow and Forearm Manual Muscle Testing Left Flexion (C6) 5 Normal Extension (C7) 5 Normal Pronation 5 Normal Supination 5 Normal Comments Pt sitting Right Flexion (C6) 5 Normal Extension (C7) 5 Normal Pronation 5 Normal Supination 5 Normal Comments Pt sitting Hip Strength Hip Manual Muscle Testing Left Flexion (L2) 4 Good Abduction 4 Good Comments Pt sitting Right Flexion (L2) 3+ Fair+ Abduction 3+ Fair+ Comments Pt sitting Knee Strength Knee Manual Muscle Testing Left Flexion (S2) 5 Normal Extension (L3) 5 Normal Comments Pt sitting Right Flexion (S2) 4 Good Extension (L3) 4 Good Comments Pt sitting Ankle/Foot Strength Ankle and Foot Manual Muscle Testing Left Dorsiflexion (L4) 4 Good Right Dorsiflexion (L4) 4 Good Toe Strength Toe Manual Muscle Testing Left Great Toe Extension 4 Good Right Great Toe Extension 3+ Fair+ PT-OP-Q Treatments Start: 11/03/20 15:51 Freq: Status: Active Protocol: Document 12/28/20 13:51 SP (Rec: 12/28/20 15:04 SP [id number]) Therapeutic Exercises Supine Exercises HS stretch Equipment Used Pt found holding behind thigh better than strap Reps/Minutes 30 Jonathan stretch Side bilateral Comments 30 sec then added strap knee flexion Sitting Exercises glut stretch Side bilateral Reps/Minutes 30 Standing Exercises step ups Standing Exercise Name step up/ down over curb feet land on grass Resistance uneven surface side MAP bldg Cervical rotations standing Standing Exercise Name during sit<> stands Side bilateral Reps/Minutes no UE support Comments completed 10 no cuing required today Gait Training Gait Activity 6MWT Comments 1514 feet in 6 minutes outdoor parkinglot uneven pavement no AD, counter clockwise direction in parkinglot. Cued awareness of foot alignment // especially during turns and arms swings Stair training Comments Side MAP bldg outdoor stair training 5 stairs no HR for balance, gait, strengthening and to increase confidence for pt to perform at home. Pt performs with close superv and stable LEs improvement in time and response. Cued awareness of // feet alignment to allow increased stability. Pt felt unsteady, nerving not using UEs but there if needed . Neuro Re-Education Treatment Balance Activities uneven balance Details side stepping over/ back curb during forward/ side stepping motion Reps/Duration approx 50 ft x2 laps Comments cued //feet for increased stability and awareness of COG over ROBERT. lindsey stepping Details For balance, increase time SLS Surface level Equipment 3 hurdles, 6 step Reps/Duration Forward, quicker small side stepping Comments cued parallel toe/ heels. PT-OP-T Assessment and Plan Start: 11/03/20 15:51 Freq: Status: Active Protocol: Document 12/28/20 13:51 SP (Rec: 12/28/20 15:04 SP [id number]) Physical Therapy Assessment Goals 6 Java J2Ee Architect Goal (LTG) Pt will perform 12 reps sit to academic affairs coordinator 30 sec to improve functional strength and balance by 02/09/21. 12/10/20: Pt performs 8 reps in 30 sec LTG Duration 8 weeks 5 Mcc Goal (LTG) Pt will deny falls for 2 months to decrease injury risk by 02/09/21. 12/10/20: Pt denies falls since starting PT. LTG Duration 8 weeks 4 Mcc Goal (LTG) Pt will present with improved B hip flexion, abduction, knee flexion and extension and ankle DF strength to 5/5 to improve balance and gait by . 12/10/20: LE strength: right hip flexion 4/5, B hip abduction and adduction 4/5, right great toe extension 3+/5 , left great toe extension 4/5 . Left hip flexion 5/5, B knee flexion and extension 5/5, B ankle DF 5/5. LTG Duration 8 weeks 3 Mcc Goal (LTG) Pt will gait train at least 1500 feet in 6 minutes without AD to allow return to I community ambulation by . 12/10/20: Pt gait trains 1320 feet in 6 minutes with no scuffing of feet, I, no AD, advanced gait distance today LTG Duration 8 weeks 2 Java J2Ee Architect Goal (LTG) Pt will perform WNLs on FGA balance test to decrease fall risk by 02/09/21. 12/10/20: FGA score is 16/30 and pt has most trouble with changing gait speed, tandem walking, walking with eyes closed and steps without rail. He has no LOB with FGA today 12/10/20 11/11/20: FGA score is 11/30, indicating increased risk for falls. He has most trouble with changing gait speeds, pivoting around, weaving around cones and stepping over step. LTG Duration 8 weeks 1 Java J2Ee Architect Goal (LTG) Pt will perform progressive HEP with I including postural, flexibility, alignment, strengthening, balance and gait to improve balance, gait and strength by 02/09/21: 12/10/20: Pt is performing standing balance exercises in the corner: Romberg EO, sit to stands, stair gait LTG Duration 8 weeks Assessment Summary Assessment Pt worked hard during tx, noted increased respiratory rate. Pt able to increase 6MWT on uneven surface. Pt challenged by forward/side stepping gait over curb and ascending/ descending outside stairs rail only if needed to assist balance and LE strength but stated was good to work on. Pt stable during sit<> stands CS rotation, no cuing today for wt shift forward. Initiated stretching today at end tx due to noted legs felt tight, good response found helpful and maybe help with soreness post tx. Physical Therapy Plan Frequency and Duration Frequency of Treatment 2x/Week Duration of Treatment 8 weeks Plan of Care Start Date 12/10/20 Plan of Care End Date 02/09/21 Therapeutic Interventions Therapeutic Interventions Balance Training,Canalithic Repositioning,Coordination Training,Gait Training,Home Exercise Program,Joint Mobilizations,Manual Therapy, Neuromuscular Re-education, Patient/Caregiver Education, Self-Care/Home Management, Sensory Integration,Soft Tissue Mobilization,Taping, Therapeutic Activities, Therapeutic Exercises, Vestibular Rehabilitation Modalities Cold Pack/Ice Massage,Electric Stimulation,Hot Packs, Ultrasound Next Visit Focus/Plan Next Note Type Treatment Note Next Visit Plan Assess repsonse to uneven gait , and balance and stretching initiated. Continue Sit to stands with cervical rotation right and left alternating to help with scan and neck rotation, progress indoor and outdoor walking endurance and uneven surface through functional strengthening.
--- NOTE | 2020-12-31 13:50 | PT.OTN ---
Current Diagnoses Spinal stenosis, cervical region (12/31/20) Cervicalgia (12/31/20) Ataxia, unspecified (12/31/20) Physical Therapy Treatment Note PT-OP-A Visit Information Start: 11/03/20 15:51 Freq: Status: Active Protocol: Document 12/31/20 13:06 SP (Rec: 12/31/20 14:06 SP [id number]) Out-Patient Physical Therapy Visit Information Visit Information Visit Type Treatment Note Visit Start Time 13:06 Visit Stop Time 13:50 Total Visit Minutes 44 Visit Number 15 Number of TRIMMING INSPECTOR Visits 2 Evaluation Information Evaluation Date 11/04/20 PT-OP-B Current Condition Start: 11/03/20 15:51 Freq: Status: Active Protocol: Document 11/04/20 10:31 MB (Rec: 11/04/20 10:46 MB [id number]) Current Condition History of Current Condition Onset Date 2019 Current Complaints Minor neck pain and balance issue, balance is biggest problem History of Current Condition Pt received PT for right shoulder pain at the end 2019. During PT course, pt reported that he nearly fell down the stairs and his gait became increasingly worse. He presented to PT with ataxia and PT referred pt back to his doctor. He had lumbar, cervical, and brain MRIs and his cervical MRI revealed changes such that he underwent C5-C7 anterior cervical fusion on 08/30/20. Pt reports right neck and upper right shoulder pain up to 4/10. His pain is reducing. Pt gait trains with a RW and feels like he is still walking drunk. 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 His sister comes in twice a day to help with his mom. Pt had a fall last date when stepping back on his left leg and it gave way. He had not had another fall since he got home from the surgery. Pt is having minor headaches. He denies dizziness and passing out. Prior Treatments and Tests MRIs, two cervical surgeries ( first one in 2014) Treatment Goals Patient/Caregiver Goals To improve balance and to get back to normal walking and life PT-OP-C Subjective Start: 11/03/20 15:51 Freq: Status: Active Protocol: Document 12/31/20 13:06 SP (Rec: 12/31/20 14:06 SP [id number]) OP-PT Subjective Patient Comments Patient Comments Pt stated doing ok today, I was sore but was good after last tx. Patient Reported Progress Improving PT-OP-D Balance Start: 11/03/20 15:51 Freq: Status: Active Protocol: Document 11/04/20 10:31 MB (Rec: 11/04/20 14:11 MB [id number]) OP-PT Balance Assessment Sitting Balance Static Sitting Balance Ability Good Dynamic Sitting Balance Ability Fair Sitting Balance Comments UE support for dynamic sitting and cues to place hands on thighs for MMT LEs in sitting Standing Balance Static Standing Balance Ability Fair Dynamic Standing Balance Ability Fair Standing Balance Comments See testing comments below Balance Tests Romberg Romberg 1' EO, 30 sec EC and imbalance to L Single Limb Standing Single Limb- Right Unable today Single Limb- Left Unable today Tandem Tandem Standing Unable today Other Other Balance Tests Performed Pt has decreased confidence with Romberg with EC in corner and opens his eyes d/t fear of falling Unable to perform tandem gait without reaching or holding onto wall, slow gait forward with eyes closed and step-to gait that is slow with retropulsion Marx Fall Scale Copyright Permission PT-OP-G Mobility & Gait Start: 11/03/20 15:51 Freq: Status: Active Protocol: Document 11/04/20 10:31 MB (Rec: 11/04/20 14:11 MB [id number]) OP Gait Assessment Gait Gait Assistance Required: Standby Assistance,Contact Guard Assist Distance (Feet) 75 Able to Maintain Weight Bearing Status Yes During Gait Assistive Devices Assistive Device None,Gait Belt,Front Wheeled Walker Orthotic/Prosthetic Devices or Brace: No Gait Deviations General Gait Pattern Ataxic,Decreased Stride Length ,Flexed Trunk,Wide Based Gait Factors Limiting Gait Function Factors Limiting Gait Function Decreased Sensation,Decreased Strength,Incoordination,Poor Balance Comments Gait Comments Gait with RW on the way in: better foot clearance, step- length and speed and superv to SBA. Gait training without AD with gait belt requires CGA and pt presents with ataxic gait pattern with wide ROBERT and functional foot drop right foot. He keeps his arms out to the side to help with balance . PT-OP-H Neuro Start: 11/03/20 15:51 Freq: Status: Active Protocol: Document 11/04/20 10:31 MB (Rec: 11/04/20 14:11 MB [id number]) Sensation Evaluation Comments Summary Comments Pt reports ongoing occ numbness in his right toes Coordination Evaluation Upper Extremity Tests Left Finger to Nose Test Normal Performance Pronation/Supination Test Normal Performance Right Finger to Nose Test Normal Performance Pronation/Supination Test Normal Performance Lower Extremity Tests Left Foot Tapping Test Minimal Impairment Right Foot Tapping Test Minimal Impairment Comments Coordination Comments Finger to nose testing was pt touching PT's finger and then his own nose. Foot tapping test was pt tapping toes of one foot on the floor crossing over the opposite foot. Both required increased effort and slower speed for pt Deep Tendon Reflex & Clonus Assessment Ankle Clonus Bilateral Clonus Assessment Absent PT-OP-K Range of Motion Start: 11/03/20 15:51 Freq: Status: Active Protocol: Document 11/04/20 10:31 MB (Rec: 11/04/20 14:11 MB [id number]) Shoulder Goniometric Range of Motion Shoulder Left Shoulder ROM WFL No Testing Position Sitting Flexion 160 Abduction 90 Right Shoulder ROM WFL No Testing Position Sitting Flexion 150 Abduction 90 PT-OP-M Strength Start: 11/03/20 15:51 Freq: Status: Active Protocol: Document 11/04/20 10:31 MB (Rec: 11/04/20 14:11 MB [id number]) Shoulder Strength Shoulder Manual Muscle Testing Left Flexion 5 Normal Abduction (C5) 5 Normal Comments Pt sitting Right Flexion 5 Normal Abduction (C5) 4 Good Comments Pt sitting Elbow/Forearm Strength Elbow and Forearm Manual Muscle Testing Left Flexion (C6) 5 Normal Extension (C7) 5 Normal Pronation 5 Normal Supination 5 Normal Comments Pt sitting Right Flexion (C6) 5 Normal Extension (C7) 5 Normal Pronation 5 Normal Supination 5 Normal Comments Pt sitting Hip Strength Hip Manual Muscle Testing Left Flexion (L2) 4 Good Abduction 4 Good Comments Pt sitting Right Flexion (L2) 3+ Fair+ Abduction 3+ Fair+ Comments Pt sitting Knee Strength Knee Manual Muscle Testing Left Flexion (S2) 5 Normal Extension (L3) 5 Normal Comments Pt sitting Right Flexion (S2) 4 Good Extension (L3) 4 Good Comments Pt sitting Ankle/Foot Strength Ankle and Foot Manual Muscle Testing Left Dorsiflexion (L4) 4 Good Right Dorsiflexion (L4) 4 Good Toe Strength Toe Manual Muscle Testing Left Great Toe Extension 4 Good Right Great Toe Extension 3+ Fair+ PT-OP-Q Treatments Start: 11/03/20 15:51 Freq: Status: Active Protocol: Document 12/31/20 13:06 SP (Rec: 12/31/20 14:06 SP [id number]) Gait Training Gait Activity 6MWT Description Goal Met. Comments 1620 feet in 6 minutes outdoor parkinglot uneven pavement no AD. Cued awareness of foot alignment // especially during turns and arms swings. Stair training Comments Side MAP bldg outdoor stair training 5 stairs no HR x4 sets for balance, gait, strengthening and to increase confidence for pt to perform at home. Pt performs with close superv. Cued awareness of // feet alignment to allow increased stability. Pt felt more steady today than last tx . Neuro Re-Education Treatment Balance Activities rocker board Details wt shift f/b/side Equipment rocker board, //bars, gait belt Reps/Duration 4 min Comments CG- Min A for recovery over wt shift as needed. SLS Equipment at rail- PRN Comments R 8, 11 L 5'', 19 uneven balance Details side stepping over/ back curb during forward/ side stepping motion Equipment indoor balance beam Reps/Duration 2 4 min Comments cued //feet for increased stability and awareness of COG over ROBERT slow pacing, unsteady x2 but self recovery. Corner exercises Details tandem>stagger (review HEP) Surface level Equipment back wall, chair front Reps/Duration 4 min Comments reviewed home tandem vs stagger (EO), unable maintain tandem w/ head turns today, did well with stagger EO head turns and EC 30 . He states at times does do EC stagger stance only. PT-OP-T Assessment and Plan Start: 11/03/20 15:51 Freq: Status: Active Protocol: Document 12/31/20 13:06 SP (Rec: 12/31/20 14:06 SP [id number]) Physical Therapy Assessment Goals 6 Spa Manager/Esthetician Goal (LTG) Pt will perform 12 reps sit to paving machine operator 30 sec to improve functional strength and balance by 02/09/21. 12/10/20: Pt performs 8 reps in 30 sec 12/31/20: 9.5 reps in 30 sec from side chair near fountain. LTG Duration 8 weeks 5 Spa Manager/Esthetician Goal (LTG) Pt will deny falls for 2 months to decrease injury risk by 02/09/21. 12/10/20: Pt denies falls since starting PT. LTG Duration 8 weeks 4 Fdc Goal (LTG) Pt will present with improved B hip flexion, abduction, knee flexion and extension and ankle DF strength to 5/5 to improve balance and gait by . 12/10/20: LE strength: right hip flexion 4/5, B hip abduction and adduction 4/5, right great toe extension 3+/5 , left great toe extension 4/5 . Left hip flexion 5/5, B knee flexion and extension 5/5, B ankle DF 5/5. LTG Duration 8 weeks 3 Fdc Goal (LTG) Pt will gait train at least 1500 feet in 6 minutes without AD to allow return to I community ambulation by . 12/10/20: Pt gait trains 1320 feet in 6 minutes with no scuffing of feet, I, no AD, advanced gait distance today. 12/31/20 GOAL Met: 1620 ft w/ out AD uneven pavement in 6 minutes. LTG Duration 8 weeks GOAL MET 12/31/20 2 Fdc Goal (LTG) Pt will perform WNLs on FGA balance test to decrease fall risk by 02/09/21. 12/10/20: FGA score is 16/30 and pt has most trouble with changing gait speed, tandem walking, walking with eyes closed and steps without rail. He has no LOB with FGA today 12/10/20 11/11/20: FGA score is 11/30, indicating increased risk for falls. He has most trouble with changing gait speeds, pivoting around, weaving around cones and stepping over step. LTG Duration 8 weeks 1 Spa Manager/Esthetician Goal (LTG) Pt will perform progressive HEP with I including postural, flexibility, alignment, strengthening, balance and gait to improve balance, gait and strength by 02/09/21: 12/10/20: Pt is performing standing balance exercises in the corner: Romberg EO, sit to stands, stair gait LTG Duration 8 weeks Progress Towards Goals Progress Towards Goals Progressing Toward Goals Progress Comments Pt met Goal #3 6MWT 1620 ft uneven surfaces without AD to allow return to I community ambulation. Assessment Summary Assessment Pt worked hard this tx. Pt stated felt better about outdoor stair mgt with no UE today than last tx but not normal yet. Pt improved LLE SLS by 8 sec post cue for hip abd facilitation space between legs and body tallover stance leg. Pt able to complete 30 sec EC stagger stance level surface. Physical Therapy Plan Frequency and Duration Frequency of Treatment 2x/Week Duration of Treatment 8 weeks Plan of Care Start Date 12/10/20 Plan of Care End Date 02/09/21 Therapeutic Interventions Therapeutic Interventions Balance Training,Canalithic Repositioning,Coordination Training,Gait Training,Home Exercise Program,Joint Mobilizations,Manual Therapy, Neuromuscular Re-education, Patient/Caregiver Education, Self-Care/Home Management, Sensory Integration,Soft Tissue Mobilization,Taping, Therapeutic Activities, Therapeutic Exercises, Vestibular Rehabilitation Modalities Cold Pack/Ice Massage,Electric Stimulation,Hot Packs, Ultrasound Next Visit Focus/Plan Next Note Type Treatment Note Next Visit Plan Assess repsonse to uneven gait , stairs, balance activities last tx. Continue Sit to stands with cervical rotation right and left alternating to help with scan and neck rotation, progress indoor and outdoor walking endurance and uneven surface through functional strengthening.
--- NOTE | 2021-01-07 13:45 | PT.OTN ---
Current Diagnoses Spinal stenosis, cervical region (01/07/21) Cervicalgia (01/07/21) Ataxia, unspecified (01/07/21) Physical Therapy Treatment Note PT-OP-A Visit Information Start: 11/03/20 15:51 Freq: Status: Active Protocol: Document 01/07/21 13:04 SP (Rec: 01/07/21 16:44 SP [id number]) Out-Patient Physical Therapy Visit Information Visit Information Visit Type Treatment Note Visit Start Time 13:04 Visit Stop Time 13:45 Total Visit Minutes 41 Visit Number 16 Number of CERAMIC TILE INSTALLER Visits 3 Evaluation Information Evaluation Date 11/04/20 PT-OP-B Current Condition Start: 11/03/20 15:51 Freq: Status: Active Protocol: Document 11/04/20 10:31 MB (Rec: 11/04/20 10:46 MB [id number]) Current Condition History of Current Condition Onset Date 2019 Current Complaints Minor neck pain and balance issue, balance is biggest problem History of Current Condition Pt received PT for right shoulder pain at the end 2019. During PT course, pt reported that he nearly fell down the stairs and his gait became increasingly worse. He presented to PT with ataxia and PT referred pt back to his doctor. He had lumbar, cervical, and brain MRIs and his cervical MRI revealed changes such that he underwent C5-C7 anterior cervical fusion on 08/30/20. Pt reports right neck and upper right shoulder pain up to 4/10. His pain is reducing. Pt gait trains with a RW and feels like he is still walking drunk. 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 His sister comes in twice a day to help with his mom. Pt had a fall last date when stepping back on his left leg and it gave way. He had not had another fall since he got home from the surgery. Pt is having minor headaches. He denies dizziness and passing out. 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 Patient Reported Progress Improving PT-OP-D Balance Start: 11/03/20 15:51 Freq: Status: Active Protocol: Document 11/04/20 10:31 MB (Rec: 11/04/20 14:11 MB [id number]) OP-PT Balance Assessment Sitting Balance Static Sitting Balance Ability Good Dynamic Sitting Balance Ability Fair Sitting Balance Comments UE support for dynamic sitting and cues to place hands on thighs for MMT LEs in sitting Standing Balance Static Standing Balance Ability Fair Dynamic Standing Balance Ability Fair Standing Balance Comments See testing comments below Balance Tests Romberg Romberg 1' EO, 30 sec EC and imbalance to L Single Limb Standing Single Limb- Right Unable today Single Limb- Left Unable today Tandem Tandem Standing Unable today Other Other Balance Tests Performed Pt has decreased confidence with Romberg with EC in corner and opens his eyes d/t fear of falling Unable to perform tandem gait without reaching or holding onto wall, slow gait forward with eyes closed and step-to gait that is slow with retropulsion Marx Fall Scale Copyright Permission PT-OP-G Mobility & Gait Start: 11/03/20 15:51 Freq: Status: Active Protocol: Document 11/04/20 10:31 MB (Rec: 11/04/20 14:11 MB [id number]) OP Gait Assessment Gait Gait Assistance Required: Standby Assistance,Contact Guard Assist Distance (Feet) 75 Able to Maintain Weight Bearing Status Yes During Gait Assistive Devices Assistive Device None,Gait Belt,Front Wheeled Walker Orthotic/Prosthetic Devices or Brace: No Gait Deviations General Gait Pattern Ataxic,Decreased Stride Length ,Flexed Trunk,Wide Based Gait Factors Limiting Gait Function Factors Limiting Gait Function Decreased Sensation,Decreased Strength,Incoordination,Poor Balance Comments Gait Comments Gait with RW on the way in: better foot clearance, step- length and speed and superv to SBA. Gait training without AD with gait belt requires CGA and pt presents with ataxic gait pattern with wide ROBERT and functional foot drop right foot. He keeps his arms out to the side to help with balance . PT-OP-H Neuro Start: 11/03/20 15:51 Freq: Status: Active Protocol: Document 11/04/20 10:31 MB (Rec: 11/04/20 14:11 MB [id number]) Sensation Evaluation Comments Summary Comments Pt reports ongoing occ numbness in his right toes Coordination Evaluation Upper Extremity Tests Left Finger to Nose Test Normal Performance Pronation/Supination Test Normal Performance Right Finger to Nose Test Normal Performance Pronation/Supination Test Normal Performance Lower Extremity Tests Left Foot Tapping Test Minimal Impairment Right Foot Tapping Test Minimal Impairment Comments Coordination Comments Finger to nose testing was pt touching PT's finger and then his own nose. Foot tapping test was pt tapping toes of one foot on the floor crossing over the opposite foot. Both required increased effort and slower speed for pt Deep Tendon Reflex & Clonus Assessment Ankle Clonus Bilateral Clonus Assessment Absent PT-OP-K Range of Motion Start: 11/03/20 15:51 Freq: Status: Active Protocol: Document 11/04/20 10:31 MB (Rec: 11/04/20 14:11 MB [id number]) Shoulder Goniometric Range of Motion Shoulder Left Shoulder ROM WFL No Testing Position Sitting Flexion 160 Abduction 90 Right Shoulder ROM WFL No Testing Position Sitting Flexion 150 Abduction 90 PT-OP-M Strength Start: 11/03/20 15:51 Freq: Status: Active Protocol: Document 11/04/20 10:31 MB (Rec: 11/04/20 14:11 MB [id number]) Shoulder Strength Shoulder Manual Muscle Testing Left Flexion 5 Normal Abduction (C5) 5 Normal Comments Pt sitting Right Flexion 5 Normal Abduction (C5) 4 Good Comments Pt sitting Elbow/Forearm Strength Elbow and Forearm Manual Muscle Testing Left Flexion (C6) 5 Normal Extension (C7) 5 Normal Pronation 5 Normal Supination 5 Normal Comments Pt sitting Right Flexion (C6) 5 Normal Extension (C7) 5 Normal Pronation 5 Normal Supination 5 Normal Comments Pt sitting Hip Strength Hip Manual Muscle Testing Left Flexion (L2) 4 Good Abduction 4 Good Comments Pt sitting Right Flexion (L2) 3+ Fair+ Abduction 3+ Fair+ Comments Pt sitting Knee Strength Knee Manual Muscle Testing Left Flexion (S2) 5 Normal Extension (L3) 5 Normal Comments Pt sitting Right Flexion (S2) 4 Good Extension (L3) 4 Good Comments Pt sitting Ankle/Foot Strength Ankle and Foot Manual Muscle Testing Left Dorsiflexion (L4) 4 Good Right Dorsiflexion (L4) 4 Good Toe Strength Toe Manual Muscle Testing Left Great Toe Extension 4 Good Right Great Toe Extension 3+ Fair+ PT-OP-Q Treatments Start: 11/03/20 15:51 Freq: Status: Active Protocol: Document 01/07/21 13:04 SP (Rec: 01/07/21 16:44 SP [id number]) Therapeutic Activity Therapeutic Activity transfer training body mechanics Name squat pivot transfers, back straight, hip hinge Comments 25# basket assimulation education on transfer training activities as caregiver, proper body mechanics prep for return to work. Gait Training Gait Activity 6MWT Description Goal Met. Comments 1641 feet in 6 minutes outdoor parkinglot uneven pavement no AD. Cued awareness of foot alignment // especially during turns and arms swings. Stair training Comments Side MAP bldg outdoor stair training full 2 level of stairs for balance, gait, strengthening and to increase confidence for pt to perform at home. Pt performs with close superv. Cued awareness of // L foot alignment to allow increased stability. Pt felt more steady today than last tx and good foot kat. Neuro Re-Education Treatment Balance Activities uneven surface Details cGA Surface uneven Equipment 4 oval cushions Comments cued //feet, slow pacing control over stance LE. lindsey stepping Details For balance Surface level Equipment 6 hurdles Reps/Duration forward step over step Comments cued parallel toe/ heels. PT-OP-T Assessment and Plan Start: 11/03/20 15:51 Freq: Status: Active Protocol: Document 01/07/21 13:04 SP (Rec: 01/07/21 16:44 SP [id number]) Physical Therapy Assessment Goals 6 Long-Term Goal (LTG) Pt will perform 12 reps sit to quantitative software engineer 30 sec to improve functional strength and balance by 02/09/21. 12/10/20: Pt performs 8 reps in 30 sec 12/31/20: 9.5 reps in 30 sec from side chair near fountain. LTG Duration 8 weeks 5 Boat Hop Goal (LTG) Pt will deny falls for 2 months to decrease injury risk by 02/09/21. 12/10/20: Pt denies falls since starting PT. 01/07/21: Pt continues has not had any falls since start of PT but has had an instance 2 days ago of walking in living room LOB but self recovery. LTG Duration 8 weeks 4 Boat Hop Goal (LTG) Pt will present with improved B hip flexion, abduction, knee flexion and extension and ankle DF strength to 12/29 to improve balance and gait by . 12/10/20: LE strength: right hip flexion 4/5, B hip abduction and adduction 4/5, right great toe extension 3+/5 , left great toe extension 4/5 . Left hip flexion 5/5, B knee flexion and extension 5/5, B ankle DF 5/5. LTG Duration 8 weeks 3 Long-Term Goal (LTG) Pt will gait train at least 1500 feet in 6 minutes without AD to allow return to I community ambulation by . 12/10/20: Pt gait trains 1320 feet in 6 minutes with no scuffing of feet, I, no AD, advanced gait distance today. 12/31/20 GOAL Met: 1620 ft w/ out AD uneven pavement in 6 minutes. LTG Duration 8 weeks GOAL MET 12/31/20 2 Long-Term Goal (LTG) Pt will perform WNLs on FGA balance test to decrease fall risk by 02/09/21. 12/10/20: FGA score is 16/30 and pt has most trouble with changing gait speed, tandem walking, walking with eyes closed and steps without rail. He has no LOB with FGA today 12/10/20 11/11/20: FGA score is 11/30, indicating increased risk for falls. He has most trouble with changing gait speeds, pivoting around, weaving around cones and stepping over step. LTG Duration 8 weeks 1 Boat Hop Goal (LTG) Pt will perform progressive HEP with I including postural, flexibility, alignment, strengthening, balance and gait to improve balance, gait and strength by 02/09/21: 12/10/20: Pt is performing standing balance exercises in the corner: Romberg EO, sit to stands, stair gait LTG Duration 8 weeks Assessment Summary Assessment Pt improved in edurance gait uneven surfaces 1641 ft with good arm swing, improved soft knee w/R LE heel strike eccentric landing and eccentric DF on heel toe, occasional cues for LLE more everted alignment. Initiated squat pivot transfer training w/25# weight box and education on proper body mechanics with cuing for straight back, hip hinge for back health. Uneven surface balance training with cuing for increase L foot eversion and glut faciliation to allow increase stability. Physical Therapy Plan Frequency and Duration Frequency of Treatment 2x/Week Duration of Treatment 8 weeks Plan of Care Start Date 12/10/20 Plan of Care End Date 02/09/21 Therapeutic Interventions Therapeutic Interventions Balance Training,Canalithic Repositioning,Coordination Training,Gait Training,Home Exercise Program,Joint Mobilizations,Manual Therapy, Neuromuscular Re-education, Patient/Caregiver Education, Self-Care/Home Management, Sensory Integration,Soft Tissue Mobilization,Taping, Therapeutic Activities, Therapeutic Exercises, Vestibular Rehabilitation Modalities Cold Pack/Ice Massage,Electric Stimulation,Hot Packs, Ultrasound Next Visit Focus/Plan Next Note Type Treatment Note Next Visit Plan Assess repsonse to uneven gait , stairs, balance and transfer training activities last tx. Continue Sit to stands with cervical rotation right and left alternating to help with scan and neck rotation w/ incorporation during gait, continue progresssing indoor and outdoor walking endurance and uneven surface through functional strengthening.
--- NOTE | 2021-01-10 13:00 | PT.OTN ---
Current Diagnoses Spinal stenosis, cervical region (01/10/21) Cervicalgia (01/10/21) Ataxia, unspecified (01/10/21) Physical Therapy Treatment Note PT-OP-A Visit Information Start: 11/03/20 15:51 Freq: Status: Active Protocol: Document 01/10/21 12:16 SP (Rec: 01/10/21 13:04 SP [id number]) Out-Patient Physical Therapy Visit Information Visit Information Visit Type Treatment Note Visit Start Time 12:16 Visit Stop Time 13:00 Total Visit Minutes 44 Visit Number 17 Number of MUFFLER HAND Visits 4 Evaluation Information Evaluation Date 11/04/20 PT-OP-B Current Condition Start: 11/03/20 15:51 Freq: Status: Active Protocol: Document 11/04/20 10:31 MB (Rec: 11/04/20 10:46 MB [id number]) Current Condition History of Current Condition Onset Date 2019 Current Complaints Minor neck pain and balance issue, balance is biggest problem History of Current Condition Pt received PT for right shoulder pain at the end 2019. During PT course, pt reported that he nearly fell down the stairs and his gait became increasingly worse. He presented to PT with ataxia and PT referred pt back to his doctor. He had lumbar, cervical, and brain MRIs and his cervical MRI revealed changes such that he underwent C5-C7 anterior cervical fusion on 08/30/20. Pt reports right neck and upper right shoulder pain up to 4/10. His pain is reducing. Pt gait trains with a RW and feels like he is still walking drunk. 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 His sister comes in twice a day to help with his mom. Pt had a fall last date when stepping back on his left leg and it gave way. He had not had another fall since he got home from the surgery. Pt is having minor headaches. He denies dizziness and passing out. Prior Treatments and Tests MRIs, two cervical surgeries ( first one in 2014) Treatment Goals Patient/Caregiver Goals To improve balance and to get back to normal walking and life PT-OP-C Subjective Start: 11/03/20 15:51 Freq: Status: Active Protocol: Document 01/10/21 12:16 SP (Rec: 01/10/21 13:04 SP [id number]) OP-PT Subjective Patient Comments Patient Comments Pt stated physician wants him to continue PT and will return for follow up in 2 months and ok return to work in 1 month. Patient Reported Progress Improving PT-OP-D Balance Start: 11/03/20 15:51 Freq: Status: Active Protocol: Document 11/04/20 10:31 MB (Rec: 11/04/20 14:11 MB [id number]) OP-PT Balance Assessment Sitting Balance Static Sitting Balance Ability Good Dynamic Sitting Balance Ability Fair Sitting Balance Comments UE support for dynamic sitting and cues to place hands on thighs for MMT LEs in sitting Standing Balance Static Standing Balance Ability Fair Dynamic Standing Balance Ability Fair Standing Balance Comments See testing comments below Balance Tests Romberg Romberg 1' EO, 30 sec EC and imbalance to L Single Limb Standing Single Limb- Right Unable today Single Limb- Left Unable today Tandem Tandem Standing Unable today Other Other Balance Tests Performed Pt has decreased confidence with Romberg with EC in corner and opens his eyes d/t fear of falling Unable to perform tandem gait without reaching or holding onto wall, slow gait forward with eyes closed and step-to gait that is slow with retropulsion Marx Fall Scale Copyright Permission PT-OP-G Mobility & Gait Start: 11/03/20 15:51 Freq: Status: Active Protocol: Document 11/04/20 10:31 MB (Rec: 11/04/20 14:11 MB [id number]) OP Gait Assessment Gait Gait Assistance Required: Standby Assistance,Contact Guard Assist Distance (Feet) 75 Able to Maintain Weight Bearing Status Yes During Gait Assistive Devices Assistive Device None,Gait Belt,Front Wheeled Walker Orthotic/Prosthetic Devices or Brace: No Gait Deviations General Gait Pattern Ataxic,Decreased Stride Length ,Flexed Trunk,Wide Based Gait Factors Limiting Gait Function Factors Limiting Gait Function Decreased Sensation,Decreased Strength,Incoordination,Poor Balance Comments Gait Comments Gait with RW on the way in: better foot clearance, step- length and speed and superv to SBA. Gait training without AD with gait belt requires CGA and pt presents with ataxic gait pattern with wide ROBERT and functional foot drop right foot. He keeps his arms out to the side to help with balance . PT-OP-H Neuro Start: 11/03/20 15:51 Freq: Status: Active Protocol: Document 11/04/20 10:31 MB (Rec: 11/04/20 14:11 MB [id number]) Sensation Evaluation Comments Summary Comments Pt reports ongoing occ numbness in his right toes Coordination Evaluation Upper Extremity Tests Left Finger to Nose Test Normal Performance Pronation/Supination Test Normal Performance Right Finger to Nose Test Normal Performance Pronation/Supination Test Normal Performance Lower Extremity Tests Left Foot Tapping Test Minimal Impairment Right Foot Tapping Test Minimal Impairment Comments Coordination Comments Finger to nose testing was pt touching PT's finger and then his own nose. Foot tapping test was pt tapping toes of one foot on the floor crossing over the opposite foot. Both required increased effort and slower speed for pt Deep Tendon Reflex & Clonus Assessment Ankle Clonus Bilateral Clonus Assessment Absent PT-OP-K Range of Motion Start: 11/03/20 15:51 Freq: Status: Active Protocol: Document 11/04/20 10:31 MB (Rec: 11/04/20 14:11 MB [id number]) Shoulder Goniometric Range of Motion Shoulder Left Shoulder ROM WFL No Testing Position Sitting Flexion 160 Abduction 90 Right Shoulder ROM WFL No Testing Position Sitting Flexion 150 Abduction 90 PT-OP-M Strength Start: 11/03/20 15:51 Freq: Status: Active Protocol: Document 11/04/20 10:31 MB (Rec: 11/04/20 14:11 MB [id number]) Shoulder Strength Shoulder Manual Muscle Testing Left Flexion 5 Normal Abduction (C5) 5 Normal Comments Pt sitting Right Flexion 5 Normal Abduction (C5) 4 Good Comments Pt sitting Elbow/Forearm Strength Elbow and Forearm Manual Muscle Testing Left Flexion (C6) 5 Normal Extension (C7) 5 Normal Pronation 5 Normal Supination 5 Normal Comments Pt sitting Right Flexion (C6) 5 Normal Extension (C7) 5 Normal Pronation 5 Normal Supination 5 Normal Comments Pt sitting Hip Strength Hip Manual Muscle Testing Left Flexion (L2) 4 Good Abduction 4 Good Comments Pt sitting Right Flexion (L2) 3+ Fair+ Abduction 3+ Fair+ Comments Pt sitting Knee Strength Knee Manual Muscle Testing Left Flexion (S2) 5 Normal Extension (L3) 5 Normal Comments Pt sitting Right Flexion (S2) 4 Good Extension (L3) 4 Good Comments Pt sitting Ankle/Foot Strength Ankle and Foot Manual Muscle Testing Left Dorsiflexion (L4) 4 Good Right Dorsiflexion (L4) 4 Good Toe Strength Toe Manual Muscle Testing Left Great Toe Extension 4 Good Right Great Toe Extension 3+ Fair+ PT-OP-Q Treatments Start: 11/03/20 15:51 Freq: Status: Active Protocol: Document 01/10/21 12:16 SP (Rec: 01/10/21 13:04 SP [id number]) Therapeutic Exercises Standing Exercises Use of racquet ball, thoracic mobility, cervical ROM Standing Exercise Name theracane MWM CS and scapular complex musculature head turns /nods, scap ROM Side bilateral Comments Right side, re-ed today Gait Training Gait Activity Gait with head turns Device Used 0 Surface level Distance/Duration 1310 Treatment Focus increase ROM Comments head turns during 6MWT gym and clinic loop, and during FGA, stable 6MWT Comments 1310 inside R and L loops directioning, stable Neuro Re-Education Treatment Balance Activities SLS Equipment at rail- PRN Comments R 13, 7 L 12'', 17 FGA Comments Met Goal # 2 PT-OP-T Assessment and Plan Start: 11/03/20 15:51 Freq: Status: Active Protocol: Document 01/10/21 12:16 SP (Rec: 01/10/21 13:04 SP [id number]) Physical Therapy Assessment Goals 6 Clinical Resource Nurse Goal (LTG) Pt will perform 12 reps sit to administrative sales assistant 30 sec to improve functional strength and balance by 02/09/21. 12/10/20: Pt performs 8 reps in 30 sec 12/31/20: 9.5 reps in 30 sec from side chair near fountain. 01/10/21: Progressin reps in 30 sec. LTG Duration 8 weeks 5 Clinical Resource Nurse Goal (LTG) Pt will deny falls for 2 months to decrease injury risk by 02/09/21. 12/10/20: Pt denies falls since starting PT. 01/10/21: GOAL MET:Pt continues has not had any falls since start of PT but has had an instance 2 days ago of walking in living room LOB but self recovery. LTG Duration 8 weeks GOAL MET: 01/10/21 4 Skilled Nursing Goal (LTG) Pt will present with improved B hip flexion, abduction, knee flexion and extension and ankle DF strength to / to improve balance and gait by . 12/10/20: LE strength: right hip flexion 4/5, B hip abduction and adduction 4/5, right great toe extension 3+/5 , left great toe extension 4/5 . Left hip flexion 12/29, B knee flexion and extension 12/29, B ankle DF 12/29. LTG Duration 8 weeks 3 Skilled Nursing Goal (LTG) Pt will gait train at least 1500 feet in 6 minutes without AD to allow return to I community ambulation by . 12/10/20: Pt gait trains 1320 feet in 6 minutes with no scuffing of feet, I, no AD, advanced gait distance today. 12/31/20 GOAL Met: 1620 ft w/ out AD uneven pavement in 6 minutes. LTG Duration 8 weeks GOAL MET 12/31/20 2 Clinical Resource Nurse Goal (LTG) Pt will perform WNLs on FGA balance test to decrease fall risk by 02/09/21. 12/10/20: FGA score is 16/30 and pt has most trouble with changing gait speed, tandem walking, walking with eyes closed and steps without rail. He has no LOB with FGA today 11/11/20: FGA score is 11/30, indicating increased risk for falls. He has most trouble with changing gait speeds, pivoting around, weaving around cones and stepping over step. 01/10/21: GOAL MET: FGA 30. LTG Duration 8 weeks GOAL MET 01/10/21 1 Skilled Nursing Goal (LTG) Pt will perform progressive HEP with I including postural, flexibility, alignment, strengthening, balance and gait to improve balance, gait and strength by 02/09/21: 12/10/20: Pt is performing standing balance exercises in the corner: Romberg EO, sit to stands w/ head turns, stair gait head turns, self STMs PRN pain w/ed on free pressure / time agustina. LTG Duration 8 weeks Progress Towards Goals Progress Towards Goals Progressing Toward Goals Progress Comments MET goal #3 on 12/31/20, Goal #2 and #5 reassessed 01/10/21 without AD to allow return to I community ambulation. Assessment Summary Assessment Pt is making progress in balance, endurance gait. Met FGA goal . Pt states still notices stationary balance and walking around sharp turn has to focus more on COG, not noted during 6MWT today. Pt responded well to self STMs review with increase R turn ROM CS. Pt stated needs to do this more at home other than just turning head. Physical Therapy Plan Frequency and Duration Frequency of Treatment 2x/Week Duration of Treatment 8 weeks Plan of Care Start Date 12/10/20 Plan of Care End Date 02/09/21 Therapeutic Interventions Therapeutic Interventions Balance Training,Canalithic Repositioning,Coordination Training,Gait Training,Home Exercise Program,Joint Mobilizations,Manual Therapy, Neuromuscular Re-education, Patient/Caregiver Education, Self-Care/Home Management, Sensory Integration,Soft Tissue Mobilization,Taping, Therapeutic Activities, Therapeutic Exercises, Vestibular Rehabilitation Modalities Cold Pack/Ice Massage,Electric Stimulation,Hot Packs, Ultrasound Next Visit Focus/Plan Next Note Type Treatment Note Next Visit Plan Assess repsonse to FGA, 6 MWT reassessments, SLS and sit<> stands w / head turns, review self STMs to scap complex and CS. Continue Sit to stands with cervical rotation right and left alternating to help with scan and neck rotation w/ incorporation during gait, continue progresssing indoor and outdoor walking endurance and high level dynamic balance to improve gait turn confidence.
--- NOTE | 2021-01-13 13:45 | PT.OTN ---
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 During PT course, pt reported that he nearly fell down the stairs and his gait became increasingly worse. He presented to PT with ataxia and PT referred pt back to his doctor. He had lumbar, cervical, and brain MRIs and his cervical MRI revealed changes such that he underwent C5-C7 anterior cervical fusion on 08/30/20. Pt reports right neck and upper right shoulder pain up to 4/10. His pain is reducing. Pt gait trains with a RW and feels like he is still walking drunk. 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 His sister comes in twice a day to help with his mom. Pt had a fall last date when stepping back on his left leg and it gave way. He had not had another fall since he got home from the surgery. Pt is having minor headaches. He denies dizziness and passing out. Prior Treatments and Tests MRIs, two cervical surgeries ( first one in 2014) Treatment Goals Patient/Caregiver Goals To improve balance and to get back to normal walking and life PT-OP-C Subjective Start: 11/03/20 15:51 Freq: Status: Active Protocol: Document 01/13/21 13:03 SP (Rec: 01/13/21 16:24 SP [id number]) OP-PT Subjective Patient Comments Patient Comments Pt states continuing to work on balance more stationary and walking around corners noticing not back to normal still slows down for balance safety. Patient Reported Progress Improving PT-OP-D Balance Start: 11/03/20 15:51 Freq: Status: Active Protocol: Document 11/04/20 10:31 MB (Rec: 11/04/20 14:11 MB [id number]) OP-PT Balance Assessment Sitting Balance Static Sitting Balance Ability Good Dynamic Sitting Balance Ability Fair Sitting Balance Comments UE support for dynamic sitting and cues to place hands on thighs for MMT LEs in sitting Standing Balance Static Standing Balance Ability Fair Dynamic Standing Balance Ability Fair Standing Balance Comments See testing comments below Balance Tests Romberg Romberg 1' EO, 30 sec EC and imbalance to L Single Limb Standing Single Limb- Right Unable today Single Limb- Left Unable today Tandem Tandem Standing Unable today Other Other Balance Tests Performed Pt has decreased confidence with Romberg with EC in corner and opens his eyes d/t fear of falling Unable to perform tandem gait without reaching or holding onto wall, slow gait forward with eyes closed and step-to gait that is slow with retropulsion Marx Fall Scale Copyright Permission PT-OP-G Mobility & Gait Start: 11/03/20 15:51 Freq: Status: Active Protocol: Document 11/04/20 10:31 MB (Rec: 11/04/20 14:11 MB [id number]) OP Gait Assessment Gait Gait Assistance Required: Standby Assistance,Contact Guard Assist Distance (Feet) 75 Able to Maintain Weight Bearing Status Yes During Gait Assistive Devices Assistive Device None,Gait Belt,Front Wheeled Walker Orthotic/Prosthetic Devices or Brace: No Gait Deviations General Gait Pattern Ataxic,Decreased Stride Length ,Flexed Trunk,Wide Based Gait Factors Limiting Gait Function Factors Limiting Gait Function Decreased Sensation,Decreased Strength,Incoordination,Poor Balance Comments Gait Comments Gait with RW on the way in: better foot clearance, step- length and speed and superv to SBA. Gait training without AD with gait belt requires CGA and pt presents with ataxic gait pattern with wide ROBERT and functional foot drop right foot. He keeps his arms out to the side to help with balance . PT-OP-H Neuro Start: 11/03/20 15:51 Freq: Status: Active Protocol: Document 11/04/20 10:31 MB (Rec: 11/04/20 14:11 MB [id number]) Sensation Evaluation Comments Summary Comments Pt reports ongoing occ numbness in his right toes Coordination Evaluation Upper Extremity Tests Left Finger to Nose Test Normal Performance Pronation/Supination Test Normal Performance Right Finger to Nose Test Normal Performance Pronation/Supination Test Normal Performance Lower Extremity Tests Left Foot Tapping Test Minimal Impairment Right Foot Tapping Test Minimal Impairment Comments Coordination Comments Finger to nose testing was pt touching PT's finger and then his own nose. Foot tapping test was pt tapping toes of one foot on the floor crossing over the opposite foot. Both required increased effort and slower speed for pt Deep Tendon Reflex & Clonus Assessment Ankle Clonus Bilateral Clonus Assessment Absent PT-OP-K Range of Motion Start: 11/03/20 15:51 Freq: Status: Active Protocol: Document 11/04/20 10:31 MB (Rec: 11/04/20 14:11 MB [id number]) Shoulder Goniometric Range of Motion Shoulder Left Shoulder ROM WFL No Testing Position Sitting Flexion 160 Abduction 90 Right Shoulder ROM WFL No Testing Position Sitting Flexion 150 Abduction 90 PT-OP-M Strength Start: 11/03/20 15:51 Freq: Status: Active Protocol: Document 11/04/20 10:31 MB (Rec: 11/04/20 14:11 MB [id number]) Shoulder Strength Shoulder Manual Muscle Testing Left Flexion 5 Normal Abduction (C5) 5 Normal Comments Pt sitting Right Flexion 5 Normal Abduction (C5) 4 Good Comments Pt sitting Elbow/Forearm Strength Elbow and Forearm Manual Muscle Testing Left Flexion (C6) 5 Normal Extension (C7) 5 Normal Pronation 5 Normal Supination 5 Normal Comments Pt sitting Right Flexion (C6) 5 Normal Extension (C7) 5 Normal Pronation 5 Normal Supination 5 Normal Comments Pt sitting Hip Strength Hip Manual Muscle Testing Left Flexion (L2) 4 Good Abduction 4 Good Comments Pt sitting Right Flexion (L2) 3+ Fair+ Abduction 3+ Fair+ Comments Pt sitting Knee Strength Knee Manual Muscle Testing Left Flexion (S2) 5 Normal Extension (L3) 5 Normal Comments Pt sitting Right Flexion (S2) 4 Good Extension (L3) 4 Good Comments Pt sitting Ankle/Foot Strength Ankle and Foot Manual Muscle Testing Left Dorsiflexion (L4) 4 Good Right Dorsiflexion (L4) 4 Good Toe Strength Toe Manual Muscle Testing Left Great Toe Extension 4 Good Right Great Toe Extension 3+ Fair+ PT-OP-Q Treatments Start: 11/03/20 15:51 Freq: Status: Active Protocol: Document 01/13/21 13:03 SP (Rec: 01/13/21 16:24 SP [id number]) Therapeutic Exercises Standing Exercises theracane Standing Exercise Name CS, scapular mus complex- review- ordered one for home Side right Reps/Minutes 3 min Comments MWM scap small ROM or head turns/nods sit <> stands Reps/Minutes 9.5 reps, pauses stand and sit at times today Comments No UE support, 9.5 reps in 30 sec Gait Training Gait Activity Gait with head turns Device Used 0 Level of Assistance S Surface level Distance/Duration 40 ft x3 laps Treatment Focus increase ROM post manual Comments post manual to gain ROM gait for allowance of scanning 6MWT Description progressing toward goal indoor , met during outdoor assessment 3 txs ago Device Used 0 Level of Assistance S Surface firm Comments 1339 inside R and L loops directioning, stable. Demonstates slightly slower on turns stepping. Improved knee stability, very minimal R foot decent from heel strike. Manual Therapy Treatment Soft Tissue Mobilization STMs Body Location R>L suboccipitals, UT, lev scap, scm Comments manual then contract relax into SB and rotation CS- improved cervical ROM turning Neuro Re-Education Treatment Balance Activities SLS Equipment corner chair front, wall back Comments R 3, 22, 10 L 11, 6, 16 Corner exercises Details tandem>stagger (review HEP) Surface level Equipment back wall, chair front Reps/Duration 4 min Comments reviewed home NBOS head turns and EC 30 , stagger (EO 8- 10 sec). PT-OP-T Assessment and Plan Start: 11/03/20 15:51 Freq: Status: Active Protocol: Document 01/13/21 13:03 SP (Rec: 01/13/21 16:24 SP [id number]) Physical Therapy Assessment Goals 6 Mcc Goal (LTG) Pt will perform 12 reps sit to washing tub operator 30 sec to improve functional strength and balance by 02/09/21. 12/10/20: Pt performs 8 reps in 30 sec 12/31/20: 9.5 reps in 30 sec from side chair near fountain. 01/10/21: Progressin reps in 30 sec. 01/13/21: 9.5 reps/ 30 sec LTG Duration 8 weeks progressin01/10/21 5 Mcc Goal (LTG) Pt will deny falls for 2 months to decrease injury risk by 02/09/21. 12/10/20: Pt denies falls since starting PT. 01/10/21: GOAL MET:Pt continues has not had any falls since start of PT but has had an instance 2 days ago of walking in living room LOB but self recovery. LTG Duration 8 weeks GOAL MET: 01/10/21 4 Mcc Goal (LTG) Pt will present with improved B hip flexion, abduction, knee flexion and extension and ankle DF strength to 5/5 to improve balance and gait by . 12/10/20: LE strength: right hip flexion 4/5, B hip abduction and adduction 4/5, right great toe extension 3+/5 , left great toe extension 4/5 . Left hip flexion 5/5, B knee flexion and extension 5/5, B ankle DF 5/5. LTG Duration 8 weeks 3 Mcc Goal (LTG) Pt will gait train at least 1500 feet in 6 minutes without AD to allow return to I community ambulation by . 12/10/20: Pt gait trains 1320 feet in 6 minutes with no scuffing of feet, I, no AD, advanced gait distance today. 12/31/20 GOAL Met: 1620 ft w/ out AD uneven pavement in 6 minutes. LTG Duration 8 weeks GOAL MET 12/31/20 2 Mcc Goal (LTG) Pt will perform WNLs on FGA balance test to decrease fall risk by 02/09/21. 12/10/20: FGA score is 16/30 and pt has most trouble with changing gait speed, tandem walking, walking with eyes closed and steps without rail. He has no LOB with FGA today 11/11/20: FGA score is 11/30, indicating increased risk for falls. He has most trouble with changing gait speeds, pivoting around, weaving around cones and stepping over step. 01/10/21: GOAL MET: FGA 30/30. LTG Duration 8 weeks GOAL MET 01/10/21 1 Mcc Goal (LTG) Pt will perform progressive HEP with I including postural, flexibility, alignment, strengthening, balance and gait to improve balance, gait and strength by 02/09/21: 12/10/20: Pt is performing standing balance exercises in the corner: Romberg EO, sit to stands w/ head turns, stair gait head turns, self STMs PRN pain w/ed on free pressure / time agustina. LTG Duration 8 weeks Progress Towards Goals Progress Towards Goals Progressing Toward Goals Progress Comments MET goal #3, Goal #2 and #5 outdoor gait without AD to allow return to community ambulation. Indoor gait not able to gain same distance. Assessment Summary Assessment Pt had increase neck pain and difficulty turning head to R>L . Able to gain ROM post manual and noted increase R head turn with decrease trunk rotation during head turns gait end of tx. Pt gait trains decreased distance indoors than outdoors but better than last tx, he states due to multiple sharp turns, stable with no devations or LOB. Pt's endurance for sit <> stands not as well today. Will continue to progress dynamic balance and endurance next tx. Physical Therapy Plan Frequency and Duration Frequency of Treatment 2x/Week Duration of Treatment 8 weeks Plan of Care Start Date 12/10/20 Plan of Care End Date 02/09/21 Therapeutic Interventions Therapeutic Interventions Balance Training,Canalithic Repositioning,Coordination Training,Gait Training,Home Exercise Program,Joint Mobilizations,Manual Therapy, Neuromuscular Re-education, Patient/Caregiver Education, Self-Care/Home Management, Sensory Integration,Soft Tissue Mobilization,Taping, Therapeutic Activities, Therapeutic Exercises, Vestibular Rehabilitation Modalities Cold Pack/Ice Massage,Electric Stimulation,Hot Packs, Ultrasound Next Visit Focus/Plan Next Note Type Treatment Note Next Visit Plan Updated goals assessment past 4 txs. Review self STMs to scap complex and CS using theracane MWM for home application. Continue progress HEP balance corner, SLS and Sit to stands with cervical rotation right and left alternating to help with scan and neck rotation w/ incorporation during gait, continue progresssing indoor walking endurance and high level dynamic balance to improve gait turn confidence.
--- NOTE | 2021-01-18 13:53 | PT.OTN ---
Current Diagnoses Spinal stenosis, cervical region (01/18/21) Cervicalgia (01/18/21) Ataxia, unspecified (01/18/21) Physical Therapy Treatment Note PT-OP-A Visit Information Start: 11/03/20 15:51 Freq: Status: Active Protocol: Document 01/18/21 13:03 MB (Rec: 01/18/21 13:41 MB [id number]) Out-Patient Physical Therapy Visit Information Visit Information Visit Type Progress Note Visit Note Pt states that he understood that his [employer] was being terminated the end of November and he had to get [employer]. Visit Start Time 13:03 Visit Stop Time 13:42 Total Visit Minutes 39 Visit Number 19 PT-OP-B Current Condition Start: 11/03/20 15:51 Freq: Status: Active Protocol: Document 11/04/20 10:31 MB (Rec: 11/04/20 10:46 MB [id number]) Current Condition History of Current Condition Onset Date End 2019 Current Complaints Minor neck pain and balance issue, balance is biggest problem History of Current Condition Pt received PT for right shoulder pain at the end 2019. During PT course, pt reported that he nearly fell down the stairs and his gait became increasingly worse. He presented to PT with ataxia and PT referred pt back to his doctor. He had lumbar, cervical, and brain MRIs and his cervical MRI revealed changes such that he underwent C5-C7 anterior cervical fusion on 08/30/20. Pt reports right neck and upper right shoulder pain up to 4/10. His pain is reducing. Pt gait trains with a RW and feels like he is still walking drunk. 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 His sister comes in twice a day to help with his mom. Pt had a fall last date when stepping back on his left leg and it gave way. He had not had another fall since he got home from the surgery. Pt is having minor headaches. He denies dizziness and passing out. Prior Treatments and Tests MRIs, two cervical surgeries ( first one in 2014) Treatment Goals Patient/Caregiver Goals To improve balance and to get back to normal walking and life PT-OP-C Subjective Start: 11/03/20 15:51 Freq: Status: Active Protocol: Document 01/18/21 13:03 MB (Rec: 01/18/21 13:41 MB [id number]) OP-PT Subjective Patient Comments Patient Comments He feels like he is making good progress with PT and that there is more work to be done . He is driving. He went to the [place] and did well. PT-OP-D Balance Start: 11/03/20 15:51 Freq: Status: Active Protocol: Document 11/04/20 10:31 MB (Rec: 11/04/20 14:11 MB [id number]) OP-PT Balance Assessment Sitting Balance Static Sitting Balance Ability Good Dynamic Sitting Balance Ability Fair Sitting Balance Comments UE support for dynamic sitting and cues to place hands on thighs for MMT LEs in sitting Standing Balance Static Standing Balance Ability Fair Dynamic Standing Balance Ability Fair Standing Balance Comments See testing comments below Balance Tests Romberg Romberg 1' EO, 30 sec EC and imbalance to L Single Limb Standing Single Limb- Right Unable today Single Limb- Left Unable today Tandem Tandem Standing Unable today Other Other Balance Tests Performed Pt has decreased confidence with Romberg with EC in corner and opens his eyes d/t fear of falling Unable to perform tandem gait without reaching or holding onto wall, slow gait forward with eyes closed and step-to gait that is slow with retropulsion Marx Fall Scale Copyright Permission PT-OP-G Mobility & Gait Start: 11/03/20 15:51 Freq: Status: Active Protocol: Document 11/04/20 10:31 MB (Rec: 11/04/20 14:11 MB [id number]) OP Gait Assessment Gait Gait Assistance Required: Standby Assistance,Contact Guard Assist Distance (Feet) 75 Able to Maintain Weight Bearing Status Yes During Gait Assistive Devices Assistive Device None,Gait Belt,Front Wheeled Walker Orthotic/Prosthetic Devices or Brace: No Gait Deviations General Gait Pattern Ataxic,Decreased Stride Length ,Flexed Trunk,Wide Based Gait Factors Limiting Gait Function Factors Limiting Gait Function Decreased Sensation,Decreased Strength,Incoordination,Poor Balance Comments Gait Comments Gait with RW on the way in: better foot clearance, step- length and speed and superv to SBA. Gait training without AD with gait belt requires CGA and pt presents with ataxic gait pattern with wide ROBERT and functional foot drop right foot. He keeps his arms out to the side to help with balance . PT-OP-H Neuro Start: 11/03/20 15:51 Freq: Status: Active Protocol: Document 11/04/20 10:31 MB (Rec: 11/04/20 14:11 MB [id number]) Sensation Evaluation Comments Summary Comments Pt reports ongoing occ numbness in his right toes Coordination Evaluation Upper Extremity Tests Left Finger to Nose Test Normal Performance Pronation/Supination Test Normal Performance Right Finger to Nose Test Normal Performance Pronation/Supination Test Normal Performance Lower Extremity Tests Left Foot Tapping Test Minimal Impairment Right Foot Tapping Test Minimal Impairment Comments Coordination Comments Finger to nose testing was pt touching PT's finger and then his own nose. Foot tapping test was pt tapping toes of one foot on the floor crossing over the opposite foot. Both required increased effort and slower speed for pt Deep Tendon Reflex & Clonus Assessment Ankle Clonus Bilateral Clonus Assessment Absent PT-OP-K Range of Motion Start: 11/03/20 15:51 Freq: Status: Active Protocol: Document 11/04/20 10:31 MB (Rec: 11/04/20 14:11 MB [id number]) Shoulder Goniometric Range of Motion Shoulder Left Shoulder ROM WFL No Testing Position Sitting Flexion 160 Abduction 90 Right Shoulder ROM WFL No Testing Position Sitting Flexion 150 Abduction 90 PT-OP-M Strength Start: 11/03/20 15:51 Freq: Status: Active Protocol: Document 11/04/20 10:31 MB (Rec: 11/04/20 14:11 MB [id number]) Shoulder Strength Shoulder Manual Muscle Testing Left Flexion 5 Normal Abduction (C5) 5 Normal Comments Pt sitting Right Flexion 5 Normal Abduction (C5) 4 Good Comments Pt sitting Elbow/Forearm Strength Elbow and Forearm Manual Muscle Testing Left Flexion (C6) 5 Normal Extension (C7) 5 Normal Pronation 5 Normal Supination 5 Normal Comments Pt sitting Right Flexion (C6) 5 Normal Extension (C7) 5 Normal Pronation 5 Normal Supination 5 Normal Comments Pt sitting Hip Strength Hip Manual Muscle Testing Left Flexion (L2) 4 Good Abduction 4 Good Comments Pt sitting Right Flexion (L2) 3+ Fair+ Abduction 3+ Fair+ Comments Pt sitting Knee Strength Knee Manual Muscle Testing Left Flexion (S2) 5 Normal Extension (L3) 5 Normal Comments Pt sitting Right Flexion (S2) 4 Good Extension (L3) 4 Good Comments Pt sitting Ankle/Foot Strength Ankle and Foot Manual Muscle Testing Left Dorsiflexion (L4) 4 Good Right Dorsiflexion (L4) 4 Good Toe Strength Toe Manual Muscle Testing Left Great Toe Extension 4 Good Right Great Toe Extension 3+ Fair+ PT-OP-Q Treatments Start: 11/03/20 15:51 Freq: Status: Active Protocol: Document 01/18/21 13:03 MB (Rec: 01/18/21 13:41 MB [id number]) Therapeutic Exercises Sitting Exercises LAQ with band Side bilateral Equipment Used Level 2 band Comments 10 reps slowly with 2-3 AP each rep, alternating legs Ankle DF and eversion with band Side bilateral Equipment Used Level 2 band Comments 10 reps slowly Standing Exercises Side stepping and backward walking with band Side bilateral Equipment Used Level 2 band Comments Band around ankles, several reps both directions sit <> stands Comments 10 reps in 30 sec without UE support Self-Care/Home Management Treatment Education Other Education Ed pt in importance of following up with his insurance companies d/t change in insurance per his report and [employer] still being billed Ed in importance of increasing activity at home and performing strengthening exercises as instructed today PT-OP-T Assessment and Plan Start: 11/03/20 15:51 Freq: Status: Active Protocol: Document 01/18/21 13:03 MB (Rec: 01/18/21 13:41 MB [id number]) Physical Therapy Assessment Rehab Potential Rehabilitation Potential Good Evaluation Complexity Number of Personal Factors/Comorbidities 1-2 Number of Body Systems Impaired 1-2 Clinical Presentation at Evaluation Stable Impairments Impairments Activity Tolerance,Balance, Functional Activities,Gait, Posture,Strength Other Impairments Personal factors include pt has been out of work for over five months and has been sedentary, slowly increasing activity. Body systems affected include neurological, musculoskeletal. His presentation is stable and he is improving. 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 01/18/21: Pt demonstrates 10 sit to stands without UE support in 30 sec LTG Duration 4 weeks 5 Bat Boy/Girl Goal (LTG) Pt will deny falls for 2 months to decrease injury risk by 02/09/21. 01/18/21: Met LTG Duration Met 4 Long-Term Goal (LTG) Pt will present with improved B hip flexion, abduction, knee flexion and extension and ankle DF strength to 12/29 to improve balance and gait by . 01/18/21: LE strength: B hip flexion and abduction 5/5, B knee extension /5, B knee flexion 5/5, right ankle DF 5/ 5, left ankle DF 4/5 LTG Duration 4 weeks 3 Long-Term Goal (LTG) Pt will gait train at least 1500 feet in 6 minutes without AD to allow return to I community ambulation by . 12/10/20: Pt gait trains 1320 feet in 6 minutes with no scuffing of feet, I, no AD, advanced gait distance today. 12/31/20 GOAL Met: 1620 ft w/ out AD uneven pavement in 6 minutes. LTG Duration 8 weeks GOAL MET 12/31/20 2 Bat Boy/Girl Goal (LTG) Pt will perform WNLs on FGA balance test to decrease fall risk by 02/09/21. 12/10/20: FGA score is 16/30 and pt has most trouble with changing gait speed, tandem walking, walking with eyes closed and steps without rail. He has no LOB with FGA today 11/11/20: FGA score is 11/30, indicating increased risk for falls. He has most trouble with changing gait speeds, pivoting around, weaving around cones and stepping over step. 01/10/21: GOAL MET: FGA 30/30. LTG Duration 8 weeks GOAL MET 01/10/21 1 Long-Term Goal (LTG) Pt will perform progressive HEP with I including postural, flexibility, alignment, strengthening, balance and gait to improve balance, gait and strength by 02/18/21. 01/18/21: Pt has been performing sit to stands, Romberg standing EO and EC, walking with head turns. Added band exercises for LE strengthening today. LTG Duration 4 weeks Assessment Summary Assessment Pt has progressed towards all goals since starting PT. He has met 6MWT and FGA balance goals. His LE strength is improving and he is doing more exercise and walking at home. His sit to stands without UE support are improved. PT encourages pt to talk with insurance company, old job or financial office in hospital about his insurance change and benefits. 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 Physical Therapy Plan Frequency and Duration Frequency of Treatment 2x/Week Duration of Treatment 4 weeks Plan of Care Start Date 01/18/21 Plan of Care End Date 02/18/21 Therapeutic Interventions Therapeutic Interventions Balance Training,Canalithic Repositioning,Coordination Training,Gait Training,Home Exercise Program,Joint Mobilizations,Manual Therapy, Neuromuscular Re-education, Patient/Caregiver Education, Self-Care/Home Management, Sensory Integration,Soft Tissue Mobilization,Taping, Therapeutic Activities, Therapeutic Exercises, Vestibular Rehabilitation Modalities Cold Pack/Ice Massage,Electric Stimulation,Hot Packs, Ultrasound Next Visit Focus/Plan Next Note Type Treatment Note Next Visit Plan Use a treatment to have pt practice all of his caregiver work tasks. Review band exercises for intrascapular muscles, shoulder external rotators, multifidi with core tight and heel raises
--- NOTE | 2021-01-18 13:54 | PT.OPPOC ---
Physical, Occupational & Speech Therapy At [facility] Current Diagnoses Spinal stenosis, cervical region (01/18/21) Cervicalgia (01/18/21) Ataxia, unspecified (01/18/21) Visit Care Team Role Provider Type Antoine Alvarez MD Family Provider Non-Staff Primary Care Provider Specialty: Medical Address: [address] [place] [address], [id number] Email: Michael Prasad MD Attending Provider Non-Staff Referring Provider Specialty: Neurology Address: [address] [place] [address], [phone] Email: Plan Of Care PT-OP-T Assessment and Plan Start: 11/03/20 15:51 Freq: Status: Active Protocol: Document 01/18/21 13:03 MB (Rec: 01/18/21 13:41 MB [id number]) Physical Therapy Assessment Rehab Potential Rehabilitation Potential Good Evaluation Complexity Number of Personal Factors/Comorbidities 1-2 Number of Body Systems Impaired 1-2 Clinical Presentation at Evaluation Stable Impairments Impairments Activity Tolerance,Balance, Functional Activities,Gait, Posture,Strength Other Impairments Personal factors include pt has been out of work for over five months and has been sedentary, slowly increasing activity. Body systems affected include neurological, musculoskeletal. His presentation is stable and he is improving. 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 01/18/21: Pt demonstrates 10 sit to stands without UE support in 30 sec LTG Duration 4 weeks 5 Carton Maker Goal (LTG) Pt will deny falls for 2 months to decrease injury risk by 02/09/21. 01/18/21: Met LTG Duration Met 4 Carton Maker Goal (LTG) Pt will present with improved B hip flexion, abduction, knee flexion and extension and ankle DF strength to 5/5 to improve balance and gait by . 01/18/21: LE strength: B hip flexion and abduction 5/5, B knee extension 4/5, B knee flexion 5/5, right ankle DF 5/ 5, left ankle DF 4/5 LTG Duration 4 weeks 3 Nursing Home Goal (LTG) Pt will gait train at least 1500 feet in 6 minutes without AD to allow return to I community ambulation by . 12/10/20: Pt gait trains 1320 feet in 6 minutes with no scuffing of feet, I, no AD, advanced gait distance today. 12/31/20 GOAL Met: 1620 ft w/ out AD uneven pavement in 6 minutes. LTG Duration 8 weeks GOAL MET 12/31/20 2 Carton Maker Goal (LTG) Pt will perform WNLs on FGA balance test to decrease fall risk by 02/09/21. 12/10/20: FGA score is 16/30 and pt has most trouble with changing gait speed, tandem walking, walking with eyes closed and steps without rail. He has no LOB with FGA today 11/11/20: FGA score is 11/30, indicating increased risk for falls. He has most trouble with changing gait speeds, pivoting around, weaving around cones and stepping over step. 01/10/21: GOAL MET: FGA 30/30. LTG Duration 8 weeks GOAL MET 01/10/21 1 Carton Maker Goal (LTG) Pt will perform progressive HEP with I including postural, flexibility, alignment, strengthening, balance and gait to improve balance, gait and strength by 02/18/21. 01/18/21: Pt has been performing sit to stands, Romberg standing EO and EC, walking with head turns. Added band exercises for LE strengthening today. LTG Duration 4 weeks Assessment Summary Assessment Pt has progressed towards all goals since starting PT. He has met 6MWT and FGA balance goals. His LE strength is improving and he is doing more exercise and walking at home. His sit to stands without UE support are improved. PT encourages pt to talk with insurance company, old job or financial office in hospital about his insurance change and benefits. 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 Physical Therapy Plan Frequency and Duration Frequency of Treatment 2x/Week Duration of Treatment 4 weeks Plan of Care Start Date 01/18/21 Plan of Care End Date 02/18/21 Therapeutic Interventions Therapeutic Interventions Balance Training,Canalithic Repositioning,Coordination Training,Gait Training,Home Exercise Program,Joint Mobilizations,Manual Therapy, Neuromuscular Re-education, Patient/Caregiver Education, Self-Care/Home Management, Sensory Integration,Soft Tissue Mobilization,Taping, Therapeutic Activities, Therapeutic Exercises, Vestibular Rehabilitation Modalities Cold Pack/Ice Massage,Electric Stimulation,Hot Packs, Ultrasound Next Visit Focus/Plan Next Note Type Treatment Note Next Visit Plan Use a treatment to have pt practice all of his caregiver work tasks. Review band exercises for intrascapular muscles, shoulder external rotators, multifidi with core tight and heel raises Plan of Care Dates Plan of Care Start Date 01/18/21 Plan of Care End Date 02/18/21 Electronically Signed by: Edith Cam, PT 01/18/21 [id number] Please Sign and Return: I have reviewed this Plan of Care and certify that the skilled therapy services above are required to meet the patient?s needs. Physician Signature Date Printed Name and Credentials Clinical Instructor Signature Printed Name and Credentials
--- NOTE | 2021-01-20 15:50 | PT.OTN ---
Current Diagnoses Spinal stenosis, cervical region (01/20/21) Cervicalgia (01/20/21) Ataxia, unspecified (01/20/21) Physical Therapy Treatment Note PT-OP-A Visit Information Start: 11/03/20 15:51 Freq: Status: Active Protocol: Document 01/20/21 12:17 MB (Rec: 01/20/21 12:59 MB [id number]) Out-Patient Physical Therapy Visit Information Visit Information Visit Type Treatment Note Visit Start Time 12:17 Visit Stop Time 13:00 Total Visit Minutes 43 Visit Number 20 PT-OP-B Current Condition Start: 11/03/20 15:51 Freq: Status: Active Protocol: Document 11/04/20 10:31 MB (Rec: 11/04/20 10:46 MB [id number]) Current Condition History of Current Condition Onset Date End 2019 Current Complaints Minor neck pain and balance issue, balance is biggest problem History of Current Condition Pt received PT for right shoulder pain at the end 2019. During PT course, pt reported that he nearly fell down the stairs and his gait became increasingly worse. He presented to PT with ataxia and PT referred pt back to his doctor. He had lumbar, cervical, and brain MRIs and his cervical MRI revealed changes such that he underwent C5-C7 anterior cervical fusion on 08/30/20. Pt reports right neck and upper right shoulder pain up to 4/10. His pain is reducing. Pt gait trains with a RW and feels like he is still walking drunk. 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 His sister comes in twice a day to help with his mom. Pt had a fall last date when stepping back on his left leg and it gave way. He had not had another fall since he got home from the surgery. Pt is having minor headaches. He denies dizziness and passing out. Prior Treatments and Tests MRIs, two cervical surgeries ( first one in 2014) Treatment Goals Patient/Caregiver Goals To improve balance and to get back to normal walking and life PT-OP-C Subjective Start: 11/03/20 15:51 Freq: Status: Active Protocol: Document 01/20/21 12:17 MB (Rec: 01/20/21 12:59 MB [id number]) OP-PT Subjective Patient Comments Patient Comments Pt has no new reports. PT-OP-D Balance Start: 11/03/20 15:51 Freq: Status: Active Protocol: Document 11/04/20 10:31 MB (Rec: 11/04/20 14:11 MB [id number]) OP-PT Balance Assessment Sitting Balance Static Sitting Balance Ability Good Dynamic Sitting Balance Ability Fair Sitting Balance Comments UE support for dynamic sitting and cues to place hands on thighs for MMT LEs in sitting Standing Balance Static Standing Balance Ability Fair Dynamic Standing Balance Ability Fair Standing Balance Comments See testing comments below Balance Tests Romberg Romberg 1' EO, 30 sec EC and imbalance to L Single Limb Standing Single Limb- Right Unable today Single Limb- Left Unable today Tandem Tandem Standing Unable today Other Other Balance Tests Performed Pt has decreased confidence with Romberg with EC in corner and opens his eyes d/t fear of falling Unable to perform tandem gait without reaching or holding onto wall, slow gait forward with eyes closed and step-to gait that is slow with retropulsion Marx Fall Scale Copyright Permission PT-OP-G Mobility & Gait Start: 11/03/20 15:51 Freq: Status: Active Protocol: Document 11/04/20 10:31 MB (Rec: 11/04/20 14:11 MB [id number]) OP Gait Assessment Gait Gait Assistance Required: Standby Assistance,Contact Guard Assist Distance (Feet) 75 Able to Maintain Weight Bearing Status Yes During Gait Assistive Devices Assistive Device None,Gait Belt,Front Wheeled Walker Orthotic/Prosthetic Devices or Brace: No Gait Deviations General Gait Pattern Ataxic,Decreased Stride Length ,Flexed Trunk,Wide Based Gait Factors Limiting Gait Function Factors Limiting Gait Function Decreased Sensation,Decreased Strength,Incoordination,Poor Balance Comments Gait Comments Gait with RW on the way in: better foot clearance, step- length and speed and superv to SBA. Gait training without AD with gait belt requires CGA and pt presents with ataxic gait pattern with wide ROBERT and functional foot drop right foot. He keeps his arms out to the side to help with balance . PT-OP-H Neuro Start: 11/03/20 15:51 Freq: Status: Active Protocol: Document 11/04/20 10:31 MB (Rec: 11/04/20 14:11 MB [id number]) Sensation Evaluation Comments Summary Comments Pt reports ongoing occ numbness in his right toes Coordination Evaluation Upper Extremity Tests Left Finger to Nose Test Normal Performance Pronation/Supination Test Normal Performance Right Finger to Nose Test Normal Performance Pronation/Supination Test Normal Performance Lower Extremity Tests Left Foot Tapping Test Minimal Impairment Right Foot Tapping Test Minimal Impairment Comments Coordination Comments Finger to nose testing was pt touching PT's finger and then his own nose. Foot tapping test was pt tapping toes of one foot on the floor crossing over the opposite foot. Both required increased effort and slower speed for pt Deep Tendon Reflex & Clonus Assessment Ankle Clonus Bilateral Clonus Assessment Absent PT-OP-K Range of Motion Start: 11/03/20 15:51 Freq: Status: Active Protocol: Document 11/04/20 10:31 MB (Rec: 11/04/20 14:11 MB [id number]) Shoulder Goniometric Range of Motion Shoulder Left Shoulder ROM WFL No Testing Position Sitting Flexion 160 Abduction 90 Right Shoulder ROM WFL No Testing Position Sitting Flexion 150 Abduction 90 PT-OP-M Strength Start: 11/03/20 15:51 Freq: Status: Active Protocol: Document 11/04/20 10:31 MB (Rec: 11/04/20 14:11 MB [id number]) Shoulder Strength Shoulder Manual Muscle Testing Left Flexion 5 Normal Abduction (C5) 5 Normal Comments Pt sitting Right Flexion 5 Normal Abduction (C5) 4 Good Comments Pt sitting Elbow/Forearm Strength Elbow and Forearm Manual Muscle Testing Left Flexion (C6) 5 Normal Extension (C7) 5 Normal Pronation 5 Normal Supination 5 Normal Comments Pt sitting Right Flexion (C6) 5 Normal Extension (C7) 5 Normal Pronation 5 Normal Supination 5 Normal Comments Pt sitting Hip Strength Hip Manual Muscle Testing Left Flexion (L2) 4 Good Abduction 4 Good Comments Pt sitting Right Flexion (L2) 3+ Fair+ Abduction 3+ Fair+ Comments Pt sitting Knee Strength Knee Manual Muscle Testing Left Flexion (S2) 5 Normal Extension (L3) 5 Normal Comments Pt sitting Right Flexion (S2) 4 Good Extension (L3) 4 Good Comments Pt sitting Ankle/Foot Strength Ankle and Foot Manual Muscle Testing Left Dorsiflexion (L4) 4 Good Right Dorsiflexion (L4) 4 Good Toe Strength Toe Manual Muscle Testing Left Great Toe Extension 4 Good Right Great Toe Extension 3+ Fair+ PT-OP-Q Treatments Start: 11/03/20 15:51 Freq: Status: Active Protocol: Document 01/20/21 12:17 MB (Rec: 01/20/21 12:59 MB [id number]) Therapeutic Activity Therapeutic Activity transfer training body mechanics Comments Pt is able to perform all caregiving tasks with I after cued for body mechanics ( keeping hips low, core engagement, preparing for transferring patient, placing patient's legs between his and stepping feet) to assist with balance and ergonomics for return to caregiving. Tasks performed: making bed, transferring pt from chair to bed and back with SPT, rolling patient, carrying tray with water cups Gait Training Gait Activity Gait training without AD Comments Pt carrying tray with three cups of jorge clockwise and counterclockwise around gym and then 1 cup of full water in both hands both directions and then performing with up, right and left and down head turns with no LOB and mild loss of water on the floor 6' of stair training for strengthening and balance and pt requires use of 1 rail for safety and balance Self-Care/Home Management Treatment Education Other Education Importance of sit to stands, stair training for endurance and to prepare for [employer] game, increasing activity at home including caregiving tasks and LE strengthening at d/c. PT-OP-T Assessment and Plan Start: 11/03/20 15:51 Freq: Status: Active Protocol: Document 01/20/21 12:17 MB (Rec: 01/20/21 12:59 MB [id number]) Physical Therapy Assessment Rehab Potential Rehabilitation Potential Good Evaluation Complexity Number of Personal Factors/Comorbidities 1-2 Number of Body Systems Impaired 1-2 Clinical Presentation at Evaluation Stable Impairments Impairments Activity Tolerance,Balance, Functional Activities,Gait, Posture,Strength Other Impairments Personal factors include pt has been out of work for over five months and has been sedentary, slowly increasing activity. Body systems affected include neurological, musculoskeletal. His presentation is stable and he is improving. 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 01/18/21: Pt demonstrates 10 sit to stands without UE support in 30 sec LTG Duration Progressed, pt to con't sit to stand exercise at home 4 Correction Goal (LTG) Pt will present with improved B hip flexion, abduction, knee flexion and extension and ankle DF strength to 5/5 to improve balance and gait by . 01/18/21: LE strength: B hip flexion and abduction 5/5, B knee extension 4/5, B knee flexion 5/5, right ankle DF 5/ 5, left ankle DF 4/5 LTG Duration Progressed, pt to con't new leg exercises at home 1 Cardiac Cath Technician Goal (LTG) Pt will perform progressive HEP with I including postural, flexibility, alignment, strengthening, balance and gait to improve balance, gait and strength by 02/18/21. 01/18/21: Pt has been performing sit to stands, Romberg standing EO and EC, walking with head turns. Added band exercises for LE strengthening today. LTG Duration Met Assessment Summary Assessment Reviewed theraband strengthening exercises today and re-added intrascapular and shoulder rotator strengthening with band and multifidi with heel raises for strengthenging and balance. Pt is able to perform all caregiving tasks today. He is able to ascend and descend steps with 1 rail for 5' and will con't at home to prepare for [employer] game in May. PT con't to ed pt that he needs to con't sit to stands and leg strengthening at home as well as more activities during the day. Given unknown insurance situation starting next month and that pt has progressed towards all goals and just needs to con't exercises and activities at home, will d/c PT. Physical Therapy Plan Frequency and Duration Frequency of Treatment 2x/Week Duration of Treatment 4 weeks Plan of Care Start Date 01/18/21 Plan of Care End Date 02/18/21 Therapeutic Interventions Therapeutic Interventions Balance Training,Canalithic Repositioning,Coordination Training,Gait Training,Home Exercise Program,Joint Mobilizations,Manual Therapy, Neuromuscular Re-education, Patient/Caregiver Education, Self-Care/Home Management, Sensory Integration,Soft Tissue Mobilization,Taping, Therapeutic Activities, Therapeutic Exercises, Vestibular Rehabilitation Modalities Cold Pack/Ice Massage,Electric Stimulation,Hot Packs, Ultrasound
== END 2021-01-21 07:31 | disposition home or self-care (01) ==
LOC: PHYS 12:15
PROVIDERS: Family Provider Family Medicine; PCP Family Medicine; Referring Provider Psychiatry & Neurology Neurology; Visit Provider Psychiatry & Neurology Neurology
DX: M54.2 Cervicalgia (principal); M48.02 Spinal stenosis, cervical region; R27.0 Ataxia, unspecified
CPT/HCPCS: 97110; 97112; 97116; 97140; 97161; 97530; 97535

== ENCOUNTER 2021-02-24 08:00 | Emergency (ER) | payer OTHER, MEDICAID, SELFPAY ==
[2021-02-24] VITALS (9 sets, daily range): BP systolic 116–144; BP diastolic 79–104; PULSE 70–120; RESP 12–22; TEMP 36.4; O2SAT 95–97; BMI 25.7
--- NOTE | 2021-02-24 08:45 | ED.ARRPALP ---
HPI - Arrhythmia/Palpitations General Chief Complaint: Abdominal Pain Stated Complaint: Heart pounding/Lightheaded/Stomach pain Time Seen by Provider: 02/24/21 08:44 Source: patient Mode of arrival: Ambulatory Limitations: no limitations History of Present Illness HPI narrative: This is a 50-year-old male who has a history of hypertension and takes daily medication including lisinopril. Colitis as well as cervical disc repair in August of 2019. Patient states he has had intermittent abdominal pain that suddenly became quite worse overnight. He describes it mostly as his upper abdomen but is throughout. Patient states he has felt slightly nauseated but has not had any vomiting. Patient denies any radiation of pain to his back. He has had bowel movements that were soft today with some diarrhea stool yesterday. He is not appreciate any melena or bright red blood. He has not had any urinary symptoms. Patient states that he has had some similar pain in the past intermittently. He has had a history colitis and this does feel somewhat similar but today he also felt dizzy and a little bit lightheaded. He also feels like his heart rate is fast he felt a little short of breath. Patient denies any surgery besides difficult to [place] [employer]. He has had colonoscopy x2 in the past 3 years for rectal bleeding. Patient states he was told they were fine. Patient denies tobacco, no alcohol, occasional THC but no other illicit. He is allergic to penicillin and his primary care is Dr. Alvarez. Related Data Home Medications Medication Instructions Recorded Confirmed lisinopril 20 mg tablet 20 mg PO DAILY 06/18/19 06/18/19 Previous Rx's Medication Instructions Recorded vancomycin 125 mg capsule 125 mg PO QID #32 cap 06/20/19 tramadol 50 mg tablet (Ultram) 50 mg PO Q6H PRN #7 tab 06/08/20 meloxicam 7.5 mg tablet (Mobic) 7.5 mg PO BID PRN #10 tab 02/24/21 Allergies Allergy/AdvReac Type Severity Reaction Status Date / Time Penicillins [PENICILLINS] Allergy Mild HIVES Verified 06/18/19 11:19 Review of Systems Review of Systems ROS Unobtainable: All systems reviewed & are unremarkable except as noted in HPI and below Patient History Medical History HTN (hypertension) Patient denies medical problems Surgical History History of neck surgery Social History household members: family Smoking Status: Former smoker alcohol intake: never Smoking Status: Former smoker alcohol intake frequency: 0-2 drinks per day Substance Use Type: does not use Exam Narrative Exam Narrative: GENERAL: Alert and oriented x three, well-nourished male in mild distress. Patient does appear uncomfortable. HEENT: Head normocephalic, atraumatic, EOMI, pupils reactive, face symmetric, moist mucous membranes NECK: Supple, full range of motion CARDIOVASCULAR: Mild tachycardia rate and rhythm without murmurs, rubs or gallops. No swelling bilateral lower extremities. RESPIRATORY: Breath sounds equal bilaterally, no wheezes rales or rhonchi. ABDOMEN: Soft, patient has diffuse tenderness but more significantly in the right lower quadrant but he also has some discomfort in the left upper. Normoactive bowel sounds all 4 quadrants. No guarding or rebound, rigidity, no mass. Nondistended. : No CVA tenderness EXTREMITIES: Normal range of motion, no clubbing or edema. Neurovascularly intact NEUROLOGICAL: Cranial nerves II through XII grossly intact. Moving all extremities SKIN: Warm, dry, no petechiae, no rashes or lesions. Initial Vital Signs Initial Vital Signs: Vital Signs Temperature 97.5 F L 02/24/21 08:12 Pulse Rate 120 H 02/24/21 08:12 Respiratory Rate 20 02/24/21 08:12 Blood Pressure 144/104 H 02/24/21 08:12 Pulse Oximetry 97 02/24/21 08:12 Course Orders Ordered: Discontinued Medications Sodium Chloride (Normal Saline 0.9%) 1,000 mls @ 1,000 mls/hr IV BOLUS ONE Stop: 02/24/21 10:10 Last Infusion: 02/24/21 10:35 Dose: 0 mls/hr Documented by: Admin: 02/24/21 09:28 Dose: 1,000 mls/hr Documented by: CHAVA Ketorolac Tromethamine (Ketorolac 30 Mg/Ml Vial) 30 mg IV NOW ONE Stop: 02/24/21 09:12 Last Admin: 02/24/21 09:29 Dose: 30 mg Documented by: CHAVA Ondansetron HCl (Ondansetron 4 Mg/2 Ml Inj) 4 mg IV NOW ONE Stop: 02/24/21 09:12 Last Admin: 02/24/21 09:28 Dose: 4 mg Documented by: CHAVA Reevaluation(s) Reevaluation #1: recheck, pain better, still dizzy but vitals improved. Reviewed bilirubin which is chronically elevated. Vital Signs Vital signs: Vital Signs - 8 hr 02/24/21 08:12 02/24/21 10:05 02/24/21 10:08 Temperature 97.5 F L Pulse Rate 120 H 85 83 Pulse Rate [Orthostatic Lying] Pulse Rate [Orthostatic Sitting] Pulse Rate [Orthostatic Standing] Respiratory Rate 20 19 22 Blood Pressure 144/104 H 116/80 Blood Pressure [Orthostatic Lying] Blood Pressure [Orthostatic Sitting] Blood Pressure [Orthostatic Standing] Pulse Oximetry 97 97 95 02/24/21 10:30 02/24/21 11:00 02/24/21 11:30 Temperature Pulse Rate 76 72 70 Pulse Rate [Orthostatic Lying] Pulse Rate [Orthostatic Sitting] Pulse Rate [Orthostatic Standing] Respiratory Rate 12 19 19 Blood Pressure 120/79 121/79 Blood Pressure [Orthostatic Lying] Blood Pressure [Orthostatic Sitting] Blood Pressure [Orthostatic Standing] Pulse Oximetry 95 96 97 02/24/21 11:39 02/24/21 11:40 02/24/21 11:44 Temperature Pulse Rate 70 86 Pulse Rate [Orthostatic Lying] 71 Pulse Rate [Orthostatic Sitting] 82 Pulse Rate [Orthostatic Standing] 84 Respiratory Rate 14 17 Blood Pressure 120/82 128/85 Blood Pressure [Orthostatic Lying] 120/82 Blood Pressure [Orthostatic Sitting] 126/85 Blood Pressure [Orthostatic Standing] 129/85 Pulse Oximetry 97 97 MDM - Arrhythmia/Palpitations Lab Data Result diagrams: 02/24/21 09:25 02/24/21 09:25 Labs: Lab Results 02/24/21 02/24/21 02/24/21 Range/Units 09:25 09:25 09:25 WBC 6.0 (4.5-11.0) X10^3/uL RBC 4.68 (4.5-5.9) X10^6/uL Hgb 14.7 (13.5-17.5) g/dL Hct 42.1 (41-53) % MCV 90.1 (80-100) fL MCH 31.5 (26-34) PG MCHC 35.0 (30-36) % RDW 12.5 (11.6-14.8) % Plt Count 157 (150-400) X10^3/uL Neut % (Auto) 57.4 (50-75) % Lymph % (Auto) 28.9 (25-40) % [place] % (Auto) 9.6 (3-14) % Eos % (Auto) 2.9 (2-4) % Baso % (Auto) 1.2 (0-2) % Neut # (Auto) 3400 (7653-1942) /uL Lymph # (Auto) 1700 (3212-3781) /uL [place] # (Auto) 600 (0-900) /uL Eos # (Auto) 200 (0-450) /uL Baso # (Auto) 100 (0-100) /uL Sodium 140 (137-145) mmol/L Potassium 4.0 (3.4-5.1) mmol/L Chloride 109 H (98-107) mmol/L Carbon Dioxide 23 (22-32) mmol/L BUN 16 (9-20) mg/dL Creatinine 0.96 (0.66-1.25) mg/dL Estimated GFR > 60.0 (>60) mL/min BUN/Creatinine Ratio 16.7 (6-22) Glucose 117 H (70-100) mg/dL Lactate 1.2 (0.7-2.1) mmol/L Calcium 9.8 (8.4-10.2) mg/dL Total Bilirubin 2.0 H (0.2-1.3) mg/dL AST 39 (17-59) IU/L ALT 56 H (<50) IU/L Alkaline Phosphatase 72 (38-126) U/L Total Protein 7.8 (6.3-8.2) g/dL Albumin 4.6 (3.5-5.0) g/dL Globulin 3.2 (1.7-4.1) g/dL Albumin/Globulin Ratio 1.4 (1.0-2.8) Lipase 37 (23-300) U/L Urine Color Urine Appearance Urine pH (4.5-8.0) Ur Specific [place] (1.000-1.035) Urine Protein (Negative) Urine Glucose (UA) (Negative) g/dL Urine Ketones (NEGATIVE) Urine Occult Blood (Negative) Urine Nitrate (Negative) Urine Bilirubin (NEGATIVE) Urine Urobilinogen (0.2) E.U./dL Ur Leukocyte Esterase (NEGATIVE) Urine RBC (0-5/HPF) Urine WBC (0-5/HPF) Urine Bacteria (None) Hyaline Casts (None) Urine Mucus (Negative) Ur Culture Indicated? 02/24/21 Range/Units 10:04 WBC (4.5-11.0) X10^3/uL RBC (4.5-5.9) X10^6/uL Hgb (13.5-17.5) g/dL Hct (41-53) % MCV (80-100) fL MCH (26-34) PG MCHC (30-36) % RDW (11.6-14.8) % Plt Count (150-400) X10^3/uL Neut % (Auto) (50-75) % Lymph % (Auto) (25-40) % [place] % (Auto) (3-14) % Eos % (Auto) (2-4) % Baso % (Auto) (0-2) % Neut # (Auto) (8672-0312) /uL Lymph # (Auto) (8804-8723) /uL [place] # (Auto) (0-900) /uL Eos # (Auto) (0-450) /uL Baso # (Auto) (0-100) /uL Sodium (137-145) mmol/L Potassium (3.4-5.1) mmol/L Chloride (98-107) mmol/L Carbon Dioxide (22-32) mmol/L BUN (9-20) mg/dL Creatinine (0.66-1.25) mg/dL Estimated GFR (>60) mL/min BUN/Creatinine Ratio (6-22) Glucose (70-100) mg/dL Lactate (0.7-2.1) mmol/L Calcium (8.4-10.2) mg/dL Total Bilirubin (0.2-1.3) mg/dL AST (17-59) IU/L ALT (<50) IU/L Alkaline Phosphatase (38-126) U/L Total Protein (6.3-8.2) g/dL Albumin (3.5-5.0) g/dL Globulin (1.7-4.1) g/dL Albumin/Globulin Ratio (1.0-2.8) Lipase (23-300) U/L Urine Color Yellow Urine Appearance Clear Urine pH 5.0 (4.5-8.0) Ur Specific [place] 1.025 (1.000-1.035) Urine Protein Trace H (Negative) Urine Glucose (UA) Trace H (Negative) g/dL Urine Ketones Trace H (NEGATIVE) Urine Occult Blood Negative (Negative) Urine Nitrate Negative (Negative) Urine Bilirubin Negative (NEGATIVE) Urine Urobilinogen 0.2 (0.2) E.U./dL Ur Leukocyte Esterase Negative (NEGATIVE) Urine RBC 0-1/hpf (0-5/HPF) Urine WBC 0-1/hpf (0-5/HPF) Urine Bacteria Few (2-10) H (None) Hyaline Casts 0-1/lpf (None) Urine Mucus 2+ H (Negative) Ur Culture Indicated? Cult not indicated Urine Dip Bedside Urine Glucose Negative Bedside Urine Bilirubin - Negative Bedside Urine Ketone - Negative Urine Specific [place] 1.030 Bedside Urine Occult Blood - Negative Bedside Urine pH 6.0 Bedside Urine Protein +/- 15 Bedside Urine Urobilinogen - Negative Bedside Urine Nitrite - Negative Bedside Urine Leukocytes - Negative Esterase Imaging Data CT scan - abdomen/pelvis: Radiologist's Impresson: [address] [id number] Scan ReportSigned Patient: Marbin Echeverria LMR#: [id number]: 1970Acct:[id number]/Sex: 50 / MDate of Service: 02/24/21Loc: EDAccession Number: [id number] Procedure: CT abdomen pelvis w con Ordering Provider: Leena Gar D.O. PROCEDURE: CT ABDOMEN PELVIS W CON INDICATIONS: abdominal pain, greatest RLQ TECHNIQUE: After the administration of intravenous contrast, axial sections acquired from the lung bases to the pubic symphysis. Coronal and sagittal reformats were performed. For radiation dose reduction, the following was used: automated exposure control, adjustment of mA and/or kV according to patient size. COMPARISON: [facility], CT, CT ABDOMEN PELVIS W CON, 06/18/2019, 12:50. FINDINGS: Image quality: Excellent. Lung bases: Unremarkable. Heart: No significant findings. ABDOMEN: Liver: Unremarkable. Gallbladder: Unremarkable. Biliary ducts: Unremarkable. Pancreas: Unremarkable. Spleen: Unremarkable. Adrenal Glands: Unremarkable. Kidneys and Ureters: Unremarkable. Stomach and Bowel: Stomach, small bowel loops, and colon are unremarkable. Peritoneum: No abnormal intraperitoneal fluid. No free air. Ventral Wall: No hernias. Abdominal Nodes: No retroperitoneal or mesenteric adenopathy by size criteria. Vessels: Aorta and inferior vena cava are normal in size. PELVIS: Pelvic Organs: Unremarkable. Normal appendix found right lower quadrant. Bladder: Unremarkable. Pelvic Nodes: No enlarged lymph nodes. Miscellaneous: No hernias are seen. Bones: Unremarkable. IMPRESSION: Normal appendix found right lower quadrant. Source of reported pain not seen. No evidence of diverticulitis. Dictated by: Charles Oro M.D. on 02/24/2021 at 10:13 Approved by: Charles Oro M.D. on 02/24/2021 at 10:13 US - abdomen: Radiologist's Impresson: [address] [id number] ReportSigned Patient: Marbin Echeverria LMR#: [id number]: 1970Acct:[id number]/Sex: 50 / MDate of Service: 02/24/21Loc: EDAccession Number: [id number] Procedure: US abdomen limited Ordering Provider: Leena Gar D.O. PROCEDURE: US ABDOMEN LIMITED INDICATIONS: ABDOMEN PAIN ELEVATED BILIRUBIN TECHNIQUE: Real-time focused scanning was performed of the abdomen, with image documentation. COMPARISON: None. FINDINGS: Liver is echogenic consistent with fatty infiltration. The gallbladder is free of evidence of acute cholecystitis. Bile ducts are normal in caliber, the pancreas visualized is normal. IMPRESSION: Prominent fatty infiltration throughout the liver, no sign of gallbladder or bile duct disease. Please correlate clinically for etiology of hepatic steatosis. Dictated by: Charles Oro M.D. on 02/24/2021 at 11:12 Approved by: Charles Oro M.D. on 02/24/2021 at 11:13 ECG Data Interpretation: Sinus rhythm nonspecific T wave changes. Rate of 94 P are 164 QRS 80 QTC 422. No priors. MDM Narrative Medical decision making narrative: This is a 50-year-old male who comes the emergency department with complaint of abdominal pain. Patient shows elevated bilirubin but this intermittently elevated. Ultrasound and CT does not show any acute findings for his cause. Vital signs are reassuring and on repeat abdominal exam patient has improved symptoms. Patient would benefit from additional work and plans to follow up with pcp. Discharge Plan Departure Patient Disposition: Home Clinical Impression: Elevated bilirubin, Abdominal pain Instructions: DI for Abdominal Pain-Adult Activity Restrictions/Additional Instructions: Follow-up with your physician, you may wish to talk to them about getting a HIDA scan. Your labs today show an elevated bilirubin but they have been consistently elevated over the last several years. Your imaging today does not show any clear changes. Take pain medication as prescribed. Prescription sent to [facility] in [place]. Please return for fevers, rapidly worsening pain, lightheadedness or passing out, new shortness of breath, persistent chest pain, persistent vomiting, black or bloody stools or other new or concerning symptoms. Prescriptions: New meloxicam [Mobic] 7.5 mg tablet 7.5 mg PO BID PRN (Reason: pain) Qty: 10 RF: 0 No Action lisinopril 20 mg Tablet 20 mg PO DAILY RF: 0 vancomycin 125 mg Capsule 125 mg PO QID Qty: 32 RF: 0 tramadol [Ultram] 50 mg tablet 50 mg PO Q6H PRN (Reason: pain) Qty: 7 RF: 0 Referrals: Antoine Alvarez MD [Primary Care Provider] -
--- NOTE | 2021-02-24 09:12 | DI.CT.S_ITS ---
PROCEDURE: CT ABDOMEN PELVIS W CON INDICATIONS: abdominal pain, greatest RLQ TECHNIQUE: After the administration of intravenous contrast, axial sections acquired from the lung bases to the pubic symphysis. Coronal and sagittal reformats were performed. For radiation dose reduction, the following was used: automated exposure control, adjustment of mA and/or kV according to patient size. COMPARISON: [facility], CT, CT ABDOMEN PELVIS W CON, 06/18/2019, 12:50. FINDINGS: Image quality: Excellent. Lung bases: Unremarkable. Heart: No significant findings. ABDOMEN: Liver: Unremarkable. Gallbladder: Unremarkable. Biliary ducts: Unremarkable. Pancreas: Unremarkable. Spleen: Unremarkable. Adrenal Glands: Unremarkable. Kidneys and Ureters: Unremarkable. Stomach and Bowel: Stomach, small bowel loops, and colon are unremarkable. Peritoneum: No abnormal intraperitoneal fluid. No free air. Ventral Wall: No hernias. Abdominal Nodes: No retroperitoneal or mesenteric adenopathy by size criteria. Vessels: Aorta and inferior vena cava are normal in size. PELVIS: Pelvic Organs: Unremarkable. Normal appendix found right lower quadrant. Bladder: Unremarkable. Pelvic Nodes: No enlarged lymph nodes. Miscellaneous: No hernias are seen. Bones: Unremarkable. IMPRESSION: Normal appendix found right lower quadrant. Source of reported pain not seen. No evidence of diverticulitis. Dictated by: Charles Oro M.D. on 02/24/2021 at 10:13 Approved by: Charles Oro M.D. on 02/24/2021 at 10:13
[2021-02-24] MEDS: ONDANSETRON 4 MG/2 ML INJ IV (09:28)
[2021-02-24] MEDS: SODIUM CHLORIDE 0.9% 1,000 ML 1000 ML IV (09:28)
[2021-02-24] MEDS: KETOROLAC 30 MG/ML VIAL IV (09:29)
[2021-02-24 09:37] LABS: Add Manual Diff / Slide Review NO; Basophils Absolute Auto 100 /uL (0-100); Basophils Percent Auto 1.2 % (0-2); Eosinophils Absolute Auto 200 /uL (0-450); Eosinophils Percent Auto 2.9 % (2-4); Hematocrit 42.1 % (41-53); Hemoglobin 14.7 g/dL (13.5-17.5); Lymphocytes Absolute Auto 1700 /uL (1100-4500); Lymphocytes Percent Auto 28.9 % (25-40); Mean Corpuscular Hemoglobin 31.5 PG (26-34); Mean Corpuscular Volume 90.1 fL (80-100); Monocytes Absolute Auto 600 /uL (0-900); Monocytes Percent Auto 9.6 % (3-14); Neutrophils Absolute Auto 3400 /uL (1500-7000); Neutrophils Percent Auto 57.4 % (50-75); Platelet Count 157 X10^3/uL (150-400); Red Blood Cell Count 4.68 X10^6/uL (4.5-5.9); Red Cell Distribution Width 12.5 % (11.6-14.8)
[2021-02-24 09:54] LABS: Alanine Aminotransferase 56 IU/L (<50); Albumin 4.6 g/dL (3.5-5.0); Albumin Globulin Ratio 1.4 (1.0-2.8); Alkaline Phosphatase 72 U/L (38-126); Aspartate Aminotransferase 39 IU/L (17-59); BUN Creatinine Ratio 16.7 (6-22); Blood Urea Nitrogen 16 mg/dL (9-20); Calcium 9.8 mg/dL (8.4-10.2); Carbon Dioxide 23 mmol/L (22-32); Chloride 109 mmol/L (98-107); Estimated Glomerular Filt Rate > 60.0 mL/min (>60); Globulin 3.2 g/dL (1.7-4.1); Glucose 117 mg/dL (70-100); HEMOLYSIS 18 (0-50); Lactate (Lactic Acid) 1.2 mmol/L (0.7-2.1); Lipase 37 U/L (23-300); Sodium 140 mmol/L (137-145); Total Protein 7.8 g/dL (6.3-8.2)
[2021-02-24 10:08] LABS: Appearance Urine UA CLEAR; Bilirubin Urine UA NEGATIVE (NEGATIVE); Color Urine UA YELLOW; Glucose Urine UA TRACE g/dL (Negative); Ketones Urine UA TRACE (NEGATIVE); Leukocyte Esterase Urine UA NEGATIVE (NEGATIVE); Nitrite Urine UA NEGATIVE (Negative); Occult Blood Urine UA NEGATIVE (Negative); Protein Urine UA TRACE (Negative); Specific Gravity Urine UA 1.025 (1.000-1.035); Urobilinogen Urine UA 0.2 E.U./dL (0.2)
--- NOTE | 2021-02-24 10:15 | DI.US.S_ITS ---
PROCEDURE: US ABDOMEN LIMITED INDICATIONS: ABDOMEN PAIN ELEVATED BILIRUBIN TECHNIQUE: Real-time focused scanning was performed of the abdomen, with image documentation. COMPARISON: None. FINDINGS: Liver is echogenic consistent with fatty infiltration. The gallbladder is free of evidence of acute cholecystitis. Bile ducts are normal in caliber, the pancreas visualized is normal. IMPRESSION: Prominent fatty infiltration throughout the liver, no sign of gallbladder or bile duct disease. Please correlate clinically for etiology of hepatic steatosis. Dictated by: Charles Oro M.D. on 02/24/2021 at 11:12 Approved by: Charles Oro M.D. on 02/24/2021 at 11:13
[2021-02-24 10:24] LABS: Bacteria Urine Few (2-10); Culture Indicated Urine Cult Not Indicated; Hyaline Casts Urine 0-1/LPF; Mucus Urine 2+ (Negative); RBC Urine 0-1/HPF (0-5/HPF); WBC Urine 0-1/HPF (0-5/HPF)
== END 2021-02-24 12:06 | disposition home or self-care (01) ==
PROVIDERS: Emergency Provider Emergency Medicine; Family Provider Family Medicine; PCP Family Medicine
DX: R17 Unspecified jaundice (principal); R10.9 Unspecified abdominal pain; R11.0 Nausea; R42 Dizziness and giddiness; I10 Essential (primary) hypertension
CPT/HCPCS: 36415; 74177; 76705; 80053; 81001; 81003; 83605; 83690; 85025; 87040; 93005; 96361; 96374; 96375; 99284; J1885; J2405; Q9967

== ENCOUNTER 2021-02-26 17:30 | Emergency (ER) | payer OTHER, MEDICAID, SELFPAY ==
[2021-02-26 18:10] VITALS: BP 170/106; PULSE 74; RESP 15; TEMP 36.8; O2SAT 98; BMI 31.8
[2021-02-26 21:14] LABS: Add Manual Diff / Slide Review NO; Basophils Absolute Auto 100 /uL (0-100); Basophils Percent Auto 0.7 % (0-2); Eosinophils Absolute Auto 200 /uL (0-450); Eosinophils Percent Auto 2.2 % (2-4); Hematocrit 41.4 % (41-53); Hemoglobin 14.5 g/dL (13.5-17.5); Lymphocytes Absolute Auto 1600 /uL (1100-4500); Lymphocytes Percent Auto 20.5 % (25-40); Mean Corpuscular HGB Conc 35.1 % (30-36); Mean Corpuscular Hemoglobin 31.7 PG (26-34); Mean Corpuscular Volume 90.3 fL (80-100); Monocytes Absolute Auto 600 /uL (0-900); Monocytes Percent Auto 7.4 % (3-14); Neutrophils Absolute Auto 5300 /uL (1500-7000); Neutrophils Percent Auto 69.2 % (50-75); Platelet Count 142 X10^3/uL (150-400); Red Blood Cell Count 4.58 X10^6/uL (4.5-5.9); Red Cell Distribution Width 12.7 % (11.6-14.8); White Blood Cell Count 7.6 X10^3/uL (4.5-11.0)
[2021-02-26 21:20] LABS: Alanine Aminotransferase 101 IU/L (<50); Albumin 4.8 g/dL (3.5-5.0); Albumin Globulin Ratio 1.4 (1.0-2.8); Alkaline Phosphatase 98 U/L (38-126); Aspartate Aminotransferase 83 IU/L (17-59); BUN Creatinine Ratio 11.4 (6-22); Bilirubin Total 2.1 mg/dL (0.2-1.3); Blood Urea Nitrogen 10 mg/dL (9-20); Calcium 9.3 mg/dL (8.4-10.2); Carbon Dioxide 25 mmol/L (22-32); Chloride 107 mmol/L (98-107); Estimated Glomerular Filt Rate > 60.0 mL/min (>60); Globulin 3.4 g/dL (1.7-4.1); Glucose 101 mg/dL (70-100); HEMOLYSIS < 15 (0-50); Potassium 3.9 mmol/L (3.4-5.1); Sodium 142 mmol/L (137-145); Total Protein 8.2 g/dL (6.3-8.2)
--- NOTE | 2021-02-26 21:57 | ED.ABDPAIN ---
HPI - Abdominal Pain General Chief Complaint: Abdominal Pain Stated Complaint: Stomach Pain Time Seen by Provider: 02/26/21 18:01 Source: patient Mode of arrival: Ambulatory Limitations: no limitations History of Present Illness HPI narrative: 50-year-old male former smoker with history of hypertension and chronic abdominal pain presents with a chief complaint of generalized crampy abdominal pain that seems to be worse when he eats or drinks. He denies any obvious palliation of his discomfort nor does he have any radiation of his pain. He denies nausea, vomiting or change in bowel habits such as constipation or diarrhea. He has had no fever or chills. He was seen and evaluated yesterday and had CT and ultrasound which were unremarkable. Related Data Home Medications Medication Instructions Recorded Confirmed lisinopril 20 mg tablet 20 mg PO DAILY 06/18/19 06/18/19 Previous Rx's Medication Instructions Recorded vancomycin 125 mg capsule 125 mg PO QID #32 cap 06/20/19 tramadol 50 mg tablet (Ultram) 50 mg PO Q6H PRN #7 tab 06/08/20 meloxicam 7.5 mg tablet (Mobic) 7.5 mg PO BID PRN #10 tab 02/24/21 hyoscyamine sulfate 0.125 mg tablet 0.125 mg PO BID-QID PRN #20 tab 02/27/21 ondansetron 4 mg disintegrating 4 mg PO TID-QID PRN #10 tab 02/27/21 tablet Allergies Allergy/AdvReac Type Severity Reaction Status Date / Time Penicillins [PENICILLINS] Allergy Mild HIVES Verified 02/26/21 18:15 Review of Systems Review of Systems Narrative: GENERAL: Denies chills, fatigue, malaise, fever, sweats. HEENT: Denies sinus pain, ear pain, sore throat, difficulty swallowing, dizziness. RESPIRATORY: Denies dyspnea, cough, wheezing, hemoptysis, sputum. CARDIOVASCULAR: Denies chest pain, palpitations, orthopnea, edema, GASTROINTESTINAL: See HPI : Denies dysuria, frequency, incontinence, hematuria, urinary retention. MUSCULOSKELETAL: denies weakness, joint pain, or bony pain SKIN: Denies rash, skin lesions, or other NEUROLOGIC: Denies weakness, headache, numbness, change in speech, confusion, seizures, incoordination. PSYCHIATRIC: No concerning psychosocial issues. 12 point review of systems is negative except for those stated above Patient History Medical History HTN (hypertension) Patient denies medical problems Surgical History History of neck surgery Social History household members: family Smoking Status: Former smoker alcohol intake: never Smoking Status: Former smoker alcohol intake frequency: 0-2 drinks per day Substance Use Type: does not use Exam Narrative Exam Narrative: GENERAL: [50] year old patient appears stated age. Well-developed patient, in mild distress. HEAD: Atraumatic. Normocephalic. EYES: Pupils equal round and reactive. Extraocular motions intact. No scleral icterus. No injection or drainage. ENT: Nose without bleeding, purulent drainage. Throat without erythema, tonsillar hypertrophy or exudate. Airway patent. NECK: Trachea midline. Non tender CARDIOVASCULAR: Regular rate and rhythm without murmurs, gallops, or rubs. RESPIRATORY: Clear to auscultation. Breath sounds equal bilaterally. No wheezes, rales, or rhonchi. GASTROINTESTINAL: Abdomen soft, generalized tenderness, nondistended. EXTREMITIES: No edema or joint tenderness. BACK: Nontender without deformity or crepitance. No flank tenderness. NEURO: AOx3. SKIN: No rash or erythema of visible areas Initial Vital Signs Initial Vital Signs: Vital Signs Temperature 98.2 F 02/26/21 18:10 Pulse Rate 74 02/26/21 18:10 Respiratory Rate 15 02/26/21 18:10 Blood Pressure 170/106 H 02/26/21 18:10 Pulse Oximetry 98 02/26/21 18:10 Course Orders Ordered: ED Orders 02/26/21 21:00 Complete Blood Count AUTO DIFF Stat Comprehensive Metabolic Panel Stat 02/27/21 00:05 XR acute abdomen series Stat Discontinued Medications Al Hydrox/Mg Hydrox/Simethicone 20 ml/ Lidocaine HCl 15 ml 0 ml PO NOW ONE Stop: 02/27/21 00:07 Last Admin: 02/27/21 00:26 Dose: 35 ml Documented by: TANG Tramadol HCl (Tramadol 50 Mg Prepack) 1 bottle MISC SEEINSTR ONE Stop: 02/27/21 01:23 Last Admin: 02/27/21 01:50 Dose: 1 bottle Documented by: TANG Reevaluation(s) Reevaluation #1: Patient feeling somewhat better after the above-stated therapies. Vital Signs Vital signs: Vital Signs - 8 hr 02/27/21 01:53 Temperature 98.7 F Pulse Rate 84 Respiratory Rate 16 Blood Pressure 168/104 H Pulse Oximetry 97 MDM - Abdominal Pain Lab Data Result diagrams: 02/26/21 21:00 02/26/21 21:00 Labs: Lab Results 02/26/21 02/26/21 Range/Units 21:00 21:00 WBC 7.6 (4.5-11.0) X10^3/uL RBC 4.58 (4.5-5.9) X10^6/uL Hgb 14.5 (13.5-17.5) g/dL Hct 41.4 (41-53) % MCV 90.3 (80-100) fL MCH 31.7 (26-34) PG MCHC 35.1 (30-36) % RDW 12.7 (11.6-14.8) % Plt Count 142 L (150-400) X10^3/uL Neut % (Auto) 69.2 (50-75) % Lymph % (Auto) 20.5 L (25-40) % [place] % (Auto) 7.4 (3-14) % Eos % (Auto) 2.2 (2-4) % Baso % (Auto) 0.7 (0-2) % Neut # (Auto) 5300 (2373-8888) /uL Lymph # (Auto) 1600 (1303-8094) /uL [place] # (Auto) 600 (0-900) /uL Eos # (Auto) 200 (0-450) /uL Baso # (Auto) 100 (0-100) /uL Sodium 142 (137-145) mmol/L Potassium 3.9 (3.4-5.1) mmol/L Chloride 107 (98-107) mmol/L Carbon Dioxide 25 (22-32) mmol/L BUN 10 (9-20) mg/dL Creatinine 0.88 (0.66-1.25) mg/dL Estimated GFR > 60.0 (>60) mL/min BUN/Creatinine Ratio 11.4 (6-22) Glucose 101 H (70-100) mg/dL Calcium 9.3 (8.4-10.2) mg/dL Total Bilirubin 2.1 H (0.2-1.3) mg/dL AST 83 H (17-59) IU/L ALT 101 H (<50) IU/L Alkaline Phosphatase 98 (38-126) U/L Total Protein 8.2 (6.3-8.2) g/dL Albumin 4.8 (3.5-5.0) g/dL Globulin 3.4 (1.7-4.1) g/dL Albumin/Globulin Ratio 1.4 (1.0-2.8) Point of care testing: Urine Dip Bedside Urine Glucose Negative Bedside Urine Bilirubin - Negative Bedside Urine Ketone +/- 5 Urine Specific [place] 1.030 Bedside Urine Occult Blood - Negative Bedside Urine pH 6 Bedside Urine Protein - Negative Bedside Urine Urobilinogen - Negative Bedside Urine Nitrite - Negative Bedside Urine Leukocytes - Negative Esterase Imaging Data Abdominal x-ray: Radiologist's Impression: No acute disease MDM Narrative Medical decision making narrative: Multiple etiologies for patient's symptoms considered including: [Bowel obstruction versus pancreatitis versus gallbladder disease versus enteritis versus other] Patient's symptoms improved over duration of stay with above-stated therapies. Findings and discharge diagnosis discussed with patient/family followed by verbalization of understanding Return precautions discussed with patient/family whom verbalize understanding. Discharge Plan Departure Patient Disposition: Home Clinical Impression: Abdominal pain Qualifiers: Abdominal location: generalized Qualified Code(s): R10.84 - Generalized abdominal pain Instructions: DI for Abdominal Pain-Adult Activity Restrictions/Additional Instructions: *You have been diagnosed with [abdominal pain, with very reassuring exam and labs. Xray was read as normal. ] *What to do: *Please continue to take your regular medications as directed. [ ] New medication prescriptions sent to your pharmacy: [ ] [x ] New medication written as a paper prescription [ ] No new medications given *Please follow up with your primary care provider in 2-3 days, call for an appointment. Let them know you were seen in the Emergency Department and that we ask that you be seen in follow up. We will electronically transmit a record of today's note if your PCP is in our system *If you do not have a primary care provider please contact the [facility] Resource line at [phone]. They will ask some questions about your medical history and help get you set up with a doctor in the community. *Return to Emergency Department if you should have any new, worsening or concerning symptoms, such as [fever greater than 101 F, shaking chills, worsening pain, persistent vomiting or other bothersome symptoms] Prescriptions: New hyoscyamine sulfate 0.125 mg tablet 0.125 mg PO BID-QID PRN (Reason: dyspepsia) Qty: 20 RF: 0 ondansetron 4 mg tablet,disintegrating 4 mg PO TID-QID PRN (Reason: nausea and vomiting) Qty: 10 RF: 0 No Action meloxicam [Mobic] 7.5 mg tablet 7.5 mg PO BID PRN (Reason: pain) Qty: 10 RF: 0 lisinopril 20 mg Tablet 20 mg PO DAILY RF: 0 vancomycin 125 mg Capsule 125 mg PO QID Qty: 32 RF: 0 tramadol [Ultram] 50 mg tablet 50 mg PO Q6H PRN (Reason: pain) Qty: 7 RF: 0 Referrals: Antoine Alvarez MD [Primary Care Provider] -
--- NOTE | 2021-02-27 00:05 | DI.RAD.S_ITS ---
PROCEDURE: XR ACUTE ABDOMEN SERIES INDICATIONS: abdominal pain TECHNIQUE: One view chest and two views of the abdomen were acquired. COMPARISON: [facility], CT, CT ABDOMEN PELVIS W CON, 02/24/2021, 9:37. FINDINGS: Surgical changes and devices: None. Chest: Lungs are clear. Heart size is normal. No pleural effusions. No pneumoperitoneum. Abdomen: There are multiple air-fluid levels present in small bowel and colon. Mildly prominent loops of small bowel are noted. Findings may represent mild ileus or gastroenteritis. No suspicious calcifications. Visualized solid organ contours appear normal. Bones: No suspicious bony lesions. IMPRESSION: 1. No evidence of acute pulmonary process. 2. Bowel gas pattern may represent mild ileus versus gastroenteritis. Comment: Final report is concordant with preliminary interpretation provided by [facility]. Dictated by: Reyes Dodson M.D. on 02/27/2021 at 6:22 Approved by: Reyes Dodson M.D. on 02/27/2021 at 6:24
[2021-02-27] MEDS: MAG HYDROX/ALUMINUM/SIMETH SUS 20 ML, LIDOCAINE VISCOUS 2% 15 ML PO (00:26)
[2021-02-27] MEDS: TRAMADOL 50 MG PREPACK 1 BOTTLE MISC (01:50)
[2021-02-27 01:53] VITALS: BP 168/104; PULSE 84; RESP 16; TEMP 37.1; O2SAT 97
== END 2021-02-27 01:54 | disposition home or self-care (01) ==
PROVIDERS: Emergency Provider Emergency Medicine; Family Provider Family Medicine; PCP Family Medicine
DX: R10.84 Generalized abdominal pain (principal)
CPT/HCPCS: 36415; 74022; 80053; 81003; 85025; 99283; 99284

== ENCOUNTER → 2021-03-07 15:12 | Outpatient (CLI) | payer OTHER, MEDICAID, SELFPAY ==
--- NOTE | 2021-03-07 | DI.RAD.S_ITS ---
PROCEDURE: XR CERVICAL SPINE 4V OR 5V INDICATIONS: M48.02 TECHNIQUE: 5 views of the cervical spine were acquired. COMPARISON: [facility], CR, XR CERVICAL SPINE 1V, 11/02/2020, 12:32. [facility], MR, MR CERVICAL SPINE WITH/WITHOUT CONTRAST, 08/18/2020, 12:30. FINDINGS: Bones: No fractures or dislocations to the T1 level. Postsurgical changes compatible with C3-C6 and C7-T1 ACDF. Orthopedic hardware is intact. No lucency is identified at the bone-hardware interface. No suspicious bony lesions. There is reduced range of motion between flexion and extension, with preserved normal bony alignment. Soft tissues: Prevertebral soft tissues are normal in thickness. IMPRESSION: 1. Status post ACDF. 2. No abnormal vertebral body motion in the flexed or extended positions. Dictated by: Constanza Ashby MD, PhD on 03/07/2021 at 17:06 Approved by: Constanza Ashby MD, PhD on 03/07/2021 at 17:08
== END ==
PROVIDERS: Family Provider Family Medicine; PCP Family Medicine; Referring Provider Neurological Surgery; Visit Provider Neurological Surgery
DX: M48.02 Spinal stenosis, cervical region (principal); Z98.1 Arthrodesis status
CPT/HCPCS: 72050

== ENCOUNTER 2021-08-06 02:54 | Emergency (ER) | payer OTHER, MEDICAID, SELFPAY ==
[2021-08-06 03:01] VITALS: BP 141/91; PULSE 88; RESP 18; TEMP 36.6; O2SAT 98; BMI 30.5
--- NOTE | 2021-08-06 03:09 | ED_ITS ---
HPI - General Adult General Chief complaint: Abdominal Pain Stated complaint: severe stomach cramps Time Seen by Provider: 08/06/21 03:03 Source: patient Mode of arrival: Ambulatory History of Present Illness HPI narrative: Patient is a 50-year-old male less than 12 hours of upper abdominal cramping and nausea and diarrhea. He had symptoms similar in the past. No recent travel. No recent antibiotics. Has had workup of his abdominal discomfort in his all is been diagnosed with colitis. No blood in the stool. No vomiting despite the nausea. No fevers. Has not tried anything for his symptoms prior to arrival. Related Data Home Medications Medication Instructions Recorded Confirmed lisinopril 20 mg tablet 20 mg PO DAILY 06/18/19 06/18/19 Previous Rx's Medication Instructions Recorded vancomycin 125 mg capsule 125 mg PO QID #32 cap 06/20/19 tramadol 50 mg tablet (Ultram) 50 mg PO Q6H PRN #7 tab 06/08/20 meloxicam 7.5 mg tablet (Mobic) 7.5 mg PO BID PRN #10 tab 02/24/21 hyoscyamine sulfate 0.125 mg tablet 0.125 mg PO BID-QID PRN #20 tab 02/27/21 ondansetron 4 mg disintegrating 4 mg PO TID-QID PRN #10 tab 02/27/21 tablet hyoscyamine sulfate 0.125 mg tablet 0.125 mg PO BID-QID PRN #20 tab 08/06/21 Allergies Allergy/AdvReac Type Severity Reaction Status Date / Time Penicillins [PENICILLINS] Allergy Mild HIVES Verified 02/26/21 18:15 Review of Systems Constitutional Constitutional: Denies fever(s) Gastrointestinal Gastrointestinal: Reports system reviewed and no additional complaints, except as documented Genitourinary Genitourinary: Reports system reviewed and no additional complaints, except as documented Integumentary/Breasts Skin/Breast: Reports system reviewed and no additional complaints, except as documented Hematologic/Lymphatic On Anticoagulants: No Patient History Medical History HTN (hypertension) Patient denies medical problems Surgical History History of neck surgery Social History household members: family Smoking Status: Former smoker alcohol intake: never Smoking Status: Former smoker alcohol intake frequency: holidays/special occasions only Substance Use Type: does not use Exam Initial Vital Signs Initial Vital Signs: Vital Signs Temperature 97.8 F 08/06/21 03:01 Pulse Rate 88 08/06/21 03:01 Respiratory Rate 18 08/06/21 03:01 Blood Pressure 141/91 H 08/06/21 03:01 Pulse Oximetry 98 08/06/21 03:01 Resp Effort & Inspection: normal respiratory effort Cardio Rate: regular rate GI Inspection: normal to inspection Palpation: soft, No firm, No guarding, No rigid and tender (Diffuse) Back/Spine/Pelvis Back: No CVA tenderness Skin General: no rashes or lesions noted Neuro General: patient alert, patient awake and moves all extremities Extrem General: normal to inspection Psych Appearance: grossly normal Course Orders Ordered: ED Orders 08/06/21 03:09 XR abdomen 1V Stat 08/06/21 03:15 Complete Blood Count AUTO DIFF Stat Comprehensive Metabolic Panel Stat Lipase Stat Discontinued Medications Al Hydrox/Mg Hydrox/Simethicone 20 ml/ Lidocaine HCl 15 ml 0 ml PO NOW ONE Stop: 08/06/21 03:10 Last Admin: 08/06/21 03:17 Dose: 35 ml Documented by: MARI Hyoscyamine (Hyoscyamine 0.125 Mg Tablet) 0.125 mg PO NOW ONE Stop: 08/06/21 04:10 Last Admin: 08/06/21 04:22 Dose: 0.125 mg Documented by: EDWARD Ketorolac Tromethamine (Ketorolac 30 Mg/Ml Vial) 30 mg IV NOW ONE Stop: 08/06/21 04:10 Last Admin: 08/06/21 04:20 Dose: 30 mg Documented by: EDWARD Vital Signs Vital signs: Vital Signs - 8 hr 08/06/21 03:01 Temperature 97.8 F Pulse Rate 88 Respiratory Rate 18 Blood Pressure 141/91 H Pulse Oximetry 98 Medical Decision Making Lab Data Result diagrams: 08/06/21 03:15 08/06/21 03:15 Labs: Lab Results 08/06/21 08/06/21 Range/Units 03:15 03:15 WBC 9.0 (4.5-11.0) X10^3/uL RBC 5.04 (4.5-5.9) X10^6/uL Hgb 15.8 (13.5-17.5) g/dL Hct 45.4 (41-53) % MCV 90.1 (80-100) fL MCH 31.3 (26-34) PG MCHC 34.8 (30-36) % RDW 13.0 (11.6-14.8) % Plt Count 158 (150-400) X10^3/uL Neut % (Auto) 87.0 H (50-75) % Lymph % (Auto) 5.3 L (25-40) % [place] % (Auto) 5.6 (3-14) % Eos % (Auto) 1.2 L (2-4) % Baso % (Auto) 0.9 (0-2) % Neut # (Auto) 7800 H (8354-3177) /uL Lymph # (Auto) 500 L (5170-0985) /uL [place] # (Auto) 500 (0-900) /uL Eos # (Auto) 100 (0-450) /uL Baso # (Auto) 100 (0-100) /uL Sodium 142 (137-145) mmol/L Potassium 4.0 (3.4-5.1) mmol/L Chloride 106 (98-107) mmol/L Carbon Dioxide 25 (22-32) mmol/L BUN 13 (9-20) mg/dL Creatinine 1.11 (0.66-1.25) mg/dL Estimated GFR > 60.0 (>60) mL/min BUN/Creatinine Ratio 11.7 (6-22) Glucose 145 H (70-100) mg/dL Calcium 9.4 (8.4-10.2) mg/dL Total Bilirubin 1.5 H (0.2-1.3) mg/dL AST 31 (17-59) IU/L ALT 37 (<50) IU/L Alkaline Phosphatase 73 (38-126) U/L Total Protein 7.8 (6.3-8.2) g/dL Albumin 4.8 (3.5-5.0) g/dL Globulin 3.0 (1.7-4.1) g/dL Albumin/Globulin Ratio 1.6 (1.0-2.8) Lipase 82 (23-300) U/L Imaging Data Abdominal x-ray: Radiologist's Impression: Nonspecific bowel gas pattern probably ileus. Close follow-up as clinically indicated MDM Narrative Medical decision making narrative: Patient does have a relatively benign abdominal exam. His labs are unremarkable. He has had symptoms for less than 12 hours. Given his prior history of very similar symptoms, his x-ray, labs and exam I feel that we should hold on a CT scan for now. He stated that his symptoms did improve and it seem to be the Hyoscyamine had improved his symptoms. A prescription for this medication was sent to [facility] pharmacy per his recommendation. He was given return precautions and follow-up instructions. He expressed understanding and agreement. Discharge Plan Departure Patient Disposition: Home Clinical Impression: Abdominal pain Instructions: DI for Abdominal Pain-Adult Activity Restrictions/Additional Instructions: Take all of your medications as directed. I do recommend eating a bland diet until your symptoms have improved and then start to advance it back to a normal diet as tolerated. A prescription for medications was sent to [facility] per your recommendation. Return to the emergency department for any new or worsening symptoms. Prescriptions: New hyoscyamine sulfate 0.125 mg tablet 0.125 mg PO BID-QID PRN (Reason: dyspepsia) Qty: 20 0RF No Action meloxicam [Mobic] 7.5 mg tablet 7.5 mg PO BID PRN (Reason: pain) Qty: 10 0RF lisinopril 20 mg Tablet 20 mg PO DAILY 0RF vancomycin 125 mg Capsule 125 mg PO QID Qty: 32 0RF tramadol [Ultram] 50 mg tablet 50 mg PO Q6H PRN (Reason: pain) Qty: 7 0RF hyoscyamine sulfate 0.125 mg tablet 0.125 mg PO BID-QID PRN (Reason: dyspepsia) Qty: 20 0RF ondansetron 4 mg tablet,disintegrating 4 mg PO TID-QID PRN (Reason: nausea and vomiting) Qty: 10 0RF Referrals: Antoine Alvarez MD [Primary Care Provider] -
--- NOTE | 2021-08-06 03:09 | DI.RAD.S_ITS ---
PROCEDURE: XR ABDOMEN 1V INDICATIONS: abdominal pain TECHNIQUE: One view of the abdomen acquired. COMPARISON: [facility], , ABDOMEN 2 VIEW, 02/23/2015, 13:45. FINDINGS: Surgical changes and devices: None. Bowel: Nonspecific bowel gas pattern with numerous scattered nondistended air-filled loops of bowel with a few air-fluid levels. No significant bowel wall thickening. Air is visualized in the region of the rectum. The lower pelvis is excluded on this exam. No definite subdiaphragmatic free air. Soft tissues: No suspicious abdominal calcifications. Visualized solid organ contours appear normal in size. Bones: No suspicious bony lesions. IMPRESSION: Nonspecific bowel gas pattern, probably ileus. Recommend continued clinical surveillance and repeat imaging as needed. No significant discrepancy with the manager night radiology preliminary report. Dictated by: Todd Vieira M.D. on 08/06/2021 at 7:31 Approved by: Todd Vieira M.D. on 08/06/2021 at 7:32
[2021-08-06] MEDS: MAG HYDROX/ALUMINUM/SIMETH SUS 20 ML, LIDOCAINE VISCOUS 2% 15 ML PO (03:17)
[2021-08-06 03:27] LABS: Add Manual Diff / Slide Review NO; Basophils Absolute Auto 100 /uL (0-100); Basophils Percent Auto 0.9 % (0-2); Eosinophils Absolute Auto 100 /uL (0-450); Eosinophils Percent Auto 1.2 % (2-4); Hematocrit 45.4 % (41-53); Hemoglobin 15.8 g/dL (13.5-17.5); Lymphocytes Absolute Auto 500 /uL (1100-4500); Lymphocytes Percent Auto 5.3 % (25-40); Mean Corpuscular HGB Conc 34.8 % (30-36); Mean Corpuscular Hemoglobin 31.3 PG (26-34); Mean Corpuscular Volume 90.1 fL (80-100); Monocytes Absolute Auto 500 /uL (0-900); Monocytes Percent Auto 5.6 % (3-14); Neutrophils Absolute Auto 7800 /uL (1500-7000); Platelet Count 158 X10^3/uL (150-400); Red Blood Cell Count 5.04 X10^6/uL (4.5-5.9)
[2021-08-06 03:36] LABS: Alanine Aminotransferase 37 IU/L (<50); Albumin 4.8 g/dL (3.5-5.0); Albumin Globulin Ratio 1.6 (1.0-2.8); Alkaline Phosphatase 73 U/L (38-126); Aspartate Aminotransferase 31 IU/L (17-59); BUN Creatinine Ratio 11.7 (6-22); Bilirubin Total 1.5 mg/dL (0.2-1.3); Blood Urea Nitrogen 13 mg/dL (9-20); Calcium 9.4 mg/dL (8.4-10.2); Carbon Dioxide 25 mmol/L (22-32); Chloride 106 mmol/L (98-107); Estimated Glomerular Filt Rate > 60.0 mL/min (>60); Glucose 145 mg/dL (70-100); HEMOLYSIS < 15 (0-50); Lipase 82 U/L (23-300); Sodium 142 mmol/L (137-145); Total Protein 7.8 g/dL (6.3-8.2)
[2021-08-06] MEDS: KETOROLAC 30 MG/ML VIAL IV (04:20)
[2021-08-06] MEDS: HYOSCYAMINE 0.125 MG TABLET PO (04:22)
[2021-08-06 05:23] VITALS: BP 122/75; PULSE 88; O2SAT 95
== END 2021-08-06 05:28 | disposition home or self-care (01) ==
PROVIDERS: Emergency Provider Emergency Medicine; Family Provider Family Medicine; PCP Family Medicine
DX: R10.10 Upper abdominal pain, unspecified (principal); Z87.891 Personal history of nicotine dependence
CPT/HCPCS: 36415; 74018; 80053; 83690; 85025; 96374; 99284; J1885

== ENCOUNTER 2021-11-15 16:23 | Emergency (ER) | payer OTHER, MEDICAID, SELFPAY ==
[2021-11-15] VITALS (10 sets, daily range): BP systolic 127–160; BP diastolic 88–105; PULSE 69–81; RESP 10–20; TEMP 36.2; O2SAT 94–98; BMI 30.5
[2021-11-15 16:50] LABS: Add Manual Diff / Slide Review NO; Basophils Absolute Auto 100 /uL (0-100); Basophils Percent Auto 0.9 % (0-2); Eosinophils Absolute Auto 200 /uL (0-450); Eosinophils Percent Auto 1.9 % (2-4); Lymphocytes Absolute Auto 3700 /uL (1100-4500); Lymphocytes Percent Auto 37.7 % (25-40); Mean Corpuscular HGB Conc 34.7 % (30-36); Mean Corpuscular Hemoglobin 31.8 PG (26-34); Mean Corpuscular Volume 91.5 fL (80-100); Monocytes Absolute Auto 1200 /uL (0-900); Monocytes Percent Auto 12.1 % (3-14); Neutrophils Absolute Auto 4600 /uL (1500-7000); Neutrophils Percent Auto 47.4 % (50-75); Platelet Count 216 X10^3/uL (150-400); Red Blood Cell Count 5.36 X10^6/uL (4.5-5.9); Red Cell Distribution Width 13.1 % (11.6-14.8); White Blood Cell Count 9.8 X10^3/uL (4.5-11.0)
--- NOTE | 2021-11-15 16:51 | ED.GENADULT ---
HPI - General Adult General Chief complaint: Abdominal Pain Stated complaint: LUQ abd pain Time Seen by Provider: 11/15/21 16:41 Source: patient Mode of arrival: EMS History of Present Illness HPI narrative: 50-year-old male here for evaluation of left-sided abdominal discomfort. Since the symptoms started earlier today. Was a fairly sudden onset. Sharp pain. Nausea. No vomiting. After the onset of the discomfort he did have a large loose bowel movement which did not change the pain at all. No recent travel. No recent antibiotics. No prior abdominal surgeries. He has had a colonoscopy in the past after being admitted to the hospital for a colitis. He states that the colonoscopy was unremarkable. Related Data Home Medications Medication Instructions Recorded Confirmed lisinopril 20 mg tablet 20 mg PO DAILY 06/18/19 06/18/19 Previous Rx's Medication Instructions Recorded vancomycin 125 mg capsule 125 mg PO QID #32 cap 06/20/19 tramadol 50 mg tablet (Ultram) 50 mg PO Q6H PRN #7 tab 06/08/20 meloxicam 7.5 mg tablet (Mobic) 7.5 mg PO BID PRN #10 tab 02/24/21 hyoscyamine sulfate 0.125 mg tablet 0.125 mg PO BID-QID PRN #20 tab 02/27/21 ondansetron 4 mg disintegrating 4 mg PO TID-QID PRN #10 tab 02/27/21 tablet hyoscyamine sulfate 0.125 mg tablet 0.125 mg PO BID-QID PRN #20 tab 08/06/21 dicyclomine 10 mg capsule 10 mg PO BID PRN #20 cap 11/15/21 Allergies Allergy/AdvReac Type Severity Reaction Status Date / Time Penicillins [PENICILLINS] Allergy Mild HIVES Verified 02/26/21 18:15 Review of Systems Constitutional Constitutional: Denies fever(s) and Denies headache(s) ENT Ears, Nose, Mouth, and Throat: Denies headache(s) Cardiovascular Cardiovascular: Denies chest pain and Denies dyspnea Respiratory Respiratory: Denies dyspnea Gastrointestinal Gastrointestinal: Reports abdominal pain, Reports diarrhea, Reports nausea and Denies vomiting Genitourinary Genitourinary: Reports system reviewed and no additional complaints, except as documented Musculoskeletal Musculoskeletal: Reports system reviewed and no additional complaints, except as documented Integumentary/Breasts Skin/Breast: Reports system reviewed and no additional complaints, except as documented Neurologic Neurologic: Denies headache(s) Endocrine Endocrine: Reports system reviewed and no additional complaints, except as documented Hematologic/Lymphatic On Anticoagulants: No Patient History Medical History (Updated 11/15/21 @ 18:50 by Antoine Streeter DO) HTN (hypertension) Patient denies medical problems Surgical History History of neck surgery Social History household members: family Smoking Status: Former smoker alcohol intake: never Smoking Status: Former smoker alcohol intake frequency: holidays/special occasions only Substance Use Type: does not use Exam Initial Vital Signs Initial Vital Signs: Vital Signs Temperature 97.1 F L 11/15/21 16:40 Pulse Rate 81 11/15/21 16:40 Respiratory Rate 20 11/15/21 16:40 Blood Pressure 140/97 H 11/15/21 16:40 Pulse Oximetry 98 11/15/21 16:40 Const General: cooperative, comfortable and well developed HENNV Head: normal to inspection and normocephalic Resp Effort & Inspection: normal respiratory effort Auscultation: clear to auscultation bilaterally Cardio Rate: regular rate Rhythm: regular rhythm GI Inspection: normal to inspection Palpation: soft, No firm, No guarding and tender (Left side abdomen) Back/Spine/Pelvis Back: No CVA tenderness Skin General: no rashes or lesions noted Neuro General: patient alert, patient awake, patient oriented x3 and moves all extremities Extrem General: normal to inspection and capillary refill normal Psych Appearance: grossly normal and well kempt Course Orders Ordered: ED Orders 11/15/21 16:15 Complete Blood Count AUTO DIFF Stat Comprehensive Metabolic Panel Stat Lipase Stat 11/15/21 16:52 CT abdomen pelvis w con Stat Discontinued Medications Sodium Chloride (Normal Saline 0.9%) 1,000 mls @ 1,000 mls/hr IV BOLUS ONE Stop: 11/15/21 17:50 Last Infusion: 11/15/21 18:30 Dose: 0 mls/hr Documented by: Admin: 11/15/21 17:03 Dose: 1,000 mls/hr Documented by: NRHOADS Morphine Sulfate (Morphine 4 Mg/Ml Inj) 4 mg IV NOW ONE Stop: 11/15/21 16:52 Last Admin: 11/15/21 16:59 Dose: 4 mg Documented by: JALYN Ondansetron HCl (Ondansetron 4 Mg/2 Ml Inj) 4 mg IV NOW ONE Stop: 11/15/21 16:52 Last Admin: 11/15/21 16:58 Dose: 4 mg Documented by: JALYN Vital Signs Vital signs: Vital Signs - 8 hr 11/15/21 16:40 11/15/21 16:59 11/15/21 17:00 Temperature 97.1 F L Pulse Rate 81 76 76 Respiratory Rate 20 Blood Pressure 140/97 H 127/91 H Pulse Oximetry 98 94 94 11/15/21 17:36 11/15/21 17:53 11/15/21 18:00 Temperature Pulse Rate 75 73 76 Respiratory Rate Blood Pressure 158/105 H 160/102 H Pulse Oximetry 98 98 98 Medical Decision Making Lab Data Lab results reviewed: Yes I reviewed the patient's lab results. Result diagrams: 11/15/21 16:15 11/15/21 16:15 Labs: Lab Results 11/15/21 11/15/21 Range/Units 16:15 16:15 WBC 9.8 (4.5-11.0) X10^3/uL RBC 5.36 (4.5-5.9) X10^6/uL Hgb 17.0 (13.5-17.5) g/dL Hct 49.0 (41-53) % MCV 91.5 (80-100) fL MCH 31.8 (26-34) PG MCHC 34.7 (30-36) % RDW 13.1 (11.6-14.8) % Plt Count 216 (150-400) X10^3/uL Neut % (Auto) 47.4 L (50-75) % Lymph % (Auto) 37.7 (25-40) % [place] % (Auto) 12.1 (3-14) % Eos % (Auto) 1.9 L (2-4) % Baso % (Auto) 0.9 (0-2) % Neut # (Auto) 4600 (8499-5270) /uL Lymph # (Auto) 3700 (9271-8885) /uL [place] # (Auto) 1200 H (0-900) /uL Eos # (Auto) 200 (0-450) /uL Baso # (Auto) 100 (0-100) /uL Sodium 143 (137-145) mmol/L Potassium 3.8 (3.4-5.1) mmol/L Chloride 105 (98-107) mmol/L Carbon Dioxide 25 (22-32) mmol/L BUN 12 (9-20) mg/dL Creatinine 0.93 (0.66-1.25) mg/dL Estimated GFR > 60.0 (>60) mL/min BUN/Creatinine Ratio 12.9 (6-22) Glucose 93 (70-100) mg/dL Calcium 9.8 (8.4-10.2) mg/dL Total Bilirubin 1.7 H (0.2-1.3) mg/dL AST 39 (17-59) IU/L ALT 42 (<50) IU/L Alkaline Phosphatase 84 (38-126) U/L Total Protein 9.7 H* (6.3-8.2) g/dL Albumin 5.7 H (3.5-5.0) g/dL Globulin 4.0 (1.7-4.1) g/dL Albumin/Globulin Ratio 1.4 (1.0-2.8) Lipase 57 (23-300) U/L Urine Dip Bedside Urine Glucose Negative Bedside Urine Bilirubin - Negative Bedside Urine Ketone - Negative Urine Specific [place] 1.010 Bedside Urine Occult Blood - Negative Bedside Urine pH 6.0 Bedside Urine Protein - Negative Bedside Urine Urobilinogen - Negative Bedside Urine Nitrite - Negative Bedside Urine Leukocytes - Negative Esterase Point of care testing: Urine Dip Bedside Urine Glucose Negative Bedside Urine Bilirubin - Negative Bedside Urine Ketone - Negative Urine Specific [place] 1.010 Bedside Urine Occult Blood - Negative Bedside Urine pH 6.0 Bedside Urine Protein - Negative Bedside Urine Urobilinogen - Negative Bedside Urine Nitrite - Negative Bedside Urine Leukocytes - Negative Esterase Imaging Data CT scan - abdomen/pelvis: Radiologist's Impression: [address] [address] [address] Scan Report Signed Patient: Marbin Echeverria MR#: [id number] : 1970 Acct:[id number] Age/Sex: 50 / M Date of Service: 11/15/21 Loc: ED Accession Number: [id number] ?? Procedure: CT abdomen pelvis w con Ordering Provider: Antoine Streeter D.O. PROCEDURE:? CT ABDOMEN PELVIS W CON ? INDICATIONS:? Left-sided abdominal pain ? TECHNIQUE:? After the administration of oral and IV contrast, axial sections were acquired from the lung bases to the pubic symphysis.? Coronal and sagittal reformats were performed.? For radiation dose reduction, the following was used:? automated exposure control, adjustment of mA and/or kV according to patient size. ? COMPARISON:? [facility], CT, CT ABDOMEN PELVIS W CON, 02/24/2021, 9:37. ? FINDINGS:? Image quality:? Excellent.? ? Lung bases:? Unremarkable.? ? Heart:? No significant findings. ? ? ABDOMEN: Liver:? Unremarkable.? ? Gallbladder:? Distended without wall thickening or pericholecystic fluid.? A 3 mm calculus is seen in the dependent gallbladder neck.? ? Biliary ducts:? Unremarkable.? ? Pancreas:? Unremarkable.? ? Spleen:? Normal contour.? Enlarged, measuring 15.8 cm.? ? Adrenal Glands:? Unremarkable.? ? Kidneys and Ureters:? Unremarkable.? ? ? Stomach and Bowel:? No evidence of intestinal obstruction or inflammatory change.? Scattered air-fluid levels throughout the colon.? The proximal portion of the appendix contains fluid and measures up to 7.6 mm. Peritoneum:? No abnormal intraperitoneal fluid.? No free air.? ? Ventral Wall: ? No hernia.? Abdominal Nodes:? Persistent soft tissue density in the mesentery with associated lymph node.? Vessels:? Aorta and inferior vena cava are normal in size.? ? PELVIS: Pelvic Organs:? Unremarkable.? ? Bladder:? Unremarkable.? ? Pelvic Nodes: No enlarged lymph nodes.? Miscellaneous: No inguinal hernias are seen.? ? Prominent inguinal lymph nodes, which may be reactive.? ? Bones:? Unremarkable.? IMPRESSION:? ? 1. Scattered air-fluid levels throughout the colon, which may reflect enteritis. 2. Fluid distention of the proximal appendix, measuring up to 7 mm; however, no surrounding inflammatory change is appreciated. 3. Splenomegaly. ? ? Dictated by: Lino Blankenship M.D. on 11/15/2021 at 18:12 ? ? Approved by: Lino Blankenship M.D. on 11/15/2021 at 18:19?? [facility] Narrative Medical decision making narrative: No leukocytosis. Normal LFTs. Discomfort is on the left side of his abdomen. He does not have right lower quadrant tenderness. Low suspicion for appendicitis. Does have colitis noted on the CT scan. No recent travel. No indication for antibiotics. Did discuss this with the patient. Will send home with symptom treatment to include Bentyl. He was given return precautions. He expressed understanding and agreement. Discharge Plan Departure Patient Disposition: Home Clinical Impression: Colitis, Abdominal pain Instructions: DI for Abdominal Pain-Adult, DI for Colitis Activity Restrictions/Additional Instructions: Do recommend that you increase your fluid intake. Continue all of your medications as directed. Contact your primary doctor for a follow-up. Return to the emergency department for any new or worsening symptoms. Prescriptions: New dicyclomine 10 mg capsule 10 mg PO BID PRN (Reason: abdominal pain) Qty: 20 0RF No Action meloxicam [Mobic] 7.5 mg tablet 7.5 mg PO BID PRN (Reason: pain) Qty: 10 0RF hyoscyamine sulfate 0.125 mg tablet 0.125 mg PO BID-QID PRN (Reason: dyspepsia) Qty: 20 0RF lisinopril 20 mg Tablet 20 mg PO DAILY 0RF vancomycin 125 mg Capsule 125 mg PO QID Qty: 32 0RF tramadol [Ultram] 50 mg tablet 50 mg PO Q6H PRN (Reason: pain) Qty: 7 0RF hyoscyamine sulfate 0.125 mg tablet 0.125 mg PO BID-QID PRN (Reason: dyspepsia) Qty: 20 0RF ondansetron 4 mg tablet,disintegrating 4 mg PO TID-QID PRN (Reason: nausea and vomiting) Qty: 10 0RF Referrals: Antoine Alvarez MD [Primary Care Provider] -
--- NOTE | 2021-11-15 16:52 | DI.CT.S_ITS ---
PROCEDURE: CT ABDOMEN PELVIS W CON INDICATIONS: Left-sided abdominal pain TECHNIQUE: After the administration of oral and IV contrast, axial sections were acquired from the lung bases to the pubic symphysis. Coronal and sagittal reformats were performed. For radiation dose reduction, the following was used: automated exposure control, adjustment of mA and/or kV according to patient size. COMPARISON: [facility], CT, CT ABDOMEN PELVIS W CON, 02/24/2021, 9:37. FINDINGS: Image quality: Excellent. Lung bases: Unremarkable. Heart: No significant findings. ABDOMEN: Liver: Unremarkable. Gallbladder: Distended without wall thickening or pericholecystic fluid. A 3 mm calculus is seen in the dependent gallbladder neck. Biliary ducts: Unremarkable. Pancreas: Unremarkable. Spleen: Normal contour. Enlarged, measuring 15.8 cm. Adrenal Glands: Unremarkable. Kidneys and Ureters: Unremarkable. Stomach and Bowel: No evidence of intestinal obstruction or inflammatory change. Scattered air-fluid levels throughout the colon. The proximal portion of the appendix contains fluid and measures up to 7.6 mm. Peritoneum: No abnormal intraperitoneal fluid. No free air. Ventral Wall: No hernia. Abdominal Nodes: Persistent soft tissue density in the mesentery with associated lymph node. Vessels: Aorta and inferior vena cava are normal in size. PELVIS: Pelvic Organs: Unremarkable. Bladder: Unremarkable. Pelvic Nodes: No enlarged lymph nodes. Miscellaneous: No inguinal hernias are seen. Prominent inguinal lymph nodes, which may be reactive. Bones: Unremarkable. IMPRESSION: 1. Scattered air-fluid levels throughout the colon, which may reflect enteritis. 2. Fluid distention of the proximal appendix, measuring up to 7 mm; however, no surrounding inflammatory change is appreciated. 3. Splenomegaly. Dictated by: Lino Blankenship M.D. on 11/15/2021 at 18:12 Approved by: Lino Blankenship M.D. on 11/15/2021 at 18:19
[2021-11-15 16:54] LABS: Alanine Aminotransferase 42 IU/L (<50); Albumin 5.7 g/dL (3.5-5.0); Albumin Globulin Ratio 1.4 (1.0-2.8); Alkaline Phosphatase 84 U/L (38-126); Aspartate Aminotransferase 39 IU/L (17-59); BUN Creatinine Ratio 12.9 (6-22); Bilirubin Total 1.7 mg/dL (0.2-1.3); Blood Urea Nitrogen 12 mg/dL (9-20); Calcium 9.8 mg/dL (8.4-10.2); Carbon Dioxide 25 mmol/L (22-32); Chloride 105 mmol/L (98-107); Estimated Glomerular Filt Rate > 60.0 mL/min (>60); Glucose 93 mg/dL (70-100); HEMOLYSIS 17 (0-50); Lipase 57 U/L (23-300); Potassium 3.8 mmol/L (3.4-5.1); Sodium 143 mmol/L (137-145)
[2021-11-15] MEDS: ONDANSETRON 4 MG/2 ML INJ IV (16:58)
[2021-11-15] MEDS: MORPHINE 4 MG/ML INJ IV (16:59)
[2021-11-15] MEDS: SODIUM CHLORIDE 0.9% 1,000 ML 1000 ML IV (17:03)
[2021-11-15 17:24] LABS: Total Protein 9.7 g/dL (6.3-8.2)
[2021-11-15] MEDS: DICYCLOMINE 10 MG CAPSULE PO (19:03)
[2021-11-15] MEDS: KETOROLAC 30 MG/ML VIAL IV (19:03)
--- NOTE | 2021-11-15 19:09 | PC.NURSE ---
called his sister to pick him up per his request.
== END 2021-11-15 19:38 | disposition home or self-care (01) ==
PROVIDERS: Emergency Provider Emergency Medicine; Family Provider Family Medicine; PCP Family Medicine
DX: K52.9 Noninfective gastroenteritis and colitis, unspecified (principal); Z87.891 Personal history of nicotine dependence
CPT/HCPCS: 74177; 80053; 81003; 83690; 85025; 96361; 96374; 96375; 99284; J1885; J2270; J2405; Q9967

== ENCOUNTER 2022-09-04 19:33 | Emergency (ER) | payer OTHER, MEDICAID, SELFPAY ==
[2022-09-04 19:49] VITALS: BP 163/100; PULSE 88; RESP 18; TEMP 36.6; O2SAT 97
[2022-09-04 21:26] LABS: Influenza A - CEPHEID Flu A NEGATIVE (NEGATIVE); Influenza B - CEPHEID Flu B NEGATIVE (NEGATIVE); Respiratory Syncytial Virus Negative (Negative)
[2022-09-04 21:29] LABS: COVID-19 CEPHEID 4-PLEX PCR POSITIVE (Negative)
--- NOTE | 2022-09-05 01:27 | ED.URI ---
HPI - URI/Sore Throat General Chief Complaint: Upper Respiratory Symptoms Stated Complaint: Headache, Diarrhea, Coughing, Achy Time Seen by Provider: 09/04/22 21:48 Source: patient Mode of arrival: Ambulatory History of Present Illness HPI Narrative: 51-year-old male former smoker with history of fatty liver presents with a chief complaint of various upper respiratory complaints including headache, nasal congestion, sore throat and dry cough since Sunday. He has been taking Tylenol and Motrin with little relief. He denies any fever or chills. He is had nausea but denies vomiting. He denies abdominal pain but has had some loose stools. He denies any obvious exposure to other ill persons. He denies any shortness of breath. Related Data Home Medications Medication Instructions Recorded Confirmed lisinopril 20 mg tablet 20 mg PO DAILY 06/18/19 06/18/19 Previous Rx's Medication Instructions Recorded vancomycin 125 mg capsule 125 mg PO QID #32 caps 06/20/19 tramadol 50 mg tablet (Ultram) 50 mg PO Q6H PRN pain #7 tabs 06/08/20 meloxicam 7.5 mg tablet (Mobic) 7.5 mg PO BID PRN pain #10 tabs 02/24/21 hyoscyamine sulfate 0.125 mg tablet 0.125 mg PO BID-QID PRN dyspepsia 02/27/21 #20 tabs ondansetron 4 mg disintegrating 4 mg PO TID-QID PRN nausea and 02/27/21 tablet vomiting #10 tabs hyoscyamine sulfate 0.125 mg tablet 0.125 mg PO BID-QID PRN dyspepsia 08/06/21 #20 tabs dicyclomine 10 mg capsule 10 mg PO BID PRN abdominal pain 11/15/21 #20 caps benzonatate 200 mg capsule 200 mg PO BID PRN cough #20 caps 09/05/22 ketorolac 10 mg tablet 10 mg PO Q6H PRN pain #14 tabs 09/05/22 Allergies Allergy/AdvReac Type Severity Reaction Status Date / Time Penicillins [PENICILLINS] Allergy Mild HIVES Verified 02/26/21 18:15 Review of Systems Review of Systems Narrative: GENERAL: See HPI HEENT: See HPI RESPIRATORY: See HPI CARDIOVASCULAR: Denies chest pain, palpitations, orthopnea, edema, GASTROINTESTINAL: Denies nausea, vomiting, abdominal pain, diarrhea, constipation, melena. : Denies dysuria, frequency, incontinence, hematuria, urinary retention. MUSCULOSKELETAL: denies weakness, joint pain, or bony pain SKIN: Denies rash, skin lesions, or other NEUROLOGIC: See HPI PSYCHIATRIC: No concerning psychosocial issues. 12 point review of systems is negative except for those stated above Patient History Medical History (Updated 09/05/22 @ 01:42 by Yeison Weston DO) HTN (hypertension) Patient denies medical problems Surgical History History of neck surgery Social History household members: family Smoking Status: Former smoker alcohol intake: never Smoking Status: Former smoker alcohol intake frequency: holidays/special occasions only Substance Use Type: does not use Exam Narrative Exam Narrative: GENERAL: [51] year old patient appears stated age. Well-developed patient, in mild distress. HEAD: Atraumatic. Normocephalic. EYES: Pupils equal round and reactive. Extraocular motions intact. No scleral icterus. No injection or drainage. ENT: Nose without bleeding, purulent drainage. Throat without erythema, tonsillar hypertrophy or exudate. Airway patent. NECK: Trachea midline. Non tender CARDIOVASCULAR: Regular rate and rhythm without murmurs, gallops, or rubs. RESPIRATORY: Clear to auscultation. Breath sounds equal bilaterally. No wheezes, rales, or rhonchi. GASTROINTESTINAL: Abdomen soft, non-tender, nondistended. EXTREMITIES: No edema or joint tenderness. BACK: Nontender without deformity or crepitance. No flank tenderness. NEURO: AOx3. SKIN: No rash or erythema of visible areas Initial Vital Signs Initial Vital Signs: Vital Signs Temperature 97.9 F 09/04/22 19:49 Pulse Rate 88 09/04/22 19:49 Respiratory Rate 18 09/04/22 19:49 Blood Pressure 163/100 H 09/04/22 19:49 Pulse Oximetry 97 09/04/22 19:49 Oxygen Delivery Method 09/04/22 19:49 Course Orders Ordered: Discontinued Medications Ketorolac Tromethamine (Ketorolac 30 Mg/Ml Vial) 30 mg IM NOW ONE Stop: 09/05/22 01:38 Last Admin: 09/05/22 01:44 Dose: 30 mg Documented By: NENA Vital Signs Vital signs: Vital Signs - 8 hr 09/04/22 19:49 Temperature 97.9 F Pulse Rate 88 Respiratory Rate 18 Blood Pressure 163/100 H Pulse Oximetry 97 Oxygen Delivery Method Room Air MDM - URI/Sore Throat Lab Data Labs: Lab Results 09/04/22 Range/Units 19:50 SARS-CoV-2 (PCR) Positive H (Negative) Influenza A (RT-PCR) Flu a negative (NEGATIVE) Influenza B (RT-PCR) Flu b negative (NEGATIVE) RSV (PCR) Negative (Negative) MDM Narrative Medical decision making narrative: [51-year-old male former smoker with GI history presents with various upper respiratory symptoms] Multiple etiologies for patient's symptoms considered including, but not limited to: [Flu, COVID versus other] Labs reviewed and interpreted by myself: Respiratory swab positive for COVID Patient well-appearing and in no respiratory distress, no need for supplemental oxygen. No meningeal signs or other physical exam findings that are significance and would suggest that further evaluation is needed Patient's symptoms improved over duration of stay with above-stated therapies. Findings and discharge diagnosis discussed with patient/family followed by verbalization of understanding Return precautions discussed with patient/family whom verbalize understanding of diagnosis and plan Discharge Plan Departure Patient Disposition: Home Clinical Impression: COVID-19 Instructions: COVID-19 Activity Restrictions/Additional Instructions: *You have been diagnosed with [ COVID-19] *What to do: ?* per recommendations from the CDC and the [facility] Department of Health ?* stay home except to get medical care. ?Restrict activities outside your home, except for getting medical care. ?Do not go to work, school, or public areas. ?Avoid using public transportation, ride sharing, or taxis. ?* separate yourself from other people in your home. ?* call ahead before visiting your doctor ?* Wear a facemask ?* Cover your coughs and sneezes ?* Clean your hands often ?* Avoid sharing household items ?* Clean all high-touch services every day ?* Monitor your symptoms and seek prompt medical attention if your illness is worsening, particularly with difficulty in breathing. You may discontinue your isolation when: ?1. You have been fever-free for at least 24 hours without the use of fever reducing medication, AND ?2. Your symptoms are getting better, AND ?3. At least 5 days have passed since symptoms first appeared ?4. If you have fever, continue to stay home until fever resolves Individuals with laboratory confirmed COVID-19 who have not had any symptoms may discontinue home isolation when at least 5 days have passed since the date of their first COVID-19 diagnostic test and have had no subsequent illness You should notifiy any friends and family that have been in close contact *If up to date on COVID Vaccines, then they do not need to quarantine unless symptoms develop. Get tested on day 5 (or sooner if symptoms develop). Take precautions and watch for symptoms until day 10 *If NOT up to date on COVID Vaccines, then CDC recommends quarantine for at least 5 full days. Wear a well fitted mask at home if you must be around others. If they ?develop symptoms they should get tested. If they remain asymptomatic they should get tested on day 5. They should take precautions and monitor for symptoms until day 10. Prescriptions: New benzonatate 200 mg capsule 200 mg PO BID PRN (Reason: cough) Qty: 20 0RF ketorolac 10 mg tablet 10 mg PO Q6H PRN (Reason: pain) Qty: 14 0RF No Action meloxicam [Mobic] 7.5 mg tablet 7.5 mg PO BID PRN (Reason: pain) Qty: 10 0RF hyoscyamine sulfate 0.125 mg tablet 0.125 mg PO BID-QID PRN (Reason: dyspepsia) Qty: 20 0RF dicyclomine 10 mg capsule 10 mg PO BID PRN (Reason: abdominal pain) Qty: 20 0RF lisinopril 20 mg Tablet 20 mg PO DAILY vancomycin 125 mg Capsule 125 mg PO QID Qty: 32 0RF tramadol [Ultram] 50 mg tablet 50 mg PO Q6H PRN (Reason: pain) Qty: 7 0RF hyoscyamine sulfate 0.125 mg tablet 0.125 mg PO BID-QID PRN (Reason: dyspepsia) Qty: 20 0RF ondansetron 4 mg tablet,disintegrating 4 mg PO TID-QID PRN (Reason: nausea and vomiting) Qty: 10 0RF Referrals: Antoine Alvarez MD [Primary Care Provider] - Stand Alone Forms: Patient Portal/API
[2022-09-05] MEDS: KETOROLAC 30 MG/ML VIAL IM (01:44)
== END 2022-09-05 01:58 | disposition home or self-care (01) ==
PROVIDERS: Emergency Provider Emergency Medicine; Family Provider Family Medicine; PCP Family Medicine
DX: U07.1 COVID-19 (principal)
CPT/HCPCS: 0241U; 96372; 99283; J1885